=== PATIENT | female | born 1940 | race Caucasian/White ===

== ENCOUNTER 2021-10-26 11:31 | Emergency (ER) | payer MEDICARE, OTHER, SELFPAY ==
[2021-10-26] VITALS (11 sets, daily range): BP systolic 134–161; BP diastolic 63–76; PULSE 72–91; RESP 16; TEMP 36.9; O2SAT 96–99
--- NOTE | 2021-10-26 12:43 | DI.RAD.S_ITS ---
PROCEDURE: XR LUMBAR SPINE 2-3V INDICATIONS: low back pain w/sciatica TECHNIQUE: 3 views of the lumbar spine were acquired. COMPARISON: None. FINDINGS: Bones: 5 eql-yqn-ifokcwt vertebrae are present. Moderate dextroscoliosis. There is grade 1 anterolisthesis of L4 on L5. No vertebral body compression fractures. No suspicious bony lesions. Degenerative disc disease is present, severe at L3-L4 and L4-L5, moderate at L2-L3. Dlswdjfz-tn-xvzidv degenerative facet arthropathy at L3-L4, L4-L5 and L5-S1. Soft tissues: Overlying bowel gas pattern is normal. No suspicious soft tissue calcifications. IMPRESSION: 1. Degenerative disc and facet disease in lumbar spine as described. MRI is recommended for further evaluation. 2. Scoliosis. 3. Grade 1 anterolisthesis of L4 on L5. Dictated by: Wing Carrero M.D. on 10/26/2021 at 14:35 Approved by: Wing Carrero M.D. on 10/26/2021 at 14:39
[2021-10-26] MEDS: LIDOCAINE PATCH 1 EACH ADH..PATCH TOP (13:09)
[2021-10-26] MEDS: methocarbamoL 500 MG TABLET 250 MG PO (13:10)
[2021-10-26] MEDS: IBUPROFEN 400 MG TABLET 600 MG PO (13:10)
[2021-10-26] MEDS: ACETAMINOPHEN 325 MG TABLET 650 MG PO (13:10)
--- NOTE | 2021-10-26 13:21 | ED_ITS ---
HPI - Back Pain/Injury <KENDY Sharma - Last Filed: 10/26/21 15:05> General Chief Complaint: Back Pain/Injury Stated Complaint: Pain, previous fall Time Seen by Provider: 10/26/21 12:42 Source: patient and EMS History of Present Illness HPI Narrative: This is a 81-year-old female presents to the emergency department by ambulance for worsening low back pain with a history of this since a lumbar surgery five years ago. Patient endorses having chronic neuropathy in her feet, not due to diabetes, reports that she has occasional falls due to this and had two falls over the last 10 days 1st falling down on her tailbone, two days later she fell down and injured her left ribs. She states that her ribs and tailbone have improved but she has had worsening low back pain. She saw a chiropractor on 10/22/21 and states that that had helped her pain quite a bit. She lives at home with her , endorses pain in her lower lumbar spine which she has to cross both of her hips and does not radiate else. She states that it is too painful to walk at home. She called an ambulance because she had too much pain to get up. She endorses using CBD cream for pain and states that it has not been adequate. She denies any new weakness or sensation changes, denies any recent illness, fever, incontinence, abdominal pain, flank pain or other symptom. Related Data Previous Rx's Medication Instructions Recorded diclofenac sodium 1 % topical gel 4 g topical TID PRN back/joint 10/26/21 pain #100 grams hydrocodone 5 mg-acetaminophen 325 1 tab PO BID PRN pain #14 tabs 10/26/21 mg tablet lidocaine 5 % topical patch 1 patch topical DAILY PRN pain #15 10/26/21 (Lidoderm) ea methocarbamol 500 mg tablet 500 mg PO BEDTIME PRN muscle spasm 10/26/21 #14 tabs Allergies Allergy/AdvReac Type Severity Reaction Status Date / Time Sulfa (Sulfonamide Allergy Unknown Verified 10/26/21 13:09 Antibiotics) [SULFA (SULFONAMIDE ANTIBIOTICS)] Review of Systems <KENDY Sharma - Last Filed: 10/26/21 15:05> Review of Systems Narrative: General: denies fever, chills Head/Neck: denies headache, neck pain Eyes: denies visual changes, eye pain Cardio: denies chest pain, palpitations Respiratory: denies shortness of breath, cough GI: denies abdominal pain, nausea, vomiting, or diarrhea : denies dysuria, hematuria or flank pain MSK: denies new joint pain, muscle weakness or swelling endorses lower lumbar pain with radiation of pain to bilateral hips Skin: denies rash, itching or wound Neuro: denies numbness, tingling, dizziness Patient History <KENDY Sharma - Last Filed: 10/26/21 15:05> Family History Father Diabetes mellitus Exam <KENDY Sharma - Last Filed: 10/26/21 15:05> Narrative Exam Narrative: Independently reviewed vitals signs and nursing notes. General: cooperative, comfortable, in no acute distress, well groomed Head: atraumatic, symmetrical facial expressions Neck: supple Eyes: equal round and reactive, EOMI, conjunctiva normal Nose: nares patent, no rhinorrhea Mouth/Throat: moist mucus membranes Cardiovascular: regular rate and rhythm, no peripheral edema, warm extremities Respiratory: normal effort, able to speak in complete sentences, no audible wheezing, stridor, or rales. No retractions or tachypnea. GI: abdomen soft, nontender to palpation, nondistended, no masses, no exquisite tenderness with exam, without guarding or rebound. MSK: Lumbar stay and sacral spine nontender to palpation, paraspinal musculature is tight, having lumbar muscle spasms, moves all extremities, equal strength bilaterally neurovascularly intact, no weakness, normal tone Skin: brisk capillary refill, no rash, no erythema Neuro: normal speech and cognition, A&O x3 Psych: mental status is grossly normal, congruent mood, normal affect, pleasant and cooperative Initial Vital Signs Initial Vital Signs: Vital Signs Temperature 98.4 F 10/26/21 11:31 Pulse Rate 91 H 10/26/21 11:31 Respiratory Rate 16 10/26/21 11:31 Blood Pressure 161/75 H 10/26/21 11:31 Pulse Oximetry 99 10/26/21 11:31 Oxygen Delivery Method 10/26/21 11:31 <Amee Barraza DO - Last Filed: 10/28/21 13:09> Initial Vital Signs Initial Vital Signs: Vital Signs Temperature 98.4 F 10/26/21 11:31 Pulse Rate 91 H 10/26/21 11:31 Respiratory Rate 16 10/26/21 11:31 Blood Pressure 161/75 H 10/26/21 11:31 Pulse Oximetry 99 10/26/21 11:31 Oxygen Delivery Method 10/26/21 11:31 Course <KENDY Sharma - Last Filed: 10/26/21 15:05> Orders Ordered: Discontinued Medications Acetaminophen (Acetaminophen 325 Mg Tablet) 650 mg PO NOW ONE Stop: 10/26/21 12:44 Last Admin: 10/26/21 13:10 Dose: 650 mg Documented By: MERLENE Hydrocodone Bitart/Acetaminophen (Hydrocodone/Acet 5/325 Tablet) 1 tab PO NOW ONE Stop: 10/26/21 13:22 Last Admin: 10/26/21 13:55 Dose: 1 tab Documented By: MERLENE Ibuprofen (Ibuprofen 400 Mg Tablet) 600 mg PO NOW ONE Stop: 10/26/21 12:44 Last Admin: 10/26/21 13:10 Dose: 600 mg Documented By: MERLENE Lidocaine (Lidocaine Patch 1 Each Adh..Patch) 1 each TOP NOW ONE Stop: 10/26/21 12:44 Last Admin: 10/26/21 13:09 Dose: 1 each Documented By: MERLENE Methocarbamol (Methocarbamol 500 Mg Tablet) 250 mg PO NOW ONE Stop: 10/26/21 12:44 Last Admin: 10/26/21 13:10 Dose: 250 mg Documented By: MERLENE Vital Signs Vital signs: Vital Signs - 8 hr 10/26/21 11:31 10/26/21 11:36 10/26/21 11:36 Temperature 98.4 F Pulse Rate 91 H 89 Respiratory Rate 16 Blood Pressure 161/75 H 161/75 H Pulse Oximetry 99 99 Oxygen Delivery Method Room Air 10/26/21 12:00 10/26/21 12:00 10/26/21 12:30 Temperature Pulse Rate 83 Respiratory Rate Blood Pressure 145/72 H 154/76 H Pulse Oximetry 99 Oxygen Delivery Method 10/26/21 12:30 Temperature Pulse Rate 78 Respiratory Rate Blood Pressure Pulse Oximetry 99 Oxygen Delivery Method <Amee Barraza DO - Last Filed: 10/28/21 13:09> Orders Ordered: Discontinued Medications Acetaminophen (Acetaminophen 325 Mg Tablet) 650 mg PO NOW ONE Stop: 10/26/21 12:44 Last Admin: 10/26/21 13:10 Dose: 650 mg Documented By: MERLENE Hydrocodone Bitart/Acetaminophen (Hydrocodone/Acet 5/325 Tablet) 1 tab PO NOW ONE Stop: 10/26/21 13:22 Last Admin: 10/26/21 13:55 Dose: 1 tab Documented By: MERLENE Ibuprofen (Ibuprofen 400 Mg Tablet) 600 mg PO NOW ONE Stop: 10/26/21 12:44 Last Admin: 10/26/21 13:10 Dose: 600 mg Documented By: MERLENE Lidocaine (Lidocaine Patch 1 Each Adh..Patch) 1 each TOP NOW ONE Stop: 10/26/21 12:44 Last Admin: 10/26/21 13:09 Dose: 1 each Documented By: MERLENE Methocarbamol (Methocarbamol 500 Mg Tablet) 250 mg PO NOW ONE Stop: 10/26/21 12:44 Last Admin: 10/26/21 13:10 Dose: 250 mg Documented By: MERLENE Vital Signs Vital signs: Vital Signs - 8 hr 10/26/21 11:31 10/26/21 11:36 10/26/21 11:36 Temperature 98.4 F Pulse Rate 91 H 89 Respiratory Rate 16 Blood Pressure 161/75 H 161/75 H Pulse Oximetry 99 99 Oxygen Delivery Method Room Air 10/26/21 12:00 10/26/21 12:00 10/26/21 12:30 Temperature Pulse Rate 83 Respiratory Rate Blood Pressure 145/72 H 154/76 H Pulse Oximetry 99 Oxygen Delivery Method 10/26/21 12:30 Temperature Pulse Rate 78 Respiratory Rate Blood Pressure Pulse Oximetry 99 Oxygen Delivery Method MDM - Back Pain/Injury <KENDY Sharma - Last Filed: 10/26/21 15:05> Lab Data Labs: Urine Dip Bedside Urine Glucose Negative Bedside Urine Bilirubin - Negative Bedside Urine Ketone - Negative Urine Specific [place] 1.015 Bedside Urine Occult Blood - Negative Bedside Urine pH 7.0 Bedside Urine Protein - Negative Bedside Urine Urobilinogen - Negative Bedside Urine Nitrite - Negative Bedside Urine Leukocytes - Negative Esterase Imaging Data lumbar spine: Radiologist's Impression: PROCEDURE:? XR LUMBAR SPINE 2-3V ? INDICATIONS:? low back pain w/sciatica ? TECHNIQUE:? 3 views of the lumbar spine were acquired.? ? COMPARISON:? None. ? FINDINGS:? ?Bones:? 5 cql-lyt-ybsqeck vertebrae are present.? Moderate dextroscoliosis.? There is grade 1 anterolisthesis of L4 on L5.? No vertebral body compression fractures.? No suspicious bony lesions.? Degenerative disc disease is present, severe at L3-L4 and L4-L5, moderate at L2-L3.? Uvkbnjby-zb-cxaxkn degenerative facet arthropathy at L3-L4, L4-L5 and L5-S1. ? Soft tissues:? Overlying bowel gas pattern is normal.? No suspicious soft tissue calcifications.? ? ? IMPRESSION:? ?1. Degenerative disc and facet disease in lumbar spine as described.? MRI is recommended for further evaluation. 2. Scoliosis. 3. Grade 1 anterolisthesis of L4 on L5.? ? Dictated by: Wing Carrero M.D. on 10/26/2021 at 14:35 ? ? Approved by: Wing Carrero M.D. on 10/26/2021 at 14:39 ? MDM Narrative Medical decision making narrative: This is a pleasant 81-year-old female with history of low back pain with lumbar surgery five years ago, peripheral neuropathy in bilateral lower extremities which lead to imbalance and frequent falls, who presents to the emergency department after two falls eight in 10 days ago which have flared up her low back pain. Patient reports that 10 days ago she had a fall directly onto her coccyx, did not seek medical attention and has been ambulatory and going about her business per usual using a walker. Patient has been using CBD cream for her pain which has not helped much. She did not hit her head when she fell. Lumbar x-ray shows degenerative disc and facet disease in her lumbar spine with moderate dextroscoliosis, grade 1 anterolisthesis of L4 on L5, no vertebral body compression fractures. She was medicated with hydrocodone, lidocaine patch, 250 mg of Robaxin, Tylenol and 600 mg of ibuprofen and states that her pain was much better. She was able to ambulate to void without significant pain or spasms. Encouraged her to follow-up with her primary care provider, chiropractor, and possibly physical therapy it would be beneficial after her flare has improved. Multiple etiologies of back pain considered including; Epidural abscess, cauda equina, mass occupying lesion, lumbar fracture, intra-abdominal pathology chronic neuropathic pain and other considered. Patient does not have any new weakness, no incontinence, no urinary retention, is ambulatory again and understands to follow-up with her outpatient providers as discussed. Patient is appropriate and amenable to discharge home. Vital signs are stable on repeat examination is unremarkable. Patient has been informed of results. Patient has been given strict return to ER precautions for any new or worsening symptoms. Patient understands to follow up closely with outpatient providers as instructed. Patient understands plan and agrees to discharge home. All questions and concerns answered at this time. <Amee Barraza, DO - Last Filed: 10/28/21 13:09> Lab Data Labs: Urine Dip Bedside Urine Glucose Negative Bedside Urine Bilirubin - Negative Bedside Urine Ketone - Negative Urine Specific [place] 1.015 Bedside Urine Occult Blood - Negative Bedside Urine pH 7.0 Bedside Urine Protein - Negative Bedside Urine Urobilinogen - Negative Bedside Urine Nitrite - Negative Bedside Urine Leukocytes - Negative Esterase Discharge Plan Departure Patient Disposition: Home Clinical Impression: Facet arthritis, degenerative, lumbar spine, Anterolisthesis of lumbar spine Degenerative disk disease Qualifiers: Spinal region: lumbar Qualified Code(s): M51.36 - Other intervertebral disc degeneration, lumbar region Scoliosis Qualifiers: Scoliosis type: unspecified scoliosis Spinal region: lumbar Qualified Code(s): M41.9 - Scoliosis, unspecified Instructions: Osteoarthritis, Degenerative Disc Disease, DI for Back Spasm, DI for Lumbar Radiculopathy Activity Restrictions/Additional Instructions: *You have been diagnosed with [ ] falls which have likely exacerbated your degenerative disc and facets in your lumbar spine with history of scoliosis and a mildly slipped disc of L4 on L5. There are no compression fractures, your back pain might benefit from a topical anti-inflammatory, heat, light massage, follow-up with your chiropractor, and take ibuprofen occasionally with food and water if it is helpful. I have prescribed for you hydrocodone for pain not relieved by Tylenol, ibuprofen, and muscle relaxers. Please use the muscle relaxer before bed to help you sleep and save your pain pills for the daytime. They both can cause sedation so use an assistive walking device the keep herself safe and follow-up with your primary doctor for of physical therapy referral if you need one or ongoing pain medication if he knew that as well. I hope you feel better soon, try not to stay too still because joints like movement. *What to do: *Please continue to take your regular medications as directed. [ x] New medication prescriptions sent to your pharmacy: [ [facility] [place]] [ ] New medication written as a paper prescription [ ] No new medications given *Please follow up with your primary care provider in 2-3 days, call for an appointment. Let them know you were seen in the Emergency Department and that we asked that you be seen for follow-up. We will electronically transmit a record of today's note if your PCP is in our system *If you do not have a primary care provider please contact [phone] to establish care with one of [facility] primary care providers. *Return to Emergency Department if you should have any new, worsening or concerning symptoms, such as [fever greater than 101F, chills, worsening pain, persistent vomiting or other bothersome symptoms] Prescriptions: New methocarbamol 500 mg tablet 500 mg PO BEDTIME PRN (Reason: muscle spasm) Qty: 14 0RF hydrocodone-acetaminophen 5-325 mg tablet 1 tab PO BID PRN (Reason: pain) Qty: 14 0RF lidocaine [Lidoderm] 5 % adhesive patch,medicated 1 patch topical DAILY PRN (Reason: pain) Qty: 15 0RF Rx Instructions: leave on most painful area for up to 12 hrs diclofenac sodium 1 % gel 4 g topical TID PRN (Reason: back/joint pain) Qty: 100 0RF Referrals: Elias Smith MD [Physician] - Rocio Astudillo ND [Primary Care Provider] - David Mccormick DC [Non-Staff] - Visit Report Forms: Patient Portal/API <Amee Barraza DO - Last Filed: 10/28/21 13:09> [facility] Attending Andrei Attestation: I was immediately available in the department for consultation. Documentation has been reviewed. I agree with assessment and plan.
[2021-10-26] MEDS: HYDROCODONE/ACET 5/325 TABLET 1 TAB PO (13:55)
== END 2021-10-26 15:15 | disposition home or self-care (01) ==
PROVIDERS: Emergency Provider Nurse Practitioner Critical Care Medicine; Family Provider Naturopath; PCP Naturopath
DX: M51.36 Other intervertebral disc degeneration, lumbar region (principal); M41.9 Scoliosis, unspecified; M47.816 Spondylosis without myelopathy or radiculopathy, lumbar region; M43.16 Spondylolisthesis, lumbar region; R29.6 Repeated falls
CPT/HCPCS: 72100; 81003; 99283; 99284

== ENCOUNTER → 2021-11-04 12:55 | Outpatient (CLI) | payer MEDICARE, OTHER, SELFPAY ==
--- NOTE | 2021-11-04 12:56 | DI.MRI.S_ITS ---
PROCEDURE: MR LUMBAR SPINE WO CON INDICATIONS: r/o disc impingement TECHNIQUE: Noncontrast sagittal T1 spin echo and T2 fast echo, sagittal STIR, and T2 fast spin echo through the lumbar spine. In cases with scoliosis, additional coronal T2 fast spin echo may be performed. COMPARISON: [facility], CT, ABDOMEN/PELVIS WITH CONTRAST, 08/21/2013, 12:57. [facility], CR, XR LUMBAR SPINE 2-3V, 10/26/2021, 12:37. FINDINGS: Image quality: This examination is limited by involuntary motion artifact. Alignment and Curvature: There is kstz-ea-blcxsfwn dextroconvex scoliosis. Grade 1 L4-5 anterolisthesis is seen. There is an apparent associated L4 pars defect on the right side. Bone Marrow: Marrow is of normal overall signal. No acute vertebral body compression fractures. Spinal Cord: Conus medullaris terminates at the L1 level. Visualized cord demonstrates normal signal and size. Paraspinous Soft Tissues: No paravertebral masses. T11-T12: Moderate loss of disc height is seen. Mild generalized disc bulge is seen. There is mild right-sided and no left-sided neural foraminal narrowing. Mild central canal narrowing is seen. T12-L1: Mild loss of disc height is seen. Loss of disc signal is seen. Minimal to mild disc bulge is seen. No significant neural foraminal or central canal narrowing can be seen. L1-L2: No significant abnormality is seen. L2-L3: At least moderate loss of disc height is seen. Mild disc bulge is seen, which is eccentric to the left. Mild facet joint hypertrophy is seen. There is moderate left-sided and no right-sided neural foraminal narrowing. No significant central canal narrowing is seen. L3-L4: Moderate loss of disc height is seen. Loss of disc signal is seen. Movu-in-djoyvdxt disc bulge is seen. Moderate facet joint hypertrophy is seen. Associated hypertrophy of the ligamentum flavum can be seen. There is moderate to severe right-sided neural foraminal narrowing, with a mild degree of compression upon the exiting right L3 nerve root. Moderate left-sided neural foraminal narrowing is seen. Moderate central canal narrowing is seen. L4-L5: Moderate to severe loss of disc height and disc signal can be seen. Reactive marrow endplate changes are seen, which demonstrate mixed T1 weighted and T2-weighted signal, and are attributed to a combination of edema and fatty metaplasia (Modic type I and Modic type II changes). At least moderate disc bulge is seen. There is a central disc bulge/disc uncovering seen. Prominent facet hypertrophy is seen. There is moderate to severe bilateral neural foraminal narrowing seen, right worse than left. There is a degree of compression seen upon the exiting nerve roots. Severe central canal narrowing is seen, as on series 6, image 23. L5-S1: The disc height and disc signal are relatively well preserved. Mild generalized disc bulge is seen. Moderate to prominent facet hypertrophy is seen at this level. Moderate bilateral neural foraminal narrowing is seen. Moderate central canal narrowing is seen. IMPRESSION: Multiple levels of lumbar spine degenerative change are seen, which are worst at the L4-L5 level. At this level there is grade 1 anterolisthesis, moderate to severe bilateral neural foraminal narrowing, with associated exiting nerve root compression, and severe central canal narrowing. Jknt-tz-dfmcxbos dextroconvex scoliosis. Dictated by: Ivan Chou M.D. on 11/04/2021 at 15:32 Approved by: Ivan Chou M.D. on 11/04/2021 at 15:37
== END ==
PROVIDERS: Family Provider Pediatrics; PCP Pediatrics; Referring Provider Pediatrics; Visit Provider Pediatrics
DX: M47.817 Spondylosis without myelopathy or radiculopathy, lumbosacral region (principal); M47.816 Spondylosis without myelopathy or radiculopathy, lumbar region; M48.061 Spinal stenosis, lumbar region without neurogenic claudication; M48.07 Spinal stenosis, lumbosacral region; M43.16 Spondylolisthesis, lumbar region; M41.9 Scoliosis, unspecified
CPT/HCPCS: 72148

== ENCOUNTER → 2022-01-21 11:07 | Outpatient (CLI) | payer MEDICARE, OTHER, SELFPAY ==
[2022-01-21 15:19] LABS: Add Manual Diff / Slide Review NO; Basophils Absolute Auto 100 /uL (0-100); Basophils Percent Auto 1.2 % (0-2); Eosinophils Absolute Auto 100 /uL (0-450); Eosinophils Percent Auto 1.2 % (2-4); Hematocrit 36.4 % (36-46); Hemoglobin 12.9 g/dL (12.0-16.0); Lymphocytes Absolute Auto 2100 /uL (1100-4500); Lymphocytes Percent Auto 39.3 % (25-40); Mean Corpuscular HGB Conc 35.3 % (30-36); Mean Corpuscular Hemoglobin 35.6 PG (26-34); Mean Corpuscular Volume 100.7 fL (80-100); Monocytes Absolute Auto 400 /uL (0-900); Monocytes Percent Auto 6.9 % (3-14); Neutrophils Absolute Auto 2700 /uL (1500-7000); Neutrophils Percent Auto 51.4 % (50-75); Platelet Count 172 X10^3/uL (150-400); Red Blood Cell Count 3.62 X10^6/uL (4.0-5.2); Red Cell Distribution Width 13.3 % (11.6-14.8); White Blood Cell Count 5.3 X10^3/uL (4.5-11.0)
[2022-01-21 15:37] LABS: Alanine Aminotransferase 28 IU/L (<35); Albumin 4.5 g/dL (3.5-5.0); Albumin Globulin Ratio 1.1 (1.0-2.8); Alkaline Phosphatase 119 U/L (38-126); Aspartate Aminotransferase 59 IU/L (14-36); BUN Creatinine Ratio 23.4 (6-22); Bilirubin Total 0.6 mg/dL (0.2-1.3); Blood Urea Nitrogen 15 mg/dL (7-17); Calcium 9.2 mg/dL (8.4-10.2); Carbon Dioxide 24 mmol/L (22-32); Chloride 101 mmol/L (98-107); Cholesterol 187 mg/dL (140-199); Estimated Glomerular Filt Rate > 60 mL/min (>60); Globulin 4.2 g/dL (1.7-4.1); Glucose 99 mg/dL (80-110); HDL Cholesterol 56 mg/dL (40-60); HEMOLYSIS < 15 (0-50); LDL Cholesterol Calculated 114 mg/dL (<100); Sodium 138 mmol/L (137-145); Total Protein 8.7 g/dL (6.3-8.2); Triglycerides 84 mg/dL (35-150)
[2022-01-21 15:49] LABS: Vitamin D 25 Hydroxy (D3) 69.8 ng/mL (30.0-100.0)
[2022-01-21 16:13] LABS: TSH w/ Reflex to FT4 1.08 uIU/mL (0.47-4.68)
== END ==
PROVIDERS: Family Provider Pediatrics; PCP Family Medicine; Referring Provider Pediatrics; Visit Provider Pediatrics
DX: Z13.820 Encounter for screening for osteoporosis (principal); M81.0 Age-related osteoporosis without current pathological fracture; Z78.0 Asymptomatic menopausal state; Z79.890 Hormone replacement therapy; E55.9 Vitamin D deficiency, unspecified; Z13.220 Encounter for screening for lipoid disorders; Z13.228 Encounter for screening for other metabolic disorders; Z13.29 Encounter for screening for other suspected endocrine disorder
CPT/HCPCS: 36415; 77080; 80053; 80061; 82306; 84443; 85025

== ENCOUNTER → 2022-03-14 11:00 | Outpatient (CLI) | payer MEDICARE, OTHER, SELFPAY ==
[2022-03-14 12:10] LABS: COVID19 -Nasal RAPID Negative (Negative)
== END ==
PROVIDERS: Family Provider Pediatrics; PCP Family Medicine; Visit Provider Surgery
DX: Z20.822 Contact with and (suspected) exposure to COVID-19 (principal); Z01.812 Encounter for preprocedural laboratory examination
CPT/HCPCS: 87635; C9803

== ENCOUNTER 2022-03-15 06:40 | Day surgery (SDC) | payer MEDICARE, OTHER, SELFPAY ==
[2022-03-15 07:21] VITALS: BP 151/83; PULSE 94; RESP 16; TEMP 36.7; O2SAT 98; BMI 21.4
[2022-03-15] MEDS: LACTATED RINGERS 1,000 ML 42 ML IV (07:29)
--- NOTE | 2022-03-15 07:48 | PM.PREOP ---
Pre-operative Note COVID-19 COVID-19 status: Negative Interval Note History & Physical reviewed/Exam performed by Physician: Yes Changes to H&P: No
[2022-03-15 09:03] VITALS: BP 112/69; PULSE 76; RESP 14; TEMP 36.5; O2SAT 99
[2022-03-15 09:08] VITALS: BP 121/68; PULSE 77; RESP 14; O2SAT 99
[2022-03-15 09:13] VITALS: BP 118/69; PULSE 74; RESP 16; TEMP 36.2; O2SAT 99
--- NOTE | 2022-03-15 09:19 | PM.OP.COLON ---
Procedure & Clinicians Study performed: Colonoscopy Same procedure as scheduled: Yes Indications: screeing Surgeon: Geeta Velasquez Procedure Notes Procedure in detail: Patient was taken to the operating room and placed in left lateral decubitus position. A time-out was performed. With the help of anesthesia provider conscious sedation was performed. A digital rectal exam was performed. And the pediatric colonoscope was introduced. There was original dysfunction with the air insufflation of the device causing some delay. Once this was rectified the scope was advanced throughout the colon into the cecum with relative ease. Some photographs of the sigmoid displaying large diverticula were obtained. A photograph was taken of the appendiceal orifice. The scope was then withdrawn slowly. No polyps were appreciated. Upon withdrawal there was a red irritated area of rectum visualized consistent with the diagnosis of a rectal prolapse. The patient tolerated the procedure well and went in good condition to the postoperative care unit. Findings: divertiulosis Specimen(s): none sent Complications: none Post-procedure Recommendations: Colonoscopy in 10 years
[2022-03-15 09:30] VITALS: BP 151/83; PULSE 94; RESP 16; TEMP 36.7; O2SAT 98
== END 2022-03-15 09:46 | disposition home or self-care (01) ==
PROVIDERS: Family Provider Pediatrics; PCP Family Medicine; Referring Provider Surgery; Visit Provider Surgery
PROC: 0DJD8ZZ Inspection of Lower Intestinal Tract, Via Natural or Artificial Opening Endoscopic (ICD-10-PCS; CPT 45378; principal; 2022-03-15 07:45)
DX: Z12.11 Encounter for screening for malignant neoplasm of colon (principal); K57.30 Diverticulosis of large intestine without perforation or abscess without bleeding
CPT/HCPCS: G0121; J2704

== ENCOUNTER 2022-04-14 12:23 | Outpatient (CLI) | payer MEDICARE, OTHER, SELFPAY ==
--- NOTE | 2022-04-14 12:24 | DI.RAD.S_ITS ---
PROCEDURE: PAIN PERIPHERAL NRV BLK OTHER INDICATIONS: SACROILIAC DYSFUNCTION COMPARISON: [facility], CR, XR LUMBAR SPINE 2-3V, 10/26/2021, 12:37. FINDINGS: Fluoroscopic spot filming was performed to verify placement of spinal needles at the iliac crest level(s) bilaterally, as labeled on the films. Appropriate location(s) of the needle tip(s) was confirmed by injection of iodinated contrast. IMPRESSION: Fluoroscopy for pain management. Dictated by: Wing Carrero M.D. on 04/14/2022 at 15:59 Approved by: Wing Carrero M.D. on 04/14/2022 at 16:03
[2022-04-14 13:00] VITALS: BP 176/84; PULSE 88; RESP 20; TEMP 36.7; O2SAT 99
[2022-04-14 13:10] VITALS: BP 171/81; PULSE 76; RESP 19; O2SAT 100
[2022-04-14 13:25] VITALS: BP 160/86; PULSE 70; RESP 19; O2SAT 100
[2022-04-14] MEDS: BUPIVACAINE 0.5% (PF) 10 ML VIAL 5 ML SUBCUT (13:25)
[2022-04-14] MEDS: IOPAMIDOL 15 ML VIAL 3 ML INJ (13:29)
[2022-04-14 13:30] VITALS: BP 163/91; PULSE 75; RESP 21; O2SAT 100
[2022-04-14 13:35] VITALS: BP 160/81; PULSE 74; RESP 22; O2SAT 100
--- NOTE | 2022-04-14 13:42 | P.PCN_ITS ---
Date/Time/Diagnoses Date of procedure: 04/14/22 Time of procedure: 13:42 Pre-procedure diagnosis: Bilateral cluneal neuralgia Post-procedure diagnosis: same Procedure Notes Procedure: Bilateral Cluneal Nerve Blocks Indications: Tita is referred by Dr. Grisel Parsons for treatment of bilateral cluneal neuralgia with low back and buttock pain. Physician: El Jones Total Fluoroscopy time (seconds): 20 Total sedation minutes: 0 Procedure in detail & Post-procedure care: Bilateral Cluneal Nerve Blocks Chief Complaint: Low back and Bilateral buttock pain Interval changes in history/medications/system review: Unchanged since last visit Allergies: Reviewed Anticoagulants: None Focused Examination: Ax3 Mood and affect are normal Vital Signs: VSS Consent: Following review of allergies and potential side effects/complications, including, but not necessarily limited to, infection, allergic reaction, local tissue breakdown, stroke, temporary or permanent nerve injury, paralysis, and possible , the patient indicated that the patient understood and agreed to proceed.? An informed consent document was signed by the patient, witnessed by a nurse, and placed in the patient's chart.? Additionally, other treatment options including medications, modalities, and physical therapy were reviewed with the patient. All questions were answered. Site was then marked. Position: Prone Anesthesia: Local Monitoring: NIBP, Pulse oximetry, 3 lead EKG Needle used: 25 gauge, 3.5 inch spinal needle x3 Contrast: Isovue 300-M 2mL Injectate: Depomedrol 40mg with 5 mL 0.5% Bupivacaine per side Technique: The skin was prepped with chloraprep and then draped in a sterile fashion. Time out was performed as per protocol. Oxygen applied via NC. Midline of the spine was identified using fluoroscopy. The skin was measured 8 cm from midline and sterile brit placed on the skin delineating the superior aspect of the iliac crest on the right. Two thornton were subsequently made 2 cm medial and 2 cm lateral for a total of 3 target sites. Skin and subcutaneous structures of the needle entry sites were then infiltrated with 5 mL of lidocaine 1%. Under AP and contralateral oblique control, the needle was guided to the superior aspect of the iliac crest in the 3 locations. Contrast was injected and the spread was consistent with appropriate needle positioning. There was no evidence for intravascular uptake. After negative aspiration, the above-mentioned injectate was slowly administered and the needles withdrawn. The patient expressed no unusual discomfort or paresthesias during needle positioning or injection. This process was then repeated for the left side. EBL: less than 1 ml Complications: None Post Procedure: Patient was taken to the recovery and monitored. The patient was provided a Pain Log to continue to record the patient's response to the target- specific procedure prior to the patient's follow-up visit with the referring physician. Patient was stable upon discharge. Detailed post procedure instructions were provided. Patient was asked to call in the event of worsening pain, fever, weakness, numbness or bladder or bowel incontinence.
[2022-04-14 13:45] VITALS: BP 187/99; PULSE 79; RESP 18; O2SAT 100
== END 2022-04-14 13:54 | disposition home or self-care (01) ==
PROVIDERS: Family Provider Pediatrics; PCP Family Medicine; Referring Provider Anesthesiology; Visit Provider Anesthesiology
DX: M79.2 Neuralgia and neuritis, unspecified (principal)
CPT/HCPCS: 64450; J1030; J1040; J2920

== ENCOUNTER 2022-04-28 09:45 | Outpatient (RCR) | payer MEDICARE, OTHER, SELFPAY ==
--- NOTE | 2021-11-24 13:18 | PT.OIE ---
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) Past Medical History (Last Updated 11/09/21 @ 10:46 by Dusty Melo MD) Post-menopausal Screening for osteoporosis Spinal stenosis at L4-L5 level Visit Care Team Role Provider Type Dusty Melo MD Attending Provider Physician Family Provider Primary Care Provider Referring Provider Specialty: Internal Medicine Pediatrics Address: [address] [place] [address], [id number] Phone: Fax: Email: [email or web address] Initial Evaluation PT-OP-A Visit Information Start: 11/18/21 17:15 Freq: Status: Active Protocol: Document 11/24/21 12:00 AW (Rec: 11/18/21 17:21 AW [id number]) Out-Patient Physical Therapy Visit Information Visit Information Visit Type Initial Evaluation Visit Start Time 11:15 Visit Stop Time 12:00 Total Visit Minutes 45 Visit Number 1 Evaluation Information Evaluation Date 11/24/21 PT-OP-B Current Condition Start: 11/18/21 17:15 Freq: Status: Active Protocol: Document 11/24/21 12:00 AW (Rec: 11/18/21 17:21 AW [id number]) Current Condition History of Current Condition Onset Date Spring 2021 Current Complaints low back pain History of Current Condition Leidy fell this past spring and bruised her ribs, was very painful. She denies falls history before this. After a month or so, she had improved enough to get out to the yard and do some weeding in late August. She fell again and hurt her back. Has been seeing chiropractor since then. On October 26, she was very limited in her movement and went to ED . She was given pain meds which she is still taking. She has history of L sciatica but she is now having pain more on right side low back, buttock, lateral thigh to mid thigh. Oxycodone helps. Occasional heat helps. First thing in the morning is worst pain. Same when oxycodone wears off. It hurts to bend forward. She has been ambulating with FWW and then 4WW since August. Pt feels walker helps with her balance. She had never used a walker before . Her states even before the falls, her balance was getting worse and she would often cruise furniture for support. She has neuropathy in both feet but pt states it is mild and she feels slight dulling of sensation only occasionally. Prior Treatments and Tests - MRI 11/04/21: Multiple levels of lumbar spine degenerative change are seen, which are worst at the L4-L5 level. At this level there is grade 1 anterolisthesis, moderate to severe bilateral neural foraminal narrowing, with associated exiting nerve root compression, and severe central canal narrowing. 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 Future Testing and Treatments Planned 11/26 Neurosurgery in [place] . Developmental History Developmental History PMH includes ruptured colon treated surgically. Treatment Goals Patient/Caregiver Goals Walk without a walker, bend over to do gardening tasks. Take a shower independently. Prior Functional Status Baseline Function- ADL's Independent Baseline Function- Mobility Independent Baseline Function- Gait No AD but with worsening balance Baseline Function- Recreation/Hobbies Able to garden without pain Current Functional Impairments (Reported) Functional Limitations- ADL's Unable to shower regularly - partially due to decreased confidence. Functional Limitations- Mobility/Gait Needs 4WW for balance Functional Limitations- Recreation/ Unable to bend forward for Hobbies gardening tasks without pain or fear of falling. PT-OP-C Subjective Start: 11/18/21 17:15 Freq: Status: Active Protocol: Document 11/24/21 12:00 AW (Rec: 11/24/21 12:53 AW [id number]) OP-PT Subjective Patient Comments Patient Comments I'd really like to walk without a walker. Patient Questionnaires Oswestry Low Back Index Oswestry Score 36 Oswestry Impairment 20 to 39% Impaired (Score 20- 39) OP-PT Pain Assessment Pain Assessment Grid Paper Pain Assessment Grid Completed Yes: Scanned to EMR Home Pain Medication Use Pain Medications Used Yes Home Pain Medication Frequency Alleve, oxycodone, lidocaine patches, methocarbamol daily Patient Goal Reduce to NSAID only and eventually to nothing. Comments Pain Comments Pain is primarily low back, right buttock, right lateral thigh. PT-OP-D Balance Start: 11/18/21 17:15 Freq: Status: Active Protocol: Document 11/24/21 12:00 AW (Rec: 11/24/21 12:53 AW [id number]) Balance Tests Single Limb Standing Single Limb- Right <1 sec Single Limb- Left 2 sec PT-OP-F Manual Assessment Start: 11/18/21 17:15 Freq: Status: Active Protocol: Document 11/24/21 12:00 AW (Rec: 11/24/21 12:58 AW [id number]) Manual Assessments Joint Mobility Assessment Joint Mobility Assessment Significantly reduced excursion in lumbar PA's especially lower levels. Other Manual Assessments Other Manual Assessments Mild tenderness anterior to right greater trochanter. PT-OP-G Mobility & Gait Start: 11/18/21 17:15 Freq: Status: Active Protocol: Document 11/24/21 12:00 AW (Rec: 11/24/21 12:58 AW [id number]) OP Gait Assessment Comments Gait Comments Pt ambulates with 4WW, poor control of inversion RLE, heavy footfalls on left, reduced stance time LLE. She tends to push 4WW too far in front of her although she states she is trying to minimize weightbearing on hands. PT-OP-J Posture/Palpation/Skin Start: 11/18/21 17:15 Freq: Status: Active Protocol: Document 11/24/21 12:00 AW (Rec: 11/24/21 13:02 AW [id number]) Posture Evaluation Comments Posture Comments Pt has flat lumbar spine, moderate lumbar scoliosis with apex to the right, higher pelvic landmarks on the left PT-OP-K Range of Motion Start: 11/18/21 17:15 Freq: Status: Active Protocol: Document 11/24/21 12:00 AW (Rec: 11/24/21 13:09 AW [id number]) Lumbar Spine Range of Motion Lumbar Spine Active Testing Position Standing Flexion 40 Extension 10 ROM Limitations Soft Tissue Tightness,Pain Comments Pt can reach knee joint line bilaterally with fingertips and has no increase in pain. Rotation is limited but not painful bilaterally in standing and in sitting. Hip Goniometric Range of Motion Hip bilat Hip ROM WFL Yes Comments All hip ROM WNL without pain reproduction at end-ranges. IR :ER ratio is ~1:3. No limitation in HS length with pt able to perform SLR well past 90 degrees. PT-OP-M Strength Start: 11/18/21 17:15 Freq: Status: Active Protocol: Document 11/24/21 12:00 AW (Rec: 11/24/21 12:58 AW [id number]) Hip Strength Hip Manual Muscle Testing bilat Flexion (L2) 4+ Good+ Extension (S1) 4- Good- Abduction 4- Good- Knee Strength Knee Manual Muscle Testing Right Flexion (S2) 4+ Good+ Extension (L3) 4+ Good+ Left Flexion (S2) 5 Normal Extension (L3) 5 Normal Ankle/Foot Strength Ankle and Foot Manual Muscle Testing Right Dorsiflexion (L4) 4 Good Plantarflexion (S1) 4- Good- Inversion 4 Good Eversion (S1) 4 Good Left Dorsiflexion (L4) 5 Normal Plantarflexion (S1) 4+ Good+ Inversion 5 Normal Eversion (S1) 5 Normal Toe Strength Toe Manual Muscle Testing Great Toe Comments 4+/5 left; 4/5 right PT-OP-Q Treatments Start: 11/18/21 17:15 Freq: Status: Active Protocol: Document 11/24/21 12:00 AW (Rec: 11/28/21 13:17 AW [id number]) Therapeutic Exercises Supine Exercises LTR Supine Exercise Name LTR Comments cued pain free range Prone Exercises prone press up Prone Exercise Name prone press up - on elbows Comments HEP Self-Care/Home Management Treatment Education Patient Education Home Exercise Program,Pain Management Other Education Discussed evaluation findings and proposed a plan of care centered around improving trunk stabilty, LE strength, and balance. Pt understood and agreed. PT-OP-T Assessment and Plan Start: 11/18/21 17:15 Freq: Status: Active Protocol: Document 11/24/21 12:00 AW (Rec: 11/24/21 13:06 AW [id number]) Physical Therapy Assessment Rehab Potential Rehabilitation Potential Good Evaluation Complexity Number of Personal Factors/Comorbidities 1-2 Number of Body Systems Impaired 3 Clinical Presentation at Evaluation Evolving Impairments Impairments Balance,Gait,Pain,Posture,ROM, Sensation,Soft Tissue Mobility ,Strength Goals Five Impairment balance Jail Goal (LTG) Pt will score 48/56 or greater on [place] Balance Scale as a measure of improved balance and safe independent mobility. LTG Duration 02/24/22 Four Impairment needs 4WW for ambulation Short Term Goal (STG) Pt will walk 1200 feet or greater on 6MWT with LRAD. STG Duration 01/05/22 Jail Goal (LTG) Pt will walk 1500 feet or greater on 6MWT with LRAD for parity with age-matched peers to improve community ambulation LTG Duration 02/24/22 Three Impairment pain with lifting Short Term Goal (STG) Pt will lift 10 pounds from waist height without increase in baseline pain to improve her ability to lift a laundry basket. STG Duration 01/05/22 Jail Goal (LTG) Pt will lift 20 pounds from the ground without increase in baseline pain so that she can manage groceries with greater ease. LTG Duration 02/24/22 Two Impairment pain with trunk flexion Short Term Goal (STG) Pt will tolerate unloaded trunk flexion with 3/10 or less pain STG Duration 01/05/22 Jail Goal (LTG) Pt will tolerate forward trunk positioning in standing or kneeling for 15 minutes to be able to return to gardening LTG Duration 02/24/22 One Impairment lacks HEP Short Term Goal (STG) Pt will be instructed in HEP for lumbar and hip mobility, trunk and hip strength to support therapy services provided in clinic. STG Duration 01/05/22 Jail Goal (LTG) Pt will be independent with HEP for lumbar and hip mobility, trunk and hip strength to manage pain symptoms and reduce likelihood of future injury. LTG Duration 02/24/22 Assessment Summary Assessment Tita is a 81 yo woman who attends outpatient physical therapy with complaints of right sided low back, buttock, and lateral thigh pain. She was independently mobile until earlier this year when two falls left her unable to walk without an assistive device. MRI revealed multi-level degeneration in the lumbar spine most significant at L4- L5. She is planning to see a neurosurgeon later this week. She presents with dextroscoliosis, poor trunk stability, and impaired hip strength which are likely contibutory and perpetuating for her pain symptoms. She is expected to benefit from skilled PT to improve trunk stabilization, lumbar mobility , and strength for return to regular self-care activities, recreation, and gait. Physical Therapy Plan Frequency and Duration Frequency of Treatment 2x/Week Duration of Treatment 3 months Plan of Care Start Date 11/24/21 Plan of Care End Date 02/24/22 Therapeutic Interventions Therapeutic Interventions Aquatic Therapy,Balance Training,Gait Training,Home Exercise Program,Manual Therapy,Neuromuscular Re- education,Self-Care/Home Management,Soft Tissue Mobilization,Therapeutic Activities,Therapeutic Exercises Modalities Cold Pack/Ice Massage,Hot Packs Next Visit Focus/Plan Next Note Type Treatment Note Next Visit Plan Assess [place]. Assess response to prone extension and LTR. Progress lumbar mobility as tolerated. Consider gait training with tripod cane/ trekking poles. LE strength - focus hip abduction, ankle eversion?
--- NOTE | 2021-11-24 13:18 | PT.OPPOC ---
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) Visit Care Team Role Provider Type Dusty Melo MD Attending Provider Physician Family Provider Primary Care Provider Referring Provider Specialty: Internal Medicine Pediatrics Address: [address] [place] [address], [id number] Phone: Fax: Email: [email or web address] Plan Of Care PT-OP-T Assessment and Plan Start: 11/18/21 17:15 Freq: Status: Active Protocol: Document 11/24/21 12:00 AW (Rec: 11/24/21 13:06 AW [id number]) Physical Therapy Assessment Rehab Potential Rehabilitation Potential Good Evaluation Complexity Number of Personal Factors/Comorbidities 1-2 Number of Body Systems Impaired 3 Clinical Presentation at Evaluation Evolving Impairments Impairments Balance,Gait,Pain,Posture,ROM, Sensation,Soft Tissue Mobility ,Strength Goals Five Impairment balance Correction Goal (LTG) Pt will score 48/56 or greater on [place] Balance Scale as a measure of improved balance and safe independent mobility. LTG Duration 02/24/22 Four Impairment needs 4WW for ambulation Short Term Goal (STG) Pt will walk 1200 feet or greater on 6MWT with LRAD. STG Duration 01/05/22 Fan Runner Goal (LTG) Pt will walk 1500 feet or greater on 6MWT with LRAD for parity with age-matched peers to improve community ambulation LTG Duration 02/24/22 Three Impairment pain with lifting Short Term Goal (STG) Pt will lift 10 pounds from waist height without increase in baseline pain to improve her ability to lift a laundry basket. STG Duration 01/05/22 Fan Runner Goal (LTG) Pt will lift 20 pounds from the ground without increase in baseline pain so that she can manage groceries with greater ease. LTG Duration 02/24/22 Two Impairment pain with trunk flexion Short Term Goal (STG) Pt will tolerate unloaded trunk flexion with 3/10 or less pain STG Duration 01/05/22 Correction Goal (LTG) Pt will tolerate forward trunk positioning in standing or kneeling for 15 minutes to be able to return to gardening LTG Duration 02/24/22 One Impairment lacks HEP Short Term Goal (STG) Pt will be instructed in HEP for lumbar and hip mobility, trunk and hip strength to support therapy services provided in clinic. STG Duration 01/05/22 Fan Runner Goal (LTG) Pt will be independent with HEP for lumbar and hip mobility, trunk and hip strength to manage pain symptoms and reduce likelihood of future injury. LTG Duration 02/24/22 Assessment Summary Assessment Tita is a 81 yo woman who attends outpatient physical therapy with complaints of right sided low back, buttock, and lateral thigh pain. She was independently mobile until earlier this year when two falls left her unable to walk without an assistive device. MRI revealed multi-level degeneration in the lumbar spine most significant at L4- L5. She is planning to see a neurosurgeon later this week. She presents with dextroscoliosis, poor trunk stability, and impaired hip strength which are likely contibutory and perpetuating for her pain symptoms. She is expected to benefit from skilled PT to improve trunk stabilization, lumbar mobility , and strength for return to regular self-care activities, recreation, and gait. Physical Therapy Plan Frequency and Duration Frequency of Treatment 2x/Week Duration of Treatment 3 months Plan of Care Start Date 11/24/21 Plan of Care End Date 02/24/22 Therapeutic Interventions Therapeutic Interventions Aquatic Therapy,Balance Training,Gait Training,Home Exercise Program,Manual Therapy,Neuromuscular Re- education,Self-Care/Home Management,Soft Tissue Mobilization,Therapeutic Activities,Therapeutic Exercises Modalities Cold Pack/Ice Massage,Hot Packs Next Visit Focus/Plan Next Note Type Treatment Note Next Visit Plan Assess [place]. Assess response to prone extension and LTR. Progress lumbar mobility as tolerated. Consider gait training with tripod cane/ trekking poles. LE strength - focus hip abduction, ankle eversion? Plan of Care Dates Plan of Care Start Date 11/24/21 Plan of Care End Date 02/24/22 Electronically Signed by: Lynda Vanessa, PT 11/28/21 1494 If you are in agreement with this Plan of Care, please return a signed and dated copy. I have reviewed this Plan of Care and certify that the skilled therapy services above are required to meet the patient?s needs. Physician Signature Date Printed Name and Credentials Clinical Instructor Signature Printed Name and Credentials
--- NOTE | 2021-12-01 16:16 | PT.OTN ---
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) Physical Therapy Treatment Note PT-OP-A Visit Information Start: 11/18/21 17:15 Freq: Status: Active Protocol: Document 12/01/21 13:54 SAK (Rec: 12/01/21 14:33 SAK [id number]) Out-Patient Physical Therapy Visit Information Visit Information Visit Type Treatment Note Visit Start Time 13:50 Visit Stop Time 14:30 Total Visit Minutes 40 Visit Number 2 Evaluation Information Evaluation Date 11/24/21 PT-OP-B Current Condition Start: 11/18/21 17:15 Freq: Status: Active Protocol: Document 11/24/21 12:00 AW (Rec: 11/18/21 17:21 AW [id number]) Current Condition History of Current Condition Onset Date Spring 2021 Current Complaints low back pain History of Current Condition Leidy fell this past spring and bruised her ribs, was very painful. She denies falls history before this. After a month or so, she had improved enough to get out to the yard and do some weeding in late August. She fell again and hurt her back. Has been seeing chiropractor since then. On October 26, she was very limited in her movement and went to ED . She was given pain meds which she is still taking. She has history of L sciatica but she is now having pain more on right side low back, buttock, lateral thigh to mid thigh. Oxycodone helps. Occasional heat helps. First thing in the morning is worst pain. Same when oxycodone wears off. It hurts to bend forward. She has been ambulating with FWW and then 4WW since August. Pt feels walker helps with her balance. She had never used a walker before . Her states even before the falls, her balance was getting worse and she would often cruise furniture for support. She has neuropathy in both feet but pt states it is mild and she feels slight dulling of sensation only occasionally. Prior Treatments and Tests - MRI 11/04/21: Multiple levels of lumbar spine degenerative change are seen, which are worst at the L4-L5 level. At this level there is grade 1 anterolisthesis, moderate to severe bilateral neural foraminal narrowing, with associated exiting nerve root compression, and severe central canal narrowing. 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 Future Testing and Treatments Planned 11/26 Neurosurgery in [place] . Developmental History Developmental History PMH includes ruptured colon treated surgically. Treatment Goals Patient/Caregiver Goals Walk without a walker, bend over to do gardening tasks. Take a shower independently. Prior Functional Status Baseline Function- ADL's Independent Baseline Function- Mobility Independent Baseline Function- Gait No AD but with worsening balance Baseline Function- Recreation/Hobbies Able to garden without pain Current Functional Impairments (Reported) Functional Limitations- ADL's Unable to shower regularly - partially due to decreased confidence. Functional Limitations- Mobility/Gait Needs 4WW for balance Functional Limitations- Recreation/ Unable to bend forward for Hobbies gardening tasks without pain or fear of falling. PT-OP-C Subjective Start: 11/18/21 17:15 Freq: Status: Active Protocol: Document 12/01/21 13:54 SAK (Rec: 12/01/21 14:33 SAK [id number]) OP-PT Subjective Patient Comments Patient Comments Reports wants to walk without walker. Saw Dr. Veras in [place] 11/26, injection to L5 recommended, not scheduled yet. Tolerating exercises well. PT-OP-D Balance Start: 11/18/21 17:15 Freq: Status: Active Protocol: Document 11/24/21 12:00 AW (Rec: 11/24/21 12:53 AW [id number]) Balance Tests Single Limb Standing Single Limb- Right <1 sec Single Limb- Left 2 sec PT-OP-F Manual Assessment Start: 11/18/21 17:15 Freq: Status: Active Protocol: Document 11/24/21 12:00 AW (Rec: 11/24/21 12:58 AW [id number]) Manual Assessments Joint Mobility Assessment Joint Mobility Assessment Significantly reduced excursion in lumbar PA's especially lower levels. Other Manual Assessments Other Manual Assessments Mild tenderness anterior to right greater trochanter. PT-OP-G Mobility & Gait Start: 11/18/21 17:15 Freq: Status: Active Protocol: Document 11/24/21 12:00 AW (Rec: 11/24/21 12:58 AW [id number]) OP Gait Assessment Comments Gait Comments Pt ambulates with 4WW, poor control of inversion RLE, heavy footfalls on left, reduced stance time LLE. She tends to push 4WW too far in front of her although she states she is trying to minimize weightbearing on hands. PT-OP-J Posture/Palpation/Skin Start: 11/18/21 17:15 Freq: Status: Active Protocol: Document 11/24/21 12:00 AW (Rec: 11/24/21 13:02 AW [id number]) Posture Evaluation Comments Posture Comments Pt has flat lumbar spine, moderate lumbar scoliosis with apex to the right, higher pelvic landmarks on the left PT-OP-K Range of Motion Start: 11/18/21 17:15 Freq: Status: Active Protocol: Document 11/24/21 12:00 AW (Rec: 11/24/21 13:09 AW [id number]) Lumbar Spine Range of Motion Lumbar Spine Active Testing Position Standing Flexion 40 Extension 10 ROM Limitations Soft Tissue Tightness,Pain Comments Pt can reach knee joint line bilaterally with fingertips and has no increase in pain. Rotation is limited but not painful bilaterally in standing and in sitting. Hip Goniometric Range of Motion Hip bilat Hip ROM WFL Yes Comments All hip ROM WNL without pain reproduction at end-ranges. IR :ER ratio is ~1:3. No limitation in HS length with pt able to perform SLR well past 90 degrees. PT-OP-M Strength Start: 11/18/21 17:15 Freq: Status: Active Protocol: Document 11/24/21 12:00 AW (Rec: 11/24/21 12:58 AW [id number]) Hip Strength Hip Manual Muscle Testing bilat Flexion (L2) 4+ Good+ Extension (S1) 4- Good- Abduction 4- Good- Knee Strength Knee Manual Muscle Testing Right Flexion (S2) 4+ Good+ Extension (L3) 4+ Good+ Left Flexion (S2) 5 Normal Extension (L3) 5 Normal Ankle/Foot Strength Ankle and Foot Manual Muscle Testing Right Dorsiflexion (L4) 4 Good Plantarflexion (S1) 4- Good- Inversion 4 Good Eversion (S1) 4 Good Left Dorsiflexion (L4) 5 Normal Plantarflexion (S1) 4+ Good+ Inversion 5 Normal Eversion (S1) 5 Normal Toe Strength Toe Manual Muscle Testing Great Toe Comments 4+/5 left; 4/5 right PT-OP-Q Treatments Start: 11/18/21 17:15 Freq: Status: Active Protocol: Document 12/01/21 13:54 [facility] (Rec: 12/01/21 14:33 [facility] [id number]) Cardio Equipment Recumbent Stepper (Sci-Fit) Duration (Minutes) 5 Resistance 1 Seat Position 6 Therapeutic Exercises Standing Exercises hip abduction Reps/Minutes 10x Comments cues for core activation, small movement, soft stance knee Gait Training Gait Activity alternative assistive devices Description quad cane, SPC, trekking poles instruction and trial Level of Assistance CGA, verbal cues Surface firm Distance/Duration 30 ft with each Treatment Focus correct sequencing and safety Comments felt most comfortable with SPC . present, correct fit discussed, recommended practice next to kitchen counter initially // bars Device Used none Level of Assistance CGA Distance/Duration 10 ft x 2 Treatment Focus dec UE support Comments mostly with no support, slow, decreased step length and foot clearance Neuro Re-Education Treatment Balance Activities [place] balance test Details 35 Equipment done Self-Care/Home Management Treatment Education Patient Education Home Exercise Program,Pain Management Other Education obtaining single point cane, correct fit and safe use PT-OP-T Assessment and Plan Start: 11/18/21 17:15 Freq: Status: Active Protocol: Document 12/01/21 13:54 [facility] (Rec: 12/01/21 14:33 [facility] [id number]) Physical Therapy Assessment Goals Five Impairment balance Usp Goal (LTG) Pt will score 48/56 or greater on [place] Balance Scale as a measure of improved balance and safe independent mobility. LTG Duration 02/24/22 Four Impairment needs 4WW for ambulation Short Term Goal (STG) Pt will walk 1200 feet or greater on 6MWT with LRAD. STG Duration 01/05/22 Usp Goal (LTG) Pt will walk 1500 feet or greater on 6MWT with LRAD for parity with age-matched peers to improve community ambulation LTG Duration 02/24/22 Three Impairment pain with lifting Short Term Goal (STG) Pt will lift 10 pounds from waist height without increase in baseline pain to improve her ability to lift a laundry basket. STG Duration 01/05/22 Usp Goal (LTG) Pt will lift 20 pounds from the ground without increase in baseline pain so that she can manage groceries with greater ease. LTG Duration 02/24/22 Two Impairment pain with trunk flexion Short Term Goal (STG) Pt will tolerate unloaded trunk flexion with 3/10 or less pain STG Duration 01/05/22 Night Monitor Goal (LTG) Pt will tolerate forward trunk positioning in standing or kneeling for 15 minutes to be able to return to gardening LTG Duration 02/24/22 One Impairment lacks HEP Short Term Goal (STG) Pt will be instructed in HEP for lumbar and hip mobility, trunk and hip strength to support therapy services provided in clinic. STG Duration 01/05/22 Usp Goal (LTG) Pt will be independent with HEP for lumbar and hip mobility, trunk and hip strength to manage pain symptoms and reduce likelihood of future injury. LTG Duration 02/24/22 Assessment Summary Assessment Patient reports no increase in pain with HEP. Able to tolerate 5 min on Sci-Fit recumbant elliptical. [place] balance score 35/56, lowest score for safe ambulation with assistive device. Patient demonstrated good understanding of use of cane, appeared safer and preferred SPC. Fair understanding of trekking poles but didn't feel as comfortable, would need further training. Patient present for session, he also demonstrated good understanding of appropriate fit and use of cane and they plan to obtain SPC and have practice where she can hold onto counter. Physical Therapy Plan Frequency and Duration Frequency of Treatment 2x/Week Duration of Treatment 3 months Plan of Care Start Date 11/24/21 Plan of Care End Date 02/24/22 Therapeutic Interventions Therapeutic Interventions Aquatic Therapy,Balance Training,Gait Training,Home Exercise Program,Manual Therapy,Neuromuscular Re- education,Self-Care/Home Management,Soft Tissue Mobilization,Therapeutic Activities,Therapeutic Exercises Modalities Cold Pack/Ice Massage,Hot Packs Next Visit Focus/Plan Next Note Type Treatment Note Next Visit Plan Further gait training with SPC , possibly trekking poles. Progress lumbar mobility and LE strengthening to include hip abduction and ankle eversion per POC.
--- NOTE | 2021-12-03 13:10 | PT.OTN ---
Current Diagnoses Scoliosis, unspecified (12/03/21) Spondylolisthesis, lumbar region (12/03/21) Spondylosis without myelopathy or radiculopathy, lumbar region (12/03/21) Physical Therapy Treatment Note PT-OP-A Visit Information Start: 11/18/21 17:15 Freq: Status: Active Protocol: Document 12/03/21 12:16 SP (Rec: 12/03/21 13:10 SP [id number]) Out-Patient Physical Therapy Visit Information Visit Information Visit Type Treatment Note Visit Start Time 12:16 Visit Stop Time 13:10 Total Visit Minutes 54 Visit Number 3 Number of [employer] Visits 1 Evaluation Information Evaluation Date 11/24/21 PT-OP-B Current Condition Start: 11/18/21 17:15 Freq: Status: Active Protocol: Document 11/24/21 12:00 AW (Rec: 11/18/21 17:21 AW [id number]) Current Condition History of Current Condition Onset Date Spring 2021 Current Complaints low back pain History of Current Condition Leidy fell this past spring and bruised her ribs, was very painful. She denies falls history before this. After a month or so, she had improved enough to get out to the yard and do some weeding in late August. She fell again and hurt her back. Has been seeing chiropractor since then. On October 26, she was very limited in her movement and went to ED . She was given pain meds which she is still taking. She has history of L sciatica but she is now having pain more on right side low back, buttock, lateral thigh to mid thigh. Oxycodone helps. Occasional heat helps. First thing in the morning is worst pain. Same when oxycodone wears off. It hurts to bend forward. She has been ambulating with FWW and then 4WW since August. Pt feels walker helps with her balance. She had never used a walker before . Her states even before the falls, her balance was getting worse and she would often cruise furniture for support. She has neuropathy in both feet but pt states it is mild and she feels slight dulling of sensation only occasionally. Prior Treatments and Tests - MRI 11/04/21: Multiple levels of lumbar spine degenerative change are seen, which are worst at the L4-L5 level. At this level there is grade 1 anterolisthesis, moderate to severe bilateral neural foraminal narrowing, with associated exiting nerve root compression, and severe central canal narrowing. 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 Future Testing and Treatments Planned 11/26 Neurosurgery in [place] . Developmental History Developmental History PMH includes ruptured colon treated surgically. Treatment Goals Patient/Caregiver Goals Walk without a walker, bend over to do gardening tasks. Take a shower independently. Prior Functional Status Baseline Function- ADL's Independent Baseline Function- Mobility Independent Baseline Function- Gait No AD but with worsening balance Baseline Function- Recreation/Hobbies Able to garden without pain Current Functional Impairments (Reported) Functional Limitations- ADL's Unable to shower regularly - partially due to decreased confidence. Functional Limitations- Mobility/Gait Needs 4WW for balance Functional Limitations- Recreation/ Unable to bend forward for Hobbies gardening tasks without pain or fear of falling. PT-OP-C Subjective Start: 11/18/21 17:15 Freq: Status: Active Protocol: Document 12/03/21 12:16 SP (Rec: 12/03/21 13:10 SP [id number]) OP-PT Subjective Patient Comments Patient Comments Pt arrives with spouse and use of new SPC on R little high for stature. She reports is little unsure how to pattern. She states R hip soreness especially getting sit<>stand and R rib feels protruding today, new. PT-OP-D Balance Start: 11/18/21 17:15 Freq: Status: Active Protocol: Document 11/24/21 12:00 AW (Rec: 11/24/21 12:53 AW [id number]) Balance Tests Single Limb Standing Single Limb- Right <1 sec Single Limb- Left 2 sec PT-OP-F Manual Assessment Start: 11/18/21 17:15 Freq: Status: Active Protocol: Document 11/24/21 12:00 AW (Rec: 11/24/21 12:58 AW [id number]) Manual Assessments Joint Mobility Assessment Joint Mobility Assessment Significantly reduced excursion in lumbar PA's especially lower levels. Other Manual Assessments Other Manual Assessments Mild tenderness anterior to right greater trochanter. PT-OP-G Mobility & Gait Start: 11/18/21 17:15 Freq: Status: Active Protocol: Document 11/24/21 12:00 AW (Rec: 11/24/21 12:58 AW [id number]) OP Gait Assessment Comments Gait Comments Pt ambulates with 4WW, poor control of inversion RLE, heavy footfalls on left, reduced stance time LLE. She tends to push 4WW too far in front of her although she states she is trying to minimize weightbearing on hands. PT-OP-J Posture/Palpation/Skin Start: 11/18/21 17:15 Freq: Status: Active Protocol: Document 11/24/21 12:00 AW (Rec: 11/24/21 13:02 AW [id number]) Posture Evaluation Comments Posture Comments Pt has flat lumbar spine, moderate lumbar scoliosis with apex to the right, higher pelvic landmarks on the left PT-OP-K Range of Motion Start: 11/18/21 17:15 Freq: Status: Active Protocol: Document 11/24/21 12:00 AW (Rec: 11/24/21 13:09 AW [id number]) Lumbar Spine Range of Motion Lumbar Spine Active Testing Position Standing Flexion 40 Extension 10 ROM Limitations Soft Tissue Tightness,Pain Comments Pt can reach knee joint line bilaterally with fingertips and has no increase in pain. Rotation is limited but not painful bilaterally in standing and in sitting. Hip Goniometric Range of Motion Hip bilat Hip ROM WFL Yes Comments All hip ROM WNL without pain reproduction at end-ranges. IR :ER ratio is ~1:3. No limitation in HS length with pt able to perform SLR well past 90 degrees. PT-OP-M Strength Start: 11/18/21 17:15 Freq: Status: Active Protocol: Document 11/24/21 12:00 AW (Rec: 11/24/21 12:58 AW [id number]) Hip Strength Hip Manual Muscle Testing bilat Flexion (L2) 4+ Good+ Extension (S1) 4- Good- Abduction 4- Good- Knee Strength Knee Manual Muscle Testing Right Flexion (S2) 4+ Good+ Extension (L3) 4+ Good+ Left Flexion (S2) 5 Normal Extension (L3) 5 Normal Ankle/Foot Strength Ankle and Foot Manual Muscle Testing Right Dorsiflexion (L4) 4 Good Plantarflexion (S1) 4- Good- Inversion 4 Good Eversion (S1) 4 Good Left Dorsiflexion (L4) 5 Normal Plantarflexion (S1) 4+ Good+ Inversion 5 Normal Eversion (S1) 5 Normal Toe Strength Toe Manual Muscle Testing Great Toe Comments 4+/5 left; 4/5 right PT-OP-Q Treatments Start: 11/18/21 17:15 Freq: Status: Active Protocol: Document 12/03/21 12:16 SP (Rec: 12/03/21 13:10 SP [id number]) Cardio Equipment Recumbent Stepper (Sci-Fit) Duration (Minutes) 5 Resistance 2 Seat Position 6 Recumbent Bicycle Duration (Minutes) 5 Resistance 2 Seat Position 4 Other UEs/ LEs,cued 30-35 RPM, cues slow breath, 356 steps Therapeutic Exercises Supine Exercises HS neutral stretch w/ AP Supine Exercise Name added to HEP Side right Reps/Minutes x10 AP piriformis stretch Supine Exercise Name added to HEP IR Side right Reps/Minutes 30 x3 Comments ed for support RLE with BUE and towel if needed toward opp shld Standing Exercises self STMs Standing Exercise Name ball wall standing glut, seated rolling pin:quad/ITB/ calf/ HS seated Side right Reps/Minutes 3min Comments good feedback response, will use hers at home Gait Training Gait Activity alternative assistive devices Description SPC Level of Assistance CGA, verbal cues Surface firm Distance/Duration 50 ft, 40 ft Treatment Focus correct sequencing and safety, WBOS stability Comments Noted little sway and retro lean but self recoveries. present, corrected fit , continued reminder practice next to kitchen counter initially, SBA recommendation. Manual Therapy Treatment Soft Tissue Mobilization intercostals Body Location R R QL, ES, piriformis, Glut med Body Location R Comments manual and instruction self ball wall PT-OP-T Assessment and Plan Start: 11/18/21 17:15 Freq: Status: Active Protocol: Document 12/03/21 12:16 SP (Rec: 12/03/21 13:10 SP [id number]) Physical Therapy Assessment Goals Five Impairment balance Beam Builder Helper Goal (LTG) Pt will score 48/56 or greater on [place] Balance Scale as a measure of improved balance and safe independent mobility. LTG Duration 02/24/22 Four Impairment needs 4WW for ambulation Short Term Goal (STG) Pt will walk 1200 feet or greater on 6MWT with LRAD. STG Duration 01/05/22 Skilled Nursing Goal (LTG) Pt will walk 1500 feet or greater on 6MWT with LRAD for parity with age-matched peers to improve community ambulation LTG Duration 02/24/22 Three Impairment pain with lifting Short Term Goal (STG) Pt will lift 10 pounds from waist height without increase in baseline pain to improve her ability to lift a laundry basket. STG Duration 01/05/22 Skilled Nursing Goal (LTG) Pt will lift 20 pounds from the ground without increase in baseline pain so that she can manage groceries with greater ease. LTG Duration 02/24/22 Two Impairment pain with trunk flexion Short Term Goal (STG) Pt will tolerate unloaded trunk flexion with 3/10 or less pain STG Duration 01/05/22 Beam Builder Helper Goal (LTG) Pt will tolerate forward trunk positioning in standing or kneeling for 15 minutes to be able to return to gardening LTG Duration 02/24/22 One Impairment lacks HEP Short Term Goal (STG) Pt will be instructed in HEP for lumbar and hip mobility, trunk and hip strength to support therapy services provided in clinic. STG Duration 01/05/22 Beam Builder Helper Goal (LTG) Pt will be independent with HEP for lumbar and hip mobility, trunk and hip strength to manage pain symptoms and reduce likelihood of future injury. LTG Duration 02/24/22 Assessment Summary Assessment Pt good feeback response to manual and instruction on self STMs use ball wall glut, rolling pin for LE decreased R hip and RLB pain end tx. [employer] adjusted new personal SPC to proper height. She patterns well but not feeling confident . She uses her 4WW at home for carrying items support. looking for trek poles . Will continue to progress gait with SPC/ poles future txs for improve distance LRAD for community navigation confidence and endurance. Physical Therapy Plan Frequency and Duration Frequency of Treatment 2x/Week Duration of Treatment 3 months Plan of Care Start Date 11/24/21 Plan of Care End Date 02/24/22 Therapeutic Interventions Therapeutic Interventions Aquatic Therapy,Balance Training,Gait Training,Home Exercise Program,Manual Therapy,Neuromuscular Re- education,Self-Care/Home Management,Soft Tissue Mobilization,Therapeutic Activities,Therapeutic Exercises Modalities Cold Pack/Ice Massage,Hot Packs Next Visit Focus/Plan Next Note Type Treatment Note Next Visit Plan Check self STMs and R hip/LB response to manual and self. Further gait training with SPC / trek poles. POC: Progress lumbar mobility and LE strengthening to include hip abduction and ankle eversion per POC.
--- NOTE | 2021-12-06 17:09 | PT.OTN ---
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) Physical Therapy Treatment Note PT-OP-A Visit Information Start: 11/18/21 17:15 Freq: Status: Active Protocol: Document 12/06/21 15:26 NBM (Rec: 12/06/21 17:09 NBM [id number]) Out-Patient Physical Therapy Visit Information Visit Information Visit Type Treatment Note Visit Start Time 13:22 Visit Stop Time 14:15 Total Visit Minutes 53 Visit Number 4 Number of RADIATION OFFICER Visits 2 PT-OP-B Current Condition Start: 11/18/21 17:15 Freq: Status: Active Protocol: Document 11/24/21 12:00 AW (Rec: 11/18/21 17:21 AW [id number]) Current Condition History of Current Condition Onset Date Spring 2021 Current Complaints low back pain History of Current Condition Leidy fell this past spring and bruised her ribs, was very painful. She denies falls history before this. After a month or so, she had improved enough to get out to the yard and do some weeding in late August. She fell again and hurt her back. Has been seeing chiropractor since then. On October 26, she was very limited in her movement and went to ED . She was given pain meds which she is still taking. She has history of L sciatica but she is now having pain more on right side low back, buttock, lateral thigh to mid thigh. Oxycodone helps. Occasional heat helps. First thing in the morning is worst pain. Same when oxycodone wears off. It hurts to bend forward. She has been ambulating with FWW and then 4WW since August. Pt feels walker helps with her balance. She had never used a walker before . Her states even before the falls, her balance was getting worse and she would often cruise furniture for support. She has neuropathy in both feet but pt states it is mild and she feels slight dulling of sensation only occasionally. Prior Treatments and Tests - MRI 11/04/21: Multiple levels of lumbar spine degenerative change are seen, which are worst at the L4-L5 level. At this level there is grade 1 anterolisthesis, moderate to severe bilateral neural foraminal narrowing, with associated exiting nerve root compression, and severe central canal narrowing. 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 Future Testing and Treatments Planned 11/26 Neurosurgery in [place] . Developmental History Developmental History PMH includes ruptured colon treated surgically. Treatment Goals Patient/Caregiver Goals Walk without a walker, bend over to do gardening tasks. Take a shower independently. Prior Functional Status Baseline Function- ADL's Independent Baseline Function- Mobility Independent Baseline Function- Gait No AD but with worsening balance Baseline Function- Recreation/Hobbies Able to garden without pain Current Functional Impairments (Reported) Functional Limitations- ADL's Unable to shower regularly - partially due to decreased confidence. Functional Limitations- Mobility/Gait Needs 4WW for balance Functional Limitations- Recreation/ Unable to bend forward for Hobbies gardening tasks without pain or fear of falling. PT-OP-C Subjective Start: 11/18/21 17:15 Freq: Status: Active Protocol: Document 12/06/21 15:26 NBM (Rec: 12/06/21 17:09 NBM [id number]) OP-PT Subjective Patient Comments Patient Comments Pt arrives with spouse, SPC on R, and B trekking poles. She states she has R hip soreness especially first thing in the morning. The rolling pin has been very helpful. She doesn't use the cane in the house because it is annoying, she uses the furniture and daily instead. Her R ankle has bothered her off and on today. PT-OP-D Balance Start: 11/18/21 17:15 Freq: Status: Active Protocol: Document 11/24/21 12:00 AW (Rec: 11/24/21 12:53 AW [id number]) Balance Tests Single Limb Standing Single Limb- Right <1 sec Single Limb- Left 2 sec PT-OP-F Manual Assessment Start: 11/18/21 17:15 Freq: Status: Active Protocol: Document 11/24/21 12:00 AW (Rec: 11/24/21 12:58 AW [id number]) Manual Assessments Joint Mobility Assessment Joint Mobility Assessment Significantly reduced excursion in lumbar PA's especially lower levels. Other Manual Assessments Other Manual Assessments Mild tenderness anterior to right greater trochanter. PT-OP-G Mobility & Gait Start: 11/18/21 17:15 Freq: Status: Active Protocol: Document 11/24/21 12:00 AW (Rec: 11/24/21 12:58 AW [id number]) OP Gait Assessment Comments Gait Comments Pt ambulates with 4WW, poor control of inversion RLE, heavy footfalls on left, reduced stance time LLE. She tends to push 4WW too far in front of her although she states she is trying to minimize weightbearing on hands. PT-OP-J Posture/Palpation/Skin Start: 11/18/21 17:15 Freq: Status: Active Protocol: Document 11/24/21 12:00 AW (Rec: 11/24/21 13:02 AW [id number]) Posture Evaluation Comments Posture Comments Pt has flat lumbar spine, moderate lumbar scoliosis with apex to the right, higher pelvic landmarks on the left PT-OP-K Range of Motion Start: 11/18/21 17:15 Freq: Status: Active Protocol: Document 11/24/21 12:00 AW (Rec: 11/24/21 13:09 AW [id number]) Lumbar Spine Range of Motion Lumbar Spine Active Testing Position Standing Flexion 40 Extension 10 ROM Limitations Soft Tissue Tightness,Pain Comments Pt can reach knee joint line bilaterally with fingertips and has no increase in pain. Rotation is limited but not painful bilaterally in standing and in sitting. Hip Goniometric Range of Motion Hip bilat Hip ROM WFL Yes Comments All hip ROM WNL without pain reproduction at end-ranges. IR :ER ratio is ~1:3. No limitation in HS length with pt able to perform SLR well past 90 degrees. PT-OP-M Strength Start: 11/18/21 17:15 Freq: Status: Active Protocol: Document 11/24/21 12:00 AW (Rec: 11/24/21 12:58 AW [id number]) Hip Strength Hip Manual Muscle Testing bilat Flexion (L2) 4+ Good+ Extension (S1) 4- Good- Abduction 4- Good- Knee Strength Knee Manual Muscle Testing Right Flexion (S2) 4+ Good+ Extension (L3) 4+ Good+ Left Flexion (S2) 5 Normal Extension (L3) 5 Normal Ankle/Foot Strength Ankle and Foot Manual Muscle Testing Right Dorsiflexion (L4) 4 Good Plantarflexion (S1) 4- Good- Inversion 4 Good Eversion (S1) 4 Good Left Dorsiflexion (L4) 5 Normal Plantarflexion (S1) 4+ Good+ Inversion 5 Normal Eversion (S1) 5 Normal Toe Strength Toe Manual Muscle Testing Great Toe Comments 4+/5 left; 4/5 right PT-OP-Q Treatments Start: 11/18/21 17:15 Freq: Status: Active Protocol: Document 12/06/21 15:26 [facility] (Rec: 12/06/21 17:09 [facility] [id number]) Cardio Equipment Recumbent Stepper (Sci-Fit) Duration (Minutes) 5 Resistance 2 Seat Position 6 Therapeutic Exercises Supine Exercises HS neutral stretch w/ AP Side right Reps/Minutes x10 AP piriformis stretch Supine Exercise Name IR Side right Reps/Minutes 30 x3 Comments ed for support RLE with BUE and towel if needed toward opp shld LTR Supine Exercise Name LTR w/ and w/o therapy ball Side bilateral Equipment Used red 55 cm Reps/Minutes x 10 ea Prone Exercises quad stretch Prone Exercise Name added to HEP Side bilateral Equipment Used w/ strap Reps/Minutes x60 sec ea Comments improved knee alignment, good feedback response prone press up Prone Exercise Name prone press up - on elbows Reps/Minutes 10 x 5-10SH Sidelying Exercises Open Book stretch Sidelying Exercise Name added to HEP Side bilateral Reps/Minutes 10 x 3 breaths ea Comments cue for UT overactivation Gait Training Gait Activity alternative assistive devices Description SPC; trekking poles Level of Assistance CGA, verbal cues Surface firm Distance/Duration 50 ft, 180 ft Treatment Focus correct sequencing and safety, WBOS stability Comments Occasional sway and retro lean noted but self recovers. Initial cueing for sequencing and hip flexion w/ trekking poles, sequencing and confidence improved by end of session. Self-Care/Home Management Treatment Education Patient Education Home Exercise Program,Pain Management Other Education Added to HEP: prone quad stretch w/strap, open book stretch - HO given. Discussed stretches/exercises to do before getting out of bed to ease transition w/ morning soreness: supine Figure 4, HS, LTR, and Open Book. PT-OP-T Assessment and Plan Start: 11/18/21 17:15 Freq: Status: Active Protocol: Document 12/06/21 15:26 [facility] (Rec: 12/06/21 17:09 [facility] [id number]) Physical Therapy Assessment Goals Five Impairment balance Air Antisubmarine Officer Goal (LTG) Pt will score 48/56 or greater on [place] Balance Scale as a measure of improved balance and safe independent mobility. LTG Duration 02/24/22 Four Impairment needs 4WW for ambulation Short Term Goal (STG) Pt will walk 1200 feet or greater on 6MWT with LRAD. STG Duration 01/05/22 Air Antisubmarine Officer Goal (LTG) Pt will walk 1500 feet or greater on 6MWT with LRAD for parity with age-matched peers to improve community ambulation LTG Duration 02/24/22 Three Impairment pain with lifting Short Term Goal (STG) Pt will lift 10 pounds from waist height without increase in baseline pain to improve her ability to lift a laundry basket. STG Duration 01/05/22 Senior Living Goal (LTG) Pt will lift 20 pounds from the ground without increase in baseline pain so that she can manage groceries with greater ease. LTG Duration 02/24/22 Two Impairment pain with trunk flexion Short Term Goal (STG) Pt will tolerate unloaded trunk flexion with 3/10 or less pain STG Duration 01/05/22 Air Antisubmarine Officer Goal (LTG) Pt will tolerate forward trunk positioning in standing or kneeling for 15 minutes to be able to return to gardening LTG Duration 02/24/22 One Impairment lacks HEP Short Term Goal (STG) Pt will be instructed in HEP for lumbar and hip mobility, trunk and hip strength to support therapy services provided in clinic. STG Duration 01/05/22 Senior Living Goal (LTG) Pt will be independent with HEP for lumbar and hip mobility, trunk and hip strength to manage pain symptoms and reduce likelihood of future injury. LTG Duration 02/24/22 Assessment Summary Assessment Treatment focus today on HEP review, identifying stretches/ exercises to ease transition w / morning R hip soreness, and gait training w/ SPC and trekking poles. Pt demonstrates occasional sway and retro lean w/ self recovery. She requires initial cueing for sequencing and hip flexion w/ trekking poles, sequencing and confidence improves by end of session. Pt demonstrates good form w/ HEP but performs home HEP quad stretch in supine creating stress at knee jt medially - provided prone quad stretch w/ strap - added to HEP. Added open book to HEP - HO given. Physical Therapy Plan Next Visit Focus/Plan Next Note Type Treatment Note Next Visit Plan Stair training w/ SPC and trekking poles Check self STMs. Further gait training with SPC/ trek poles. POC: Progress lumbar mobility and LE strengthening to include hip abduction and ankle eversion per POC.
--- NOTE | 2021-12-08 16:02 | PT.OTN ---
Current Diagnoses Scoliosis, unspecified (12/08/21) Spondylolisthesis, lumbar region (12/08/21) Spondylosis without myelopathy or radiculopathy, lumbar region (12/08/21) Physical Therapy Treatment Note PT-OP-A Visit Information Start: 11/18/21 17:15 Freq: Status: Active Protocol: Document 12/08/21 13:43 SAK (Rec: 12/08/21 14:30 SAK [id number]) Out-Patient Physical Therapy Visit Information Visit Information Visit Type Treatment Note Visit Start Time 13:45 Visit Stop Time 14:40 Total Visit Minutes 55 Visit Number 5 Number of MEDICAL TECH Visits 0 PT-OP-B Current Condition Start: 11/18/21 17:15 Freq: Status: Active Protocol: Document 11/24/21 12:00 AW (Rec: 11/18/21 17:21 AW [id number]) Current Condition History of Current Condition Onset Date Spring 2021 Current Complaints low back pain History of Current Condition Leidy fell this past spring and bruised her ribs, was very painful. She denies falls history before this. After a month or so, she had improved enough to get out to the yard and do some weeding in late August. She fell again and hurt her back. Has been seeing chiropractor since then. On October 26, she was very limited in her movement and went to ED . She was given pain meds which she is still taking. She has history of L sciatica but she is now having pain more on right side low back, buttock, lateral thigh to mid thigh. Oxycodone helps. Occasional heat helps. First thing in the morning is worst pain. Same when oxycodone wears off. It hurts to bend forward. She has been ambulating with FWW and then 4WW since August. Pt feels walker helps with her balance. She had never used a walker before . Her states even before the falls, her balance was getting worse and she would often cruise furniture for support. She has neuropathy in both feet but pt states it is mild and she feels slight dulling of sensation only occasionally. Prior Treatments and Tests - MRI 11/04/21: Multiple levels of lumbar spine degenerative change are seen, which are worst at the L4-L5 level. At this level there is grade 1 anterolisthesis, moderate to severe bilateral neural foraminal narrowing, with associated exiting nerve root compression, and severe central canal narrowing. 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 Future Testing and Treatments Planned 11/26 Neurosurgery in [place] . Developmental History Developmental History PMH includes ruptured colon treated surgically. Treatment Goals Patient/Caregiver Goals Walk without a walker, bend over to do gardening tasks. Take a shower independently. Prior Functional Status Baseline Function- ADL's Independent Baseline Function- Mobility Independent Baseline Function- Gait No AD but with worsening balance Baseline Function- Recreation/Hobbies Able to garden without pain Current Functional Impairments (Reported) Functional Limitations- ADL's Unable to shower regularly - partially due to decreased confidence. Functional Limitations- Mobility/Gait Needs 4WW for balance Functional Limitations- Recreation/ Unable to bend forward for Hobbies gardening tasks without pain or fear of falling. PT-OP-C Subjective Start: 11/18/21 17:15 Freq: Status: Active Protocol: Document 12/08/21 13:43 SAK (Rec: 12/08/21 14:30 SAK [id number]) OP-PT Subjective Patient Comments Patient Comments Patient reports feeling a little more sore. States in house walking without device though steadies herself some on furtniture and wall. Not fully comfortable yet with trekking poles. Using rolling pin on her thigh muscles. PT-OP-D Balance Start: 11/18/21 17:15 Freq: Status: Active Protocol: Document 11/24/21 12:00 AW (Rec: 11/24/21 12:53 AW [id number]) Balance Tests Single Limb Standing Single Limb- Right <1 sec Single Limb- Left 2 sec PT-OP-F Manual Assessment Start: 11/18/21 17:15 Freq: Status: Active Protocol: Document 11/24/21 12:00 AW (Rec: 11/24/21 12:58 AW [id number]) Manual Assessments Joint Mobility Assessment Joint Mobility Assessment Significantly reduced excursion in lumbar PA's especially lower levels. Other Manual Assessments Other Manual Assessments Mild tenderness anterior to right greater trochanter. PT-OP-G Mobility & Gait Start: 11/18/21 17:15 Freq: Status: Active Protocol: Document 11/24/21 12:00 AW (Rec: 11/24/21 12:58 AW [id number]) OP Gait Assessment Comments Gait Comments Pt ambulates with 4WW, poor control of inversion RLE, heavy footfalls on left, reduced stance time LLE. She tends to push 4WW too far in front of her although she states she is trying to minimize weightbearing on hands. PT-OP-J Posture/Palpation/Skin Start: 11/18/21 17:15 Freq: Status: Active Protocol: Document 11/24/21 12:00 AW (Rec: 11/24/21 13:02 AW [id number]) Posture Evaluation Comments Posture Comments Pt has flat lumbar spine, moderate lumbar scoliosis with apex to the right, higher pelvic landmarks on the left PT-OP-K Range of Motion Start: 11/18/21 17:15 Freq: Status: Active Protocol: Document 11/24/21 12:00 AW (Rec: 11/24/21 13:09 AW [id number]) Lumbar Spine Range of Motion Lumbar Spine Active Testing Position Standing Flexion 40 Extension 10 ROM Limitations Soft Tissue Tightness,Pain Comments Pt can reach knee joint line bilaterally with fingertips and has no increase in pain. Rotation is limited but not painful bilaterally in standing and in sitting. Hip Goniometric Range of Motion Hip bilat Hip ROM WFL Yes Comments All hip ROM WNL without pain reproduction at end-ranges. IR :ER ratio is ~1:3. No limitation in HS length with pt able to perform SLR well past 90 degrees. PT-OP-M Strength Start: 11/18/21 17:15 Freq: Status: Active Protocol: Document 11/24/21 12:00 AW (Rec: 11/24/21 12:58 AW [id number]) Hip Strength Hip Manual Muscle Testing bilat Flexion (L2) 4+ Good+ Extension (S1) 4- Good- Abduction 4- Good- Knee Strength Knee Manual Muscle Testing Right Flexion (S2) 4+ Good+ Extension (L3) 4+ Good+ Left Flexion (S2) 5 Normal Extension (L3) 5 Normal Ankle/Foot Strength Ankle and Foot Manual Muscle Testing Right Dorsiflexion (L4) 4 Good Plantarflexion (S1) 4- Good- Inversion 4 Good Eversion (S1) 4 Good Left Dorsiflexion (L4) 5 Normal Plantarflexion (S1) 4+ Good+ Inversion 5 Normal Eversion (S1) 5 Normal Toe Strength Toe Manual Muscle Testing Great Toe Comments 4+/5 left; 4/5 right PT-OP-Q Treatments Start: 11/18/21 17:15 Freq: Status: Active Protocol: Document 12/08/21 13:43 [facility] (Rec: 12/08/21 14:30 [facility] [id number]) Cardio Equipment Recumbent Elliptical (Biodex) Duration (Minutes) 6 Resistance 2 Seat Position 6 Gait Training Gait Activity hurdles Device Used 5 green hurdles Level of Assistance CGA Surface firm Distance/Duration 4x Treatment Focus safety, balance alternative assistive devices Description trekking poles Level of Assistance CGA, verbal cues Surface firm Distance/Duration 60 ft, 180 ft Treatment Focus correct sequencing and safety Comments Occasional mild sway, able to self recover Manual Therapy Treatment Soft Tissue Mobilization R QL, ES, piriformis, Glut med Body Location R Mobilization Type Instrument Assisted,Sustained Pressure Body Position Sidelying Comments manual Neuro Re-Education Treatment Balance Activities obstacle course Reps/Duration 2 1/2x Comments 2 yoga mats stacked, 4 box, 6 box blue square foam balance board Details balance and wt shift f/b, side Equipment parallel bars Reps/Duration 5 min Comments min use of hands Self-Care/Home Management Treatment Education Patient Education Home Exercise Program,Pain Management Other Education reviewed doing ex prior to getting out of bed to improve mobility and decrease pain. PT-OP-R Modalities Start: 11/18/21 17:15 Freq: Status: Active Protocol: Document 12/08/21 13:43 [facility] (Rec: 12/08/21 15:51 [facility] [id number]) Hot Pack/Cold Pack Treatment Hot Pack Location right IT band, piriformis, glut med Patient Position Sidelying Treatment Duration (minutes) 15 Patient Tolerance Good Comments after soft tissue mobilization PT-OP-T Assessment and Plan Start: 11/18/21 17:15 Freq: Status: Active Protocol: Document 12/08/21 13:43 [facility] (Rec: 12/08/21 14:30 [facility] [id number]) Physical Therapy Assessment Goals Five Impairment balance Coil Repair Technician Goal (LTG) Pt will score 48/56 or greater on [place] Balance Scale as a measure of improved balance and safe independent mobility. LTG Duration 02/24/22 Four Impairment needs 4WW for ambulation Short Term Goal (STG) Pt will walk 1200 feet or greater on 6MWT with LRAD. STG Duration 01/05/22 Long-Term Goal (LTG) Pt will walk 1500 feet or greater on 6MWT with LRAD for parity with age-matched peers to improve community ambulation LTG Duration 02/24/22 Three Impairment pain with lifting Short Term Goal (STG) Pt will lift 10 pounds from waist height without increase in baseline pain to improve her ability to lift a laundry basket. STG Duration 01/05/22 Coil Repair Technician Goal (LTG) Pt will lift 20 pounds from the ground without increase in baseline pain so that she can manage groceries with greater ease. LTG Duration 02/24/22 Two Impairment pain with trunk flexion Short Term Goal (STG) Pt will tolerate unloaded trunk flexion with 3/10 or less pain STG Duration 01/05/22 Long-Term Goal (LTG) Pt will tolerate forward trunk positioning in standing or kneeling for 15 minutes to be able to return to gardening LTG Duration 02/24/22 One Impairment lacks HEP Short Term Goal (STG) Pt will be instructed in HEP for lumbar and hip mobility, trunk and hip strength to support therapy services provided in clinic. STG Duration 01/05/22 Long-Term Goal (LTG) Pt will be independent with HEP for lumbar and hip mobility, trunk and hip strength to manage pain symptoms and reduce likelihood of future injury. LTG Duration 02/24/22 Assessment Summary Assessment Focus today on gait safety with trekking poles on even and uneven ground, balance. Ended with soft tissue mobilization and moist heat and further education regarding importance of HEP, gentle mobility ex prior to getting out of bed. Physical Therapy Plan Frequency and Duration Frequency of Treatment 2x/Week Duration of Treatment 3 months Plan of Care Start Date 11/24/21 Plan of Care End Date 02/24/22 Therapeutic Interventions Therapeutic Interventions Aquatic Therapy,Balance Training,Gait Training,Home Exercise Program,Manual Therapy,Neuromuscular Re- education,Self-Care/Home Management,Soft Tissue Mobilization,Therapeutic Activities,Therapeutic Exercises Modalities Cold Pack/Ice Massage,Hot Packs Next Visit Focus/Plan Next Note Type Treatment Note Next Visit Plan Further stair training with trekking poles or cane (2 stairs at home with no railing ) POC: Progress lumbar mobility and LE strengthening to include hip abduction and ankle eversion per POC.
--- NOTE | 2021-12-13 18:12 | PT.OTN ---
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) Physical Therapy Treatment Note PT-OP-A Visit Information Start: 11/18/21 17:15 Freq: Status: Active Protocol: Document 12/13/21 16:03 NBM (Rec: 12/13/21 18:04 NBM [id number]) Out-Patient Physical Therapy Visit Information Visit Information Visit Type Treatment Note Visit Note Beginning treatment session: BP 124/78, HR 84, SO2 98% Visit Start Time 16:03 Visit Stop Time 17:00 Total Visit Minutes 57 Visit Number 6 Number of SOURCING ASSISTANT Visits 1 PT-OP-B Current Condition Start: 11/18/21 17:15 Freq: Status: Active Protocol: Document 11/24/21 12:00 AW (Rec: 11/18/21 17:21 AW [id number]) Current Condition History of Current Condition Onset Date Spring 2021 Current Complaints low back pain History of Current Condition Leidy fell this past spring and bruised her ribs, was very painful. She denies falls history before this. After a month or so, she had improved enough to get out to the yard and do some weeding in late August. She fell again and hurt her back. Has been seeing chiropractor since then. On October 26, she was very limited in her movement and went to ED . She was given pain meds which she is still taking. She has history of L sciatica but she is now having pain more on right side low back, buttock, lateral thigh to mid thigh. Oxycodone helps. Occasional heat helps. First thing in the morning is worst pain. Same when oxycodone wears off. It hurts to bend forward. She has been ambulating with FWW and then 4WW since August. Pt feels walker helps with her balance. She had never used a walker before . Her states even before the falls, her balance was getting worse and she would often cruise furniture for support. She has neuropathy in both feet but pt states it is mild and she feels slight dulling of sensation only occasionally. Prior Treatments and Tests - MRI 11/04/21: Multiple levels of lumbar spine degenerative change are seen, which are worst at the L4-L5 level. At this level there is grade 1 anterolisthesis, moderate to severe bilateral neural foraminal narrowing, with associated exiting nerve root compression, and severe central canal narrowing. 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 Future Testing and Treatments Planned 11/26 Neurosurgery [place] . Developmental History Developmental History PMH includes ruptured colon treated surgically. Treatment Goals Patient/Caregiver Goals Walk without a walker, bend over to do gardening tasks. Take a shower independently. Prior Functional Status Baseline Function- ADL's Independent Baseline Function- Mobility Independent Baseline Function- Gait No AD but with worsening balance Baseline Function- Recreation/Hobbies Able to garden without pain Current Functional Impairments (Reported) Functional Limitations- ADL's Unable to shower regularly - partially due to decreased confidence. Functional Limitations- Mobility/Gait Needs 4WW for balance Functional Limitations- Recreation/ Unable to bend forward for Hobbies gardening tasks without pain or fear of falling. PT-OP-C Subjective Start: 11/18/21 17:15 Freq: Status: Active Protocol: Document 12/13/21 16:03 NBM (Rec: 12/13/21 18:04 NBM [id number]) OP-PT Subjective Patient Comments Patient Comments Pt reports she is feeling better over all, is tired right now, and she was very discombobulated after a nap a few days ago when she got up. R hip is fine today. She uses the rolling pin a lot, uses trekking poles outisde the home, nothing in the home. Her family is pleased w/ her walking progress. PT-OP-D Balance Start: 11/18/21 17:15 Freq: Status: Active Protocol: Document 11/24/21 12:00 AW (Rec: 11/24/21 12:53 AW [id number]) Balance Tests Single Limb Standing Single Limb- Right <1 sec Single Limb- Left 2 sec PT-OP-F Manual Assessment Start: 11/18/21 17:15 Freq: Status: Active Protocol: Document 11/24/21 12:00 AW (Rec: 11/24/21 12:58 AW [id number]) Manual Assessments Joint Mobility Assessment Joint Mobility Assessment Significantly reduced excursion in lumbar PA's especially lower levels. Other Manual Assessments Other Manual Assessments Mild tenderness anterior to right greater trochanter. PT-OP-G Mobility & Gait Start: 11/18/21 17:15 Freq: Status: Active Protocol: Document 11/24/21 12:00 AW (Rec: 11/24/21 12:58 AW [id number]) OP Gait Assessment Comments Gait Comments Pt ambulates with 4WW, poor control of inversion RLE, heavy footfalls on left, reduced stance time LLE. She tends to push 4WW too far in front of her although she states she is trying to minimize weightbearing on hands. PT-OP-J Posture/Palpation/Skin Start: 11/18/21 17:15 Freq: Status: Active Protocol: Document 11/24/21 12:00 AW (Rec: 11/24/21 13:02 AW [id number]) Posture Evaluation Comments Posture Comments Pt has flat lumbar spine, moderate lumbar scoliosis with apex to the right, higher pelvic landmarks on the left PT-OP-K Range of Motion Start: 11/18/21 17:15 Freq: Status: Active Protocol: Document 11/24/21 12:00 AW (Rec: 11/24/21 13:09 AW [id number]) Lumbar Spine Range of Motion Lumbar Spine Active Testing Position Standing Flexion 40 Extension 10 ROM Limitations Soft Tissue Tightness,Pain Comments Pt can reach knee joint line bilaterally with fingertips and has no increase in pain. Rotation is limited but not painful bilaterally in standing and in sitting. Hip Goniometric Range of Motion Hip bilat Hip ROM WFL Yes Comments All hip ROM WNL without pain reproduction at end-ranges. IR :ER ratio is ~1:3. No limitation in HS length with pt able to perform SLR well past 90 degrees. PT-OP-M Strength Start: 11/18/21 17:15 Freq: Status: Active Protocol: Document 11/24/21 12:00 AW (Rec: 11/24/21 12:58 AW [id number]) Hip Strength Hip Manual Muscle Testing bilat Flexion (L2) 4+ Good+ Extension (S1) 4- Good- Abduction 4- Good- Knee Strength Knee Manual Muscle Testing Right Flexion (S2) 4+ Good+ Extension (L3) 4+ Good+ Left Flexion (S2) 5 Normal Extension (L3) 5 Normal Ankle/Foot Strength Ankle and Foot Manual Muscle Testing Right Dorsiflexion (L4) 4 Good Plantarflexion (S1) 4- Good- Inversion 4 Good Eversion (S1) 4 Good Left Dorsiflexion (L4) 5 Normal Plantarflexion (S1) 4+ Good+ Inversion 5 Normal Eversion (S1) 5 Normal Toe Strength Toe Manual Muscle Testing Great Toe Comments 4+/5 left; 4/5 right PT-OP-Q Treatments Start: 11/18/21 17:15 Freq: Status: Active Protocol: Document 12/13/21 16:03 NBM (Rec: 12/13/21 18:04 NB [id number]) Cardio Equipment Recumbent Elliptical (Azimuth) Duration (Minutes) 6 Resistance 2 Seat Position 6 Therapeutic Exercises Supine Exercises Lower Trapezius Activation Supine Exercise Name slide palms down table, then press into mat table. Reps/Minutes 10 x 5 SH Comments added to HEP LTR Supine Exercise Name LTR Side bilateral Reps/Minutes x10 ea Sidelying Exercises Open Book stretch Sidelying Exercise Name discussed as part of HEP - not performed today Sitting Exercises scapular retraction Sitting Exercise Name shoulder squeeze Side bilateral Reps/Minutes 10 x 3-5SH Comments added to HEP chin tucks Reps/Minutes 10 x 5SH Comments added to HEP Therapeutic Activity Therapeutic Activity Stairs Name 4 Reps/Minutes 2 ea x 6 4 steps up/down Comments Pt declined to use b trekking poles today d/t fatigue. 1 x 2 MEDICAL REVIEW SPECIALIST, 1 x 1 MEDICAL REVIEW SPECIALIST to simulate home Gait Training Gait Activity hurdles Device Used 6 green hurdles Level of Assistance CGA Surface firm Distance/Duration 6x Treatment Focus safety, balance, sequencing Comments sequencing improved w/ repetition alternative assistive devices Description trekking poles Level of Assistance CGA, verbal cues Surface firm Distance/Duration 180 ft, 180 ft, 40 ft Treatment Focus upright posture, correct sequencing and safety Comments Excessive UE ER observed. Occasional mild sway, able to self recover. Manual Therapy Treatment Taping Scapular retraction Treatment Focus scap retraction, posture Type of Tape Kinesio Tape Skin Inspection Intact Comments Two I strips, anchored at inferior angle to contralateral superior angle, forming X Self-Care/Home Management Treatment Education Patient Education Home Exercise Program Other Education Pt advised KT tape to be removed after 5 days or sooner if reaction occurs. Added to HEP: seated chin tucks, scapular retraction, and supine lower trapezius activation - HO given. PT-OP-R Modalities Start: 11/18/21 17:15 Freq: Status: Active Protocol: Document 12/08/21 13:43 SAK (Rec: 12/08/21 15:51 SAK [id number]) Hot Pack/Cold Pack Treatment Hot Pack Location right IT band, piriformis, glut med Patient Position Sidelying Treatment Duration (minutes) 15 Patient Tolerance Good Comments after soft tissue mobilization PT-OP-T Assessment and Plan Start: 11/18/21 17:15 Freq: Status: Active Protocol: Document 12/13/21 16:03 NBM (Rec: 12/13/21 18:04 NBM [id number]) Physical Therapy Assessment Goals Five Impairment balance Legal Entity Controller Goal (LTG) Pt will score 48/56 or greater on [place] Balance Scale as a measure of improved balance and safe independent mobility. LTG Duration 02/24/22 Four Impairment needs 4WW for ambulation Short Term Goal (STG) Pt will walk 1200 feet or greater on 6MWT with LRAD. STG Duration 01/05/22 [facility] Goal (LTG) Pt will walk 1500 feet or greater on 6MWT with LRAD for parity with age-matched peers to improve community ambulation LTG Duration 02/24/22 Three Impairment pain with lifting Short Term Goal (STG) Pt will lift 10 pounds from waist height without increase in baseline pain to improve her ability to lift a laundry basket. STG Duration 01/05/22 [facility] Goal (LTG) Pt will lift 20 pounds from the ground without increase in baseline pain so that she can manage groceries with greater ease. LTG Duration 02/24/22 Two Impairment pain with trunk flexion Short Term Goal (STG) Pt will tolerate unloaded trunk flexion with 3/10 or less pain STG Duration 01/05/22 [facility] Goal (LTG) Pt will tolerate forward trunk positioning in standing or kneeling for 15 minutes to be able to return to gardening LTG Duration 02/24/22 One Impairment lacks HEP Short Term Goal (STG) Pt will be instructed in HEP for lumbar and hip mobility, trunk and hip strength to support therapy services provided in clinic. STG Duration 01/05/22 [facility] Goal (LTG) Pt will be independent with HEP for lumbar and hip mobility, trunk and hip strength to manage pain symptoms and reduce likelihood of future injury. LTG Duration 02/24/22 Assessment Summary Assessment Pt arrives w/ spouse and harris trekking poles. Pt presents today w/ increased trunk flexion and forwad head posture and reports fatigue and unusual lightheadedness a few days ago. Vitals beginning treatment session: BP 124/78, HR 84, SO2 98% - HR decreased w/ cues for pursed lip breathing. No symptoms reported throughout treatment. Focus on posture and gait training. Pt was able to complete 2 x 6 6 hurdles w/o contact after four reps w/ contact and one prosper knocked over. Pt can ascend/descend 4 steps w/ one MEDICAL REVIEW SPECIALIST to facilitate home w/ reciprocal gait, but declines to use trekking poles today d/t fatigue. Pt's posture w/ gait improved w/ initial cueing - KT tape applied to facilitate scapular retraction. Added to HEP: seated chin tucks, scapular retraction, and supine lower trapezius activation - HO given. Physical Therapy Plan Therapeutic Interventions Therapeutic Interventions Aquatic Therapy,Balance Training,Gait Training,Home Exercise Program,Manual Therapy,Neuromuscular Re- education,Self-Care/Home Management,Soft Tissue Mobilization,Therapeutic Activities,Therapeutic Exercises Modalities Cold Pack/Ice Massage,Hot Packs Next Visit Focus/Plan Next Note Type Treatment Note Next Visit Plan Further stair training with trekking poles or cane (2 stairs at home with no railing ) POC: Progress lumbar mobility and LE strengthening to include hip abduction and ankle eversion per POC.
--- NOTE | 2021-12-15 14:42 | PT.OTN ---
Current Diagnoses Scoliosis, unspecified (12/15/21) Spondylolisthesis, lumbar region (12/15/21) Spondylosis without myelopathy or radiculopathy, lumbar region (12/15/21) Physical Therapy Treatment Note PT-OP-A Visit Information Start: 11/18/21 17:15 Freq: Status: Active Protocol: Document 12/15/21 13:47 AW (Rec: 12/15/21 14:42 AW [id number]) Out-Patient Physical Therapy Visit Information Visit Information Visit Type Treatment Note Visit Start Time 13:45 Visit Stop Time 14:30 Total Visit Minutes 45 Visit Number 7 Number of MEDICAL INSURANCE CODER Visits 0 PT-OP-B Current Condition Start: 11/18/21 17:15 Freq: Status: Active Protocol: Document 11/24/21 12:00 AW (Rec: 11/18/21 17:21 AW [id number]) Current Condition History of Current Condition Onset Date Spring 2021 Current Complaints low back pain History of Current Condition Leidy fell this past spring and bruised her ribs, was very painful. She denies falls history before this. After a month or so, she had improved enough to get out to the yard and do some weeding in late August. She fell again and hurt her back. Has been seeing chiropractor since then. On October 26, she was very limited in her movement and went to ED . She was given pain meds which she is still taking. She has history of L sciatica but she is now having pain more on right side low back, buttock, lateral thigh to mid thigh. Oxycodone helps. Occasional heat helps. First thing in the morning is worst pain. Same when oxycodone wears off. It hurts to bend forward. She has been ambulating with FWW and then 4WW since August. Pt feels walker helps with her balance. She had never used a walker before . Her states even before the falls, her balance was getting worse and she would often cruise furniture for support. She has neuropathy in both feet but pt states it is mild and she feels slight dulling of sensation only occasionally. Prior Treatments and Tests - MRI 11/04/21: Multiple levels of lumbar spine degenerative change are seen, which are worst at the L4-L5 level. At this level there is grade 1 anterolisthesis, moderate to severe bilateral neural foraminal narrowing, with associated exiting nerve root compression, and severe central canal narrowing. 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 Future Testing and Treatments Planned 11/26 Neurosurgery in [place] . Developmental History Developmental History PMH includes ruptured colon treated surgically. Treatment Goals Patient/Caregiver Goals Walk without a walker, bend over to do gardening tasks. Take a shower independently. Prior Functional Status Baseline Function- ADL's Independent Baseline Function- Mobility Independent Baseline Function- Gait No AD but with worsening balance Baseline Function- Recreation/Hobbies Able to garden without pain Current Functional Impairments (Reported) Functional Limitations- ADL's Unable to shower regularly - partially due to decreased confidence. Functional Limitations- Mobility/Gait Needs 4WW for balance Functional Limitations- Recreation/ Unable to bend forward for Hobbies gardening tasks without pain or fear of falling. PT-OP-C Subjective Start: 11/18/21 17:15 Freq: Status: Active Protocol: Document 12/15/21 13:47 AW (Rec: 12/15/21 14:42 AW [id number]) OP-PT Subjective Patient Comments Patient Comments Pt had a rough couple of days but today is pretty good. Feeling more confident with trekking poles. PT-OP-D Balance Start: 11/18/21 17:15 Freq: Status: Active Protocol: Document 11/24/21 12:00 AW (Rec: 11/24/21 12:53 AW [id number]) Balance Tests Single Limb Standing Single Limb- Right <1 sec Single Limb- Left 2 sec PT-OP-F Manual Assessment Start: 11/18/21 17:15 Freq: Status: Active Protocol: Document 11/24/21 12:00 AW (Rec: 11/24/21 12:58 AW [id number]) Manual Assessments Joint Mobility Assessment Joint Mobility Assessment Significantly reduced excursion in lumbar PA's especially lower levels. Other Manual Assessments Other Manual Assessments Mild tenderness anterior to right greater trochanter. PT-OP-G Mobility & Gait Start: 11/18/21 17:15 Freq: Status: Active Protocol: Document 11/24/21 12:00 AW (Rec: 11/24/21 12:58 AW [id number]) OP Gait Assessment Comments Gait Comments Pt ambulates with 4WW, poor control of inversion RLE, heavy footfalls on left, reduced stance time LLE. She tends to push 4WW too far in front of her although she states she is trying to minimize weightbearing on hands. PT-OP-J Posture/Palpation/Skin Start: 11/18/21 17:15 Freq: Status: Active Protocol: Document 11/24/21 12:00 AW (Rec: 11/24/21 13:02 AW [id number]) Posture Evaluation Comments Posture Comments Pt has flat lumbar spine, moderate lumbar scoliosis with apex to the right, higher pelvic landmarks on the left PT-OP-K Range of Motion Start: 11/18/21 17:15 Freq: Status: Active Protocol: Document 11/24/21 12:00 AW (Rec: 11/24/21 13:09 AW [id number]) Lumbar Spine Range of Motion Lumbar Spine Active Testing Position Standing Flexion 40 Extension 10 ROM Limitations Soft Tissue Tightness,Pain Comments Pt can reach knee joint line bilaterally with fingertips and has no increase in pain. Rotation is limited but not painful bilaterally in standing and in sitting. Hip Goniometric Range of Motion Hip bilat Hip ROM WFL Yes Comments All hip ROM WNL without pain reproduction at end-ranges. IR :ER ratio is ~1:3. No limitation in HS length with pt able to perform SLR well past 90 degrees. PT-OP-M Strength Start: 11/18/21 17:15 Freq: Status: Active Protocol: Document 11/24/21 12:00 AW (Rec: 11/24/21 12:58 AW [id number]) Hip Strength Hip Manual Muscle Testing bilat Flexion (L2) 4+ Good+ Extension (S1) 4- Good- Abduction 4- Good- Knee Strength Knee Manual Muscle Testing Right Flexion (S2) 4+ Good+ Extension (L3) 4+ Good+ Left Flexion (S2) 5 Normal Extension (L3) 5 Normal Ankle/Foot Strength Ankle and Foot Manual Muscle Testing Right Dorsiflexion (L4) 4 Good Plantarflexion (S1) 4- Good- Inversion 4 Good Eversion (S1) 4 Good Left Dorsiflexion (L4) 5 Normal Plantarflexion (S1) 4+ Good+ Inversion 5 Normal Eversion (S1) 5 Normal Toe Strength Toe Manual Muscle Testing Great Toe Comments 4+/5 left; 4/5 right PT-OP-Q Treatments Start: 11/18/21 17:15 Freq: Status: Active Protocol: Document 12/15/21 13:47 AW (Rec: 12/15/21 14:42 AW [id number]) Cardio Equipment Recumbent Stepper (Sci-Fit) Duration (Minutes) 5 Resistance 2 Seat Position 6 Therapeutic Exercises Supine Exercises bridge Supine Exercise Name bridge Resistance AROM Reps/Minutes 5SH x 10 Lower Trapezius Activation Supine Exercise Name slide palms down table, then press into mat table. Reps/Minutes 10 x 5 SH Comments HEP review HS neutral stretch w/ AP Side right Reps/Minutes x10 AP LTR Supine Exercise Name LTR Side bilateral Reps/Minutes x10 ea Sidelying Exercises Open Book stretch Sidelying Exercise Name HEP review Comments cued straight arm, eyes follow hand for incr rotation Other Exercises sit to stand Other Exercise Name sit to stand - no hands Equipment Used 19 black tx table Reps/Minutes 2x5 reps Comments cued forward weight shift Therapeutic Activity Therapeutic Activity Stairs Comments Pt has a grab bar at back steps (2) and has been able to manage with just handhold/no AD. Discussed but did not practice today. Gait Training Gait Activity hurdles Device Used 6 green hurdles, trek poles Level of Assistance SBA Surface firm Distance/Duration 6x Treatment Focus safety, balance, sequencing alternative assistive devices Description trekking poles Level of Assistance SBA Surface firm Distance/Duration 180 ft x 2 Treatment Focus upright posture, correct sequencing and safety Comments Occasional mild sway, able to self recover. Manual Therapy Treatment Soft Tissue Mobilization R QL, ES, piriformis, Glut med Body Location R Mobilization Type Strumming,Sustained Pressure Body Position Sidelying Comments manual Self-Care/Home Management Treatment Education Patient Education Home Exercise Program Other Education Added sit to stand and bridge for HEP. Encouraged pt to do LTR and open book before getting out of bed to decrease pain. PT-OP-R Modalities Start: 11/18/21 17:15 Freq: Status: Active Protocol: Document 12/08/21 13:43 SAK (Rec: 12/08/21 15:51 SAK [id number]) Hot Pack/Cold Pack Treatment Hot Pack Location right IT band, piriformis, glut med Patient Position Sidelying Treatment Duration (minutes) 15 Patient Tolerance Good Comments after soft tissue mobilization PT-OP-T Assessment and Plan Start: 11/18/21 17:15 Freq: Status: Active Protocol: Document 12/15/21 13:47 AW (Rec: 12/15/21 14:42 AW [id number]) Physical Therapy Assessment Goals Five Impairment balance Bacon Stringer Goal (LTG) Pt will score 48/56 or greater on [place] Balance Scale as a measure of improved balance and safe independent mobility. LTG Duration 02/24/22 Four Impairment needs 4WW for ambulation Short Term Goal (STG) Pt will walk 1200 feet or greater on 6MWT with LRAD. STG Duration 01/05/22 Bacon Stringer Goal (LTG) Pt will walk 1500 feet or greater on 6MWT with LRAD for parity with age-matched peers to improve community ambulation LTG Duration 02/24/22 Three Impairment pain with lifting Short Term Goal (STG) Pt will lift 10 pounds from waist height without increase in baseline pain to improve her ability to lift a laundry basket. STG Duration 01/05/22 Bacon Stringer Goal (LTG) Pt will lift 20 pounds from the ground without increase in baseline pain so that she can manage groceries with greater ease. LTG Duration 02/24/22 Two Impairment pain with trunk flexion Short Term Goal (STG) Pt will tolerate unloaded trunk flexion with 3/10 or less pain STG Duration 01/05/22 Assisted Goal (LTG) Pt will tolerate forward trunk positioning in standing or kneeling for 15 minutes to be able to return to gardening LTG Duration 02/24/22 One Impairment lacks HEP Short Term Goal (STG) Pt will be instructed in HEP for lumbar and hip mobility, trunk and hip strength to support therapy services provided in clinic. STG Duration 01/05/22 Bacon Stringer Goal (LTG) Pt will be independent with HEP for lumbar and hip mobility, trunk and hip strength to manage pain symptoms and reduce likelihood of future injury. LTG Duration 02/24/22 Assessment Summary Assessment Pt arrived with treNeoScale Systemsing poles , noting increased confidence walking longer distances with them. She is now using back entrance to the house - 2 steps with a hand hold/grab bar. Today, she needed no more than SBA for gait and hurdles with trekking poles. Physical Therapy Plan Frequency and Duration Frequency of Treatment 2x/Week Duration of Treatment 3 months Plan of Care Start Date 11/24/21 Plan of Care End Date 02/24/22 Therapeutic Interventions Therapeutic Interventions Aquatic Therapy,Balance Training,Gait Training,Home Exercise Program,Manual Therapy,Neuromuscular Re- education,Self-Care/Home Management,Soft Tissue Mobilization,Therapeutic Activities,Therapeutic Exercises Modalities Cold Pack/Ice Massage,Hot Packs Next Visit Focus/Plan Next Note Type Treatment Note Next Visit Plan Further stair training with trekking poles or cane (2 stairs at home with no railing ) POC: Progress lumbar mobility and LE strengthening to include hip abduction and ankle eversion per POC.
--- NOTE | 2021-12-21 12:21 | PT.OTN ---
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) Physical Therapy Treatment Note PT-OP-A Visit Information Start: 11/18/21 17:15 Freq: Status: Active Protocol: Document 12/21/21 11:20 LJ (Rec: 12/21/21 12:05 LJ [id number]) Out-Patient Physical Therapy Visit Information Visit Information Visit Type Treatment Note Visit Start Time 11:15 Visit Stop Time 12:00 Total Visit Minutes 45 Visit Number 8 Number of CAD ADMINISTRATOR Visits 1 PT-OP-B Current Condition Start: 11/18/21 17:15 Freq: Status: Active Protocol: Document 11/24/21 12:00 AW (Rec: 11/18/21 17:21 AW [id number]) Current Condition History of Current Condition Onset Date Spring 2021 Current Complaints low back pain History of Current Condition Leidy fell this past spring and bruised her ribs, was very painful. She denies falls history before this. After a month or so, she had improved enough to get out to the yard and do some weeding in late August. She fell again and hurt her back. Has been seeing chiropractor since then. On October 26, she was very limited in her movement and went to ED . She was given pain meds which she is still taking. She has history of L sciatica but she is now having pain more on right side low back, buttock, lateral thigh to mid thigh. Oxycodone helps. Occasional heat helps. First thing in the morning is worst pain. Same when oxycodone wears off. It hurts to bend forward. She has been ambulating with FWW and then 4WW since August. Pt feels walker helps with her balance. She had never used a walker before . Her states even before the falls, her balance was getting worse and she would often cruise furniture for support. She has neuropathy in both feet but pt states it is mild and she feels slight dulling of sensation only occasionally. Prior Treatments and Tests - MRI 11/04/21: Multiple levels of lumbar spine degenerative change are seen, which are worst at the L4-L5 level. At this level there is grade 1 anterolisthesis, moderate to severe bilateral neural foraminal narrowing, with associated exiting nerve root compression, and severe central canal narrowing. - Regular home care music therapist. Future Testing and Treatments Planned 11/26 Neurosurgery in [place] . Developmental History Developmental History PMH includes ruptured colon treated surgically. Treatment Goals Patient/Caregiver Goals Walk without a walker, bend over to do gardening tasks. Take a shower independently. Prior Functional Status Baseline Function- ADL's Independent Baseline Function- Mobility Independent Baseline Function- Gait No AD but with worsening balance Baseline Function- Recreation/Hobbies Able to garden without pain Current Functional Impairments (Reported) Functional Limitations- ADL's Unable to shower regularly - partially due to decreased confidence. Functional Limitations- Mobility/Gait Needs 4WW for balance Functional Limitations- Recreation/ Unable to bend forward for Hobbies gardening tasks without pain or fear of falling. PT-OP-C Subjective Start: 11/18/21 17:15 Freq: Status: Active Protocol: Document 12/21/21 11:20 LJ (Rec: 12/21/21 12:05 LJ [id number]) OP-PT Subjective Patient Comments Patient Comments Pt experiencing pain since yesterday (Mon). Pain has shifted to sacrum to low back. No event to cause pain. PT-OP-D Balance Start: 11/18/21 17:15 Freq: Status: Active Protocol: Document 11/24/21 12:00 AW (Rec: 11/24/21 12:53 AW [id number]) Balance Tests Single Limb Standing Single Limb- Right <1 sec Single Limb- Left 2 sec PT-OP-F Manual Assessment Start: 11/18/21 17:15 Freq: Status: Active Protocol: Document 11/24/21 12:00 AW (Rec: 11/24/21 12:58 AW [id number]) Manual Assessments Joint Mobility Assessment Joint Mobility Assessment Significantly reduced excursion in lumbar PA's especially lower levels. Other Manual Assessments Other Manual Assessments Mild tenderness anterior to right greater trochanter. PT-OP-G Mobility & Gait Start: 11/18/21 17:15 Freq: Status: Active Protocol: Document 11/24/21 12:00 AW (Rec: 11/24/21 12:58 AW [id number]) OP Gait Assessment Comments Gait Comments Pt ambulates with 4WW, poor control of inversion RLE, heavy footfalls on left, reduced stance time LLE. She tends to push 4WW too far in front of her although she states she is trying to minimize weightbearing on hands. PT-OP-J Posture/Palpation/Skin Start: 11/18/21 17:15 Freq: Status: Active Protocol: Document 11/24/21 12:00 AW (Rec: 11/24/21 13:02 AW [id number]) Posture Evaluation Comments Posture Comments Pt has flat lumbar spine, moderate lumbar scoliosis with apex to the right, higher pelvic landmarks on the left PT-OP-K Range of Motion Start: 11/18/21 17:15 Freq: Status: Active Protocol: Document 11/24/21 12:00 AW (Rec: 11/24/21 13:09 AW [id number]) Lumbar Spine Range of Motion Lumbar Spine Active Testing Position Standing Flexion 40 Extension 10 ROM Limitations Soft Tissue Tightness,Pain Comments Pt can reach knee joint line bilaterally with fingertips and has no increase in pain. Rotation is limited but not painful bilaterally in standing and in sitting. Hip Goniometric Range of Motion Hip bilat Hip ROM WFL Yes Comments All hip ROM WNL without pain reproduction at end-ranges. IR :ER ratio is ~1:3. No limitation in HS length with pt able to perform SLR well past 90 degrees. PT-OP-M Strength Start: 11/18/21 17:15 Freq: Status: Active Protocol: Document 11/24/21 12:00 AW (Rec: 11/24/21 12:58 AW [id number]) Hip Strength Hip Manual Muscle Testing bilat Flexion (L2) 4+ Good+ Extension (S1) 4- Good- Abduction 4- Good- Knee Strength Knee Manual Muscle Testing Right Flexion (S2) 4+ Good+ Extension (L3) 4+ Good+ Left Flexion (S2) 5 Normal Extension (L3) 5 Normal Ankle/Foot Strength Ankle and Foot Manual Muscle Testing Right Dorsiflexion (L4) 4 Good Plantarflexion (S1) 4- Good- Inversion 4 Good Eversion (S1) 4 Good Left Dorsiflexion (L4) 5 Normal Plantarflexion (S1) 4+ Good+ Inversion 5 Normal Eversion (S1) 5 Normal Toe Strength Toe Manual Muscle Testing Great Toe Comments 4+/5 left; 4/5 right PT-OP-Q Treatments Start: 11/18/21 17:15 Freq: Status: Active Protocol: Document 12/21/21 11:20 LJ (Rec: 12/21/21 12:05 LJ [id number]) Cardio Equipment Recumbent Elliptical (Biodex) Duration (Minutes) 7 Resistance 2 Seat Position 6 Therapeutic Exercises Supine Exercises open book Side bilateral Reps/Minutes [address] maching Supine Exercise Name marching-hooklying Reps/Minutes 20 bridge Supine Exercise Name bridge Reps/Minutes 2 x 10 Comments edu about abd bracing piriformis stretch Supine Exercise Name IR Side bilateral Reps/Minutes 30 x3 Comments ed for support RLE with BUE and towel if needed toward opp shld LTR Supine Exercise Name LTR Side bilateral Reps/Minutes x10 ea Sidelying Exercises clamshells Side bilateral Reps/Minutes 8 Open Book stretch Sidelying Exercise Name HEP review Comments cued straight arm, eyes follow hand for incr rotation Sitting Exercises scapular retraction Sitting Exercise Name shoulder squeeze Side bilateral Reps/Minutes 10 x 3-5SH Comments added to HEP chin tucks Reps/Minutes 10 x 5SH Comments added to HEP Other Exercises sit to stand Other Exercise Name sit to stand - no hands Equipment Used 19 black tx table Reps/Minutes 2x5 reps Comments cued forward weight shift Self-Care/Home Management Treatment Education Patient Education Home Exercise Program Other Education Added abdominal bracing, clamshells to HEP. Encouraged pt to do LTR and open book before getting out of bed to decrease pain. PT-OP-R Modalities Start: 11/18/21 17:15 Freq: Status: Active Protocol: Document 12/08/21 13:43 SAK (Rec: 12/08/21 15:51 [facility] [id number]) Hot Pack/Cold Pack Treatment Hot Pack Location right IT band, piriformis, glut med Patient Position Sidelying Treatment Duration (minutes) 15 Patient Tolerance Good Comments after soft tissue mobilization PT-OP-T Assessment and Plan Start: 11/18/21 17:15 Freq: Status: Active Protocol: Document 12/21/21 11:20 (Rec: 12/21/21 12:05 [id number]) Physical Therapy Assessment Goals Five Impairment balance Tip Out Worker Goal (LTG) Pt will score 48/56 or greater on [place] Balance Scale as a measure of improved balance and safe independent mobility. LTG Duration 02/24/22 Four Impairment needs 4WW for ambulation Short Term Goal (STG) Pt will walk 1200 feet or greater on 6MWT with LRAD. STG Duration 01/05/22 Tip Out Worker Goal (LTG) Pt will walk 1500 feet or greater on 6MWT with LRAD for parity with age-matched peers to improve community ambulation LTG Duration 02/24/22 Three Impairment pain with lifting Short Term Goal (STG) Pt will lift 10 pounds from waist height without increase in baseline pain to improve her ability to lift a laundry basket. STG Duration 01/05/22 Tip Out Worker Goal (LTG) Pt will lift 20 pounds from the ground without increase in baseline pain so that she can manage groceries with greater ease. LTG Duration 02/24/22 Two Impairment pain with trunk flexion Short Term Goal (STG) Pt will tolerate unloaded trunk flexion with 3/10 or less pain STG Duration 01/05/22 Tip Out Worker Goal (LTG) Pt will tolerate forward trunk positioning in standing or kneeling for 15 minutes to be able to return to gardening LTG Duration 02/24/22 One Impairment lacks HEP Short Term Goal (STG) Pt will be instructed in HEP for lumbar and hip mobility, trunk and hip strength to support therapy services provided in clinic. STG Duration 01/05/22 Senior Living Goal (LTG) Pt will be independent with HEP for lumbar and hip mobility, trunk and hip strength to manage pain symptoms and reduce likelihood of future injury. LTG Duration 02/24/22 Assessment Summary Assessment pt Physical Therapy Plan Frequency and Duration Frequency of Treatment 2x/Week Duration of Treatment 3 months Plan of Care Start Date 11/24/21 Plan of Care End Date 02/24/22 Therapeutic Interventions Therapeutic Interventions Aquatic Therapy,Balance Training,Gait Training,Home Exercise Program,Manual Therapy,Neuromuscular Re- education,Self-Care/Home Management,Soft Tissue Mobilization,Therapeutic Activities,Therapeutic Exercises Modalities Cold Pack/Ice Massage,Hot Packs Next Visit Focus/Plan Next Note Type Treatment Note Next Visit Plan Further stair training with trekking poles or cane (2 stairs at home with no railing ) POC: Progress lumbar mobility and LE strengthening to include hip abduction and ankle eversion per POC.
--- NOTE | 2021-12-24 12:59 | PT.OTN ---
Current Diagnoses Scoliosis, unspecified (12/24/21) Spondylolisthesis, lumbar region (12/24/21) Spondylosis without myelopathy or radiculopathy, lumbar region (12/24/21) Physical Therapy Treatment Note PT-OP-A Visit Information Start: 11/18/21 17:15 Freq: Status: Active Protocol: Document 12/24/21 11:41 NBM (Rec: 12/24/21 12:59 NBM [id number]) Out-Patient Physical Therapy Visit Information Visit Information Visit Type Treatment Note Visit Start Time 11:30 Visit Stop Time 12:15 Total Visit Minutes 45 Visit Number 9 Number of BOOKKEEPING SERVICE SALES AGENT Visits 2 PT-OP-B Current Condition Start: 11/18/21 17:15 Freq: Status: Active Protocol: Document 11/24/21 12:00 AW (Rec: 11/18/21 17:21 AW [id number]) Current Condition History of Current Condition Onset Date Spring 2021 Current Complaints low back pain History of Current Condition Leidy fell this past spring and bruised her ribs, was very painful. She denies falls history before this. After a month or so, she had improved enough to get out to the yard and do some weeding in late August. She fell again and hurt her back. Has been seeing chiropractor since then. On October 26, she was very limited in her movement and went to ED . She was given pain meds which she is still taking. She has history of L sciatica but she is now having pain more on right side low back, buttock, lateral thigh to mid thigh. Oxycodone helps. Occasional heat helps. First thing in the morning is worst pain. Same when oxycodone wears off. It hurts to bend forward. She has been ambulating with FWW and then 4WW since August. Pt feels walker helps with her balance. She had never used a walker before . Her states even before the falls, her balance was getting worse and she would often cruise furniture for support. She has neuropathy in both feet but pt states it is mild and she feels slight dulling of sensation only occasionally. Prior Treatments and Tests - MRI 11/04/21: Multiple levels of lumbar spine degenerative change are seen, which are worst at the L4-L5 level. At this level there is grade 1 anterolisthesis, moderate to severe bilateral neural foraminal narrowing, with associated exiting nerve root compression, and severe central canal narrowing. - Regular coronary care unit nurse. Future Testing and Treatments Planned 11/26 Neurosurgery in [place] . Developmental History Developmental History PMH includes ruptured colon treated surgically. Treatment Goals Patient/Caregiver Goals Walk without a walker, bend over to do gardening tasks. Take a shower independently. Prior Functional Status Baseline Function- ADL's Independent Baseline Function- Mobility Independent Baseline Function- Gait No AD but with worsening balance Baseline Function- Recreation/Hobbies Able to garden without pain Current Functional Impairments (Reported) Functional Limitations- ADL's Unable to shower regularly - partially due to decreased confidence. Functional Limitations- Mobility/Gait Needs 4WW for balance Functional Limitations- Recreation/ Unable to bend forward for Hobbies gardening tasks without pain or fear of falling. PT-OP-C Subjective Start: 11/18/21 17:15 Freq: Status: Active Protocol: Document 12/24/21 11:41 NBM (Rec: 12/24/21 12:59 NBM [id number]) OP-PT Subjective Patient Comments Patient Comments Pt reports pain has all shifted to low back pain mainly on the left, but the low back pain is very intense. Rolling over is painful. PT-OP-D Balance Start: 11/18/21 17:15 Freq: Status: Active Protocol: Document 11/24/21 12:00 AW (Rec: 11/24/21 12:53 AW [id number]) Balance Tests Single Limb Standing Single Limb- Right <1 sec Single Limb- Left 2 sec PT-OP-F Manual Assessment Start: 11/18/21 17:15 Freq: Status: Active Protocol: Document 11/24/21 12:00 AW (Rec: 11/24/21 12:58 AW [id number]) Manual Assessments Joint Mobility Assessment Joint Mobility Assessment Significantly reduced excursion in lumbar PA's especially lower levels. Other Manual Assessments Other Manual Assessments Mild tenderness anterior to right greater trochanter. PT-OP-G Mobility & Gait Start: 11/18/21 17:15 Freq: Status: Active Protocol: Document 11/24/21 12:00 AW (Rec: 11/24/21 12:58 AW [id number]) OP Gait Assessment Comments Gait Comments Pt ambulates with 4WW, poor control of inversion RLE, heavy footfalls on left, reduced stance time LLE. She tends to push 4WW too far in front of her although she states she is trying to minimize weightbearing on hands. PT-OP-J Posture/Palpation/Skin Start: 11/18/21 17:15 Freq: Status: Active Protocol: Document 11/24/21 12:00 AW (Rec: 11/24/21 13:02 AW [id number]) Posture Evaluation Comments Posture Comments Pt has flat lumbar spine, moderate lumbar scoliosis with apex to the right, higher pelvic landmarks on the left PT-OP-K Range of Motion Start: 11/18/21 17:15 Freq: Status: Active Protocol: Document 11/24/21 12:00 AW (Rec: 11/24/21 13:09 AW [id number]) Lumbar Spine Range of Motion Lumbar Spine Active Testing Position Standing Flexion 40 Extension 10 ROM Limitations Soft Tissue Tightness,Pain Comments Pt can reach knee joint line bilaterally with fingertips and has no increase in pain. Rotation is limited but not painful bilaterally in standing and in sitting. Hip Goniometric Range of Motion Hip bilat Hip ROM WFL Yes Comments All hip ROM WNL without pain reproduction at end-ranges. IR :ER ratio is ~1:3. No limitation in HS length with pt able to perform SLR well past 90 degrees. PT-OP-M Strength Start: 11/18/21 17:15 Freq: Status: Active Protocol: Document 11/24/21 12:00 AW (Rec: 11/24/21 12:58 AW [id number]) Hip Strength Hip Manual Muscle Testing bilat Flexion (L2) 4+ Good+ Extension (S1) 4- Good- Abduction 4- Good- Knee Strength Knee Manual Muscle Testing Right Flexion (S2) 4+ Good+ Extension (L3) 4+ Good+ Left Flexion (S2) 5 Normal Extension (L3) 5 Normal Ankle/Foot Strength Ankle and Foot Manual Muscle Testing Right Dorsiflexion (L4) 4 Good Plantarflexion (S1) 4- Good- Inversion 4 Good Eversion (S1) 4 Good Left Dorsiflexion (L4) 5 Normal Plantarflexion (S1) 4+ Good+ Inversion 5 Normal Eversion (S1) 5 Normal Toe Strength Toe Manual Muscle Testing Great Toe Comments 4+/5 left; 4/5 right PT-OP-Q Treatments Start: 11/18/21 17:15 Freq: Status: Active Protocol: Document 12/24/21 11:41 NBM (Rec: 12/24/21 12:59 [facility] [id number]) Therapeutic Exercises Supine Exercises maching Supine Exercise Name marching-hooklying - added to HEP Side bilateral Reps/Minutes x20 Comments cues for hip/knee/ankle alignment bridge Supine Exercise Name bridge Comments dc'd d/t LBP Lower Trapezius Activation Supine Exercise Name slide palms down table, then press into mat table. Reps/Minutes 10 x 5 SH HS neutral stretch w/ AP Side bilateral Reps/Minutes x10 AP LTR Supine Exercise Name LTR Side bilateral Equipment Used w/ and w/o 55cm physioball Reps/Minutes x10 ea Comments low back pain improves slightly w/ physioball Prone Exercises prone press up Prone Exercise Name prone press up - on elbows Reps/Minutes 10 x 5-10SH Manual Therapy Treatment Soft Tissue Mobilization R QL, ES, piriformis, Glut med Body Location Left QL, ES, sup. Glute border Mobilization Type Strumming,Sustained Pressure Intensity/Depth Moderate Body Position Sidelying Comments focus on ES Self-Care/Home Management Treatment Education Patient Education Home Exercise Program Other Education Added Supine marching to HEP - forgot to give HO - will give at 12/28 visit. PT-OP-R Modalities Start: 11/18/21 17:15 Freq: Status: Active Protocol: Document 12/24/21 11:41 NB (Rec: 12/24/21 12:59 [facility] [id number]) Hot Pack/Cold Pack Treatment Cold Pack Location lumbosacral Patient Position Prone Treatment Duration (minutes) 10 Patient Tolerance Good Comments Low back pain still grabbing as pt transitioned to sitting . PT-OP-T Assessment and Plan Start: 11/18/21 17:15 Freq: Status: Active Protocol: Document 12/24/21 11:41 [facility] (Rec: 12/24/21 12:59 [facility] [id number]) Physical Therapy Assessment Goals Five Impairment balance Correction Goal (LTG) Pt will score 48/56 or greater on [place] Balance Scale as a measure of improved balance and safe independent mobility. LTG Duration 02/24/22 Four Impairment needs 4WW for ambulation Short Term Goal (STG) Pt will walk 1200 feet or greater on 6MWT with LRAD. STG Duration 01/05/22 In School Suspension Coordinator Goal (LTG) Pt will walk 1500 feet or greater on 6MWT with LRAD for parity with age-matched peers to improve community ambulation LTG Duration 02/24/22 Three Impairment pain with lifting Short Term Goal (STG) Pt will lift 10 pounds from waist height without increase in baseline pain to improve her ability to lift a laundry basket. STG Duration 01/05/22 In School Suspension Coordinator Goal (LTG) Pt will lift 20 pounds from the ground without increase in baseline pain so that she can manage groceries with greater ease. LTG Duration 02/24/22 Two Impairment pain with trunk flexion Short Term Goal (STG) Pt will tolerate unloaded trunk flexion with 3/10 or less pain STG Duration 01/05/22 Correction Goal (LTG) Pt will tolerate forward trunk positioning in standing or kneeling for 15 minutes to be able to return to gardening LTG Duration 02/24/22 One Impairment lacks HEP Short Term Goal (STG) Pt will be instructed in HEP for lumbar and hip mobility, trunk and hip strength to support therapy services provided in clinic. STG Duration 01/05/22 Correction Goal (LTG) Pt will be independent with HEP for lumbar and hip mobility, trunk and hip strength to manage pain symptoms and reduce likelihood of future injury. LTG Duration 02/24/22 Assessment Summary Assessment Pt declines stair training today due to low back pain and feeling slightly off-balance this session. Treatment focus on supine exercises and manual therapy. Pt unable to tolerate bridging due to low back pain. Lower trunk rotation tolerance improves w/ physioball. Palpable tightness in L Erector spinae and QL decreases after manual therapy . Added Supine marching to HEP per pt's feedback - forgot to give HO - will give at 12/28 visit. Physical Therapy Plan Next Visit Focus/Plan Next Note Type Treatment Note Next Visit Plan Further stair training with trekking poles or cane (2 stairs at home with no railing ). postural KT taping for scap retraction. POC: Progress lumbar mobility and LE strengthening to include hip abduction and ankle eversion per POC.
--- NOTE | 2021-12-28 12:00 | PT.OTN ---
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 Visit Start Time 10:33 Visit Stop Time 11:15 Total Visit Minutes 42 Visit Number 10 Number of OWNER PROFESSIONAL ENGINEER Visits 3 PT-OP-B Current Condition Start: 11/18/21 17:15 Freq: Status: Active Protocol: Document 11/24/21 12:00 AW (Rec: 11/18/21 17:21 AW [id number]) Current Condition History of Current Condition Onset Date Spring 2021 Current Complaints low back pain History of Current Condition Leidy fell this past spring and bruised her ribs, was very painful. She denies falls history before this. After a month or so, she had improved enough to get out to the yard and do some weeding in late August. She fell again and hurt her back. Has been seeing chiropractor since then. On October 26, she was very limited in her movement and went to ED . She was given pain meds which she is still taking. She has history of L sciatica but she is now having pain more on right side low back, buttock, lateral thigh to mid thigh. Oxycodone helps. Occasional heat helps. First thing in the morning is worst pain. Same when oxycodone wears off. It hurts to bend forward. She has been ambulating with FWW and then 4WW since August. Pt feels walker helps with her balance. She had never used a walker before . Her states even before the falls, her balance was getting worse and she would often cruise furniture for support. She has neuropathy in both feet but pt states it is mild and she feels slight dulling of sensation only occasionally. Prior Treatments and Tests - MRI 11/04/21: Multiple levels of lumbar spine degenerative change are seen, which are worst at the L4-L5 level. At this level there is grade 1 anterolisthesis, moderate to severe bilateral neural foraminal narrowing, with associated exiting nerve root compression, and severe central canal narrowing. - Regular resident care provider. Future Testing and Treatments Planned 11/26 Neurosurgery in [place] . Developmental History Developmental History PMH includes ruptured colon treated surgically. Treatment Goals Patient/Caregiver Goals Walk without a walker, bend over to do gardening tasks. Take a shower independently. Prior Functional Status Baseline Function- ADL's Independent Baseline Function- Mobility Independent Baseline Function- Gait No AD but with worsening balance Baseline Function- Recreation/Hobbies Able to garden without pain Current Functional Impairments (Reported) Functional Limitations- ADL's Unable to shower regularly - partially due to decreased confidence. Functional Limitations- Mobility/Gait Needs 4WW for balance Functional Limitations- Recreation/ Unable to bend forward for Hobbies gardening tasks without pain or fear of falling. PT-OP-C Subjective Start: 11/18/21 17:15 Freq: Status: Active Protocol: Document 12/28/21 10:38 NBM (Rec: 12/28/21 13:00 NBM [id number]) OP-PT Subjective Patient Comments Patient Comments Pt reports the low back pain continues to be challenging. She is also getting an occasional pain on outside side of R ankle. PT-OP-D Balance Start: 11/18/21 17:15 Freq: Status: Active Protocol: Document 11/24/21 12:00 AW (Rec: 11/24/21 12:53 AW [id number]) Balance Tests Single Limb Standing Single Limb- Right <1 sec Single Limb- Left 2 sec PT-OP-F Manual Assessment Start: 11/18/21 17:15 Freq: Status: Active Protocol: Document 11/24/21 12:00 AW (Rec: 11/24/21 12:58 AW [id number]) Manual Assessments Joint Mobility Assessment Joint Mobility Assessment Significantly reduced excursion in lumbar PA's especially lower levels. Other Manual Assessments Other Manual Assessments Mild tenderness anterior to right greater trochanter. PT-OP-G Mobility & Gait Start: 11/18/21 17:15 Freq: Status: Active Protocol: Document 11/24/21 12:00 AW (Rec: 11/24/21 12:58 AW [id number]) OP Gait Assessment Comments Gait Comments Pt ambulates with 4WW, poor control of inversion RLE, heavy footfalls on left, reduced stance time LLE. She tends to push 4WW too far in front of her although she states she is trying to minimize weightbearing on hands. PT-OP-J Posture/Palpation/Skin Start: 11/18/21 17:15 Freq: Status: Active Protocol: Document 11/24/21 12:00 AW (Rec: 11/24/21 13:02 AW [id number]) Posture Evaluation Comments Posture Comments Pt has flat lumbar spine, moderate lumbar scoliosis with apex to the right, higher pelvic landmarks on the left PT-OP-K Range of Motion Start: 11/18/21 17:15 Freq: Status: Active Protocol: Document 11/24/21 12:00 AW (Rec: 11/24/21 13:09 AW [id number]) Lumbar Spine Range of Motion Lumbar Spine Active Testing Position Standing Flexion 40 Extension 10 ROM Limitations Soft Tissue Tightness,Pain Comments Pt can reach knee joint line bilaterally with fingertips and has no increase in pain. Rotation is limited but not painful bilaterally in standing and in sitting. Hip Goniometric Range of Motion Hip bilat Hip ROM WFL Yes Comments All hip ROM WNL without pain reproduction at end-ranges. IR :ER ratio is ~1:3. No limitation in HS length with pt able to perform SLR well past 90 degrees. PT-OP-M Strength Start: 11/18/21 17:15 Freq: Status: Active Protocol: Document 11/24/21 12:00 AW (Rec: 11/24/21 12:58 AW [id number]) Hip Strength Hip Manual Muscle Testing bilat Flexion (L2) 4+ Good+ Extension (S1) 4- Good- Abduction 4- Good- Knee Strength Knee Manual Muscle Testing Right Flexion (S2) 4+ Good+ Extension (L3) 4+ Good+ Left Flexion (S2) 5 Normal Extension (L3) 5 Normal Ankle/Foot Strength Ankle and Foot Manual Muscle Testing Right Dorsiflexion (L4) 4 Good Plantarflexion (S1) 4- Good- Inversion 4 Good Eversion (S1) 4 Good Left Dorsiflexion (L4) 5 Normal Plantarflexion (S1) 4+ Good+ Inversion 5 Normal Eversion (S1) 5 Normal Toe Strength Toe Manual Muscle Testing Great Toe Comments 4+/5 left; 4/5 right PT-OP-Q Treatments Start: 11/18/21 17:15 Freq: Status: Active Protocol: Document 12/28/21 10:38 NB (Rec: 12/28/21 13:00 [facility] [id number]) Cardio Equipment Recumbent Stepper (Sci-Fit) Duration (Minutes) 6 Resistance 2 Seat Position 7 Therapeutic Exercises Sitting Exercises LAQ Side bilateral Equipment Used 1# Reps/Minutes x10 ea HS curls Side bilateral Resistance Lvl2 TB Reps/Minutes x10 ea Other Exercises sit to stand Other Exercise Name sit to stand - no hands Resistance L2 Tb at knees for biofeedback Equipment Used 19 black tx table Reps/Minutes 2x5 reps Comments knee valgus Gait Training Gait Activity w/trekking poles Description w/ 1# ankle weights harris Device Used Change Collective Level of Assistance CGA Surface tile Distance/Duration 2x80 ft, 1x40 ft Treatment Focus sequencing, balance Comments occasional unsteadiness but pt able to recover. Occ. cues for upright posture and 2- point sequencing. Manual Therapy Treatment Soft Tissue Mobilization R QL, ES, piriformis, Glut med Body Location Left QL, ES, sup. Glute border Mobilization Type Cross-Friction,Strumming, Sustained Pressure,Trigger Point Release Intensity/Depth Deep Body Position Sidelying Comments focus on ES Taping Scapular retraction Treatment Focus scap retraction, posture Type of Tape Kinesio Tape Skin Inspection Intact Comments Two I strips, anchored at inferior angle to contralateral superior angle, forming X Self-Care/Home Management Treatment Education Patient Education Home Exercise Program Other Education Pt given HO for Supine marching. PT-OP-R Modalities Start: 11/18/21 17:15 Freq: Status: Active Protocol: Document 12/28/21 10:38 [facility] (Rec: 12/30/21 01:04 [facility] [phone]-) Hot Pack/Cold Pack Treatment Hot Pack Location L lumbo-sacral and L hip Patient Position Prone Treatment Duration (minutes) 15 Patient Tolerance Good Comments after soft tissue mobilization PT-OP-T Assessment and Plan Start: 11/18/21 17:15 Freq: Status: Active Protocol: Document 12/28/21 10:38 NB (Rec: 12/28/21 13:00 [facility] [id number]) Physical Therapy Assessment Goals Five Impairment balance [facility] Goal (LTG) Pt will score 48/56 or greater on [place] Balance Scale as a measure of improved balance and safe independent mobility. LTG Duration 02/24/22 Four Impairment needs 4WW for ambulation Short Term Goal (STG) Pt will walk 1200 feet or greater on 6MWT with LRAD. STG Duration 01/05/22 [facility] Goal (LTG) Pt will walk 1500 feet or greater on 6MWT with LRAD for parity with age-matched peers to improve community ambulation LTG Duration 02/24/22 Three Impairment pain with lifting Short Term Goal (STG) Pt will lift 10 pounds from waist height without increase in baseline pain to improve her ability to lift a laundry basket. STG Duration 01/05/22 [facility] Goal (LTG) Pt will lift 20 pounds from the ground without increase in baseline pain so that she can manage groceries with greater ease. LTG Duration 02/24/22 Two Impairment pain with trunk flexion Short Term Goal (STG) Pt will tolerate unloaded trunk flexion with 3/10 or less pain STG Duration 01/05/22 Teletype Operator Goal (LTG) Pt will tolerate forward trunk positioning in standing or kneeling for 15 minutes to be able to return to gardening LTG Duration 02/24/22 One Impairment lacks HEP Short Term Goal (STG) Pt will be instructed in HEP for lumbar and hip mobility, trunk and hip strength to support therapy services provided in clinic. STG Duration 01/05/22 [facility] Goal (LTG) Pt will be independent with HEP for lumbar and hip mobility, trunk and hip strength to manage pain symptoms and reduce likelihood of future injury. LTG Duration 02/24/22 Assessment Summary Assessment Pt has R ankle pain w/ initial sit<>stand w/ extreme knee valgus - pain improves w/ theraband at knees for biofeedback and improved knee alignment. Manual to L Lumbo- sacral and L hip - improved palpable tightness, Pt requires occasional cues for upright posture and sequencing w/ gait w/ 1# ankle weights w /trekking poles 120 ft. She demonstrates occasional unsteadiness but is able to self-recover. Physical Therapy Plan Next Visit Focus/Plan Next Note Type Treatment Note Next Visit Plan Prog note; Assess KT taping; Further stair training with trekking poles or cane (2 stairs at home with no railing ). S/l clamshells. Manual as needed to L lumbosacral and hip prn. see POC. POC: Progress lumbar mobility and LE strengthening to include hip abduction and ankle eversion per POC.
--- NOTE | 2021-12-31 14:34 | PT.OTN ---
Current Diagnoses Scoliosis, unspecified (12/31/21) Spondylolisthesis, lumbar region (12/31/21) Spondylosis without myelopathy or radiculopathy, lumbar region (12/31/21) Physical Therapy Treatment Note PT-OP-A Visit Information Start: 11/18/21 17:15 Freq: Status: Active Protocol: Document 12/31/21 13:49 SP (Rec: 12/31/21 14:37 SP [id number]) Out-Patient Physical Therapy Visit Information Visit Information Visit Type Treatment Note Visit Note Progress note next visit. Visit Start Time 13:49 Visit Stop Time 14:34 Total Visit Minutes 45 Visit Number 11 Number of MARKETING PRODUCER Visits 4 Evaluation Information Evaluation Date 11/24/21 PT-OP-B Current Condition Start: 11/18/21 17:15 Freq: Status: Active Protocol: Document 11/24/21 12:00 AW (Rec: 11/18/21 17:21 AW [id number]) Current Condition History of Current Condition Onset Date Spring 2021 Current Complaints low back pain History of Current Condition Leidy fell this past spring and bruised her ribs, was very painful. She denies falls history before this. After a month or so, she had improved enough to get out to the yard and do some weeding in late August. She fell again and hurt her back. Has been seeing chiropractor since then. On October 26, she was very limited in her movement and went to ED . She was given pain meds which she is still taking. She has history of L sciatica but she is now having pain more on right side low back, buttock, lateral thigh to mid thigh. Oxycodone helps. Occasional heat helps. First thing in the morning is worst pain. Same when oxycodone wears off. It hurts to bend forward. She has been ambulating with FWW and then 4WW since August. Pt feels walker helps with her balance. She had never used a walker before . Her states even before the falls, her balance was getting worse and she would often cruise furniture for support. She has neuropathy in both feet but pt states it is mild and she feels slight dulling of sensation only occasionally. Prior Treatments and Tests - MRI 11/04/21: Multiple levels of lumbar spine degenerative change are seen, which are worst at the L4-L5 level. At this level there is grade 1 anterolisthesis, moderate to severe bilateral neural foraminal narrowing, with associated exiting nerve root compression, and severe central canal narrowing. - Regular healthcare specialist. Future Testing and Treatments Planned 11/26 Neurosurgery in [place] . Developmental History Developmental History PMH includes ruptured colon treated surgically. Treatment Goals Patient/Caregiver Goals Walk without a walker, bend over to do gardening tasks. Take a shower independently. Prior Functional Status Baseline Function- ADL's Independent Baseline Function- Mobility Independent Baseline Function- Gait No AD but with worsening balance Baseline Function- Recreation/Hobbies Able to garden without pain Current Functional Impairments (Reported) Functional Limitations- ADL's Unable to shower regularly - partially due to decreased confidence. Functional Limitations- Mobility/Gait Needs 4WW for balance Functional Limitations- Recreation/ Unable to bend forward for Hobbies gardening tasks without pain or fear of falling. PT-OP-C Subjective Start: 11/18/21 17:15 Freq: Status: Active Protocol: Document 12/31/21 13:49 SP (Rec: 12/31/21 14:37 SP [id number]) OP-PT Subjective Patient Comments Patient Comments Pt reported still having pain over L posterolateral hip and L L5-SI area, is effort keeping posture up when walking. PT-OP-D Balance Start: 11/18/21 17:15 Freq: Status: Active Protocol: Document 11/24/21 12:00 AW (Rec: 11/24/21 12:53 AW [id number]) Balance Tests Single Limb Standing Single Limb- Right <1 sec Single Limb- Left 2 sec PT-OP-F Manual Assessment Start: 11/18/21 17:15 Freq: Status: Active Protocol: Document 11/24/21 12:00 AW (Rec: 11/24/21 12:58 AW [id number]) Manual Assessments Joint Mobility Assessment Joint Mobility Assessment Significantly reduced excursion in lumbar PA's especially lower levels. Other Manual Assessments Other Manual Assessments Mild tenderness anterior to right greater trochanter. PT-OP-G Mobility & Gait Start: 11/18/21 17:15 Freq: Status: Active Protocol: Document 11/24/21 12:00 AW (Rec: 11/24/21 12:58 AW [id number]) OP Gait Assessment Comments Gait Comments Pt ambulates with 4WW, poor control of inversion RLE, heavy footfalls on left, reduced stance time LLE. She tends to push 4WW too far in front of her although she states she is trying to minimize weightbearing on hands. PT-OP-J Posture/Palpation/Skin Start: 11/18/21 17:15 Freq: Status: Active Protocol: Document 11/24/21 12:00 AW (Rec: 11/24/21 13:02 AW [id number]) Posture Evaluation Comments Posture Comments Pt has flat lumbar spine, moderate lumbar scoliosis with apex to the right, higher pelvic landmarks on the left PT-OP-K Range of Motion Start: 11/18/21 17:15 Freq: Status: Active Protocol: Document 11/24/21 12:00 AW (Rec: 11/24/21 13:09 AW [id number]) Lumbar Spine Range of Motion Lumbar Spine Active Testing Position Standing Flexion 40 Extension 10 ROM Limitations Soft Tissue Tightness,Pain Comments Pt can reach knee joint line bilaterally with fingertips and has no increase in pain. Rotation is limited but not painful bilaterally in standing and in sitting. Hip Goniometric Range of Motion Hip bilat Hip ROM WFL Yes Comments All hip ROM WNL without pain reproduction at end-ranges. IR :ER ratio is ~1:3. No limitation in HS length with pt able to perform SLR well past 90 degrees. PT-OP-M Strength Start: 11/18/21 17:15 Freq: Status: Active Protocol: Document 11/24/21 12:00 AW (Rec: 11/24/21 12:58 AW [id number]) Hip Strength Hip Manual Muscle Testing bilat Flexion (L2) 4+ Good+ Extension (S1) 4- Good- Abduction 4- Good- Knee Strength Knee Manual Muscle Testing Right Flexion (S2) 4+ Good+ Extension (L3) 4+ Good+ Left Flexion (S2) 5 Normal Extension (L3) 5 Normal Ankle/Foot Strength Ankle and Foot Manual Muscle Testing Right Dorsiflexion (L4) 4 Good Plantarflexion (S1) 4- Good- Inversion 4 Good Eversion (S1) 4 Good Left Dorsiflexion (L4) 5 Normal Plantarflexion (S1) 4+ Good+ Inversion 5 Normal Eversion (S1) 5 Normal Toe Strength Toe Manual Muscle Testing Great Toe Comments 4+/5 left; 4/5 right PT-OP-Q Treatments Start: 11/18/21 17:15 Freq: Status: Active Protocol: Document 12/31/21 13:49 SP (Rec: 12/31/21 14:37 SP [id number]) Therapeutic Exercises Supine Exercises maching Supine Exercise Name marching-hooklying - reviewed HEP Side bilateral Reps/Minutes x20 Comments cues level pelvis still transition each LE Lower Trapezius Activation Supine Exercise Name slide palms down table, then press into mat table. Equipment Used knees bent Reps/Minutes 10s x5 Comments good core, LT facilitation piriformis stretch Supine Exercise Name IR Side left Equipment Used cued ease stretch, not overpressure Reps/Minutes 30 x3 Comments ed for support RLE with BUE and towel if needed toward opp shld LTR Supine Exercise Name LTR Side bilateral Equipment Used feet table, stretch 30 each side, LEs [id number] physioball Reps/Minutes x10 ea Comments low back pain improves slightly w/ physioball Sitting Exercises pelvic rocking Sitting Exercise Name added to HEP Resistance seated EOB Comments cued anterior tilt, tactile cues for stationary alignemtn scapular retraction Sitting Exercise Name shoulder squeeze Side bilateral Reps/Minutes 10 x 3-5SH Comments added to HEP Other Exercises sit to stand Other Exercise Name sit to stand - no hands Resistance L2 Tb at knees for biofeedback Equipment Used 19 black tx table Reps/Minutes X1 rep Comments cued knees apart Manual Therapy Treatment Soft Tissue Mobilization R QL, ES, piriformis, Glut med Body Location Left QL, piriformis, sup./ distal Glute Med, ITB mid shaft femur Mobilization Type Cross-Friction,Strumming, Sustained Pressure,Trigger Point Release Intensity/Depth Deep Body Position Sidelying Comments focus on proximal gluteal ilium and femur Taping Scapular retraction Body Location 2. SI to SI, 1 horizontal strip Treatment Focus 1. scap retraction, posture Type of Tape Kinesio Tape Skin Inspection Intact Comments X strips, anchored at inferior angle to contralateral superior angle 50% tension horizontal across SI to SI for compression 50% tension central, lay down rest Self-Care/Home Management Treatment Education Patient Education Home Exercise Program Other Education Added seated pelvic rocking, try seated ball next tx. PT-OP-R Modalities Start: 11/18/21 17:15 Freq: Status: Active Protocol: Document 12/28/21 10:38 [email or web address] (Rec: 12/30/21 01:04 [facility] [phone]-) Hot Pack/Cold Pack Treatment Hot Pack Location L lumbo-sacral and L hip Patient Position Prone Treatment Duration (minutes) 15 Patient Tolerance Good Comments after soft tissue mobilization PT-OP-T Assessment and Plan Start: 11/18/21 17:15 Freq: Status: Active Protocol: Document 12/31/21 13:49 SP (Rec: 12/31/21 14:37 SP [id number]) Physical Therapy Assessment Goals Five Impairment balance Retirement Goal (LTG) Pt will score 48/56 or greater on [place] Balance Scale as a measure of improved balance and safe independent mobility. LTG Duration 02/24/22 Four Impairment needs 4WW for ambulation Short Term Goal (STG) Pt will walk 1200 feet or greater on 6MWT with LRAD. STG Duration 01/05/22 Woods Laborer Goal (LTG) Pt will walk 1500 feet or greater on 6MWT with LRAD for parity with age-matched peers to improve community ambulation LTG Duration 02/24/22 Three Impairment pain with lifting Short Term Goal (STG) Pt will lift 10 pounds from waist height without increase in baseline pain to improve her ability to lift a laundry basket. STG Duration 01/05/22 Retirement Goal (LTG) Pt will lift 20 pounds from the ground without increase in baseline pain so that she can manage groceries with greater ease. LTG Duration 02/24/22 Two Impairment pain with trunk flexion Short Term Goal (STG) Pt will tolerate unloaded trunk flexion with 3/10 or less pain STG Duration 01/05/22 Woods Laborer Goal (LTG) Pt will tolerate forward trunk positioning in standing or kneeling for 15 minutes to be able to return to gardening LTG Duration 02/24/22 One Impairment lacks HEP Short Term Goal (STG) Pt will be instructed in HEP for lumbar and hip mobility, trunk and hip strength to support therapy services provided in clinic. STG Duration 01/05/22 Woods Laborer Goal (LTG) Pt will be independent with HEP for lumbar and hip mobility, trunk and hip strength to manage pain symptoms and reduce likelihood of future injury. LTG Duration 02/24/22 Assessment Summary Assessment Pt reported decreased R gluteal area tightness post manual but when sat up SI grabbed, improved post instruction in AP pelvic tilts seate EOB. Provideded retaping X interscap for posture assist, added compression SI taping for L SI pain report with movement. Noted better getting up post application. Pt not ableto lift items today, unable to assess goal feedback today, will update next tx PN. Physical Therapy Plan Frequency and Duration Frequency of Treatment 2x/Week Duration of Treatment 3 months Plan of Care Start Date 11/24/21 Plan of Care End Date 02/24/22 Therapeutic Interventions Therapeutic Interventions Aquatic Therapy,Balance Training,Gait Training,Home Exercise Program,Manual Therapy,Neuromuscular Re- education,Self-Care/Home Management,Soft Tissue Mobilization,Therapeutic Activities,Therapeutic Exercises Modalities Cold Pack/Ice Massage,Hot Packs Next Visit Focus/Plan Next Note Type Progress Note Next Visit Plan Prog note Next; Assess KT taping X interscap/across SI POC: Further stair training with trekking poles or cane (2 stairs at home with no railing). S/l clamshells. Manual as needed to L lumbosacral and hip prn. see POC. POC: Progress lumbar mobility and LE strengthening to include hip abduction and ankle eversion per POC.
--- NOTE | 2022-01-05 11:14 | PT.OTN ---
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) Physical Therapy Treatment Note PT-OP-A Visit Information Start: 11/18/21 17:15 Freq: Status: Active Protocol: Document 01/05/22 09:04 AW (Rec: 01/05/22 10:33 AW [id number]) Out-Patient Physical Therapy Visit Information Visit Information Visit Type Progress Note Visit Start Time 09:45 Visit Stop Time 10:30 Total Visit Minutes 45 Visit Number 12 Number of HEALTH TECHNICIAN Visits 0 Evaluation Information Evaluation Date 11/24/21 PT-OP-B Current Condition Start: 11/18/21 17:15 Freq: Status: Active Protocol: Document 11/24/21 12:00 AW (Rec: 11/18/21 17:21 AW [id number]) Current Condition History of Current Condition Onset Date Spring 2021 Current Complaints low back pain History of Current Condition Leidy fell this past spring and bruised her ribs, was very painful. She denies falls history before this. After a month or so, she had improved enough to get out to the yard and do some weeding in late August. She fell again and hurt her back. Has been seeing chiropractor since then. On October 26, she was very limited in her movement and went to ED . She was given pain meds which she is still taking. She has history of L sciatica but she is now having pain more on right side low back, buttock, lateral thigh to mid thigh. Oxycodone helps. Occasional heat helps. First thing in the morning is worst pain. Same when oxycodone wears off. It hurts to bend forward. She has been ambulating with FWW and then 4WW since August. Pt feels walker helps with her balance. She had never used a walker before . Her states even before the falls, her balance was getting worse and she would often cruise furniture for support. She has neuropathy in both feet but pt states it is mild and she feels slight dulling of sensation only occasionally. Prior Treatments and Tests - MRI 11/04/21: Multiple levels of lumbar spine degenerative change are seen, which are worst at the L4-L5 level. At this level there is grade 1 anterolisthesis, moderate to severe bilateral neural foraminal narrowing, with associated exiting nerve root compression, and severe central canal narrowing. - Regular care connector. Future Testing and Treatments Planned 11/26 Neurosurgery in [place] . Developmental History Developmental History PMH includes ruptured colon treated surgically. Treatment Goals Patient/Caregiver Goals Walk without a walker, bend over to do gardening tasks. Take a shower independently. Prior Functional Status Baseline Function- ADL's Independent Baseline Function- Mobility Independent Baseline Function- Gait No AD but with worsening balance Baseline Function- Recreation/Hobbies Able to garden without pain Current Functional Impairments (Reported) Functional Limitations- ADL's Unable to shower regularly - partially due to decreased confidence. Functional Limitations- Mobility/Gait Needs 4WW for balance Functional Limitations- Recreation/ Unable to bend forward for Hobbies gardening tasks without pain or fear of falling. PT-OP-C Subjective Start: 11/18/21 17:15 Freq: Status: Active Protocol: Document 01/05/22 09:04 AW (Rec: 01/05/22 10:33 AW [id number]) OP-PT Subjective Patient Comments Patient Comments Had a hard time yesterday with GI issues but is feeling pretty good today. PT-OP-D Balance Start: 11/18/21 17:15 Freq: Status: Active Protocol: Document 11/24/21 12:00 AW (Rec: 11/24/21 12:53 AW [id number]) Balance Tests Single Limb Standing Single Limb- Right <1 sec Single Limb- Left 2 sec PT-OP-F Manual Assessment Start: 11/18/21 17:15 Freq: Status: Active Protocol: Document 11/24/21 12:00 AW (Rec: 11/24/21 12:58 AW [id number]) Manual Assessments Joint Mobility Assessment Joint Mobility Assessment Significantly reduced excursion in lumbar PA's especially lower levels. Other Manual Assessments Other Manual Assessments Mild tenderness anterior to right greater trochanter. PT-OP-G Mobility & Gait Start: 11/18/21 17:15 Freq: Status: Active Protocol: Document 11/24/21 12:00 AW (Rec: 11/24/21 12:58 AW [id number]) OP Gait Assessment Comments Gait Comments Pt ambulates with 4WW, poor control of inversion RLE, heavy footfalls on left, reduced stance time LLE. She tends to push 4WW too far in front of her although she states she is trying to minimize weightbearing on hands. PT-OP-J Posture/Palpation/Skin Start: 11/18/21 17:15 Freq: Status: Active Protocol: Document 11/24/21 12:00 AW (Rec: 11/24/21 13:02 AW [id number]) Posture Evaluation Comments Posture Comments Pt has flat lumbar spine, moderate lumbar scoliosis with apex to the right, higher pelvic landmarks on the left PT-OP-K Range of Motion Start: 11/18/21 17:15 Freq: Status: Active Protocol: Document 11/24/21 12:00 AW (Rec: 11/24/21 13:09 AW [id number]) Lumbar Spine Range of Motion Lumbar Spine Active Testing Position Standing Flexion 40 Extension 10 ROM Limitations Soft Tissue Tightness,Pain Comments Pt can reach knee joint line bilaterally with fingertips and has no increase in pain. Rotation is limited but not painful bilaterally in standing and in sitting. Hip Goniometric Range of Motion Hip bilat Hip ROM WFL Yes Comments All hip ROM WNL without pain reproduction at end-ranges. IR :ER ratio is ~1:3. No limitation in HS length with pt able to perform SLR well past 90 degrees. PT-OP-M Strength Start: 11/18/21 17:15 Freq: Status: Active Protocol: Document 11/24/21 12:00 AW (Rec: 11/24/21 12:58 AW [id number]) Hip Strength Hip Manual Muscle Testing bilat Flexion (L2) 4+ Good+ Extension (S1) 4- Good- Abduction 4- Good- Knee Strength Knee Manual Muscle Testing Right Flexion (S2) 4+ Good+ Extension (L3) 4+ Good+ Left Flexion (S2) 5 Normal Extension (L3) 5 Normal Ankle/Foot Strength Ankle and Foot Manual Muscle Testing Right Dorsiflexion (L4) 4 Good Plantarflexion (S1) 4- Good- Inversion 4 Good Eversion (S1) 4 Good Left Dorsiflexion (L4) 5 Normal Plantarflexion (S1) 4+ Good+ Inversion 5 Normal Eversion (S1) 5 Normal Toe Strength Toe Manual Muscle Testing Great Toe Comments 4+/5 left; 4/5 right PT-OP-Q Treatments Start: 11/18/21 17:15 Freq: Status: Active Protocol: Document 01/05/22 09:04 AW (Rec: 01/05/22 10:33 AW [id number]) Therapeutic Exercises Sitting Exercises piriformis stretch Sitting Exercise Name piriformis stretch Side bilateral Other Exercises sit to stand Other Exercise Name sit to stand - no hands Resistance L2 Tb at knees for biofeedback Equipment Used mesh chair Reps/Minutes 3x5 reps Comments cued pause at mid-descent 5 sec for hip hinge tolerance Therapeutic Activity Therapeutic Activity lifting Name lifting Comments 7# and 10# db from chair height with emphasis on hip hinge, core engagement Gait Training Gait Activity w/trekking poles Description 6MWT Device Used trekking poles Level of Assistance SBA Surface tile, carpet Distance/Duration 776 feet/6 minutes Treatment Focus assessment, sequencing, balance Comments .65 m/s average gait speed while talking Self-Care/Home Management Treatment Education Patient Education Home Exercise Program Other Education Added pause on descent in sit to stand. PT-OP-R Modalities Start: 11/18/21 17:15 Freq: Status: Active Protocol: Document 12/28/21 10:38 NB (Rec: 12/30/21 01:04 [facility] [phone]-) Hot Pack/Cold Pack Treatment Hot Pack Location L lumbo-sacral and L hip Patient Position Prone Treatment Duration (minutes) 15 Patient Tolerance Good Comments after soft tissue mobilization PT-OP-T Assessment and Plan Start: 11/18/21 17:15 Freq: Status: Active Protocol: Document 01/05/22 09:04 AW (Rec: 01/05/22 10:33 AW [id number]) Physical Therapy Assessment Goals Five Impairment balance Ship Purser Goal (LTG) Pt will score 48/56 or greater on [place] Balance Scale as a measure of improved balance and safe independent mobility. LTG Duration 02/24/22 Four Impairment needs 4WW for ambulation Short Term Goal (STG) Pt will walk 1200 feet or greater on 6MWT with LRAD. 01/05/22 - Pt walked 776 feet in 6 minutes with B trekking poles. STG Duration 01/05/22 Jail Goal (LTG) Pt will walk 1500 feet or greater on 6MWT with LRAD for parity with age-matched peers to improve community ambulation LTG Duration 02/24/22 Three Impairment pain with lifting Short Term Goal (STG) Pt will lift 10 pounds from waist height without increase in baseline pain to improve her ability to lift a laundry basket. 01/05/22 - Able to lift 7 pound db from chair height without pain. STG Duration 01/05/22 Jail Goal (LTG) Pt will lift 20 pounds from the ground without increase in baseline pain so that she can manage groceries with greater ease. LTG Duration 02/24/22 Two Impairment pain with trunk flexion Short Term Goal (STG) Pt will tolerate unloaded trunk flexion with 3/10 or less pain 01/05/22 Pt able to do pause squats with 0/10 pain STG Duration 01/05/22 GOAL MET Jail Goal (LTG) Pt will tolerate forward trunk positioning in standing or kneeling for 15 minutes to be able to return to gardening LTG Duration 02/24/22 One Impairment lacks HEP Short Term Goal (STG) Pt will be instructed in HEP for lumbar and hip mobility, trunk and hip strength to support therapy services provided in clinic. 01/05/22 - Doing exercises daily STG Duration 01/05/22 GOAL MET Ship Purser Goal (LTG) Pt will be independent with HEP for lumbar and hip mobility, trunk and hip strength to manage pain symptoms and reduce likelihood of future injury. LTG Duration 02/24/22 Progress Towards Goals Progress Towards Goals Progressing Toward Goals,Slow Progress - Other Progress Comments Still taking oxycodone twice daily and methocarbomol at night. Tita is doing better with gait using B trekking poles and is able to tolerate trunk flexion/hip hinge without pain today. Assessment Summary Assessment Tita is progressing well and able to tolerate unloaded hip hinge today. Added 5-second pause on descent with sit to stand for HEP today Physical Therapy Plan Frequency and Duration Frequency of Treatment 2x/Week Duration of Treatment 3 months Plan of Care Start Date 11/24/21 Plan of Care End Date 02/24/22 Therapeutic Interventions Therapeutic Interventions Aquatic Therapy,Balance Training,Gait Training,Home Exercise Program,Manual Therapy,Neuromuscular Re- education,Self-Care/Home Management,Soft Tissue Mobilization,Therapeutic Activities,Therapeutic Exercises Modalities Cold Pack/Ice Massage,Hot Packs Next Visit Focus/Plan Next Note Type Treatment Note Next Visit Plan Prog note Next; Assess KT taping X interscap/across SI POC: Further stair training with trekking poles or cane (2 stairs at home with no railing). S/l clamshells. Manual as needed to L lumbosacral and hip prn. see POC. POC: Progress lumbar mobility and LE strengthening to include hip abduction and ankle eversion per POC.
--- NOTE | 2022-01-11 17:05 | PT.OTN ---
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) Physical Therapy Treatment Note PT-OP-A Visit Information Start: 11/18/21 17:15 Freq: Status: Active Protocol: Document 01/11/22 16:10 AW (Rec: 01/11/22 17:04 AW [id number]) Out-Patient Physical Therapy Visit Information Visit Information Visit Type Treatment Note Visit Start Time 16:05 Visit Stop Time 16:45 Total Visit Minutes 40 Visit Number 13 Number of PIPE ROLLER Visits 0 Evaluation Information Evaluation Date 11/24/21 PT-OP-B Current Condition Start: 11/18/21 17:15 Freq: Status: Active Protocol: Document 11/24/21 12:00 AW (Rec: 11/18/21 17:21 AW [id number]) Current Condition History of Current Condition Onset Date Spring 2021 Current Complaints low back pain History of Current Condition Leidy fell this past spring and bruised her ribs, was very painful. She denies falls history before this. After a month or so, she had improved enough to get out to the yard and do some weeding in late August. She fell again and hurt her back. Has been seeing chiropractor since then. On October 26, she was very limited in her movement and went to ED . She was given pain meds which she is still taking. She has history of L sciatica but she is now having pain more on right side low back, buttock, lateral thigh to mid thigh. Oxycodone helps. Occasional heat helps. First thing in the morning is worst pain. Same when oxycodone wears off. It hurts to bend forward. She has been ambulating with FWW and then 4WW since August. Pt feels walker helps with her balance. She had never used a walker before . Her states even before the falls, her balance was getting worse and she would often cruise furniture for support. She has neuropathy in both feet but pt states it is mild and she feels slight dulling of sensation only occasionally. Prior Treatments and Tests - MRI 11/04/21: Multiple levels of lumbar spine degenerative change are seen, which are worst at the L4-L5 level. At this level there is grade 1 anterolisthesis, moderate to severe bilateral neural foraminal narrowing, with associated exiting nerve root compression, and severe central canal narrowing. 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 Future Testing and Treatments Planned 11/26 Neurosurgery in [place] . Developmental History Developmental History PMH includes ruptured colon treated surgically. Treatment Goals Patient/Caregiver Goals Walk without a walker, bend over to do gardening tasks. Take a shower independently. Prior Functional Status Baseline Function- ADL's Independent Baseline Function- Mobility Independent Baseline Function- Gait No AD but with worsening balance Baseline Function- Recreation/Hobbies Able to garden without pain Current Functional Impairments (Reported) Functional Limitations- ADL's Unable to shower regularly - partially due to decreased confidence. Functional Limitations- Mobility/Gait Needs 4WW for balance Functional Limitations- Recreation/ Unable to bend forward for Hobbies gardening tasks without pain or fear of falling. PT-OP-C Subjective Start: 11/18/21 17:15 Freq: Status: Active Protocol: Document 01/11/22 16:10 AW (Rec: 01/11/22 17:04 AW [id number]) OP-PT Subjective Patient Comments Patient Comments Bending forward has become less painful. Pain is still worst in the morning. Looking forward to epidural steroid injection on Monday. PT-OP-D Balance Start: 11/18/21 17:15 Freq: Status: Active Protocol: Document 11/24/21 12:00 AW (Rec: 11/24/21 12:53 AW [id number]) Balance Tests Single Limb Standing Single Limb- Right <1 sec Single Limb- Left 2 sec PT-OP-F Manual Assessment Start: 11/18/21 17:15 Freq: Status: Active Protocol: Document 11/24/21 12:00 AW (Rec: 11/24/21 12:58 AW [id number]) Manual Assessments Joint Mobility Assessment Joint Mobility Assessment Significantly reduced excursion in lumbar PA's especially lower levels. Other Manual Assessments Other Manual Assessments Mild tenderness anterior to right greater trochanter. PT-OP-G Mobility & Gait Start: 11/18/21 17:15 Freq: Status: Active Protocol: Document 11/24/21 12:00 AW (Rec: 11/24/21 12:58 AW [id number]) OP Gait Assessment Comments Gait Comments Pt ambulates with 4WW, poor control of inversion RLE, heavy footfalls on left, reduced stance time LLE. She tends to push 4WW too far in front of her although she states she is trying to minimize weightbearing on hands. PT-OP-J Posture/Palpation/Skin Start: 11/18/21 17:15 Freq: Status: Active Protocol: Document 11/24/21 12:00 AW (Rec: 11/24/21 13:02 AW [id number]) Posture Evaluation Comments Posture Comments Pt has flat lumbar spine, moderate lumbar scoliosis with apex to the right, higher pelvic landmarks on the left PT-OP-K Range of Motion Start: 11/18/21 17:15 Freq: Status: Active Protocol: Document 11/24/21 12:00 AW (Rec: 11/24/21 13:09 AW [id number]) Lumbar Spine Range of Motion Lumbar Spine Active Testing Position Standing Flexion 40 Extension 10 ROM Limitations Soft Tissue Tightness,Pain Comments Pt can reach knee joint line bilaterally with fingertips and has no increase in pain. Rotation is limited but not painful bilaterally in standing and in sitting. Hip Goniometric Range of Motion Hip bilat Hip ROM WFL Yes Comments All hip ROM WNL without pain reproduction at end-ranges. IR :ER ratio is ~1:3. No limitation in HS length with pt able to perform SLR well past 90 degrees. PT-OP-M Strength Start: 11/18/21 17:15 Freq: Status: Active Protocol: Document 11/24/21 12:00 AW (Rec: 11/24/21 12:58 AW [id number]) Hip Strength Hip Manual Muscle Testing bilat Flexion (L2) 4+ Good+ Extension (S1) 4- Good- Abduction 4- Good- Knee Strength Knee Manual Muscle Testing Right Flexion (S2) 4+ Good+ Extension (L3) 4+ Good+ Left Flexion (S2) 5 Normal Extension (L3) 5 Normal Ankle/Foot Strength Ankle and Foot Manual Muscle Testing Right Dorsiflexion (L4) 4 Good Plantarflexion (S1) 4- Good- Inversion 4 Good Eversion (S1) 4 Good Left Dorsiflexion (L4) 5 Normal Plantarflexion (S1) 4+ Good+ Inversion 5 Normal Eversion (S1) 5 Normal Toe Strength Toe Manual Muscle Testing Great Toe Comments 4+/5 left; 4/5 right PT-OP-Q Treatments Start: 11/18/21 17:15 Freq: Status: Active Protocol: Document 01/11/22 16:10 AW (Rec: 01/11/22 17:04 AW [id number]) Cardio Equipment Recumbent Elliptical (Biodex) Duration (Minutes) 6 Resistance 3 Seat Position 4 seen Other no pain; slightly winded Therapeutic Exercises Supine Exercises bridge Supine Exercise Name bridge Reps/Minutes cued segmental motion, core stab Comments no pain; re-added to HEP piriformis stretch Supine Exercise Name IR Side bilateral Equipment Used cued ease stretch, not overpressure Reps/Minutes 30 x3 Comments ed for support RLE with BUE and towel if needed toward opp shld LTR Supine Exercise Name LTR Side bilateral Equipment Used 55cm ball Reps/Minutes x10 ea Standing Exercises step ups Standing Exercise Name step ups - fwd and lateral Side bilateral Comments cued weight over stance foot, glute drive resisted row Standing Exercise Name resisted row Resistance TB1 Reps/Minutes 3SH x 10 Other Exercises sit to stand Other Exercise Name sit to stand - no hands Resistance L2 Tb at knees for biofeedback Equipment Used mesh chair Reps/Minutes 2x 8 reps Comments cued pause at mid-descent 5 sec for hip hinge tolerance Self-Care/Home Management Treatment Education Patient Education Home Exercise Program Other Education Added bridge back to HEP PT-OP-R Modalities Start: 11/18/21 17:15 Freq: Status: Active Protocol: Document 12/28/21 10:38 NBM (Rec: 12/30/21 01:04 [facility] [phone]-) Hot Pack/Cold Pack Treatment Hot Pack Location L lumbo-sacral and L hip Patient Position Prone Treatment Duration (minutes) 15 Patient Tolerance Good Comments after soft tissue mobilization PT-OP-T Assessment and Plan Start: 11/18/21 17:15 Freq: Status: Active Protocol: Document 01/11/22 16:10 AW (Rec: 01/11/22 17:04 AW [id number]) Physical Therapy Assessment Goals Five Impairment balance Custodial Goal (LTG) Pt will score 48/56 or greater on [place] Balance Scale as a measure of improved balance and safe independent mobility. LTG Duration 02/24/22 Four Impairment needs 4WW for ambulation Short Term Goal (STG) Pt will walk 1200 feet or greater on 6MWT with LRAD. 01/05/22 - Pt walked 776 feet in 6 minutes with B trekking poles. STG Duration 01/05/22 [employer] Cash Grain Goal (LTG) Pt will walk 1500 feet or greater on 6MWT with LRAD for parity with age-matched peers to improve community ambulation LTG Duration 02/24/22 Three Impairment pain with lifting Short Term Goal (STG) Pt will lift 10 pounds from waist height without increase in baseline pain to improve her ability to lift a laundry basket. 01/05/22 - Able to lift 7 pound db from chair height without pain. STG Duration 01/05/22 Custodial Goal (LTG) Pt will lift 20 pounds from the ground without increase in baseline pain so that she can manage groceries with greater ease. LTG Duration 02/24/22 Two Impairment pain with trunk flexion Short Term Goal (STG) Pt will tolerate unloaded trunk flexion with 3/10 or less pain 01/05/22 Pt able to do pause squats with 0/10 pain STG Duration 01/05/22 GOAL MET Custodial Goal (LTG) Pt will tolerate forward trunk positioning in standing or kneeling for 15 minutes to be able to return to gardening LTG Duration 02/24/22 One Impairment lacks HEP Short Term Goal (STG) Pt will be instructed in HEP for lumbar and hip mobility, trunk and hip strength to support therapy services provided in clinic. 01/05/22 - Doing exercises daily STG Duration 01/05/22 GOAL MET Custodial Goal (LTG) Pt will be independent with HEP for lumbar and hip mobility, trunk and hip strength to manage pain symptoms and reduce likelihood of future injury. LTG Duration 02/24/22 Assessment Summary Assessment Tita tolerated all ther ex, including step ups, today with minimal complaint of increased pain. She is able to bridge now without pain. She is not using walking sticks in the house but is not ready to work on longer distances without sticks. Physical Therapy Plan Frequency and Duration Frequency of Treatment 2x/Week Duration of Treatment 3 months Plan of Care Start Date 11/24/21 Plan of Care End Date 02/24/22 Therapeutic Interventions Therapeutic Interventions Aquatic Therapy,Balance Training,Gait Training,Home Exercise Program,Manual Therapy,Neuromuscular Re- education,Self-Care/Home Management,Soft Tissue Mobilization,Therapeutic Activities,Therapeutic Exercises Modalities Cold Pack/Ice Massage,Hot Packs Next Visit Focus/Plan Next Note Type Treatment Note Next Visit Plan Manual as needed to L lumbosacral and hip prn. Revisit step ups. Consider lifting from waist height such as with partial deadlift.
--- NOTE | 2022-01-13 16:09 | PT.OTN ---
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) Physical Therapy Treatment Note PT-OP-A Visit Information Start: 11/18/21 17:15 Freq: Status: Active Protocol: Document 01/13/22 15:03 SAK (Rec: 01/13/22 16:09 [facility] [id number]) Out-Patient Physical Therapy Visit Information Visit Information Visit Type Treatment Note Visit Start Time 16:03 Visit Stop Time 16:48 Total Visit Minutes 45 Visit Number 14 Number of TRAVELING ELECTRICIAN Visits 0 Evaluation Information Evaluation Date 11/24/21 PT-OP-B Current Condition Start: 11/18/21 17:15 Freq: Status: Active Protocol: Document 01/13/22 15:03 SAK (Rec: 01/13/22 16:09 [facility] [id number]) Current Condition History of Current Condition Onset Date Spring 2021 Current Complaints low back pain History of Current Condition Leidy fell this past spring and bruised her ribs, was very painful. She denies falls history before this. After a month or so, she had improved enough to get out to the yard and do some weeding in late August. She fell again and hurt her back. Has been seeing chiropractor since then. On October 26, she was very limited in her movement and went to ED . She was given pain meds which she is still taking. She has history of L sciatica but she is now having pain more on right side low back, buttock, lateral thigh to mid thigh. Oxycodone helps. Occasional heat helps. First thing in the morning is worst pain. Same when oxycodone wears off. It hurts to bend forward. She has been ambulating with FWW and then 4WW since August. Pt feels walker helps with her balance. She had never used a walker before . Her states even before the falls, her balance was getting worse and she would often cruise furniture for support. She has neuropathy in both feet but pt states it is mild and she feels slight dulling of sensation only occasionally. Prior Treatments and Tests - MRI 11/04/21: Multiple levels of lumbar spine degenerative change are seen, which are worst at the L4-L5 level. At this level there is grade 1 anterolisthesis, moderate to severe bilateral neural foraminal narrowing, with associated exiting nerve root compression, and severe central canal narrowing. 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 Future Testing and Treatments Planned 11/26 Neurosurgery in [place] . PT-OP-C Subjective Start: 11/18/21 17:15 Freq: Status: Active Protocol: Document 01/13/22 15:03 SAK (Rec: 01/13/22 16:09 SAK [id number]) OP-PT Subjective Patient Comments Patient Comments Looking forward to epidural steroid injection on Monday. Only exercise she doesn't do is the pelvic tilt because I can't find a good place to do it. Uses heat first thing in the am and the rest of the day uses ice. PT-OP-D Balance Start: 11/18/21 17:15 Freq: Status: Active Protocol: Document 11/24/21 12:00 AW (Rec: 11/24/21 12:53 AW [id number]) Balance Tests Single Limb Standing Single Limb- Right <1 sec Single Limb- Left 2 sec PT-OP-F Manual Assessment Start: 11/18/21 17:15 Freq: Status: Active Protocol: Document 11/24/21 12:00 AW (Rec: 11/24/21 12:58 AW [id number]) Manual Assessments Joint Mobility Assessment Joint Mobility Assessment Significantly reduced excursion in lumbar PA's especially lower levels. Other Manual Assessments Other Manual Assessments Mild tenderness anterior to right greater trochanter. PT-OP-G Mobility & Gait Start: 11/18/21 17:15 Freq: Status: Active Protocol: Document 11/24/21 12:00 AW (Rec: 11/24/21 12:58 AW [id number]) OP Gait Assessment Comments Gait Comments Pt ambulates with 4WW, poor control of inversion RLE, heavy footfalls on left, reduced stance time LLE. She tends to push 4WW too far in front of her although she states she is trying to minimize weightbearing on hands. PT-OP-J Posture/Palpation/Skin Start: 11/18/21 17:15 Freq: Status: Active Protocol: Document 11/24/21 12:00 AW (Rec: 11/24/21 13:02 AW [id number]) Posture Evaluation Comments Posture Comments Pt has flat lumbar spine, moderate lumbar scoliosis with apex to the right, higher pelvic landmarks on the left PT-OP-K Range of Motion Start: 11/18/21 17:15 Freq: Status: Active Protocol: Document 11/24/21 12:00 AW (Rec: 11/24/21 13:09 AW [id number]) Lumbar Spine Range of Motion Lumbar Spine Active Testing Position Standing Flexion 40 Extension 10 ROM Limitations Soft Tissue Tightness,Pain Comments Pt can reach knee joint line bilaterally with fingertips and has no increase in pain. Rotation is limited but not painful bilaterally in standing and in sitting. Hip Goniometric Range of Motion Hip bilat Hip ROM WFL Yes Comments All hip ROM WNL without pain reproduction at end-ranges. IR :ER ratio is ~1:3. No limitation in HS length with pt able to perform SLR well past 90 degrees. PT-OP-M Strength Start: 11/18/21 17:15 Freq: Status: Active Protocol: Document 11/24/21 12:00 AW (Rec: 11/24/21 12:58 AW [id number]) Hip Strength Hip Manual Muscle Testing bilat Flexion (L2) 4+ Good+ Extension (S1) 4- Good- Abduction 4- Good- Knee Strength Knee Manual Muscle Testing Right Flexion (S2) 4+ Good+ Extension (L3) 4+ Good+ Left Flexion (S2) 5 Normal Extension (L3) 5 Normal Ankle/Foot Strength Ankle and Foot Manual Muscle Testing Right Dorsiflexion (L4) 4 Good Plantarflexion (S1) 4- Good- Inversion 4 Good Eversion (S1) 4 Good Left Dorsiflexion (L4) 5 Normal Plantarflexion (S1) 4+ Good+ Inversion 5 Normal Eversion (S1) 5 Normal Toe Strength Toe Manual Muscle Testing Great Toe Comments 4+/5 left; 4/5 right PT-OP-Q Treatments Start: 11/18/21 17:15 Freq: Status: Active Protocol: Document 01/13/22 15:03 SAK (Rec: 01/13/22 16:09 SAK [id number]) Cardio Equipment Recumbent Elliptical (Biodex) Duration (Minutes) 9 Resistance 3 Seat Position 4 seen Other no pain; slightly winded Therapeutic Exercises Supine Exercises pelvic tilt Reps/Minutes 10x5 sec bridge Supine Exercise Name bridge Reps/Minutes cued segmental motion, core stab Comments no pain piriformis stretch Supine Exercise Name IR Side bilateral Equipment Used cued ease stretch, not overpressure Reps/Minutes 30 x3 Comments ed for support RLE with BUE and towel if needed toward opp shld LTR Supine Exercise Name LTR Side bilateral Equipment Used 55cm ball Reps/Minutes x10 ea Sitting Exercises piriformis stretch Sitting Exercise Name piriformis stretch Side bilateral Standing Exercises step ups Standing Exercise Name step ups - fwd and lateral Side bilateral Comments cued weight over stance foot, glute drive resisted row Standing Exercise Name resisted row Resistance TB1 Reps/Minutes 5SH x 10 Other Exercises sit to stand Other Exercise Name sit to stand - no hands Resistance tactile cues to keep knees forward, prevent plop Equipment Used mesh chair Reps/Minutes 5x 2 reps Manual Therapy Treatment Soft Tissue Mobilization R QL, ES, piriformis, Glut med Body Location piriformis, sup./distal Glute Med, Mobilization Type Sustained Pressure,Trigger Point Release Intensity/Depth Deep Body Position Sidelying Comments focus on proximal gluteal ilium Self-Care/Home Management Treatment Education Patient Education Home Exercise Program Other Education performance of pelvic tilt PT-OP-R Modalities Start: 11/18/21 17:15 Freq: Status: Active Protocol: Document 12/28/21 10:38 NB (Rec: 12/30/21 01:04 [facility] [phone]-) Hot Pack/Cold Pack Treatment Hot Pack Location L lumbo-sacral and L hip Patient Position Prone Treatment Duration (minutes) 15 Patient Tolerance Good Comments after soft tissue mobilization PT-OP-T Assessment and Plan Start: 11/18/21 17:15 Freq: Status: Active Protocol: Document 01/13/22 15:03 ROBERTO (Rec: 01/13/22 16:09 SAK [id number]) Physical Therapy Assessment Goals Five Impairment balance Shelter Goal (LTG) Pt will score 48/56 or greater on [place] Balance Scale as a measure of improved balance and safe independent mobility. LTG Duration 02/24/22 Four Impairment needs 4WW for ambulation Short Term Goal (STG) Pt will walk 1200 feet or greater on 6MWT with LRAD. 01/05/22 - Pt walked 776 feet in 6 minutes with B trekking poles. STG Duration 01/05/22 Line Appliance Assembler Goal (LTG) Pt will walk 1500 feet or greater on 6MWT with LRAD for parity with age-matched peers to improve community ambulation LTG Duration 02/24/22 Three Impairment pain with lifting Short Term Goal (STG) Pt will lift 10 pounds from waist height without increase in baseline pain to improve her ability to lift a laundry basket. 01/05/22 - Able to lift 7 pound db from chair height without pain. STG Duration 01/05/22 Shelter Goal (LTG) Pt will lift 20 pounds from the ground without increase in baseline pain so that she can manage groceries with greater ease. LTG Duration 02/24/22 Two Impairment pain with trunk flexion Short Term Goal (STG) Pt will tolerate unloaded trunk flexion with 3/10 or less pain 01/05/22 Pt able to do pause squats with 0/10 pain STG Duration 01/05/22 GOAL MET Shelter Goal (LTG) Pt will tolerate forward trunk positioning in standing or kneeling for 15 minutes to be able to return to gardening LTG Duration 02/24/22 One Impairment lacks HEP Short Term Goal (STG) Pt will be instructed in HEP for lumbar and hip mobility, trunk and hip strength to support therapy services provided in clinic. 01/05/22 - Doing exercises daily STG Duration 01/05/22 GOAL MET Line Appliance Assembler Goal (LTG) Pt will be independent with HEP for lumbar and hip mobility, trunk and hip strength to manage pain symptoms and reduce likelihood of future injury. LTG Duration 02/24/22 Progress Towards Goals Progress Towards Goals Progressing Toward Goals,Slow Progress - Other Assessment Summary Assessment Denied increase in pain with exercises, demonstrated improved understanding of pelvic tilt after further instruction and practice. Patient to have epidural steroid injection tomorrow. Physical Therapy Plan Frequency and Duration Frequency of Treatment 2x/Week Duration of Treatment 3 months Plan of Care Start Date 11/24/21 Plan of Care End Date 02/24/22 Therapeutic Interventions Therapeutic Interventions Aquatic Therapy,Balance Training,Gait Training,Home Exercise Program,Manual Therapy,Neuromuscular Re- education,Self-Care/Home Management,Soft Tissue Mobilization,Therapeutic Activities,Therapeutic Exercises Modalities Cold Pack/Ice Massage,Hot Packs Next Visit Focus/Plan Next Note Type Treatment Note Next Visit Plan Manual as needed to L lumbosacral and hip prn. Consider lifting from waist height such as with partial deadlift. Sidelying clamshells.
--- NOTE | 2022-01-18 16:23 | PT.OTN ---
Current Diagnoses Scoliosis, unspecified (01/18/22) Spondylolisthesis, lumbar region (01/18/22) Spondylosis without myelopathy or radiculopathy, lumbar region (01/18/22) Physical Therapy Treatment Note PT-OP-A Visit Information Start: 11/18/21 17:15 Freq: Status: Active Protocol: Document 01/18/22 15:20 SAK (Rec: 01/18/22 16:04 [facility] [id number]) Out-Patient Physical Therapy Visit Information Visit Information Visit Type Treatment Note Visit Start Time 15:15 Visit Stop Time 16:05 Total Visit Minutes 50 Visit Number 15 Number of SHIRT HEMMER Visits 0 Evaluation Information Evaluation Date 11/24/21 PT-OP-B Current Condition Start: 11/18/21 17:15 Freq: Status: Active Protocol: Document 01/18/22 15:20 SAK (Rec: 01/18/22 16:04 [facility] [id number]) Current Condition History of Current Condition Onset Date Spring 2021 Current Complaints low back pain History of Current Condition Leidy fell this past spring and bruised her ribs, was very painful. She denies falls history before this. After a month or so, she had improved enough to get out to the yard and do some weeding in late August. She fell again and hurt her back. Has been seeing chiropractor since then. On October 26, she was very limited in her movement and went to ED . She was given pain meds which she is still taking. She has history of L sciatica but she is now having pain more on right side low back, buttock, lateral thigh to mid thigh. Oxycodone helps. Occasional heat helps. First thing in the morning is worst pain. Same when oxycodone wears off. It hurts to bend forward. She has been ambulating with FWW and then 4WW since August. Pt feels walker helps with her balance. She had never used a walker before . Her states even before the falls, her balance was getting worse and she would often cruise furniture for support. She has neuropathy in both feet but pt states it is mild and she feels slight dulling of sensation only occasionally. Prior Treatments and Tests - MRI 11/04/21: Multiple levels of lumbar spine degenerative change are seen, which are worst at the L4-L5 level. At this level there is grade 1 anterolisthesis, moderate to severe bilateral neural foraminal narrowing, with associated exiting nerve root compression, and severe central canal narrowing. 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 PT-OP-C Subjective Start: 11/18/21 17:15 Freq: Status: Active Protocol: Document 01/18/22 15:20 SAK (Rec: 01/18/22 16:04 SAK [id number]) OP-PT Subjective Patient Comments Patient Comments Reports having gut pain today, BM's not regular. Agrees to talk with medical assistant per diem who she has worked with before. Injection better first day, could walk easier, pain has returned. Sees doctor in 1 1/ 2 wks to discuss; new doctor, Dr. Parsons. Has been doing her exercises. PT-OP-D Balance Start: 11/18/21 17:15 Freq: Status: Active Protocol: Document 11/24/21 12:00 AW (Rec: 11/24/21 12:53 AW [id number]) Balance Tests Single Limb Standing Single Limb- Right <1 sec Single Limb- Left 2 sec PT-OP-F Manual Assessment Start: 11/18/21 17:15 Freq: Status: Active Protocol: Document 11/24/21 12:00 AW (Rec: 11/24/21 12:58 AW [id number]) Manual Assessments Joint Mobility Assessment Joint Mobility Assessment Significantly reduced excursion in lumbar PA's especially lower levels. Other Manual Assessments Other Manual Assessments Mild tenderness anterior to right greater trochanter. PT-OP-G Mobility & Gait Start: 11/18/21 17:15 Freq: Status: Active Protocol: Document 11/24/21 12:00 AW (Rec: 11/24/21 12:58 AW [id number]) OP Gait Assessment Comments Gait Comments Pt ambulates with 4WW, poor control of inversion RLE, heavy footfalls on left, reduced stance time LLE. She tends to push 4WW too far in front of her although she states she is trying to minimize weightbearing on hands. PT-OP-J Posture/Palpation/Skin Start: 11/18/21 17:15 Freq: Status: Active Protocol: Document 11/24/21 12:00 AW (Rec: 11/24/21 13:02 AW [id number]) Posture Evaluation Comments Posture Comments Pt has flat lumbar spine, moderate lumbar scoliosis with apex to the right, higher pelvic landmarks on the left PT-OP-K Range of Motion Start: 11/18/21 17:15 Freq: Status: Active Protocol: Document 11/24/21 12:00 AW (Rec: 11/24/21 13:09 AW [id number]) Lumbar Spine Range of Motion Lumbar Spine Active Testing Position Standing Flexion 40 Extension 10 ROM Limitations Soft Tissue Tightness,Pain Comments Pt can reach knee joint line bilaterally with fingertips and has no increase in pain. Rotation is limited but not painful bilaterally in standing and in sitting. Hip Goniometric Range of Motion Hip bilat Hip ROM WFL Yes Comments All hip ROM WNL without pain reproduction at end-ranges. IR :ER ratio is ~1:3. No limitation in HS length with pt able to perform SLR well past 90 degrees. PT-OP-M Strength Start: 11/18/21 17:15 Freq: Status: Active Protocol: Document 11/24/21 12:00 AW (Rec: 11/24/21 12:58 AW [id number]) Hip Strength Hip Manual Muscle Testing bilat Flexion (L2) 4+ Good+ Extension (S1) 4- Good- Abduction 4- Good- Knee Strength Knee Manual Muscle Testing Right Flexion (S2) 4+ Good+ Extension (L3) 4+ Good+ Left Flexion (S2) 5 Normal Extension (L3) 5 Normal Ankle/Foot Strength Ankle and Foot Manual Muscle Testing Right Dorsiflexion (L4) 4 Good Plantarflexion (S1) 4- Good- Inversion 4 Good Eversion (S1) 4 Good Left Dorsiflexion (L4) 5 Normal Plantarflexion (S1) 4+ Good+ Inversion 5 Normal Eversion (S1) 5 Normal Toe Strength Toe Manual Muscle Testing Great Toe Comments 4+/5 left; 4/5 right PT-OP-Q Treatments Start: 11/18/21 17:15 Freq: Status: Active Protocol: Document 01/18/22 15:20 SAK (Rec: 01/18/22 16:04 SAK [id number]) Cardio Equipment Recumbent Elliptical (Biodex) Duration (Minutes) 10 Resistance 3 Seat Position 4 seen Therapeutic Exercises Supine Exercises pelvic tilt Reps/Minutes 10x5 sec maching Supine Exercise Name marching-hooklying - reviewed HEP Side bilateral Reps/Minutes x20 Comments cues level pelvis still transition each LE bridge Supine Exercise Name bridge Reps/Minutes cued segmental motion, core stab Comments no pain LTR Supine Exercise Name LTR Side bilateral Equipment Used 55cm ball Reps/Minutes x10 ea Sitting Exercises piriformis stretch Sitting Exercise Name piriformis stretch Side bilateral Reps/Minutes 30 x 2 Comments cues for hold, deep breath Standing Exercises resisted shld ext Resistance TB1 Reps/Minutes 5SH x 5 resisted row Standing Exercise Name resisted row Resistance TB1 Reps/Minutes 5SH x 10 Other Exercises sit to stand Other Exercise Name sit to stand - no hands Resistance tactile cues to keep knees forward, prevent plop Equipment Used mesh chair Reps/Minutes 16x Self-Care/Home Management Treatment Education Patient Education Home Exercise Program PT-OP-R Modalities Start: 11/18/21 17:15 Freq: Status: Active Protocol: Document 12/28/21 10:38 NBM (Rec: 12/30/21 01:04 [facility] [phone]-) Hot Pack/Cold Pack Treatment Hot Pack Location L lumbo-sacral and L hip Patient Position Prone Treatment Duration (minutes) 15 Patient Tolerance Good Comments after soft tissue mobilization PT-OP-T Assessment and Plan Start: 11/18/21 17:15 Freq: Status: Active Protocol: Document 01/18/22 15:20 SAK (Rec: 01/18/22 16:04 SAK [id number]) Physical Therapy Assessment Goals Five Impairment balance Filing Machine Operator Goal (LTG) Pt will score 48/56 or greater on [place] Balance Scale as a measure of improved balance and safe independent mobility. LTG Duration 02/24/22 Four Impairment needs 4WW for ambulation Short Term Goal (STG) Pt will walk 1200 feet or greater on 6MWT with LRAD. 01/05/22 - Pt walked 776 feet in 6 minutes with B trekking poles. STG Duration 01/05/22 Prison Goal (LTG) Pt will walk 1500 feet or greater on 6MWT with LRAD for parity with age-matched peers to improve community ambulation LTG Duration 02/24/22 Three Impairment pain with lifting Short Term Goal (STG) Pt will lift 10 pounds from waist height without increase in baseline pain to improve her ability to lift a laundry basket. 01/05/22 - Able to lift 7 pound db from chair height without pain. STG Duration 01/05/22 Prison Goal (LTG) Pt will lift 20 pounds from the ground without increase in baseline pain so that she can manage groceries with greater ease. LTG Duration 02/24/22 Two Impairment pain with trunk flexion Short Term Goal (STG) Pt will tolerate unloaded trunk flexion with 3/10 or less pain 01/05/22 Pt able to do pause squats with 0/10 pain STG Duration 01/05/22 GOAL MET Filing Machine Operator Goal (LTG) Pt will tolerate forward trunk positioning in standing or kneeling for 15 minutes to be able to return to gardening LTG Duration 02/24/22 One Impairment lacks HEP Short Term Goal (STG) Pt will be instructed in HEP for lumbar and hip mobility, trunk and hip strength to support therapy services provided in clinic. 01/05/22 - Doing exercises daily STG Duration 01/05/22 GOAL MET Filing Machine Operator Goal (LTG) Pt will be independent with HEP for lumbar and hip mobility, trunk and hip strength to manage pain symptoms and reduce likelihood of future injury. LTG Duration 02/24/22 Assessment Summary Assessment Patient tolerated progression to 10 min on Biodex and addition of standing shoulder extension with TB (5 reps only ). Reported 1 day of some pain relief and improved mobility after her injection, but pain has come back. Patient also c/o constipation today, not improved with Smooth Move tea. Encouraged drinking water, fiber, discussion with doctor/ medical assistant per diem regarding GI issues . Physical Therapy Plan Frequency and Duration Frequency of Treatment 2x/Week Plan of Care Start Date 11/24/21 Next Visit Focus/Plan Next Note Type Treatment Note Next Visit Plan Evaluate response to IFES. Manual as needed to L lumbosacral and hip prn. Progress therapeutic exercise as tolerated,sidelying clamshells.
--- NOTE | 2022-01-20 16:33 | PT.OTN ---
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) Physical Therapy Treatment Note PT-OP-A Visit Information Start: 11/18/21 17:15 Freq: Status: Active Protocol: Document 01/20/22 14:31 SAK (Rec: 01/20/22 15:15 [facility] [id number]) Out-Patient Physical Therapy Visit Information Visit Information Visit Type Treatment Note Visit Start Time 14:32 Visit Stop Time 15:22 Total Visit Minutes 50 Visit Number 16 Number of ISOTOPE HYDROLOGIST Visits 0 Evaluation Information Evaluation Date 11/24/21 PT-OP-B Current Condition Start: 11/18/21 17:15 Freq: Status: Active Protocol: Document 01/20/22 14:31 SAK (Rec: 01/20/22 15:15 SAK [id number]) Current Condition History of Current Condition Onset Date Spring 2021 Current Complaints low back pain History of Current Condition Leidy fell this past spring and bruised her ribs, was very painful. She denies falls history before this. After a month or so, she had improved enough to get out to the yard and do some weeding in late August. She fell again and hurt her back. Has been seeing chiropractor since then. On October 26, she was very limited in her movement and went to ED . She was given pain meds which she is still taking. She has history of L sciatica but she is now having pain more on right side low back, buttock, lateral thigh to mid thigh. Oxycodone helps. Occasional heat helps. First thing in the morning is worst pain. Same when oxycodone wears off. It hurts to bend forward. She has been ambulating with FWW and then 4WW since August. Pt feels walker helps with her balance. She had never used a walker before . Her states even before the falls, her balance was getting worse and she would often cruise furniture for support. She has neuropathy in both feet but pt states it is mild and she feels slight dulling of sensation only occasionally. Prior Treatments and Tests - MRI 11/04/21: Multiple levels of lumbar spine degenerative change are seen, which are worst at the L4-L5 level. At this level there is grade 1 anterolisthesis, moderate to severe bilateral neural foraminal narrowing, with associated exiting nerve root compression, and severe central canal narrowing. 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 Future Testing and Treatments Planned 11/26 Neurosurgery in [place] . PT-OP-C Subjective Start: 11/18/21 17:15 Freq: Status: Active Protocol: Document 01/20/22 14:31 SAK (Rec: 01/20/22 15:15 SAK [id number]) OP-PT Subjective Patient Comments Patient Comments Morning not so good but much better this afternoon. No pain sitting, increases with standing. Doing HEP PT-OP-D Balance Start: 11/18/21 17:15 Freq: Status: Active Protocol: Document 11/24/21 12:00 AW (Rec: 11/24/21 12:53 AW [id number]) Balance Tests Single Limb Standing Single Limb- Right <1 sec Single Limb- Left 2 sec PT-OP-F Manual Assessment Start: 11/18/21 17:15 Freq: Status: Active Protocol: Document 11/24/21 12:00 AW (Rec: 11/24/21 12:58 AW [id number]) Manual Assessments Joint Mobility Assessment Joint Mobility Assessment Significantly reduced excursion in lumbar PA's especially lower levels. Other Manual Assessments Other Manual Assessments Mild tenderness anterior to right greater trochanter. PT-OP-G Mobility & Gait Start: 11/18/21 17:15 Freq: Status: Active Protocol: Document 11/24/21 12:00 AW (Rec: 11/24/21 12:58 AW [id number]) OP Gait Assessment Comments Gait Comments Pt ambulates with 4WW, poor control of inversion RLE, heavy footfalls on left, reduced stance time LLE. She tends to push 4WW too far in front of her although she states she is trying to minimize weightbearing on hands. PT-OP-J Posture/Palpation/Skin Start: 11/18/21 17:15 Freq: Status: Active Protocol: Document 11/24/21 12:00 AW (Rec: 11/24/21 13:02 AW [id number]) Posture Evaluation Comments Posture Comments Pt has flat lumbar spine, moderate lumbar scoliosis with apex to the right, higher pelvic landmarks on the left PT-OP-K Range of Motion Start: 11/18/21 17:15 Freq: Status: Active Protocol: Document 11/24/21 12:00 AW (Rec: 11/24/21 13:09 AW [id number]) Lumbar Spine Range of Motion Lumbar Spine Active Testing Position Standing Flexion 40 Extension 10 ROM Limitations Soft Tissue Tightness,Pain Comments Pt can reach knee joint line bilaterally with fingertips and has no increase in pain. Rotation is limited but not painful bilaterally in standing and in sitting. Hip Goniometric Range of Motion Hip bilat Hip ROM WFL Yes Comments All hip ROM WNL without pain reproduction at end-ranges. IR :ER ratio is ~1:3. No limitation in HS length with pt able to perform SLR well past 90 degrees. PT-OP-M Strength Start: 11/18/21 17:15 Freq: Status: Active Protocol: Document 11/24/21 12:00 AW (Rec: 11/24/21 12:58 AW [id number]) Hip Strength Hip Manual Muscle Testing bilat Flexion (L2) 4+ Good+ Extension (S1) 4- Good- Abduction 4- Good- Knee Strength Knee Manual Muscle Testing Right Flexion (S2) 4+ Good+ Extension (L3) 4+ Good+ Left Flexion (S2) 5 Normal Extension (L3) 5 Normal Ankle/Foot Strength Ankle and Foot Manual Muscle Testing Right Dorsiflexion (L4) 4 Good Plantarflexion (S1) 4- Good- Inversion 4 Good Eversion (S1) 4 Good Left Dorsiflexion (L4) 5 Normal Plantarflexion (S1) 4+ Good+ Inversion 5 Normal Eversion (S1) 5 Normal Toe Strength Toe Manual Muscle Testing Great Toe Comments 4+/5 left; 4/5 right PT-OP-Q Treatments Start: 11/18/21 17:15 Freq: Status: Active Protocol: Document 01/20/22 14:31 [facility] (Rec: 01/20/22 15:15 SAK [id number]) Cardio Equipment Recumbent Elliptical (Biodex) Duration (Minutes) 10 Resistance 3 Seat Position 4 seen Therapeutic Exercises Supine Exercises pelvic tilt Reps/Minutes 10x5 sec maching Supine Exercise Name marching-hooklying - reviewed HEP Side bilateral Reps/Minutes 10x Comments cues level pelvis still transition each LE bridge Supine Exercise Name bridge Reps/Minutes cued segmental motion, core stab Comments no pain piriformis stretch Supine Exercise Name IR Side bilateral Equipment Used cued ease stretch, not overpressure Reps/Minutes 30 x3 Comments ed for support RLE with BUE and towel if needed toward opp shld LTR Supine Exercise Name LTR Side bilateral Equipment Used 55cm ball Reps/Minutes x10 ea Sidelying Exercises clamshells Reps/Minutes 10x Sitting Exercises piriformis stretch Sitting Exercise Name piriformis stretch Side bilateral Reps/Minutes 30 x 2 Comments cues for hold, deep breath Standing Exercises resisted shld ext Resistance TB1 Reps/Minutes 5SH x 10 Comments cues for core activation an neutral posture step ups Standing Exercise Name step ups - fwd and lateral Side bilateral Comments cued weight over stance foot, glute drive resisted row Standing Exercise Name resisted row Resistance TB1 Reps/Minutes 5SH x 10 Other Exercises sit to stand Other Exercise Name HEP Self-Care/Home Management Treatment Education Patient Education Home Exercise Program PT-OP-R Modalities Start: 11/18/21 17:15 Freq: Status: Active Protocol: Document 01/20/22 14:31 [facility] (Rec: 01/20/22 15:15 [facility] [id number]) Electric Stimulation Electric Stimulation Interferential Current (IFC) Duration (Minutes) 15 Intensity 25 Target/Sweep Sweep Combined With Heat/Cold Hot Pack Comments reported decrease in pain PT-OP-T Assessment and Plan Start: 11/18/21 17:15 Freq: Status: Active Protocol: Document 01/20/22 14:31 [facility] (Rec: 01/20/22 15:15 [facility] [id number]) Physical Therapy Assessment Goals Five Impairment balance Farm Equipment Engineer Goal (LTG) Pt will score 48/56 or greater on [place] Balance Scale as a measure of improved balance and safe independent mobility. LTG Duration 02/24/22 Four Impairment needs 4WW for ambulation Short Term Goal (STG) Pt will walk 1200 feet or greater on 6MWT with LRAD. 01/05/22 - Pt walked 776 feet in 6 minutes with B trekking poles. STG Duration 01/05/22 [facility] Goal (LTG) Pt will walk 1500 feet or greater on 6MWT with LRAD for parity with age-matched peers to improve community ambulation LTG Duration 02/24/22 Three Impairment pain with lifting Short Term Goal (STG) Pt will lift 10 pounds from waist height without increase in baseline pain to improve her ability to lift a laundry basket. 01/05/22 - Able to lift 7 pound db from chair height without pain. STG Duration 01/05/22 [facility] Goal (LTG) Pt will lift 20 pounds from the ground without increase in baseline pain so that she can manage groceries with greater ease. LTG Duration 02/24/22 Two Impairment pain with trunk flexion Short Term Goal (STG) Pt will tolerate unloaded trunk flexion with 3/10 or less pain 01/05/22 Pt able to do pause squats with 0/10 pain STG Duration 01/05/22 GOAL MET [facility] Goal (LTG) Pt will tolerate forward trunk positioning in standing or kneeling for 15 minutes to be able to return to gardening LTG Duration 02/24/22 One Impairment lacks HEP Short Term Goal (STG) Pt will be instructed in HEP for lumbar and hip mobility, trunk and hip strength to support therapy services provided in clinic. 01/05/22 - Doing exercises daily STG Duration 01/05/22 GOAL MET Farm Equipment Engineer Goal (LTG) Pt will be independent with HEP for lumbar and hip mobility, trunk and hip strength to manage pain symptoms and reduce likelihood of future injury. LTG Duration 02/24/22 Assessment Summary Assessment Decreased back pain after IFES , improved tolerance with progression of ther ex including 10 reps shoulder ext with TB, increased RPM's with Biodex. Added theraband ex to HEP and issued L1 TB. Physical Therapy Plan Frequency and Duration Frequency of Treatment 2x/Week Duration of treatment (weeks) 12 Plan of Care Start Date 11/24/21 Plan of Care End Date 02/24/22 Next Visit Focus/Plan Next Note Type Treatment Note Next Visit Plan Progress therapeutic exercise as tolerated with emphasis on core stabilization and strengthening. Add sidestepping with resistance.
--- NOTE | 2022-01-26 16:25 | PT.OTN ---
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) Physical Therapy Treatment Note PT-OP-A Visit Information Start: 11/18/21 17:15 Freq: Status: Active Protocol: Document 01/20/22 14:31 SAK (Rec: 01/20/22 15:15 [facility] [id number]) Out-Patient Physical Therapy Visit Information Visit Information Visit Type Treatment Note Visit Start Time 14:32 Visit Stop Time 15:22 Total Visit Minutes 50 Visit Number 16 Number of PST SPECIALIST Visits 0 Evaluation Information Evaluation Date 11/24/21 PT-OP-B Current Condition Start: 11/18/21 17:15 Freq: Status: Active Protocol: Document 01/20/22 14:31 SAK (Rec: 01/20/22 15:15 SAK [id number]) Current Condition History of Current Condition Onset Date Spring 2021 Current Complaints low back pain History of Current Condition Leidy fell this past spring and bruised her ribs, was very painful. She denies falls history before this. After a month or so, she had improved enough to get out to the yard and do some weeding in late August. She fell again and hurt her back. Has been seeing chiropractor since then. On October 26, she was very limited in her movement and went to ED . She was given pain meds which she is still taking. She has history of L sciatica but she is now having pain more on right side low back, buttock, lateral thigh to mid thigh. Oxycodone helps. Occasional heat helps. First thing in the morning is worst pain. Same when oxycodone wears off. It hurts to bend forward. She has been ambulating with FWW and then 4WW since August. Pt feels walker helps with her balance. She had never used a walker before . Her states even before the falls, her balance was getting worse and she would often cruise furniture for support. She has neuropathy in both feet but pt states it is mild and she feels slight dulling of sensation only occasionally. Prior Treatments and Tests - MRI 11/04/21: Multiple levels of lumbar spine degenerative change are seen, which are worst at the L4-L5 level. At this level there is grade 1 anterolisthesis, moderate to severe bilateral neural foraminal narrowing, with associated exiting nerve root compression, and severe central canal narrowing. 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 Future Testing and Treatments Planned 11/26 Neurosurgery in [place] . PT-OP-C Subjective Start: 11/18/21 17:15 Freq: Status: Active Protocol: Document 01/20/22 14:31 SAK (Rec: 01/20/22 15:15 SAK [id number]) OP-PT Subjective Patient Comments Patient Comments Morning not so good but much better this afternoon. No pain sitting, increases with standing. Doing HEP PT-OP-D Balance Start: 11/18/21 17:15 Freq: Status: Active Protocol: Document 11/24/21 12:00 AW (Rec: 11/24/21 12:53 AW [id number]) Balance Tests Single Limb Standing Single Limb- Right <1 sec Single Limb- Left 2 sec PT-OP-F Manual Assessment Start: 11/18/21 17:15 Freq: Status: Active Protocol: Document 11/24/21 12:00 AW (Rec: 11/24/21 12:58 AW [id number]) Manual Assessments Joint Mobility Assessment Joint Mobility Assessment Significantly reduced excursion in lumbar PA's especially lower levels. Other Manual Assessments Other Manual Assessments Mild tenderness anterior to right greater trochanter. PT-OP-G Mobility & Gait Start: 11/18/21 17:15 Freq: Status: Active Protocol: Document 11/24/21 12:00 AW (Rec: 11/24/21 12:58 AW [id number]) OP Gait Assessment Comments Gait Comments Pt ambulates with 4WW, poor control of inversion RLE, heavy footfalls on left, reduced stance time LLE. She tends to push 4WW too far in front of her although she states she is trying to minimize weightbearing on hands. PT-OP-J Posture/Palpation/Skin Start: 11/18/21 17:15 Freq: Status: Active Protocol: Document 11/24/21 12:00 AW (Rec: 11/24/21 13:02 AW [id number]) Posture Evaluation Comments Posture Comments Pt has flat lumbar spine, moderate lumbar scoliosis with apex to the right, higher pelvic landmarks on the left PT-OP-K Range of Motion Start: 11/18/21 17:15 Freq: Status: Active Protocol: Document 11/24/21 12:00 AW (Rec: 11/24/21 13:09 AW [id number]) Lumbar Spine Range of Motion Lumbar Spine Active Testing Position Standing Flexion 40 Extension 10 ROM Limitations Soft Tissue Tightness,Pain Comments Pt can reach knee joint line bilaterally with fingertips and has no increase in pain. Rotation is limited but not painful bilaterally in standing and in sitting. Hip Goniometric Range of Motion Hip bilat Hip ROM WFL Yes Comments All hip ROM WNL without pain reproduction at end-ranges. IR :ER ratio is ~1:3. No limitation in HS length with pt able to perform SLR well past 90 degrees. PT-OP-M Strength Start: 11/18/21 17:15 Freq: Status: Active Protocol: Document 11/24/21 12:00 AW (Rec: 11/24/21 12:58 AW [id number]) Hip Strength Hip Manual Muscle Testing bilat Flexion (L2) 4+ Good+ Extension (S1) 4- Good- Abduction 4- Good- Knee Strength Knee Manual Muscle Testing Right Flexion (S2) 4+ Good+ Extension (L3) 4+ Good+ Left Flexion (S2) 5 Normal Extension (L3) 5 Normal Ankle/Foot Strength Ankle and Foot Manual Muscle Testing Right Dorsiflexion (L4) 4 Good Plantarflexion (S1) 4- Good- Inversion 4 Good Eversion (S1) 4 Good Left Dorsiflexion (L4) 5 Normal Plantarflexion (S1) 4+ Good+ Inversion 5 Normal Eversion (S1) 5 Normal Toe Strength Toe Manual Muscle Testing Great Toe Comments 4+/5 left; 4/5 right PT-OP-Q Treatments Start: 11/18/21 17:15 Freq: Status: Active Protocol: Document 01/20/22 14:31 [facility] (Rec: 01/20/22 15:15 SAK [id number]) Cardio Equipment Recumbent Elliptical (Biodex) Duration (Minutes) 10 Resistance 3 Seat Position 4 seen Therapeutic Exercises Supine Exercises pelvic tilt Reps/Minutes 10x5 sec maching Supine Exercise Name marching-hooklying - reviewed HEP Side bilateral Reps/Minutes 10x Comments cues level pelvis still transition each LE bridge Supine Exercise Name bridge Reps/Minutes cued segmental motion, core stab Comments no pain piriformis stretch Supine Exercise Name IR Side bilateral Equipment Used cued ease stretch, not overpressure Reps/Minutes 30 x3 Comments ed for support RLE with BUE and towel if needed toward opp shld LTR Supine Exercise Name LTR Side bilateral Equipment Used 55cm ball Reps/Minutes x10 ea Sidelying Exercises clamshells Reps/Minutes 10x Sitting Exercises piriformis stretch Sitting Exercise Name piriformis stretch Side bilateral Reps/Minutes 30 x 2 Comments cues for hold, deep breath Standing Exercises resisted shld ext Resistance TB1 Reps/Minutes 5SH x 10 Comments cues for core activation an neutral posture step ups Standing Exercise Name step ups - fwd and lateral Side bilateral Comments cued weight over stance foot, glute drive resisted row Standing Exercise Name resisted row Resistance TB1 Reps/Minutes 5SH x 10 Other Exercises sit to stand Other Exercise Name HEP Self-Care/Home Management Treatment Education Patient Education Home Exercise Program PT-OP-R Modalities Start: 11/18/21 17:15 Freq: Status: Active Protocol: Document 01/20/22 14:31 [facility] (Rec: 01/20/22 15:15 [facility] [id number]) Electric Stimulation Electric Stimulation Interferential Current (IFC) Duration (Minutes) 15 Intensity 25 Target/Sweep Sweep Combined With Heat/Cold Hot Pack Comments reported decrease in pain PT-OP-T Assessment and Plan Start: 11/18/21 17:15 Freq: Status: Active Protocol: Document 01/20/22 14:31 [facility] (Rec: 01/20/22 15:15 [facility] [id number]) Physical Therapy Assessment Goals Five Impairment balance Development Team Lead Goal (LTG) Pt will score 48/56 or greater on [place] Balance Scale as a measure of improved balance and safe independent mobility. LTG Duration 02/24/22 Four Impairment needs 4WW for ambulation Short Term Goal (STG) Pt will walk 1200 feet or greater on 6MWT with LRAD. 01/05/22 - Pt walked 776 feet in 6 minutes with B trekking poles. STG Duration 01/05/22 [facility] Goal (LTG) Pt will walk 1500 feet or greater on 6MWT with LRAD for parity with age-matched peers to improve community ambulation LTG Duration 02/24/22 Three Impairment pain with lifting Short Term Goal (STG) Pt will lift 10 pounds from waist height without increase in baseline pain to improve her ability to lift a laundry basket. 01/05/22 - Able to lift 7 pound db from chair height without pain. STG Duration 01/05/22 [facility] Goal (LTG) Pt will lift 20 pounds from the ground without increase in baseline pain so that she can manage groceries with greater ease. LTG Duration 02/24/22 Two Impairment pain with trunk flexion Short Term Goal (STG) Pt will tolerate unloaded trunk flexion with 3/10 or less pain 01/05/22 Pt able to do pause squats with 0/10 pain STG Duration 01/05/22 GOAL MET [facility] Goal (LTG) Pt will tolerate forward trunk positioning in standing or kneeling for 15 minutes to be able to return to gardening LTG Duration 02/24/22 One Impairment lacks HEP Short Term Goal (STG) Pt will be instructed in HEP for lumbar and hip mobility, trunk and hip strength to support therapy services provided in clinic. 01/05/22 - Doing exercises daily STG Duration 01/05/22 GOAL MET Development Team Lead Goal (LTG) Pt will be independent with HEP for lumbar and hip mobility, trunk and hip strength to manage pain symptoms and reduce likelihood of future injury. LTG Duration 02/24/22 Assessment Summary Assessment Decreased back pain after IFES , improved tolerance with progression of ther ex including 10 reps shoulder ext with TB, increased RPM's with Biodex. Added theraband ex to HEP and issued L1 TB. Physical Therapy Plan Frequency and Duration Frequency of Treatment 2x/Week Duration of treatment (weeks) 12 Plan of Care Start Date 11/24/21 Plan of Care End Date 02/24/22 Next Visit Focus/Plan Next Note Type Treatment Note Next Visit Plan Progress therapeutic exercise as tolerated with emphasis on core stabilization and strengthening. Add sidestepping with resistance.
--- NOTE | 2022-01-26 16:38 | PT.OTN ---
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) Physical Therapy Treatment Note PT-OP-A Visit Information Start: 11/18/21 17:15 Freq: Status: Active Protocol: Document 01/26/22 14:30 AW (Rec: 01/26/22 16:38 AW [id number]) Out-Patient Physical Therapy Visit Information Visit Information Visit Type Treatment Note Visit Start Time 14:30 Visit Stop Time 15:30 Total Visit Minutes 60 Visit Number 17 Number of INFORMATION TECHNOLOGY SECURITY MANAGER Visits 0 Evaluation Information Evaluation Date 11/24/21 PT-OP-B Current Condition Start: 11/18/21 17:15 Freq: Status: Active Protocol: Document 01/20/22 14:31 SAK (Rec: 01/20/22 15:15 SAK [id number]) Current Condition History of Current Condition Onset Date Spring 2021 Current Complaints low back pain History of Current Condition Leidy fell this past spring and bruised her ribs, was very painful. She denies falls history before this. After a month or so, she had improved enough to get out to the yard and do some weeding in late August. She fell again and hurt her back. Has been seeing chiropractor since then. On October 26, she was very limited in her movement and went to ED . She was given pain meds which she is still taking. She has history of L sciatica but she is now having pain more on right side low back, buttock, lateral thigh to mid thigh. Oxycodone helps. Occasional heat helps. First thing in the morning is worst pain. Same when oxycodone wears off. It hurts to bend forward. She has been ambulating with FWW and then 4WW since August. Pt feels walker helps with her balance. She had never used a walker before . Her states even before the falls, her balance was getting worse and she would often cruise furniture for support. She has neuropathy in both feet but pt states it is mild and she feels slight dulling of sensation only occasionally. Prior Treatments and Tests - MRI 11/04/21: Multiple levels of lumbar spine degenerative change are seen, which are worst at the L4-L5 level. At this level there is grade 1 anterolisthesis, moderate to severe bilateral neural foraminal narrowing, with associated exiting nerve root compression, and severe central canal narrowing. - Regular hearing healthcare practitioner. Future Testing and Treatments Planned 11/26 Neurosurgery in [place] . PT-OP-C Subjective Start: 11/18/21 17:15 Freq: Status: Active Protocol: Document 01/26/22 14:30 AW (Rec: 01/26/22 16:38 AW [id number]) OP-PT Subjective Patient Comments Patient Comments Met with mechanical design engineer facilities yesterday. Trialing no dairy for 2-4 weeks to see if that makes a difference for her gut. Is walking in the house without poles. PT-OP-D Balance Start: 11/18/21 17:15 Freq: Status: Active Protocol: Document 11/24/21 12:00 AW (Rec: 11/24/21 12:53 AW [id number]) Balance Tests Single Limb Standing Single Limb- Right <1 sec Single Limb- Left 2 sec PT-OP-F Manual Assessment Start: 11/18/21 17:15 Freq: Status: Active Protocol: Document 11/24/21 12:00 AW (Rec: 11/24/21 12:58 AW [id number]) Manual Assessments Joint Mobility Assessment Joint Mobility Assessment Significantly reduced excursion in lumbar PA's especially lower levels. Other Manual Assessments Other Manual Assessments Mild tenderness anterior to right greater trochanter. PT-OP-G Mobility & Gait Start: 11/18/21 17:15 Freq: Status: Active Protocol: Document 11/24/21 12:00 AW (Rec: 11/24/21 12:58 AW [id number]) OP Gait Assessment Comments Gait Comments Pt ambulates with 4WW, poor control of inversion RLE, heavy footfalls on left, reduced stance time LLE. She tends to push 4WW too far in front of her although she states she is trying to minimize weightbearing on hands. PT-OP-J Posture/Palpation/Skin Start: 11/18/21 17:15 Freq: Status: Active Protocol: Document 11/24/21 12:00 AW (Rec: 11/24/21 13:02 AW [id number]) Posture Evaluation Comments Posture Comments Pt has flat lumbar spine, moderate lumbar scoliosis with apex to the right, higher pelvic landmarks on the left PT-OP-K Range of Motion Start: 11/18/21 17:15 Freq: Status: Active Protocol: Document 11/24/21 12:00 AW (Rec: 11/24/21 13:09 AW [id number]) Lumbar Spine Range of Motion Lumbar Spine Active Testing Position Standing Flexion 40 Extension 10 ROM Limitations Soft Tissue Tightness,Pain Comments Pt can reach knee joint line bilaterally with fingertips and has no increase in pain. Rotation is limited but not painful bilaterally in standing and in sitting. Hip Goniometric Range of Motion Hip bilat Hip ROM WFL Yes Comments All hip ROM WNL without pain reproduction at end-ranges. IR :ER ratio is ~1:3. No limitation in HS length with pt able to perform SLR well past 90 degrees. PT-OP-M Strength Start: 11/18/21 17:15 Freq: Status: Active Protocol: Document 11/24/21 12:00 AW (Rec: 11/24/21 12:58 AW [id number]) Hip Strength Hip Manual Muscle Testing bilat Flexion (L2) 4+ Good+ Extension (S1) 4- Good- Abduction 4- Good- Knee Strength Knee Manual Muscle Testing Right Flexion (S2) 4+ Good+ Extension (L3) 4+ Good+ Left Flexion (S2) 5 Normal Extension (L3) 5 Normal Ankle/Foot Strength Ankle and Foot Manual Muscle Testing Right Dorsiflexion (L4) 4 Good Plantarflexion (S1) 4- Good- Inversion 4 Good Eversion (S1) 4 Good Left Dorsiflexion (L4) 5 Normal Plantarflexion (S1) 4+ Good+ Inversion 5 Normal Eversion (S1) 5 Normal Toe Strength Toe Manual Muscle Testing Great Toe Comments 4+/5 left; 4/5 right PT-OP-Q Treatments Start: 11/18/21 17:15 Freq: Status: Active Protocol: Document 01/26/22 14:30 AW (Rec: 01/26/22 16:38 AW [id number]) Cardio Equipment Recumbent Elliptical (SecondLeap) Duration (Minutes) 10 Resistance 3 Seat Position 4 seen Other 737 steps Therapeutic Exercises Supine Exercises maching Supine Exercise Name marching-hooklying - reviewed HEP Side bilateral Reps/Minutes 10x Comments cues level pelvis still transition each LE bridge Supine Exercise Name bridge Reps/Minutes cued segmental motion, core stab Comments no pain LTR Supine Exercise Name LTR Side bilateral Equipment Used 55cm ball Reps/Minutes x10 ea Sitting Exercises piriformis stretch Sitting Exercise Name piriformis stretch Side bilateral Reps/Minutes 30 x 2 Comments cues for hold, deep breath Standing Exercises resisted side-stepping Standing Exercise Name resisted side-stepping Side bilateral Equipment Used yellow loop Reps/Minutes 8' lap Comments slow pace, will need to review ; not for HEP resisted shld ext Resistance TB1 Reps/Minutes 5SH x 10 Comments cues for core activation an neutral posture resisted row Standing Exercise Name resisted row Resistance TB1 Reps/Minutes 5SH x 10 Other Exercises sit to stand Other Exercise Name STS - no hands Equipment Used 17 tx table Reps/Minutes 2x10 Comments with slow descent and 5 sec pause near max depth Manual Therapy Treatment Soft Tissue Mobilization R QL, ES, piriformis, Glut med Body Location R Mobilization Type Sustained Pressure,Trigger Point Release Intensity/Depth Deep Body Position Sidelying Comments focus on proximal gluteal ilium PT-OP-R Modalities Start: 11/18/21 17:15 Freq: Status: Active Protocol: Document 01/26/22 14:30 AW (Rec: 01/26/22 16:38 AW [id number]) Electric Stimulation Electric Stimulation Interferential Current (IFC) Duration (Minutes) 15 Intensity 20 Target/Sweep Sweep Combined With Heat/Cold Hot Pack Comments reported decrease in pain PT-OP-T Assessment and Plan Start: 11/18/21 17:15 Freq: Status: Active Protocol: Document 01/26/22 14:30 AW (Rec: 01/26/22 16:38 AW [id number]) Physical Therapy Assessment Goals Five Impairment balance Group Home Goal (LTG) Pt will score 48/56 or greater on [place] Balance Scale as a measure of improved balance and safe independent mobility. LTG Duration 02/24/22 Four Impairment needs 4WW for ambulation Short Term Goal (STG) Pt will walk 1200 feet or greater on 6MWT with LRAD. 01/05/22 - Pt walked 776 feet in 6 minutes with B trekking poles. STG Duration 01/05/22 Supervisor [place] Goal (LTG) Pt will walk 1500 feet or greater on 6MWT with LRAD for parity with age-matched peers to improve community ambulation LTG Duration 02/24/22 Three Impairment pain with lifting Short Term Goal (STG) Pt will lift 10 pounds from waist height without increase in baseline pain to improve her ability to lift a laundry basket. 01/05/22 - Able to lift 7 pound db from chair height without pain. STG Duration 01/05/22 Supervisor [place] Goal (LTG) Pt will lift 20 pounds from the ground without increase in baseline pain so that she can manage groceries with greater ease. LTG Duration 02/24/22 Two Impairment pain with trunk flexion Short Term Goal (STG) Pt will tolerate unloaded trunk flexion with 3/10 or less pain 01/05/22 Pt able to do pause squats with 0/10 pain STG Duration 01/05/22 GOAL MET Group Home Goal (LTG) Pt will tolerate forward trunk positioning in standing or kneeling for 15 minutes to be able to return to gardening LTG Duration 02/24/22 One Impairment lacks HEP Short Term Goal (STG) Pt will be instructed in HEP for lumbar and hip mobility, trunk and hip strength to support therapy services provided in clinic. 01/05/22 - Doing exercises daily STG Duration 01/05/22 GOAL MET Group Home Goal (LTG) Pt will be independent with HEP for lumbar and hip mobility, trunk and hip strength to manage pain symptoms and reduce likelihood of future injury. LTG Duration 02/24/22 Assessment Summary Assessment Leidy was able to increase resistance on [employer]. She has improved control of descent in her squat. Reviewed theraband exercises today with cues for arm position relative to trunk. Physical Therapy Plan Frequency and Duration Frequency of Treatment 2x/Week Duration of treatment (weeks) 12 Plan of Care Start Date 11/24/21 Plan of Care End Date 02/24/22 Next Visit Focus/Plan Next Note Type Treatment Note Next Visit Plan Progress therapeutic exercise as tolerated with emphasis on core stabilization and strengthening. Add sidestepping with resistance.
--- NOTE | 2022-01-28 13:12 | PT.OTN ---
Current Diagnoses Scoliosis, unspecified (01/28/22) Spondylolisthesis, lumbar region (01/28/22) Spondylosis without myelopathy or radiculopathy, lumbar region (01/28/22) Physical Therapy Treatment Note PT-OP-A Visit Information Start: 11/18/21 17:15 Freq: Status: Active Protocol: Document 01/28/22 12:19 SP (Rec: 01/28/22 13:06 SP [id number]) Out-Patient Physical Therapy Visit Information Visit Information Visit Type Treatment Note Visit Start Time 12:19 Visit Stop Time 13:12 Total Visit Minutes 53 Visit Number 18 Number of ORIENTAL RUG STRETCHER Visits 1 Evaluation Information Evaluation Date 11/24/21 PT-OP-B Current Condition Start: 11/18/21 17:15 Freq: Status: Active Protocol: Document 01/20/22 14:31 SAK (Rec: 01/20/22 15:15 SAK [id number]) Current Condition History of Current Condition Onset Date Spring 2021 Current Complaints low back pain History of Current Condition Leidy fell this past spring and bruised her ribs, was very painful. She denies falls history before this. After a month or so, she had improved enough to get out to the yard and do some weeding in late August. She fell again and hurt her back. Has been seeing chiropractor since then. On October 26, she was very limited in her movement and went to ED . She was given pain meds which she is still taking. She has history of L sciatica but she is now having pain more on right side low back, buttock, lateral thigh to mid thigh. Oxycodone helps. Occasional heat helps. First thing in the morning is worst pain. Same when oxycodone wears off. It hurts to bend forward. She has been ambulating with FWW and then 4WW since August. Pt feels walker helps with her balance. She had never used a walker before . Her states even before the falls, her balance was getting worse and she would often cruise furniture for support. She has neuropathy in both feet but pt states it is mild and she feels slight dulling of sensation only occasionally. Prior Treatments and Tests - MRI 11/04/21: Multiple levels of lumbar spine degenerative change are seen, which are worst at the L4-L5 level. At this level there is grade 1 anterolisthesis, moderate to severe bilateral neural foraminal narrowing, with associated exiting nerve root compression, and severe central canal narrowing. - Regular care transitions manager. Future Testing and Treatments Planned 11/26 Neurosurgery in [place] . PT-OP-C Subjective Start: 11/18/21 17:15 Freq: Status: Active Protocol: Document 01/28/22 12:19 SP (Rec: 01/28/22 13:06 SP [id number]) OP-PT Subjective Patient Comments Patient Comments Pt reported L low back hurting ealier and hard time standing upright but lessened pre arrival. PT-OP-D Balance Start: 11/18/21 17:15 Freq: Status: Active Protocol: Document 11/24/21 12:00 AW (Rec: 11/24/21 12:53 AW [id number]) Balance Tests Single Limb Standing Single Limb- Right <1 sec Single Limb- Left 2 sec PT-OP-F Manual Assessment Start: 11/18/21 17:15 Freq: Status: Active Protocol: Document 11/24/21 12:00 AW (Rec: 11/24/21 12:58 AW [id number]) Manual Assessments Joint Mobility Assessment Joint Mobility Assessment Significantly reduced excursion in lumbar PA's especially lower levels. Other Manual Assessments Other Manual Assessments Mild tenderness anterior to right greater trochanter. PT-OP-G Mobility & Gait Start: 11/18/21 17:15 Freq: Status: Active Protocol: Document 11/24/21 12:00 AW (Rec: 11/24/21 12:58 AW [id number]) OP Gait Assessment Comments Gait Comments Pt ambulates with 4WW, poor control of inversion RLE, heavy footfalls on left, reduced stance time LLE. She tends to push 4WW too far in front of her although she states she is trying to minimize weightbearing on hands. PT-OP-J Posture/Palpation/Skin Start: 11/18/21 17:15 Freq: Status: Active Protocol: Document 11/24/21 12:00 AW (Rec: 11/24/21 13:02 AW [id number]) Posture Evaluation Comments Posture Comments Pt has flat lumbar spine, moderate lumbar scoliosis with apex to the right, higher pelvic landmarks on the left PT-OP-K Range of Motion Start: 11/18/21 17:15 Freq: Status: Active Protocol: Document 11/24/21 12:00 AW (Rec: 11/24/21 13:09 AW [id number]) Lumbar Spine Range of Motion Lumbar Spine Active Testing Position Standing Flexion 40 Extension 10 ROM Limitations Soft Tissue Tightness,Pain Comments Pt can reach knee joint line bilaterally with fingertips and has no increase in pain. Rotation is limited but not painful bilaterally in standing and in sitting. Hip Goniometric Range of Motion Hip bilat Hip ROM WFL Yes Comments All hip ROM WNL without pain reproduction at end-ranges. IR :ER ratio is ~1:3. No limitation in HS length with pt able to perform SLR well past 90 degrees. PT-OP-M Strength Start: 11/18/21 17:15 Freq: Status: Active Protocol: Document 11/24/21 12:00 AW (Rec: 11/24/21 12:58 AW [id number]) Hip Strength Hip Manual Muscle Testing bilat Flexion (L2) 4+ Good+ Extension (S1) 4- Good- Abduction 4- Good- Knee Strength Knee Manual Muscle Testing Right Flexion (S2) 4+ Good+ Extension (L3) 4+ Good+ Left Flexion (S2) 5 Normal Extension (L3) 5 Normal Ankle/Foot Strength Ankle and Foot Manual Muscle Testing Right Dorsiflexion (L4) 4 Good Plantarflexion (S1) 4- Good- Inversion 4 Good Eversion (S1) 4 Good Left Dorsiflexion (L4) 5 Normal Plantarflexion (S1) 4+ Good+ Inversion 5 Normal Eversion (S1) 5 Normal Toe Strength Toe Manual Muscle Testing Great Toe Comments 4+/5 left; 4/5 right PT-OP-Q Treatments Start: 11/18/21 17:15 Freq: Status: Active Protocol: Document 01/28/22 12:19 SP (Rec: 01/28/22 13:06 SP [id number]) Therapeutic Exercises Supine Exercises open book Side bilateral Reps/Minutes [address] Comments good form maching Supine Exercise Name marching-hooklying - reviewed HEP Side bilateral Reps/Minutes 10x Comments cues level pelvis still transition each LE bridge Supine Exercise Name bridge Equipment Used 10s hold x10 Reps/Minutes cued segmental motion, core stab Comments no pain piriformis stretch Supine Exercise Name IR Side bilateral Equipment Used cued ease stretch, not overpressure Reps/Minutes 30 x3 Comments ed for support RLE with BUE and towel if needed toward opp shld LTR Supine Exercise Name LTR Side bilateral Equipment Used 55cm ball, arms at side table Reps/Minutes x10 ea Comments good form and TA fac Standing Exercises resisted side-stepping Standing Exercise Name resisted side-stepping- in PT only Side bilateral Equipment Used yellow loop Reps/Minutes 10 ft lap Comments cued slow pace eccentric control and posture, trail LE clearance Manual Therapy Treatment Soft Tissue Mobilization R QL, ES, piriformis, Glut med Body Location L Lumbar ES, DIstal QL> glut med Mobilization Type Strumming,Sustained Pressure, Trigger Point Release Intensity/Depth Deep Body Position Sidelying Comments focus on proximal gluteal ilium, L5- S1. PT-OP-R Modalities Start: 11/18/21 17:15 Freq: Status: Active Protocol: Document 01/28/22 12:19 SP (Rec: 01/28/22 13:06 SP [id number]) Electric Stimulation Electric Stimulation Interferential Current (IFC) Duration (Minutes) 10 Intensity 26 Target/Sweep Sweep Patient Position Prone Combined With Heat/Cold Hot Pack Comments reported decrease in pain PT-OP-T Assessment and Plan Start: 11/18/21 17:15 Freq: Status: Active Protocol: Document 01/28/22 12:19 SP (Rec: 01/28/22 13:06 SP [id number]) Physical Therapy Assessment Goals Five Impairment balance Prison Goal (LTG) Pt will score 48/56 or greater on [place] Balance Scale as a measure of improved balance and safe independent mobility. LTG Duration 02/24/22 Four Impairment needs 4WW for ambulation Short Term Goal (STG) Pt will walk 1200 feet or greater on 6MWT with LRAD. 01/05/22 - Pt walked 776 feet in 6 minutes with B SoftRunkking poles. STG Duration 01/05/22 Prison Goal (LTG) Pt will walk 1500 feet or greater on 6MWT with LRAD for parity with age-matched peers to improve community ambulation LTG Duration 02/24/22 Three Impairment pain with lifting Short Term Goal (STG) Pt will lift 10 pounds from waist height without increase in baseline pain to improve her ability to lift a laundry basket. 01/05/22 - Able to lift 7 pound db from chair height without pain. STG Duration 01/05/22 Pesticide Applicator Goal (LTG) Pt will lift 20 pounds from the ground without increase in baseline pain so that she can manage groceries with greater ease. LTG Duration 02/24/22 Two Impairment pain with trunk flexion Short Term Goal (STG) Pt will tolerate unloaded trunk flexion with 3/10 or less pain 01/05/22 Pt able to do pause squats with 0/10 pain STG Duration 01/05/22 GOAL MET Prison Goal (LTG) Pt will tolerate forward trunk positioning in standing or kneeling for 15 minutes to be able to return to gardening LTG Duration 02/24/22 One Impairment lacks HEP Short Term Goal (STG) Pt will be instructed in HEP for lumbar and hip mobility, trunk and hip strength to support therapy services provided in clinic. 01/05/22 - Doing exercises daily STG Duration 01/05/22 GOAL MET Pesticide Applicator Goal (LTG) Pt will be independent with HEP for lumbar and hip mobility, trunk and hip strength to manage pain symptoms and reduce likelihood of future injury. LTG Duration 02/24/22 Assessment Summary Assessment Pt reported increase ROM and posture post ex, manual and ES / MHP. Pt improved eccentric control during band walk, ableto work short distance in gym with out Trek poles less SB. Physical Therapy Plan Frequency and Duration Frequency of Treatment 2x/Week Duration of treatment (weeks) 12 Plan of Care Start Date 11/24/21 Plan of Care End Date 02/24/22 Therapeutic Interventions Therapeutic Interventions Aquatic Therapy,Balance Training,Gait Training,Home Exercise Program,Manual Therapy,Neuromuscular Re- education,Self-Care/Home Management,Soft Tissue Mobilization,Therapeutic Activities,Therapeutic Exercises Modalities Cold Pack/Ice Massage,Hot Packs Next Visit Focus/Plan Next Note Type Treatment Note Next Visit Plan Progress therapeutic exercise as tolerated with emphasis on core stabilization and strengthening. Add sidestepping with resistance.
--- NOTE | 2022-02-01 12:08 | PT.OTN ---
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) Physical Therapy Treatment Note PT-OP-A Visit Information Start: 11/18/21 17:15 Freq: Status: Active Protocol: Document 02/01/22 11:16 SAK (Rec: 02/01/22 12:08 SAK [id number]) Out-Patient Physical Therapy Visit Information Visit Information Visit Type Treatment Note Visit Start Time 11:16 Visit Stop Time 12:14 Total Visit Minutes 58 Visit Number 19 Number of ASSESSMENT TECHNICIAN Visits 0 Evaluation Information Evaluation Date 11/24/21 PT-OP-B Current Condition Start: 11/18/21 17:15 Freq: Status: Active Protocol: Document 01/20/22 14:31 SAK (Rec: 01/20/22 15:15 SAK [id number]) Current Condition History of Current Condition Onset Date Spring 2021 Current Complaints low back pain History of Current Condition Leidy fell this past spring and bruised her ribs, was very painful. She denies falls history before this. After a month or so, she had improved enough to get out to the yard and do some weeding in late August. She fell again and hurt her back. Has been seeing chiropractor since then. On October 26, she was very limited in her movement and went to ED . She was given pain meds which she is still taking. She has history of L sciatica but she is now having pain more on right side low back, buttock, lateral thigh to mid thigh. Oxycodone helps. Occasional heat helps. First thing in the morning is worst pain. Same when oxycodone wears off. It hurts to bend forward. She has been ambulating with FWW and then 4WW since August. Pt feels walker helps with her balance. She had never used a walker before . Her states even before the falls, her balance was getting worse and she would often cruise furniture for support. She has neuropathy in both feet but pt states it is mild and she feels slight dulling of sensation only occasionally. Prior Treatments and Tests - MRI 11/04/21: Multiple levels of lumbar spine degenerative change are seen, which are worst at the L4-L5 level. At this level there is grade 1 anterolisthesis, moderate to severe bilateral neural foraminal narrowing, with associated exiting nerve root compression, and severe central canal narrowing. 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 Future Testing and Treatments Planned 11/26 Neurosurgery in [place] . PT-OP-C Subjective Start: 11/18/21 17:15 Freq: Status: Active Protocol: Document 02/01/22 11:16 SAK (Rec: 02/01/22 12:08 SAK [id number]) OP-PT Subjective Patient Comments Patient Comments Low back tight both sides today. Liked doing IFES laying on stomach. Some days are better than others; able to walk, then on others too sore. PT-OP-D Balance Start: 11/18/21 17:15 Freq: Status: Active Protocol: Document 11/24/21 12:00 AW (Rec: 11/24/21 12:53 AW [id number]) Balance Tests Single Limb Standing Single Limb- Right <1 sec Single Limb- Left 2 sec PT-OP-F Manual Assessment Start: 11/18/21 17:15 Freq: Status: Active Protocol: Document 11/24/21 12:00 AW (Rec: 11/24/21 12:58 AW [id number]) Manual Assessments Joint Mobility Assessment Joint Mobility Assessment Significantly reduced excursion in lumbar PA's especially lower levels. Other Manual Assessments Other Manual Assessments Mild tenderness anterior to right greater trochanter. PT-OP-G Mobility & Gait Start: 11/18/21 17:15 Freq: Status: Active Protocol: Document 11/24/21 12:00 AW (Rec: 11/24/21 12:58 AW [id number]) OP Gait Assessment Comments Gait Comments Pt ambulates with 4WW, poor control of inversion RLE, heavy footfalls on left, reduced stance time LLE. She tends to push 4WW too far in front of her although she states she is trying to minimize weightbearing on hands. PT-OP-J Posture/Palpation/Skin Start: 11/18/21 17:15 Freq: Status: Active Protocol: Document 11/24/21 12:00 AW (Rec: 11/24/21 13:02 AW [id number]) Posture Evaluation Comments Posture Comments Pt has flat lumbar spine, moderate lumbar scoliosis with apex to the right, higher pelvic landmarks on the left PT-OP-K Range of Motion Start: 11/18/21 17:15 Freq: Status: Active Protocol: Document 11/24/21 12:00 AW (Rec: 11/24/21 13:09 AW [id number]) Lumbar Spine Range of Motion Lumbar Spine Active Testing Position Standing Flexion 40 Extension 10 ROM Limitations Soft Tissue Tightness,Pain Comments Pt can reach knee joint line bilaterally with fingertips and has no increase in pain. Rotation is limited but not painful bilaterally in standing and in sitting. Hip Goniometric Range of Motion Hip bilat Hip ROM WFL Yes Comments All hip ROM WNL without pain reproduction at end-ranges. IR :ER ratio is ~1:3. No limitation in HS length with pt able to perform SLR well past 90 degrees. PT-OP-M Strength Start: 11/18/21 17:15 Freq: Status: Active Protocol: Document 11/24/21 12:00 AW (Rec: 11/24/21 12:58 AW [id number]) Hip Strength Hip Manual Muscle Testing bilat Flexion (L2) 4+ Good+ Extension (S1) 4- Good- Abduction 4- Good- Knee Strength Knee Manual Muscle Testing Right Flexion (S2) 4+ Good+ Extension (L3) 4+ Good+ Left Flexion (S2) 5 Normal Extension (L3) 5 Normal Ankle/Foot Strength Ankle and Foot Manual Muscle Testing Right Dorsiflexion (L4) 4 Good Plantarflexion (S1) 4- Good- Inversion 4 Good Eversion (S1) 4 Good Left Dorsiflexion (L4) 5 Normal Plantarflexion (S1) 4+ Good+ Inversion 5 Normal Eversion (S1) 5 Normal Toe Strength Toe Manual Muscle Testing Great Toe Comments 4+/5 left; 4/5 right PT-OP-Q Treatments Start: 11/18/21 17:15 Freq: Status: Active Protocol: Document 02/01/22 11:16 SAK (Rec: 02/01/22 12:08 SAK [id number]) Cardio Equipment Recumbent Elliptical (Biodex) Duration (Minutes) 10 Resistance 3 Seat Position 4 seen Other folded towel behind thoracic spine, 727 steps Therapeutic Exercises Supine Exercises open book Side bilateral Reps/Minutes [address] Comments good form maching Supine Exercise Name marching-hooklying - reviewed HEP Side bilateral Reps/Minutes 10x Comments cues level pelvis still transition each LE bridge Supine Exercise Name bridge Equipment Used 10s hold x10 Reps/Minutes cued segmental motion, core stab Comments no pain Sitting Exercises trunk rotation Reps/Minutes 2x10 Comments gentle low back stretch Sitting Exercise Name elbows on thighs Reps/Minutes 2x30 Comments with deep breathing into lumbar spine Standing Exercises resisted side-stepping Standing Exercise Name resisted side-stepping- in PT only Side bilateral Equipment Used yellow loop Reps/Minutes 10 ft lap Comments cued slow pace eccentric control and posture, trail LE clearance resisted shld ext Resistance TB1 Reps/Minutes 5SH x 10 Comments cues for core activation, emphasis on scapular movement resisted row Standing Exercise Name resisted row Resistance TB1 Reps/Minutes 5SH x 10 Comments cues for core activation, emphasis on scapular movement Self-Care/Home Management Treatment Education Other Education education to do theraband exercises 1x/wk at home if doing 2x/wk in PT PT-OP-R Modalities Start: 11/18/21 17:15 Freq: Status: Active Protocol: Document 02/01/22 11:16 [facility] (Rec: 02/01/22 12:08 [facility] [id number]) Electric Stimulation Electric Stimulation Interferential Current (IFC) Duration (Minutes) 10 Intensity 26 Target/Sweep Sweep Patient Position Prone Combined With Heat/Cold Hot Pack Comments reported decrease in pain PT-OP-T Assessment and Plan Start: 11/18/21 17:15 Freq: Status: Active Protocol: Document 02/01/22 11:16 [facility] (Rec: 02/01/22 12:08 [facility] [id number]) Physical Therapy Assessment Goals Five Impairment balance Mcc Goal (LTG) Pt will score 48/56 or greater on [place] Balance Scale as a measure of improved balance and safe independent mobility. LTG Duration 02/24/22 Four Impairment needs 4WW for ambulation Short Term Goal (STG) Pt will walk 1200 feet or greater on 6MWT with LRAD. 01/05/22 - Pt walked 776 feet in 6 minutes with B trekking poles. STG Duration 01/05/22 Coordinator Of Evaluation Goal (LTG) Pt will walk 1500 feet or greater on 6MWT with LRAD for parity with age-matched peers to improve community ambulation LTG Duration 02/24/22 Three Impairment pain with lifting Short Term Goal (STG) Pt will lift 10 pounds from waist height without increase in baseline pain to improve her ability to lift a laundry basket. 01/05/22 - Able to lift 7 pound db from chair height without pain. STG Duration 01/05/22 Mcc Goal (LTG) Pt will lift 20 pounds from the ground without increase in baseline pain so that she can manage groceries with greater ease. LTG Duration 02/24/22 Two Impairment pain with trunk flexion Short Term Goal (STG) Pt will tolerate unloaded trunk flexion with 3/10 or less pain 01/05/22 Pt able to do pause squats with 0/10 pain STG Duration 01/05/22 GOAL MET Mcc Goal (LTG) Pt will tolerate forward trunk positioning in standing or kneeling for 15 minutes to be able to return to gardening LTG Duration 02/24/22 One Impairment lacks HEP Short Term Goal (STG) Pt will be instructed in HEP for lumbar and hip mobility, trunk and hip strength to support therapy services provided in clinic. 01/05/22 - Doing exercises daily STG Duration 01/05/22 GOAL MET Mcc Goal (LTG) Pt will be independent with HEP for lumbar and hip mobility, trunk and hip strength to manage pain symptoms and reduce likelihood of future injury. LTG Duration 02/24/22 Assessment Summary Assessment Decreased pain and stiffness after starting with gentle seated stretch and ROM. Gait without poles throughout session. Improved scapular and core activation with theraband exercises. Encouraged regular walking, use of heat and gentle stretches prior to walking and after as needed; reported decreased stiffness and pain after gentle seated stretches at beginning of PT session today. Physical Therapy Plan Frequency and Duration Frequency of Treatment 2x/Week Duration of treatment (weeks) 12 Plan of Care Start Date 11/24/21 Plan of Care End Date 02/24/22 Therapeutic Interventions Therapeutic Interventions Aquatic Therapy,Balance Training,Gait Training,Home Exercise Program,Manual Therapy,Neuromuscular Re- education,Self-Care/Home Management,Soft Tissue Mobilization,Therapeutic Activities,Therapeutic Exercises Modalities Cold Pack/Ice Massage,Hot Packs Next Visit Focus/Plan Next Note Type Treatment Note Next Visit Plan Progress therapeutic exercise as tolerated with emphasis on core stabilization and strengthening. 6 min walk test .
--- NOTE | 2022-02-03 11:15 | PT.OTN ---
Current Diagnoses Scoliosis, unspecified (02/03/22) Spondylolisthesis, lumbar region (02/03/22) Spondylosis without myelopathy or radiculopathy, lumbar region (02/03/22) Physical Therapy Treatment Note PT-OP-A Visit Information Start: 11/18/21 17:15 Freq: Status: Active Protocol: Document 02/03/22 10:30 SP (Rec: 02/03/22 11:41 SP [id number]) Out-Patient Physical Therapy Visit Information Visit Information Visit Type Treatment Note Visit Note PN needed Visit Start Time 10:30 Visit Stop Time 11:15 Total Visit Minutes 45 Visit Number 20 Number of CLOCK ASSEMBLER Visits 1 Evaluation Information Evaluation Date 11/24/21 PT-OP-B Current Condition Start: 11/18/21 17:15 Freq: Status: Active Protocol: Document 01/20/22 14:31 SAK (Rec: 01/20/22 15:15 SAK [id number]) Current Condition History of Current Condition Onset Date Spring 2021 Current Complaints low back pain History of Current Condition Leidy fell this past spring and bruised her ribs, was very painful. She denies falls history before this. After a month or so, she had improved enough to get out to the yard and do some weeding in late August. She fell again and hurt her back. Has been seeing chiropractor since then. On October 26, she was very limited in her movement and went to ED . She was given pain meds which she is still taking. She has history of L sciatica but she is now having pain more on right side low back, buttock, lateral thigh to mid thigh. Oxycodone helps. Occasional heat helps. First thing in the morning is worst pain. Same when oxycodone wears off. It hurts to bend forward. She has been ambulating with FWW and then 4WW since August. Pt feels walker helps with her balance. She had never used a walker before . Her states even before the falls, her balance was getting worse and she would often cruise furniture for support. She has neuropathy in both feet but pt states it is mild and she feels slight dulling of sensation only occasionally. Prior Treatments and Tests - MRI 11/04/21: Multiple levels of lumbar spine degenerative change are seen, which are worst at the L4-L5 level. At this level there is grade 1 anterolisthesis, moderate to severe bilateral neural foraminal narrowing, with associated exiting nerve root compression, and severe central canal narrowing. - Regular home health care respiratory therapist. Future Testing and Treatments Planned 11/26 Neurosurgery in [place] . PT-OP-C Subjective Start: 11/18/21 17:15 Freq: Status: Active Protocol: Document 02/03/22 10:30 SP (Rec: 02/03/22 11:41 SP [id number]) OP-PT Subjective Patient Comments Patient Comments Pt stated has an upright bike at home and hasn't gotten on it since fell in October. PT-OP-D Balance Start: 11/18/21 17:15 Freq: Status: Active Protocol: Document 11/24/21 12:00 AW (Rec: 11/24/21 12:53 AW [id number]) Balance Tests Single Limb Standing Single Limb- Right <1 sec Single Limb- Left 2 sec PT-OP-F Manual Assessment Start: 11/18/21 17:15 Freq: Status: Active Protocol: Document 11/24/21 12:00 AW (Rec: 11/24/21 12:58 AW [id number]) Manual Assessments Joint Mobility Assessment Joint Mobility Assessment Significantly reduced excursion in lumbar PA's especially lower levels. Other Manual Assessments Other Manual Assessments Mild tenderness anterior to right greater trochanter. PT-OP-G Mobility & Gait Start: 11/18/21 17:15 Freq: Status: Active Protocol: Document 11/24/21 12:00 AW (Rec: 11/24/21 12:58 AW [id number]) OP Gait Assessment Comments Gait Comments Pt ambulates with 4WW, poor control of inversion RLE, heavy footfalls on left, reduced stance time LLE. She tends to push 4WW too far in front of her although she states she is trying to minimize weightbearing on hands. PT-OP-J Posture/Palpation/Skin Start: 11/18/21 17:15 Freq: Status: Active Protocol: Document 11/24/21 12:00 AW (Rec: 11/24/21 13:02 AW [id number]) Posture Evaluation Comments Posture Comments Pt has flat lumbar spine, moderate lumbar scoliosis with apex to the right, higher pelvic landmarks on the left PT-OP-K Range of Motion Start: 11/18/21 17:15 Freq: Status: Active Protocol: Document 11/24/21 12:00 AW (Rec: 11/24/21 13:09 AW [id number]) Lumbar Spine Range of Motion Lumbar Spine Active Testing Position Standing Flexion 40 Extension 10 ROM Limitations Soft Tissue Tightness,Pain Comments Pt can reach knee joint line bilaterally with fingertips and has no increase in pain. Rotation is limited but not painful bilaterally in standing and in sitting. Hip Goniometric Range of Motion Hip bilat Hip ROM WFL Yes Comments All hip ROM WNL without pain reproduction at end-ranges. IR :ER ratio is ~1:3. No limitation in HS length with pt able to perform SLR well past 90 degrees. PT-OP-M Strength Start: 11/18/21 17:15 Freq: Status: Active Protocol: Document 11/24/21 12:00 AW (Rec: 11/24/21 12:58 AW [id number]) Hip Strength Hip Manual Muscle Testing bilat Flexion (L2) 4+ Good+ Extension (S1) 4- Good- Abduction 4- Good- Knee Strength Knee Manual Muscle Testing Right Flexion (S2) 4+ Good+ Extension (L3) 4+ Good+ Left Flexion (S2) 5 Normal Extension (L3) 5 Normal Ankle/Foot Strength Ankle and Foot Manual Muscle Testing Right Dorsiflexion (L4) 4 Good Plantarflexion (S1) 4- Good- Inversion 4 Good Eversion (S1) 4 Good Left Dorsiflexion (L4) 5 Normal Plantarflexion (S1) 4+ Good+ Inversion 5 Normal Eversion (S1) 5 Normal Toe Strength Toe Manual Muscle Testing Great Toe Comments 4+/5 left; 4/5 right PT-OP-Q Treatments Start: 11/18/21 17:15 Freq: Status: Active Protocol: Document 02/03/22 10:30 SP (Rec: 02/03/22 11:41 SP [id number]) Cardio Equipment Recumbent Elliptical (Biodex) Duration (Minutes) 10 Resistance 3 Seat Position 4 seen Other folded towel behind lower thoracic spine, 730 steps Gait Training Gait Activity 6MWT Description reassessment in distance endurance Distance/Duration 753 ft in 6 min B trek poles Treatment Focus foot clearance, proper sequencing trek poles, endurance for community amb Comments occasional cues for increase foot clearance, tends to lightly scuff as distance progresses, corrections increase hip flexion and DF with cues. Neuro Re-Education Treatment Balance Activities Rivera balance test Details 50/56 Comments scanned in PT-OP-R Modalities Start: 11/18/21 17:15 Freq: Status: Active Protocol: Document 02/01/22 11:16 SAK (Rec: 02/01/22 12:08 SAK [id number]) Electric Stimulation Electric Stimulation Interferential Current (IFC) Duration (Minutes) 10 Intensity 26 Target/Sweep Sweep Patient Position Prone Combined With Heat/Cold Hot Pack Comments reported decrease in pain PT-OP-T Assessment and Plan Start: 11/18/21 17:15 Freq: Status: Active Protocol: Document 02/03/22 10:30 SP (Rec: 02/03/22 11:41 SP [id number]) Physical Therapy Assessment Goals Five Impairment balance [employer] Cell[employer] Helper Machine Goal (LTG) Pt will score 48/56 or greater on [place] Balance Scale as a measure of improved balance and safe independent mobility. 02/03/22: MET GOAL 50/56 LTG Duration 02/24/22 GOAL MET Four Impairment needs 4WW for ambulation Short Term Goal (STG) Pt will walk 1200 feet or greater on 6MWT with LRAD. 01/05/22 - Pt walked 776 feet in 6 minutes with B trekking poles. 02/03/22: no significant progress,pt walked 753 ft in 6 minutes w/ B trek poles after 10 min biodex and Rivera testing. Pt states doesn't need use trek poles indoors. STG Duration 01/05/22 slow progress 02/03/22 [employer] Cell[employer] Helper Machine Goal (LTG) Pt will walk 1500 feet or greater on 6MWT with LRAD for parity with age-matched peers to improve community ambulation LTG Duration 02/24/22 Three Impairment pain with lifting Short Term Goal (STG) Pt will lift 10 pounds from waist height without increase in baseline pain to improve her ability to lift a laundry basket. 01/05/22 - Able to lift 7 pound db from chair height without pain. 02/03/22: GOAL MET: able to lift 10# DB to waist height without back pain. STG Duration 01/05/22 GOAL MET Shelter Goal (LTG) Pt will lift 20 pounds from the ground without increase in baseline pain so that she can manage groceries with greater ease. LTG Duration 02/24/22 Two Impairment pain with trunk flexion Short Term Goal (STG) Pt will tolerate unloaded trunk flexion with 3/10 or less pain 01/05/22 Pt able to do pause squats with 0/10 pain STG Duration 01/05/22 GOAL MET Shelter Goal (LTG) Pt will tolerate forward trunk positioning in standing or kneeling for 15 minutes to be able to return to gardening 02/03/22: pt stated hasn't performed this activity yet since her fall. LTG Duration 02/24/22 One Impairment lacks HEP Short Term Goal (STG) Pt will be instructed in HEP for lumbar and hip mobility, trunk and hip strength to support therapy services provided in clinic. 01/05/22 - Doing exercises daily STG Duration 01/05/22 GOAL MET Shelter Goal (LTG) Pt will be independent with HEP for lumbar and hip mobility, trunk and hip strength to manage pain symptoms and reduce likelihood of future injury. LTG Duration 02/24/22 Progress Towards Goals Progress Towards Goals Progressing Toward Goals,Goals Met Progress Comments MET LTG #5, STG #s 3, 2 and 1. Assessment Summary Assessment Pt is making progress in stability RIVERA 50/56, able to lift 10# wt to waist height to allow carrying laudry basket. Pt decrease in endurance distance in gait 6MWT, performed after 10 min on bike and RIVERA testing. Can assess beginning of next tx for comparision. Provided education on self progress in gait endurance performing walks outside with with trek poles, pick location that has benches for seated rest if needed, and continue use of upright bike at home verbalized in agreement. She reports her posture is improving but still get the low to mid back pain. She states hasn't felt comfortable to go back to gardening, suggested we work on floor transfers in future tx to provide feedback in safet environment, pt in agreement. Physical Therapy Plan Frequency and Duration Frequency of Treatment 2x/Week Duration of treatment (weeks) 12 Plan of Care Start Date 11/24/21 Plan of Care End Date 02/24/22 Therapeutic Interventions Therapeutic Interventions Aquatic Therapy,Balance Training,Gait Training,Home Exercise Program,Manual Therapy,Neuromuscular Re- education,Self-Care/Home Management,Soft Tissue Mobilization,Therapeutic Activities,Therapeutic Exercises Modalities Cold Pack/Ice Massage,Hot Packs Next Visit Focus/Plan Next Note Type Progress Note Next Visit Plan 6MWT beginning of tx. Assess getting on/off floor to allow return to gardening. Check posture on upright bike for carryover proper form at home. Progress therapeutic exercise as tolerated with emphasis on core stabilization and strengthening.
--- NOTE | 2022-02-08 17:04 | PT.OTN ---
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) Physical Therapy Treatment Note PT-OP-A Visit Information Start: 11/18/21 17:15 Freq: Status: Active Protocol: Document 02/08/22 16:00 AW (Rec: 02/08/22 17:04 AW [id number]) Out-Patient Physical Therapy Visit Information Visit Information Visit Type Progress Note Visit Start Time 16:00 Visit Stop Time 16:45 Total Visit Minutes 45 Visit Number 21 Number of WHIPPER BEATER Visits 0 Evaluation Information Evaluation Date 11/24/21 PT-OP-B Current Condition Start: 11/18/21 17:15 Freq: Status: Active Protocol: Document 01/20/22 14:31 SAK (Rec: 01/20/22 15:15 SAK [id number]) Current Condition History of Current Condition Onset Date Spring 2021 Current Complaints low back pain History of Current Condition Leidy fell this past spring and bruised her ribs, was very painful. She denies falls history before this. After a month or so, she had improved enough to get out to the yard and do some weeding in late August. She fell again and hurt her back. Has been seeing chiropractor since then. On October 26, she was very limited in her movement and went to ED . She was given pain meds which she is still taking. She has history of L sciatica but she is now having pain more on right side low back, buttock, lateral thigh to mid thigh. Oxycodone helps. Occasional heat helps. First thing in the morning is worst pain. Same when oxycodone wears off. It hurts to bend forward. She has been ambulating with FWW and then 4WW since August. Pt feels walker helps with her balance. She had never used a walker before . Her states even before the falls, her balance was getting worse and she would often cruise furniture for support. She has neuropathy in both feet but pt states it is mild and she feels slight dulling of sensation only occasionally. Prior Treatments and Tests - MRI 11/04/21: Multiple levels of lumbar spine degenerative change are seen, which are worst at the L4-L5 level. At this level there is grade 1 anterolisthesis, moderate to severe bilateral neural foraminal narrowing, with associated exiting nerve root compression, and severe central canal narrowing. 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 Future Testing and Treatments Planned 11/26 Neurosurgery in [place] . PT-OP-C Subjective Start: 11/18/21 17:15 Freq: Status: Active Protocol: Document 02/08/22 16:00 AW (Rec: 02/08/22 17:04 AW [id number]) OP-PT Subjective Patient Comments Patient Comments Still taking 4 oxycodone daily (2 AM and 2. Saw new PCP yesterday (Dr Parsons DO) who recommended tapering off oxycodone. Will be trying to taper to 1.5 tabs twice daily over the next few weeks. Pt notes her right 5th toe has been hurting but does not remember any injury. PT-OP-D Balance Start: 11/18/21 17:15 Freq: Status: Active Protocol: Document 11/24/21 12:00 AW (Rec: 11/24/21 12:53 AW [id number]) Balance Tests Single Limb Standing Single Limb- Right <1 sec Single Limb- Left 2 sec PT-OP-F Manual Assessment Start: 11/18/21 17:15 Freq: Status: Active Protocol: Document 11/24/21 12:00 AW (Rec: 11/24/21 12:58 AW [id number]) Manual Assessments Joint Mobility Assessment Joint Mobility Assessment Significantly reduced excursion in lumbar PA's especially lower levels. Other Manual Assessments Other Manual Assessments Mild tenderness anterior to right greater trochanter. PT-OP-G Mobility & Gait Start: 11/18/21 17:15 Freq: Status: Active Protocol: Document 11/24/21 12:00 AW (Rec: 11/24/21 12:58 AW [id number]) OP Gait Assessment Comments Gait Comments Pt ambulates with 4WW, poor control of inversion RLE, heavy footfalls on left, reduced stance time LLE. She tends to push 4WW too far in front of her although she states she is trying to minimize weightbearing on hands. PT-OP-J Posture/Palpation/Skin Start: 11/18/21 17:15 Freq: Status: Active Protocol: Document 11/24/21 12:00 AW (Rec: 11/24/21 13:02 AW [id number]) Posture Evaluation Comments Posture Comments Pt has flat lumbar spine, moderate lumbar scoliosis with apex to the right, higher pelvic landmarks on the left PT-OP-K Range of Motion Start: 11/18/21 17:15 Freq: Status: Active Protocol: Document 11/24/21 12:00 AW (Rec: 11/24/21 13:09 AW [id number]) Lumbar Spine Range of Motion Lumbar Spine Active Testing Position Standing Flexion 40 Extension 10 ROM Limitations Soft Tissue Tightness,Pain Comments Pt can reach knee joint line bilaterally with fingertips and has no increase in pain. Rotation is limited but not painful bilaterally in standing and in sitting. Hip Goniometric Range of Motion Hip bilat Hip ROM WFL Yes Comments All hip ROM WNL without pain reproduction at end-ranges. IR :ER ratio is ~1:3. No limitation in HS length with pt able to perform SLR well past 90 degrees. PT-OP-M Strength Start: 11/18/21 17:15 Freq: Status: Active Protocol: Document 11/24/21 12:00 AW (Rec: 11/24/21 12:58 AW [id number]) Hip Strength Hip Manual Muscle Testing bilat Flexion (L2) 4+ Good+ Extension (S1) 4- Good- Abduction 4- Good- Knee Strength Knee Manual Muscle Testing Right Flexion (S2) 4+ Good+ Extension (L3) 4+ Good+ Left Flexion (S2) 5 Normal Extension (L3) 5 Normal Ankle/Foot Strength Ankle and Foot Manual Muscle Testing Right Dorsiflexion (L4) 4 Good Plantarflexion (S1) 4- Good- Inversion 4 Good Eversion (S1) 4 Good Left Dorsiflexion (L4) 5 Normal Plantarflexion (S1) 4+ Good+ Inversion 5 Normal Eversion (S1) 5 Normal Toe Strength Toe Manual Muscle Testing Great Toe Comments 4+/5 left; 4/5 right PT-OP-Q Treatments Start: 11/18/21 17:15 Freq: Status: Active Protocol: Document 02/08/22 16:00 AW (Rec: 02/08/22 17:04 AW [id number]) Cardio Equipment Bicycle (Upright) Duration (Minutes) 8 Resistance 5 Seat Position 2 Other needs cues for posture, core engagement Therapeutic Exercises Supine Exercises SKTC Supine Exercise Name SKTC Side bilateral Reps/Minutes 30 x 2 bridge Supine Exercise Name bridge Equipment Used 10s hold x10 Reps/Minutes cued segmental motion, core stab Comments no pain piriformis stretch Supine Exercise Name IR Side bilateral Equipment Used cued ease stretch, not overpressure Reps/Minutes 30 x3 Comments ed for support RLE with BUE and towel if needed toward opp shld LTR Supine Exercise Name LTR Side bilateral Equipment Used 55cm ball, arms at side table Reps/Minutes x10 ea Comments good form and TA fac Sidelying Exercises Open Book stretch Sidelying Exercise Name HEP review Comments cued straight arm, eyes follow hand for incr rotation Sitting Exercises trunk rotation Reps/Minutes 2x10 Comments gentle low back stretch Sitting Exercise Name elbows on thighs Reps/Minutes 2x30 Comments with deep breathing into lumbar spine Standing Exercises modified child's pose Standing Exercise Name modified child's pose Comments hands on counter, walk feet away for low back stretch resisted row Standing Exercise Name resisted row Resistance TB1 Reps/Minutes 5SH x 10 Comments cues for core activation, emphasis on scapular movement PT-OP-R Modalities Start: 11/18/21 17:15 Freq: Status: Active Protocol: Document 02/08/22 16:00 AW (Rec: 02/08/22 17:04 AW [id number]) Hot Pack/Cold Pack Treatment Cold Pack Location R 5th MTP Patient Position Sitting Treatment Duration (minutes) 5 Patient Tolerance Good PT-OP-T Assessment and Plan Start: 11/18/21 17:15 Freq: Status: Active Protocol: Document 02/08/22 16:00 AW (Rec: 02/08/22 17:04 AW [id number]) Physical Therapy Assessment Goals Five Impairment balance Scale Tank Operator Goal (LTG) Pt will score 48/56 or greater on [place] Balance Scale as a measure of improved balance and safe independent mobility. 02/03/22: MET GOAL 50/56 LTG Duration 02/24/22 GOAL MET Four Impairment needs 4WW for ambulation Short Term Goal (STG) Pt will walk 1200 feet or greater on 6MWT with LRAD. 01/05/22 - Pt walked 776 feet in 6 minutes with B trekking poles. 02/03/22: no significant progress,pt walked 753 ft in 6 minutes w/ B trek poles after 10 min biodex and [place] testing. Pt states doesn't need use trek poles indoors. STG Duration 01/05/22 slow progress 02/03/22 [facility] Goal (LTG) Pt will walk 1500 feet or greater on 6MWT with LRAD for parity with age-matched peers to improve community ambulation LTG Duration 02/24/22 Three Impairment pain with lifting Short Term Goal (STG) Pt will lift 10 pounds from waist height without increase in baseline pain to improve her ability to lift a laundry basket. 01/05/22 - Able to lift 7 pound db from chair height without pain. 02/03/22: GOAL MET: able to lift 10# DB to waist height without back pain. STG Duration 01/05/22 GOAL MET Scale Tank Operator Goal (LTG) Pt will lift 20 pounds from the ground without increase in baseline pain so that she can manage groceries with greater ease. LTG Duration 02/24/22 Two Impairment pain with trunk flexion Short Term Goal (STG) Pt will tolerate unloaded trunk flexion with 3/10 or less pain 01/05/22 Pt able to do pause squats with 0/10 pain STG Duration 01/05/22 GOAL MET [facility] Goal (LTG) Pt will tolerate forward trunk positioning in standing or kneeling for 15 minutes to be able to return to gardening 02/03/22: pt stated hasn't performed this activity yet since her fall. LTG Duration 02/24/22 One Impairment lacks HEP Short Term Goal (STG) Pt will be instructed in HEP for lumbar and hip mobility, trunk and hip strength to support therapy services provided in clinic. 01/05/22 - Doing exercises daily STG Duration 01/05/22 GOAL MET Scale Tank Operator Goal (LTG) Pt will be independent with HEP for lumbar and hip mobility, trunk and hip strength to manage pain symptoms and reduce likelihood of future injury. LTG Duration 02/24/22 Progress Towards Goals Progress Towards Goals Progressing Toward Goals,Goals Met Progress Comments MET LTG #5, STG #s 3, 2 and 1. Gait goal not reassessed today due to pt's new foot pain and feeling out of sorts. Pt is overall progressing well with strength and balance . She reports good reduction in her back pain. She continues to take 2 oxycodone twice daily but is now attempting to scale back gradually. Assessment Summary Assessment Tita hurt her foot recently and has pain around the MTP joint of the fifth ray which is affecting her gait tolerance. Ice massage was well tolerated today and pt was encouraged to continue icing at home. Did not reassess MWT today due to foot pain. Checked posture on upright bike and pt needed cues for core engagement. Will continue in clinic for carryover to home. Physical Therapy Plan Frequency and Duration Frequency of Treatment 2x/Week Duration of treatment (weeks) 12 Plan of Care Start Date 11/24/21 Plan of Care End Date 02/24/22 Therapeutic Interventions Therapeutic Interventions Aquatic Therapy,Balance Training,Gait Training,Home Exercise Program,Manual Therapy,Neuromuscular Re- education,Self-Care/Home Management,Soft Tissue Mobilization,Therapeutic Activities,Therapeutic Exercises Modalities Cold Pack/Ice Massage,Hot Packs Next Visit Focus/Plan Next Note Type Treatment Note Next Visit Plan Follow up R foot pain. 6MWT beginning of tx. Assess getting on/off floor to allow return to gardening. Progress therapeutic exercise as tolerated with emphasis on core stabilization and strengthening.
--- NOTE | 2022-02-11 14:30 | PT.OTN ---
Current Diagnoses Scoliosis, unspecified (02/11/22) Spondylolisthesis, lumbar region (02/11/22) Spondylosis without myelopathy or radiculopathy, lumbar region (02/11/22) Physical Therapy Treatment Note PT-OP-A Visit Information Start: 11/18/21 17:15 Freq: Status: Active Protocol: Document 02/11/22 13:48 SP (Rec: 02/11/22 14:33 SP [id number]) Out-Patient Physical Therapy Visit Information Visit Information Visit Type Treatment Note Visit Start Time 13:48 Visit Stop Time 14:30 Total Visit Minutes 42 Visit Number 22 Number of PATCH WORKER Visits 1 Evaluation Information Evaluation Date 11/24/21 PT-OP-B Current Condition Start: 11/18/21 17:15 Freq: Status: Active Protocol: Document 01/20/22 14:31 SAK (Rec: 01/20/22 15:15 SAK [id number]) Current Condition History of Current Condition Onset Date Spring 2021 Current Complaints low back pain History of Current Condition Leidy fell this past spring and bruised her ribs, was very painful. She denies falls history before this. After a month or so, she had improved enough to get out to the yard and do some weeding in late August. She fell again and hurt her back. Has been seeing chiropractor since then. On October 26, she was very limited in her movement and went to ED . She was given pain meds which she is still taking. She has history of L sciatica but she is now having pain more on right side low back, buttock, lateral thigh to mid thigh. Oxycodone helps. Occasional heat helps. First thing in the morning is worst pain. Same when oxycodone wears off. It hurts to bend forward. She has been ambulating with FWW and then 4WW since August. Pt feels walker helps with her balance. She had never used a walker before . Her states even before the falls, her balance was getting worse and she would often cruise furniture for support. She has neuropathy in both feet but pt states it is mild and she feels slight dulling of sensation only occasionally. Prior Treatments and Tests - MRI 11/04/21: Multiple levels of lumbar spine degenerative change are seen, which are worst at the L4-L5 level. At this level there is grade 1 anterolisthesis, moderate to severe bilateral neural foraminal narrowing, with associated exiting nerve root compression, and severe central canal narrowing. 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 Future Testing and Treatments Planned 11/26 Neurosurgery in [place] . PT-OP-C Subjective Start: 11/18/21 17:15 Freq: Status: Active Protocol: Document 02/11/22 13:48 SP (Rec: 02/11/22 14:33 SP [id number]) OP-PT Subjective Patient Comments Patient Comments Pt reports doesn't take oxycodone at night, is taking 2 tablets during x1 day and 1tab in evening has been able to taper it down to. Her R foot is sore and what limits her from stopping all together . PT-OP-D Balance Start: 11/18/21 17:15 Freq: Status: Active Protocol: Document 11/24/21 12:00 AW (Rec: 11/24/21 12:53 AW [id number]) Balance Tests Single Limb Standing Single Limb- Right <1 sec Single Limb- Left 2 sec PT-OP-F Manual Assessment Start: 11/18/21 17:15 Freq: Status: Active Protocol: Document 11/24/21 12:00 AW (Rec: 11/24/21 12:58 AW [id number]) Manual Assessments Joint Mobility Assessment Joint Mobility Assessment Significantly reduced excursion in lumbar PA's especially lower levels. Other Manual Assessments Other Manual Assessments Mild tenderness anterior to right greater trochanter. PT-OP-G Mobility & Gait Start: 11/18/21 17:15 Freq: Status: Active Protocol: Document 11/24/21 12:00 AW (Rec: 11/24/21 12:58 AW [id number]) OP Gait Assessment Comments Gait Comments Pt ambulates with 4WW, poor control of inversion RLE, heavy footfalls on left, reduced stance time LLE. She tends to push 4WW too far in front of her although she states she is trying to minimize weightbearing on hands. PT-OP-J Posture/Palpation/Skin Start: 11/18/21 17:15 Freq: Status: Active Protocol: Document 11/24/21 12:00 AW (Rec: 11/24/21 13:02 AW [id number]) Posture Evaluation Comments Posture Comments Pt has flat lumbar spine, moderate lumbar scoliosis with apex to the right, higher pelvic landmarks on the left PT-OP-K Range of Motion Start: 11/18/21 17:15 Freq: Status: Active Protocol: Document 11/24/21 12:00 AW (Rec: 11/24/21 13:09 AW [id number]) Lumbar Spine Range of Motion Lumbar Spine Active Testing Position Standing Flexion 40 Extension 10 ROM Limitations Soft Tissue Tightness,Pain Comments Pt can reach knee joint line bilaterally with fingertips and has no increase in pain. Rotation is limited but not painful bilaterally in standing and in sitting. Hip Goniometric Range of Motion Hip bilat Hip ROM WFL Yes Comments All hip ROM WNL without pain reproduction at end-ranges. IR :ER ratio is ~1:3. No limitation in HS length with pt able to perform SLR well past 90 degrees. PT-OP-M Strength Start: 11/18/21 17:15 Freq: Status: Active Protocol: Document 11/24/21 12:00 AW (Rec: 11/24/21 12:58 AW [id number]) Hip Strength Hip Manual Muscle Testing bilat Flexion (L2) 4+ Good+ Extension (S1) 4- Good- Abduction 4- Good- Knee Strength Knee Manual Muscle Testing Right Flexion (S2) 4+ Good+ Extension (L3) 4+ Good+ Left Flexion (S2) 5 Normal Extension (L3) 5 Normal Ankle/Foot Strength Ankle and Foot Manual Muscle Testing Right Dorsiflexion (L4) 4 Good Plantarflexion (S1) 4- Good- Inversion 4 Good Eversion (S1) 4 Good Left Dorsiflexion (L4) 5 Normal Plantarflexion (S1) 4+ Good+ Inversion 5 Normal Eversion (S1) 5 Normal Toe Strength Toe Manual Muscle Testing Great Toe Comments 4+/5 left; 4/5 right PT-OP-Q Treatments Start: 11/18/21 17:15 Freq: Status: Active Protocol: Document 02/11/22 13:48 SP (Rec: 02/11/22 14:33 SP [id number]) Cardio Equipment Recumbent Elliptical (Biodex) Duration (Minutes) 8 Resistance 3 Seat Position 5seen Other folded towel behind lower thoracic spine, 730 steps Therapeutic Exercises Sitting Exercises HS stretch Sitting Exercise Name assess if good benefit Side bilateral Reps/Minutes 30 x2 Comments cued chest lift hip hinge forward, more HS than LB felt post cue trunk rotation Sitting Exercise Name HEP review: press reach across body Reps/Minutes 5 hold Comments cradel arms front vs press w/ tall posture, rotate [place] range low back stretch Sitting Exercise Name elbows on thighs Reps/Minutes 2x30 Comments with deep breathing into lumbar spine piriformis stretch Sitting Exercise Name piriformis stretch Side bilateral Reps/Minutes 30 x 2 Comments cues for hold, deep breath pelvic rocking Sitting Exercise Name Core fac: 1.pelvic rocking 2. foot lift Resistance seated on 65cm tball Reps/Minutes x5 reps each Comments cued anterior tilt w/ chest lift for june, min A for ball stab RLE>LLE sup Gait Training Gait Activity 6MWT Description reassessment in distance endurance Distance/Duration 859 ft in 6 min B trek poles Treatment Focus foot clearance, proper sequencing trek poles, endurance for community amb Comments occasional cues for increase foot clearance, centering in hallway away from wall, safety patterning Trek poles as distance progressed, tends to vier L closer to wall/gym equipment. Cued for posture, core, space between BLEs during gait for stability safety. Manual Therapy Treatment Taping R lateral ankle Treatment Focus eversion ankle stability support Type of Tape Kinesio Tape Skin Inspection normal color and skin intact Comments -2 pieces tape: 1 mid arch laterally 5th MTP to posterior lateral distal to mid fibula. 1 plantar mid 5th MTP to dorsal Mid 4-5th MTP. 50% tension. -education on adverse affects for removal with good understanding, can have on in shower and up to 4 days if ok. PT-OP-R Modalities Start: 11/18/21 17:15 Freq: Status: Active Protocol: Document 02/08/22 16:00 AW (Rec: 02/08/22 17:04 AW [id number]) Hot Pack/Cold Pack Treatment Cold Pack Location R 5th MTP Patient Position Sitting Treatment Duration (minutes) 5 Patient Tolerance Good PT-OP-T Assessment and Plan Start: 11/18/21 17:15 Freq: Status: Active Protocol: Document 02/11/22 13:48 SP (Rec: 02/11/22 14:33 SP [id number]) Physical Therapy Assessment Goals Five Impairment balance Facilities Administrator Goal (LTG) Pt will score 48/56 or greater on [place] Balance Scale as a measure of improved balance and safe independent mobility. 02/03/22: MET GOAL 50/56 LTG Duration 02/24/22 GOAL MET Four Impairment needs 4WW for ambulation Short Term Goal (STG) Pt will walk 1200 feet or greater on 6MWT with LRAD. 01/05/22 - Pt walked 776 feet in 6 minutes with B trekking poles. 02/03/22: no significant progress,pt walked 753 ft in 6 minutes w/ B trek poles after 10 min biodex and [place] testing. Pt states doesn't need use trek poles indoors. 02/11/22: improved 859 ft w/ B trek poles, noted tiring and trunk sways modified scissor stepping bump into way on turn . STG Duration 01/05/22 progressing 02/11/22 Care Home Goal (LTG) Pt will walk 1500 feet or greater on 6MWT with LRAD for parity with age-matched peers to improve community ambulation LTG Duration 02/24/22 Three Impairment pain with lifting Short Term Goal (STG) Pt will lift 10 pounds from waist height without increase in baseline pain to improve her ability to lift a laundry basket. 01/05/22 - Able to lift 7 pound db from chair height without pain. 02/03/22: GOAL MET: able to lift 10# DB to waist height without back pain. STG Duration 01/05/22 GOAL MET Facilities Administrator Goal (LTG) Pt will lift 20 pounds from the ground without increase in baseline pain so that she can manage groceries with greater ease. LTG Duration 02/24/22 Two Impairment pain with trunk flexion Short Term Goal (STG) Pt will tolerate unloaded trunk flexion with 3/10 or less pain 01/05/22 Pt able to do pause squats with 0/10 pain STG Duration 01/05/22 GOAL MET Care Home Goal (LTG) Pt will tolerate forward trunk positioning in standing or kneeling for 15 minutes to be able to return to gardening 02/03/22: pt stated hasn't performed this activity yet since her fall. LTG Duration 02/24/22 One Impairment lacks HEP Short Term Goal (STG) Pt will be instructed in HEP for lumbar and hip mobility, trunk and hip strength to support therapy services provided in clinic. 01/05/22 - Doing exercises daily STG Duration 01/05/22 GOAL MET Care Home Goal (LTG) Pt will be independent with HEP for lumbar and hip mobility, trunk and hip strength to manage pain symptoms and reduce likelihood of future injury. LTG Duration 02/24/22 Progress Towards Goals Progress Towards Goals Progressing Toward Goals Progress Comments Progressing STG #4: improved 106 ft during 6MWT w/ B trek poles but lateral sways last minute due to tiring and low activity tolerance. Assessment Summary Assessment Pt improved distance gait but tires before end distance, required cues for posture, slowering pace to allow safe trekpoles sequencing, foot clearance with core awareness and increase SANDER stability. Pt improved TS extension lift with cues during stretches and uneven surface core activity today. Pt stated Ktaping to support R ankle eversion support felt helped during 6MWT, and pt aware how taped and knows to remove is coming off or irritates skin. Physical Therapy Plan Frequency and Duration Frequency of Treatment 2x/Week Duration of treatment (weeks) 12 Plan of Care Start Date 11/24/21 Plan of Care End Date 02/24/22 Therapeutic Interventions Therapeutic Interventions Aquatic Therapy,Balance Training,Gait Training,Home Exercise Program,Manual Therapy,Neuromuscular Re- education,Self-Care/Home Management,Soft Tissue Mobilization,Therapeutic Activities,Therapeutic Exercises Modalities Cold Pack/Ice Massage,Hot Packs Next Visit Focus/Plan Next Note Type Treatment Note Next Visit Plan Follow up R foot pain. Next tx: Assess getting on/off floor to allow return to gardening. POC: Progress therapeutic exercise as tolerated with emphasis on core stabilization and strengthening.
--- NOTE | 2022-02-15 12:27 | PT.OTN ---
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) Physical Therapy Treatment Note PT-OP-A Visit Information Start: 11/18/21 17:15 Freq: Status: Active Protocol: Document 02/15/22 11:15 AW (Rec: 02/15/22 12:27 AW [id number]) Out-Patient Physical Therapy Visit Information Visit Information Visit Type Treatment Note Visit Start Time 11:15 Visit Stop Time 12:00 Total Visit Minutes 45 Visit Number 23 Number of SPLUNK CONSULTANT Visits 0 Evaluation Information Evaluation Date 11/24/21 PT-OP-B Current Condition Start: 11/18/21 17:15 Freq: Status: Active Protocol: Document 01/20/22 14:31 SAK (Rec: 01/20/22 15:15 SAK [id number]) Current Condition History of Current Condition Onset Date Spring 2021 Current Complaints low back pain History of Current Condition Leidy fell this past spring and bruised her ribs, was very painful. She denies falls history before this. After a month or so, she had improved enough to get out to the yard and do some weeding in late August. She fell again and hurt her back. Has been seeing chiropractor since then. On October 26, she was very limited in her movement and went to ED . She was given pain meds which she is still taking. She has history of L sciatica but she is now having pain more on right side low back, buttock, lateral thigh to mid thigh. Oxycodone helps. Occasional heat helps. First thing in the morning is worst pain. Same when oxycodone wears off. It hurts to bend forward. She has been ambulating with FWW and then 4WW since August. Pt feels walker helps with her balance. She had never used a walker before . Her states even before the falls, her balance was getting worse and she would often cruise furniture for support. She has neuropathy in both feet but pt states it is mild and she feels slight dulling of sensation only occasionally. Prior Treatments and Tests - MRI 11/04/21: Multiple levels of lumbar spine degenerative change are seen, which are worst at the L4-L5 level. At this level there is grade 1 anterolisthesis, moderate to severe bilateral neural foraminal narrowing, with associated exiting nerve root compression, and severe central canal narrowing. - Regular long term care pharmacist. Future Testing and Treatments Planned 11/26 Neurosurgery in [place] . PT-OP-C Subjective Start: 11/18/21 17:15 Freq: Status: Active Protocol: Document 02/15/22 11:15 AW (Rec: 02/15/22 12:27 AW [id number]) OP-PT Subjective Patient Comments Patient Comments Pt states slipped and fell getting out of her chair a few days ago, hit cheek bone on hardwood floor. She iced it and it was better. Was able to get up off the floor. Foot is feeling better. Realizes it will just take some time. Everything is feeling better, including standing tolerance. PT-OP-D Balance Start: 11/18/21 17:15 Freq: Status: Active Protocol: Document 11/24/21 12:00 AW (Rec: 11/24/21 12:53 AW [id number]) Balance Tests Single Limb Standing Single Limb- Right <1 sec Single Limb- Left 2 sec PT-OP-F Manual Assessment Start: 11/18/21 17:15 Freq: Status: Active Protocol: Document 11/24/21 12:00 AW (Rec: 11/24/21 12:58 AW [id number]) Manual Assessments Joint Mobility Assessment Joint Mobility Assessment Significantly reduced excursion in lumbar PA's especially lower levels. Other Manual Assessments Other Manual Assessments Mild tenderness anterior to right greater trochanter. PT-OP-G Mobility & Gait Start: 11/18/21 17:15 Freq: Status: Active Protocol: Document 11/24/21 12:00 AW (Rec: 11/24/21 12:58 AW [id number]) OP Gait Assessment Comments Gait Comments Pt ambulates with 4WW, poor control of inversion RLE, heavy footfalls on left, reduced stance time LLE. She tends to push 4WW too far in front of her although she states she is trying to minimize weightbearing on hands. PT-OP-J Posture/Palpation/Skin Start: 11/18/21 17:15 Freq: Status: Active Protocol: Document 11/24/21 12:00 AW (Rec: 11/24/21 13:02 AW [id number]) Posture Evaluation Comments Posture Comments Pt has flat lumbar spine, moderate lumbar scoliosis with apex to the right, higher pelvic landmarks on the left PT-OP-K Range of Motion Start: 11/18/21 17:15 Freq: Status: Active Protocol: Document 11/24/21 12:00 AW (Rec: 11/24/21 13:09 AW [id number]) Lumbar Spine Range of Motion Lumbar Spine Active Testing Position Standing Flexion 40 Extension 10 ROM Limitations Soft Tissue Tightness,Pain Comments Pt can reach knee joint line bilaterally with fingertips and has no increase in pain. Rotation is limited but not painful bilaterally in standing and in sitting. Hip Goniometric Range of Motion Hip bilat Hip ROM WFL Yes Comments All hip ROM WNL without pain reproduction at end-ranges. IR :ER ratio is ~1:3. No limitation in HS length with pt able to perform SLR well past 90 degrees. PT-OP-M Strength Start: 11/18/21 17:15 Freq: Status: Active Protocol: Document 11/24/21 12:00 AW (Rec: 11/24/21 12:58 AW [id number]) Hip Strength Hip Manual Muscle Testing bilat Flexion (L2) 4+ Good+ Extension (S1) 4- Good- Abduction 4- Good- Knee Strength Knee Manual Muscle Testing Right Flexion (S2) 4+ Good+ Extension (L3) 4+ Good+ Left Flexion (S2) 5 Normal Extension (L3) 5 Normal Ankle/Foot Strength Ankle and Foot Manual Muscle Testing Right Dorsiflexion (L4) 4 Good Plantarflexion (S1) 4- Good- Inversion 4 Good Eversion (S1) 4 Good Left Dorsiflexion (L4) 5 Normal Plantarflexion (S1) 4+ Good+ Inversion 5 Normal Eversion (S1) 5 Normal Toe Strength Toe Manual Muscle Testing Great Toe Comments 4+/5 left; 4/5 right PT-OP-Q Treatments Start: 11/18/21 17:15 Freq: Status: Active Protocol: Document 02/15/22 11:15 AW (Rec: 02/15/22 12:27 AW [id number]) Cardio Equipment Recumbent Elliptical ([employer]) Duration (Minutes) 8 Resistance 3 Seat Position 5 seen Other folded towel behind lower thoracic spine, Therapeutic Exercises Supine Exercises LTR Supine Exercise Name LTR Side bilateral Equipment Used on floor during floor recovery Reps/Minutes x10 ea Comments good form and TA fac Sitting Exercises trunk rotation Sitting Exercise Name HEP review: press reach across body Reps/Minutes 5 hold Comments cradel arms front vs press w/ tall posture, rotate [place] range low back stretch Sitting Exercise Name elbows on thighs Reps/Minutes 2x30 Comments with deep breathing into lumbar spine piriformis stretch Sitting Exercise Name piriformis stretch Side bilateral Reps/Minutes 30 x 2 Comments cues for hold, deep breath Standing Exercises anti-rotation press Standing Exercise Name anti-rotation press Side bilateral Resistance TB2 (too much resistance); TB1 ok modified child's pose Standing Exercise Name modified child's pose Comments hands on counter, walk feet away for low back stretch resisted shld ext Resistance TB1 Reps/Minutes 5SH x 10 Comments cues for core activation, emphasis on scapular movement resisted row Standing Exercise Name resisted row Resistance TB1 Reps/Minutes 5SH x 10 Comments cues for core activation, emphasis on scapular movement Other Exercises quadruped Other Exercise Name quadruped - cat/cow, SB, child pose Therapeutic Activity Therapeutic Activity floor recovery Name floor recovery Reps/Minutes 10 min Comments SBA down to floor (hands, knees, quadruped, SL, supine). SBA for up to quadruped. CGA for half kneeling and rising to stand without UE support. - tall kneeling practice - 1/2 kneeling practice Self-Care/Home Management Treatment Activities Self-Care/Home Management Activities Educated pt that her current choice of shoe (which includes a slight wedge) may be putting more pressure on her lateral foot where she is having pain. Pt states pain is improving and she will likely continue to wear her wedge shoes because she likes the ankle support. PT-OP-R Modalities Start: 11/18/21 17:15 Freq: Status: Active Protocol: Document 02/08/22 16:00 AW (Rec: 02/08/22 17:04 AW [id number]) Hot Pack/Cold Pack Treatment Cold Pack Location R 5th MTP Patient Position Sitting Treatment Duration (minutes) 5 Patient Tolerance Good PT-OP-T Assessment and Plan Start: 11/18/21 17:15 Freq: Status: Active Protocol: Document 02/15/22 11:15 AW (Rec: 02/15/22 12:27 AW [id number]) Physical Therapy Assessment Goals Five Impairment balance Senior Care Goal (LTG) Pt will score 48/56 or greater on [place] Balance Scale as a measure of improved balance and safe independent mobility. 02/03/22: MET GOAL 50/56 LTG Duration 02/24/22 GOAL MET Four Impairment needs 4WW for ambulation Short Term Goal (STG) Pt will walk 1200 feet or greater on 6MWT with LRAD. 01/05/22 - Pt walked 776 feet in 6 minutes with B trekking poles. 02/03/22: no significant progress,pt walked 753 ft in 6 minutes w/ B trek poles after 10 min biodex and [place] testing. Pt states doesn't need use trek poles indoors. 02/11/22: improved 859 ft w/ B trek poles, noted tiring and trunk sways modified scissor stepping bump into way on turn . STG Duration 01/05/22 progressing 02/11/22 Senior Care Goal (LTG) Pt will walk 1500 feet or greater on 6MWT with LRAD for parity with age-matched peers to improve community ambulation LTG Duration 02/24/22 Three Impairment pain with lifting Short Term Goal (STG) Pt will lift 10 pounds from waist height without increase in baseline pain to improve her ability to lift a laundry basket. 01/05/22 - Able to lift 7 pound db from chair height without pain. 02/03/22: GOAL MET: able to lift 10# DB to waist height without back pain. STG Duration 01/05/22 GOAL MET Milk Powder Grinder Goal (LTG) Pt will lift 20 pounds from the ground without increase in baseline pain so that she can manage groceries with greater ease. LTG Duration 02/24/22 Two Impairment pain with trunk flexion Short Term Goal (STG) Pt will tolerate unloaded trunk flexion with 3/10 or less pain 01/05/22 Pt able to do pause squats with 0/10 pain STG Duration 01/05/22 GOAL MET Milk Powder Grinder Goal (LTG) Pt will tolerate forward trunk positioning in standing or kneeling for 15 minutes to be able to return to gardening 02/03/22: pt stated hasn't performed this activity yet since her fall. LTG Duration 02/24/22 One Impairment lacks HEP Short Term Goal (STG) Pt will be instructed in HEP for lumbar and hip mobility, trunk and hip strength to support therapy services provided in clinic. 01/05/22 - Doing exercises daily STG Duration 01/05/22 GOAL MET Senior Care Goal (LTG) Pt will be independent with HEP for lumbar and hip mobility, trunk and hip strength to manage pain symptoms and reduce likelihood of future injury. LTG Duration 02/24/22 Assessment Summary Assessment Pt reports a recent fall when getting up from her chair. She was not injured but did hit her head. She iced her cheekbone and felt better. She denies dizziness or lightheadedness before her fall. She feels she was just in a hurry and was wearing socks and slipped on her hardwood floor. Today, she worked on floor recovery including tall kneeling and half-kneeling for balance and strength. Based on recent progress note, PT updated POC dates today to extend care for continued goal progress. Physical Therapy Plan Frequency and Duration Frequency of Treatment 2x/Week Duration of treatment (weeks) 8 Plan of Care Start Date 02/15/22 Plan of Care End Date 04/12/22 Therapeutic Interventions Therapeutic Interventions Aquatic Therapy,Balance Training,Gait Training,Home Exercise Program,Manual Therapy,Neuromuscular Re- education,Self-Care/Home Management,Soft Tissue Mobilization,Therapeutic Activities,Therapeutic Exercises Modalities Cold Pack/Ice Massage,Hot Packs Next Visit Focus/Plan Next Note Type Treatment Note Next Visit Plan Follow up R foot pain. POC: Progress therapeutic exercise as tolerated with emphasis on core stabilization and strengthening. Continue focus on hip hinge and core stab for functional activities such as gardening.
--- NOTE | 2022-02-18 11:15 | PT.OTN ---
Current Diagnoses Scoliosis, unspecified (02/18/22) Spondylolisthesis, lumbar region (02/18/22) Spondylosis without myelopathy or radiculopathy, lumbar region (02/18/22) Physical Therapy Treatment Note PT-OP-A Visit Information Start: 11/18/21 17:15 Freq: Status: Active Protocol: Document 02/18/22 10:36 SP (Rec: 02/18/22 11:45 SP [id number]) Out-Patient Physical Therapy Visit Information Visit Information Visit Type Treatment Note Visit Note CHRISTOPHER Arias observed tx with permission of pt. Visit Start Time 10:36 Visit Stop Time 11:15 Total Visit Minutes 39 Visit Number 24 Number of AIRCRAFT TECHNICIAN Visits 1 Evaluation Information Evaluation Date 11/24/21 PT-OP-B Current Condition Start: 11/18/21 17:15 Freq: Status: Active Protocol: Document 01/20/22 14:31 SAK (Rec: 01/20/22 15:15 SAK [id number]) Current Condition History of Current Condition Onset Date Spring 2021 Current Complaints low back pain History of Current Condition Leidy fell this past spring and bruised her ribs, was very painful. She denies falls history before this. After a month or so, she had improved enough to get out to the yard and do some weeding in late August. She fell again and hurt her back. Has been seeing chiropractor since then. On October 26, she was very limited in her movement and went to ED . She was given pain meds which she is still taking. She has history of L sciatica but she is now having pain more on right side low back, buttock, lateral thigh to mid thigh. Oxycodone helps. Occasional heat helps. First thing in the morning is worst pain. Same when oxycodone wears off. It hurts to bend forward. She has been ambulating with FWW and then 4WW since August. Pt feels walker helps with her balance. She had never used a walker before . Her states even before the falls, her balance was getting worse and she would often cruise furniture for support. She has neuropathy in both feet but pt states it is mild and she feels slight dulling of sensation only occasionally. Prior Treatments and Tests - MRI 11/04/21: Multiple levels of lumbar spine degenerative change are seen, which are worst at the L4-L5 level. At this level there is grade 1 anterolisthesis, moderate to severe bilateral neural foraminal narrowing, with associated exiting nerve root compression, and severe central canal narrowing. - Regular care professional. Future Testing and Treatments Planned 11/26 Neurosurgery in [place] . PT-OP-C Subjective Start: 11/18/21 17:15 Freq: Status: Active Protocol: Document 02/18/22 10:36 SP (Rec: 02/18/22 11:45 SP [id number]) OP-PT Subjective Patient Comments Patient Comments Pt reports her back hurting more this morning but seems to be ok/not painfree upon arrival. Pt stated the injection had for 1st time 4 weeks ago still seems to be helping but thinks might have to go back at some point to get another. Pt reports her R dorsal foot feels bruised and improving and less limits her gait today. PT-OP-D Balance Start: 11/18/21 17:15 Freq: Status: Active Protocol: Document 11/24/21 12:00 AW (Rec: 11/24/21 12:53 AW [id number]) Balance Tests Single Limb Standing Single Limb- Right <1 sec Single Limb- Left 2 sec PT-OP-F Manual Assessment Start: 11/18/21 17:15 Freq: Status: Active Protocol: Document 11/24/21 12:00 AW (Rec: 11/24/21 12:58 AW [id number]) Manual Assessments Joint Mobility Assessment Joint Mobility Assessment Significantly reduced excursion in lumbar PA's especially lower levels. Other Manual Assessments Other Manual Assessments Mild tenderness anterior to right greater trochanter. PT-OP-G Mobility & Gait Start: 11/18/21 17:15 Freq: Status: Active Protocol: Document 11/24/21 12:00 AW (Rec: 11/24/21 12:58 AW [id number]) OP Gait Assessment Comments Gait Comments Pt ambulates with 4WW, poor control of inversion RLE, heavy footfalls on left, reduced stance time LLE. She tends to push 4WW too far in front of her although she states she is trying to minimize weightbearing on hands. PT-OP-J Posture/Palpation/Skin Start: 11/18/21 17:15 Freq: Status: Active Protocol: Document 11/24/21 12:00 AW (Rec: 11/24/21 13:02 AW [id number]) Posture Evaluation Comments Posture Comments Pt has flat lumbar spine, moderate lumbar scoliosis with apex to the right, higher pelvic landmarks on the left PT-OP-K Range of Motion Start: 11/18/21 17:15 Freq: Status: Active Protocol: Document 11/24/21 12:00 AW (Rec: 11/24/21 13:09 AW [id number]) Lumbar Spine Range of Motion Lumbar Spine Active Testing Position Standing Flexion 40 Extension 10 ROM Limitations Soft Tissue Tightness,Pain Comments Pt can reach knee joint line bilaterally with fingertips and has no increase in pain. Rotation is limited but not painful bilaterally in standing and in sitting. Hip Goniometric Range of Motion Hip bilat Hip ROM WFL Yes Comments All hip ROM WNL without pain reproduction at end-ranges. IR :ER ratio is ~1:3. No limitation in HS length with pt able to perform SLR well past 90 degrees. PT-OP-M Strength Start: 11/18/21 17:15 Freq: Status: Active Protocol: Document 11/24/21 12:00 AW (Rec: 11/24/21 12:58 AW [id number]) Hip Strength Hip Manual Muscle Testing bilat Flexion (L2) 4+ Good+ Extension (S1) 4- Good- Abduction 4- Good- Knee Strength Knee Manual Muscle Testing Right Flexion (S2) 4+ Good+ Extension (L3) 4+ Good+ Left Flexion (S2) 5 Normal Extension (L3) 5 Normal Ankle/Foot Strength Ankle and Foot Manual Muscle Testing Right Dorsiflexion (L4) 4 Good Plantarflexion (S1) 4- Good- Inversion 4 Good Eversion (S1) 4 Good Left Dorsiflexion (L4) 5 Normal Plantarflexion (S1) 4+ Good+ Inversion 5 Normal Eversion (S1) 5 Normal Toe Strength Toe Manual Muscle Testing Great Toe Comments 4+/5 left; 4/5 right PT-OP-Q Treatments Start: 11/18/21 17:15 Freq: Status: Active Protocol: Document 02/18/22 10:36 SP (Rec: 02/18/22 11:45 SP [id number]) Gym Equipment Shuttle Balance blue chains Details WBOS, NBOS, stagger Reps/Duration 5 Comments 1. wt shift 2. HTs Therapeutic Exercises Supine Exercises bridge Supine Exercise Name segmental bridge with TA recruitment Equipment Used 10s hold x10 Reps/Minutes cued segmental motion, core stab Comments painfree today LTR Supine Exercise Name LTR Side bilateral Reps/Minutes x10 ea Comments good form and TA fac Prone Exercises prone press up Prone Exercise Name prone press up - on elbows Reps/Minutes 10 x 10SH Comments good feedback aware back stretch but painfree Other Exercises quadruped Other Exercise Name quadruped - cat/cow, SB, child pose Comments cued anterior pelvit tilt ROM Therapeutic Activity Therapeutic Activity floor recovery Name floor recovery Reps/Minutes 2 min Comments SBA down to floor (hands, knees, quadruped, SL, supine). SBA for up to quadruped. CGA for half kneeling and rising to stand without UE support. - tall kneeling practice - 1/2 kneeling practice Neuro Re-Education Treatment Balance Activities corner balance Details WBOS, NBOS, stagger Reps/Duration 5 min Comments shuttle recovery then added home wall corner to back, chair front. EO HTs: NBOS, stagger EC NBOS 30 sec slight sway self recovery. PT-OP-R Modalities Start: 11/18/21 17:15 Freq: Status: Active Protocol: Document 02/08/22 16:00 AW (Rec: 02/08/22 17:04 AW [id number]) Hot Pack/Cold Pack Treatment Cold Pack Location R 5th MTP Patient Position Sitting Treatment Duration (minutes) 5 Patient Tolerance Good PT-OP-T Assessment and Plan Start: 11/18/21 17:15 Freq: Status: Active Protocol: Document 02/18/22 10:36 SP (Rec: 02/18/22 11:45 SP [id number]) Physical Therapy Assessment Goals Five Impairment balance [facility] Goal (LTG) Pt will score 48/56 or greater on [place] Balance Scale as a measure of improved balance and safe independent mobility. 02/03/22: MET GOAL 50/56 LTG Duration 02/24/22 GOAL MET Four Impairment needs 4WW for ambulation Short Term Goal (STG) Pt will walk 1200 feet or greater on 6MWT with LRAD. 01/05/22 - Pt walked 776 feet in 6 minutes with B trekking poles. 02/03/22: no significant progress,pt walked 753 ft in 6 minutes w/ B trek poles after 10 min biodex and [place] testing. Pt states doesn't need use trek poles indoors. 02/11/22: improved 859 ft w/ B trek poles, noted tiring and trunk sways modified scissor stepping bump into way on turn . STG Duration 01/05/22 progressing 02/11/22 Philosophy Instructor Goal (LTG) Pt will walk 1500 feet or greater on 6MWT with LRAD for parity with age-matched peers to improve community ambulation LTG Duration 02/24/22 Three Impairment pain with lifting Short Term Goal (STG) Pt will lift 10 pounds from waist height without increase in baseline pain to improve her ability to lift a laundry basket. 01/05/22 - Able to lift 7 pound db from chair height without pain. 02/03/22: GOAL MET: able to lift 10# DB to waist height without back pain. STG Duration 01/05/22 GOAL MET Philosophy Instructor Goal (LTG) Pt will lift 20 pounds from the ground without increase in baseline pain so that she can manage groceries with greater ease. LTG Duration 02/24/22 Two Impairment pain with trunk flexion Short Term Goal (STG) Pt will tolerate unloaded trunk flexion with 3/10 or less pain 01/05/22 Pt able to do pause squats with 0/10 pain STG Duration 01/05/22 GOAL MET [facility] Goal (LTG) Pt will tolerate forward trunk positioning in standing or kneeling for 15 minutes to be able to return to gardening 02/03/22: pt stated hasn't performed this activity yet since her fall. LTG Duration 02/24/22 One Impairment lacks HEP Short Term Goal (STG) Pt will be instructed in HEP for lumbar and hip mobility, trunk and hip strength to support therapy services provided in clinic. 01/05/22 - Doing exercises daily STG Duration 01/05/22 GOAL MET Philosophy Instructor Goal (LTG) Pt will be independent with HEP for lumbar and hip mobility, trunk and hip strength to manage pain symptoms and reduce likelihood of future injury. LTG Duration 02/24/22 Assessment Summary Assessment Pt responded well to review HEP prone, supine, quadruped with core and LS ROM focus. No reports to pain. Complete floor transfer without outside support required and use UE support coming to full stand. Initiated balance shuttle and carryover corner balance for home with good self postural corrections, cued core fac for improved stability on unstable surface. She reports no pain end tx but awareness use back muscles end tx. Stated likes the addition of balance for home to do for self progression. Physical Therapy Plan Frequency and Duration Frequency of Treatment 2x/Week Duration of treatment (weeks) 8 Plan of Care Start Date 02/15/22 Plan of Care End Date 04/12/22 Therapeutic Interventions Therapeutic Interventions Aquatic Therapy,Balance Training,Gait Training,Home Exercise Program,Manual Therapy,Neuromuscular Re- education,Self-Care/Home Management,Soft Tissue Mobilization,Therapeutic Activities,Therapeutic Exercises Modalities Cold Pack/Ice Massage,Hot Packs Next Visit Focus/Plan Next Note Type Treatment Note Next Visit Plan Recheck added corner and shuttle balance last tx for core and balance strengthing/ stabilty. POC: Progress therapeutic exercise as tolerated with emphasis on core stabilization and strengthening. Continue focus on hip hinge and core stab for functional activities such as gardening.
--- NOTE | 2022-02-22 12:10 | PT.OTN ---
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) Physical Therapy Treatment Note PT-OP-A Visit Information Start: 11/18/21 17:15 Freq: Status: Active Protocol: Document 02/22/22 11:21 AW (Rec: 02/22/22 12:10 AW [id number]) Out-Patient Physical Therapy Visit Information Visit Information Visit Type Treatment Note Visit Start Time 11:20 Visit Stop Time 12:00 Total Visit Minutes 40 Visit Number 25 Number of STAGE SET UP WORKER Visits 0 Evaluation Information Evaluation Date 11/24/21 PT-OP-B Current Condition Start: 11/18/21 17:15 Freq: Status: Active Protocol: Document 01/20/22 14:31 SAK (Rec: 01/20/22 15:15 SAK [id number]) Current Condition History of Current Condition Onset Date Spring 2021 Current Complaints low back pain History of Current Condition Leidy fell this past spring and bruised her ribs, was very painful. She denies falls history before this. After a month or so, she had improved enough to get out to the yard and do some weeding in late August. She fell again and hurt her back. Has been seeing chiropractor since then. On October 26, she was very limited in her movement and went to ED . She was given pain meds which she is still taking. She has history of L sciatica but she is now having pain more on right side low back, buttock, lateral thigh to mid thigh. Oxycodone helps. Occasional heat helps. First thing in the morning is worst pain. Same when oxycodone wears off. It hurts to bend forward. She has been ambulating with FWW and then 4WW since August. Pt feels walker helps with her balance. She had never used a walker before . Her states even before the falls, her balance was getting worse and she would often cruise furniture for support. She has neuropathy in both feet but pt states it is mild and she feels slight dulling of sensation only occasionally. Prior Treatments and Tests - MRI 11/04/21: Multiple levels of lumbar spine degenerative change are seen, which are worst at the L4-L5 level. At this level there is grade 1 anterolisthesis, moderate to severe bilateral neural foraminal narrowing, with associated exiting nerve root compression, and severe central canal narrowing. 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 Future Testing and Treatments Planned 11/26 Neurosurgery in [place] . PT-OP-C Subjective Start: 11/18/21 17:15 Freq: Status: Active Protocol: Document 02/22/22 11:21 AW (Rec: 02/22/22 12:10 AW [id number]) OP-PT Subjective Patient Comments Patient Comments Tita is having some tightness in her abdomen which makes her anxious. Seeing doctor this afternoon. PT-OP-D Balance Start: 11/18/21 17:15 Freq: Status: Active Protocol: Document 11/24/21 12:00 AW (Rec: 11/24/21 12:53 AW [id number]) Balance Tests Single Limb Standing Single Limb- Right <1 sec Single Limb- Left 2 sec PT-OP-F Manual Assessment Start: 11/18/21 17:15 Freq: Status: Active Protocol: Document 11/24/21 12:00 AW (Rec: 11/24/21 12:58 AW [id number]) Manual Assessments Joint Mobility Assessment Joint Mobility Assessment Significantly reduced excursion in lumbar PA's especially lower levels. Other Manual Assessments Other Manual Assessments Mild tenderness anterior to right greater trochanter. PT-OP-G Mobility & Gait Start: 11/18/21 17:15 Freq: Status: Active Protocol: Document 11/24/21 12:00 AW (Rec: 11/24/21 12:58 AW [id number]) OP Gait Assessment Comments Gait Comments Pt ambulates with 4WW, poor control of inversion RLE, heavy footfalls on left, reduced stance time LLE. She tends to push 4WW too far in front of her although she states she is trying to minimize weightbearing on hands. PT-OP-J Posture/Palpation/Skin Start: 11/18/21 17:15 Freq: Status: Active Protocol: Document 11/24/21 12:00 AW (Rec: 11/24/21 13:02 AW [id number]) Posture Evaluation Comments Posture Comments Pt has flat lumbar spine, moderate lumbar scoliosis with apex to the right, higher pelvic landmarks on the left PT-OP-K Range of Motion Start: 11/18/21 17:15 Freq: Status: Active Protocol: Document 11/24/21 12:00 AW (Rec: 11/24/21 13:09 AW [id number]) Lumbar Spine Range of Motion Lumbar Spine Active Testing Position Standing Flexion 40 Extension 10 ROM Limitations Soft Tissue Tightness,Pain Comments Pt can reach knee joint line bilaterally with fingertips and has no increase in pain. Rotation is limited but not painful bilaterally in standing and in sitting. Hip Goniometric Range of Motion Hip bilat Hip ROM WFL Yes Comments All hip ROM WNL without pain reproduction at end-ranges. IR :ER ratio is ~1:3. No limitation in HS length with pt able to perform SLR well past 90 degrees. PT-OP-M Strength Start: 11/18/21 17:15 Freq: Status: Active Protocol: Document 11/24/21 12:00 AW (Rec: 11/24/21 12:58 AW [id number]) Hip Strength Hip Manual Muscle Testing bilat Flexion (L2) 4+ Good+ Extension (S1) 4- Good- Abduction 4- Good- Knee Strength Knee Manual Muscle Testing Right Flexion (S2) 4+ Good+ Extension (L3) 4+ Good+ Left Flexion (S2) 5 Normal Extension (L3) 5 Normal Ankle/Foot Strength Ankle and Foot Manual Muscle Testing Right Dorsiflexion (L4) 4 Good Plantarflexion (S1) 4- Good- Inversion 4 Good Eversion (S1) 4 Good Left Dorsiflexion (L4) 5 Normal Plantarflexion (S1) 4+ Good+ Inversion 5 Normal Eversion (S1) 5 Normal Toe Strength Toe Manual Muscle Testing Great Toe Comments 4+/5 left; 4/5 right PT-OP-Q Treatments Start: 11/18/21 17:15 Freq: Status: Active Protocol: Document 02/22/22 11:21 AW (Rec: 02/22/22 12:10 AW [id number]) Cardio Equipment Recumbent Elliptical (Biodex) Duration (Minutes) 8 Resistance 3 Seat Position 5 seen Other folded towel behind lower thoracic spine, Gym Equipment Shuttle Balance blue chains Details WBOS, NBOS, stagger Reps/Duration 5 Comments 1. wt shift 2. HTs 3. semi-tandem Therapeutic Exercises Supine Exercises LTR Supine Exercise Name LTR Side bilateral Reps/Minutes x10 ea Comments good form and TA fac Sitting Exercises low back stretch Sitting Exercise Name elbows on thighs Reps/Minutes 2x30 Comments with deep breathing into lumbar spine pelvic rocking Sitting Exercise Name Core fac: 1.pelvic rocking 2. foot lift Resistance seated on 65cm tball Reps/Minutes x5 reps each Comments cued anterior tilt w/ chest lift for june, min A for ball stab Other Exercises quadruped Other Exercise Name quadruped - child pose Manual Therapy Treatment Soft Tissue Mobilization R QL, ES, piriformis, Glut med Body Location L Lumbar ES, DIstal QL> glut med Mobilization Type Strumming,Sustained Pressure, Trigger Point Release Intensity/Depth Moderate Body Position Sidelying Comments focus on proximal gluteal ilium, L5- S1. Neuro Re-Education Treatment Balance Activities corner balance Details NBOS, semi tandem, tandem Reps/Duration 5 min Comments shuttle recovery then added home wall corner to back, chair front. EO HTs: NBOS, stagger EC NBOS 30 sec slight sway self recovery. PT-OP-R Modalities Start: 11/18/21 17:15 Freq: Status: Active Protocol: Document 02/08/22 16:00 AW (Rec: 02/08/22 17:04 AW [id number]) Hot Pack/Cold Pack Treatment Cold Pack Location R 5th MTP Patient Position Sitting Treatment Duration (minutes) 5 Patient Tolerance Good PT-OP-T Assessment and Plan Start: 11/18/21 17:15 Freq: Status: Active Protocol: Document 02/22/22 11:21 AW (Rec: 02/22/22 12:10 AW [id number]) Physical Therapy Assessment Goals Five Impairment balance Trim Technician Goal (LTG) Pt will score 48/56 or greater on [place] Balance Scale as a measure of improved balance and safe independent mobility. 02/03/22: MET GOAL 50/56 LTG Duration 02/24/22 GOAL MET Four Impairment needs 4WW for ambulation Short Term Goal (STG) Pt will walk 1200 feet or greater on 6MWT with LRAD. 01/05/22 - Pt walked 776 feet in 6 minutes with B trekking poles. 02/03/22: no significant progress,pt walked 753 ft in 6 minutes w/ B trek poles after 10 min biodex and [place] testing. Pt states doesn't need use trek poles indoors. 02/11/22: improved 859 ft w/ B trek poles, noted tiring and trunk sways modified scissor stepping bump into way on turn . STG Duration 01/05/22 progressing 02/11/22 Prison Goal (LTG) Pt will walk 1500 feet or greater on 6MWT with LRAD for parity with age-matched peers to improve community ambulation LTG Duration 02/24/22 Three Impairment pain with lifting Short Term Goal (STG) Pt will lift 10 pounds from waist height without increase in baseline pain to improve her ability to lift a laundry basket. 01/05/22 - Able to lift 7 pound db from chair height without pain. 02/03/22: GOAL MET: able to lift 10# DB to waist height without back pain. STG Duration 01/05/22 GOAL MET Prison Goal (LTG) Pt will lift 20 pounds from the ground without increase in baseline pain so that she can manage groceries with greater ease. LTG Duration 02/24/22 Two Impairment pain with trunk flexion Short Term Goal (STG) Pt will tolerate unloaded trunk flexion with 3/10 or less pain 01/05/22 Pt able to do pause squats with 0/10 pain STG Duration 01/05/22 GOAL MET Trim Technician Goal (LTG) Pt will tolerate forward trunk positioning in standing or kneeling for 15 minutes to be able to return to gardening 02/03/22: pt stated hasn't performed this activity yet since her fall. LTG Duration 02/24/22 One Impairment lacks HEP Short Term Goal (STG) Pt will be instructed in HEP for lumbar and hip mobility, trunk and hip strength to support therapy services provided in clinic. 01/05/22 - Doing exercises daily STG Duration 01/05/22 GOAL MET Prison Goal (LTG) Pt will be independent with HEP for lumbar and hip mobility, trunk and hip strength to manage pain symptoms and reduce likelihood of future injury. LTG Duration 02/24/22 Assessment Summary Assessment Reviewed corner balance and progressed with semi-tandem stance (clinic only). Pt tolerates all balance exercises but with some increased anxiety. Physical Therapy Plan Frequency and Duration Frequency of Treatment 2x/Week Duration of treatment (weeks) 8 Plan of Care Start Date 02/15/22 Plan of Care End Date 04/12/22 Therapeutic Interventions Therapeutic Interventions Aquatic Therapy,Balance Training,Gait Training,Home Exercise Program,Manual Therapy,Neuromuscular Re- education,Self-Care/Home Management,Soft Tissue Mobilization,Therapeutic Activities,Therapeutic Exercises Modalities Cold Pack/Ice Massage,Hot Packs Next Visit Focus/Plan Next Note Type Treatment Note Next Visit Plan POC: Progress therapeutic exercise as tolerated with emphasis on core stabilization and strengthening. Continue focus on hip hinge and core stab for functional activities such as gardening.
--- NOTE | 2022-02-25 12:08 | PT.OTN ---
Current Diagnoses Scoliosis, unspecified (02/25/22) Spondylolisthesis, lumbar region (02/25/22) Spondylosis without myelopathy or radiculopathy, lumbar region (02/25/22) Physical Therapy Treatment Note PT-OP-A Visit Information Start: 11/18/21 17:15 Freq: Status: Active Protocol: Document 02/25/22 11:15 DCW (Rec: 02/25/22 12:08 DCW [id number]) Out-Patient Physical Therapy Visit Information Visit Information Visit Type Treatment Note Visit Start Time 11:15 Visit Stop Time 12:00 Total Visit Minutes 45 Visit Number 26 Number of INTERNIST Visits 0 Evaluation Information Evaluation Date 11/24/21 PT-OP-B Current Condition Start: 11/18/21 17:15 Freq: Status: Active Protocol: Document 01/20/22 14:31 SAK (Rec: 01/20/22 15:15 SAK [id number]) Current Condition History of Current Condition Onset Date Spring 2021 Current Complaints low back pain History of Current Condition Leidy fell this past spring and bruised her ribs, was very painful. She denies falls history before this. After a month or so, she had improved enough to get out to the yard and do some weeding in late August. She fell again and hurt her back. Has been seeing chiropractor since then. On October 26, she was very limited in her movement and went to ED . She was given pain meds which she is still taking. She has history of L sciatica but she is now having pain more on right side low back, buttock, lateral thigh to mid thigh. Oxycodone helps. Occasional heat helps. First thing in the morning is worst pain. Same when oxycodone wears off. It hurts to bend forward. She has been ambulating with FWW and then 4WW since August. Pt feels walker helps with her balance. She had never used a walker before . Her states even before the falls, her balance was getting worse and she would often cruise furniture for support. She has neuropathy in both feet but pt states it is mild and she feels slight dulling of sensation only occasionally. Prior Treatments and Tests - MRI 11/04/21: Multiple levels of lumbar spine degenerative change are seen, which are worst at the L4-L5 level. At this level there is grade 1 anterolisthesis, moderate to severe bilateral neural foraminal narrowing, with associated exiting nerve root compression, and severe central canal narrowing. 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 Future Testing and Treatments Planned 11/26 Neurosurgery in [place] . PT-OP-C Subjective Start: 11/18/21 17:15 Freq: Status: Active Protocol: Document 02/25/22 11:15 DCW (Rec: 02/25/22 12:08 DCW [id number]) OP-PT Subjective Patient Comments Patient Comments My back is tight off and on, but everything is getting better. PT-OP-D Balance Start: 11/18/21 17:15 Freq: Status: Active Protocol: Document 11/24/21 12:00 AW (Rec: 11/24/21 12:53 AW [id number]) Balance Tests Single Limb Standing Single Limb- Right <1 sec Single Limb- Left 2 sec PT-OP-F Manual Assessment Start: 11/18/21 17:15 Freq: Status: Active Protocol: Document 11/24/21 12:00 AW (Rec: 11/24/21 12:58 AW [id number]) Manual Assessments Joint Mobility Assessment Joint Mobility Assessment Significantly reduced excursion in lumbar PA's especially lower levels. Other Manual Assessments Other Manual Assessments Mild tenderness anterior to right greater trochanter. PT-OP-G Mobility & Gait Start: 11/18/21 17:15 Freq: Status: Active Protocol: Document 11/24/21 12:00 AW (Rec: 11/24/21 12:58 AW [id number]) OP Gait Assessment Comments Gait Comments Pt ambulates with 4WW, poor control of inversion RLE, heavy footfalls on left, reduced stance time LLE. She tends to push 4WW too far in front of her although she states she is trying to minimize weightbearing on hands. PT-OP-J Posture/Palpation/Skin Start: 11/18/21 17:15 Freq: Status: Active Protocol: Document 11/24/21 12:00 AW (Rec: 11/24/21 13:02 AW [id number]) Posture Evaluation Comments Posture Comments Pt has flat lumbar spine, moderate lumbar scoliosis with apex to the right, higher pelvic landmarks on the left PT-OP-K Range of Motion Start: 11/18/21 17:15 Freq: Status: Active Protocol: Document 11/24/21 12:00 AW (Rec: 11/24/21 13:09 AW [id number]) Lumbar Spine Range of Motion Lumbar Spine Active Testing Position Standing Flexion 40 Extension 10 ROM Limitations Soft Tissue Tightness,Pain Comments Pt can reach knee joint line bilaterally with fingertips and has no increase in pain. Rotation is limited but not painful bilaterally in standing and in sitting. Hip Goniometric Range of Motion Hip bilat Hip ROM WFL Yes Comments All hip ROM WNL without pain reproduction at end-ranges. IR :ER ratio is ~1:3. No limitation in HS length with pt able to perform SLR well past 90 degrees. PT-OP-M Strength Start: 11/18/21 17:15 Freq: Status: Active Protocol: Document 11/24/21 12:00 AW (Rec: 11/24/21 12:58 AW [id number]) Hip Strength Hip Manual Muscle Testing bilat Flexion (L2) 4+ Good+ Extension (S1) 4- Good- Abduction 4- Good- Knee Strength Knee Manual Muscle Testing Right Flexion (S2) 4+ Good+ Extension (L3) 4+ Good+ Left Flexion (S2) 5 Normal Extension (L3) 5 Normal Ankle/Foot Strength Ankle and Foot Manual Muscle Testing Right Dorsiflexion (L4) 4 Good Plantarflexion (S1) 4- Good- Inversion 4 Good Eversion (S1) 4 Good Left Dorsiflexion (L4) 5 Normal Plantarflexion (S1) 4+ Good+ Inversion 5 Normal Eversion (S1) 5 Normal Toe Strength Toe Manual Muscle Testing Great Toe Comments 4+/5 left; 4/5 right PT-OP-Q Treatments Start: 11/18/21 17:15 Freq: Status: Active Protocol: Document 02/25/22 11:15 DCW (Rec: 02/25/22 12:08 DCW [id number]) Cardio Equipment Recumbent Elliptical (Biodex) Duration (Minutes) 8 Resistance 3 Seat Position 5 seen Gym Equipment Shuttle Balance blue chains Details WBOS, NBOS, stagger Reps/Duration 5 Comments 1. wt shift 2. HTs 3. semi-tandem Therapeutic Exercises Supine Exercises LTR Supine Exercise Name LTR /c 45 cm T-ball Side bilateral Reps/Minutes x10 ea Comments good form and TA fac Sitting Exercises pelvic rocking Sitting Exercise Name Core fac: 1.pelvic rocking 2. pelvic circles 3.foot lift Resistance seated on 65cm tball Reps/Minutes x5 reps each Comments cued anterior tilt w/ chest lift for june, A for ball stab Manual Therapy Treatment Soft Tissue Mobilization R QL, ES, piriformis, Glut med Body Location L Lumbar ES, Distal QL> glut med Mobilization Type Strumming,Sustained Pressure, Trigger Point Release Intensity/Depth Moderate Body Position Sidelying Comments focus on proximal gluteal ilium, L5- S1. PT-OP-R Modalities Start: 11/18/21 17:15 Freq: Status: Active Protocol: Document 02/08/22 16:00 AW (Rec: 02/08/22 17:04 AW [id number]) Hot Pack/Cold Pack Treatment Cold Pack Location R 5th MTP Patient Position Sitting Treatment Duration (minutes) 5 Patient Tolerance Good PT-OP-T Assessment and Plan Start: 11/18/21 17:15 Freq: Status: Active Protocol: Document 02/25/22 11:15 DCW (Rec: 02/25/22 12:08 DCW [id number]) Physical Therapy Assessment Goals Five Impairment balance Alarm Installer Goal (LTG) Pt will score 48/56 or greater on [place] Balance Scale as a measure of improved balance and safe independent mobility. 02/03/22: MET GOAL 50/56 LTG Duration 02/24/22 GOAL MET Four Impairment needs 4WW for ambulation Short Term Goal (STG) Pt will walk 1200 feet or greater on 6MWT with LRAD. 01/05/22 - Pt walked 776 feet in 6 minutes with B trekking poles. 02/03/22: no significant progress,pt walked 753 ft in 6 minutes w/ B trek poles after 10 min biodex and [place] testing. Pt states doesn't need use trek poles indoors. 02/11/22: improved 859 ft w/ B trek poles, noted tiring and trunk sways modified scissor stepping bump into way on turn . STG Duration 01/05/22 progressing 02/11/22 Alarm Installer Goal (LTG) Pt will walk 1500 feet or greater on 6MWT with LRAD for parity with age-matched peers to improve community ambulation LTG Duration 02/24/22 Three Impairment pain with lifting Short Term Goal (STG) Pt will lift 10 pounds from waist height without increase in baseline pain to improve her ability to lift a laundry basket. 01/05/22 - Able to lift 7 pound db from chair height without pain. 02/03/22: GOAL MET: able to lift 10# DB to waist height without back pain. STG Duration 01/05/22 GOAL MET Correction Goal (LTG) Pt will lift 20 pounds from the ground without increase in baseline pain so that she can manage groceries with greater ease. LTG Duration 02/24/22 Two Impairment pain with trunk flexion Short Term Goal (STG) Pt will tolerate unloaded trunk flexion with 3/10 or less pain 01/05/22 Pt able to do pause squats with 0/10 pain STG Duration 01/05/22 GOAL MET Alarm Installer Goal (LTG) Pt will tolerate forward trunk positioning in standing or kneeling for 15 minutes to be able to return to gardening 02/03/22: pt stated hasn't performed this activity yet since her fall. LTG Duration 02/24/22 One Impairment lacks HEP Short Term Goal (STG) Pt will be instructed in HEP for lumbar and hip mobility, trunk and hip strength to support therapy services provided in clinic. 01/05/22 - Doing exercises daily STG Duration 01/05/22 GOAL MET Alarm Installer Goal (LTG) Pt will be independent with HEP for lumbar and hip mobility, trunk and hip strength to manage pain symptoms and reduce likelihood of future injury. LTG Duration 02/24/22 Assessment Summary Assessment Pt felt very good following todays visit, notes she is very happy with her current progress. Physical Therapy Plan Frequency and Duration Frequency of Treatment 2x/Week Duration of treatment (weeks) 8 Plan of Care Start Date 02/15/22 Plan of Care End Date 04/12/22 Therapeutic Interventions Therapeutic Interventions Aquatic Therapy,Balance Training,Gait Training,Home Exercise Program,Manual Therapy,Neuromuscular Re- education,Self-Care/Home Management,Soft Tissue Mobilization,Therapeutic Activities,Therapeutic Exercises Modalities Cold Pack/Ice Massage,Hot Packs Next Visit Focus/Plan Next Note Type Treatment Note Next Visit Plan POC: Progress therapeutic exercise as tolerated with emphasis on core stabilization and strengthening. Continue focus on hip hinge and core stab for functional activities such as gardening.
--- NOTE | 2022-03-01 11:20 | PT.OTN ---
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) Physical Therapy Treatment Note PT-OP-A Visit Information Start: 11/18/21 17:15 Freq: Status: Active Protocol: Document 03/01/22 10:15 NBM (Rec: 03/01/22 10:15 NBM [id number]) Out-Patient Physical Therapy Visit Information Visit Information Visit Type Treatment Note Visit Start Time 10:25 Visit Stop Time 11:10 Total Visit Minutes 45 Visit Number 27 Number of DIRECTOR EDUCATION Visits 1 PT-OP-B Current Condition Start: 11/18/21 17:15 Freq: Status: Active Protocol: Document 01/20/22 14:31 SAK (Rec: 01/20/22 15:15 SAK [id number]) Current Condition History of Current Condition Onset Date Spring 2021 Current Complaints low back pain History of Current Condition Leidy fell this past spring and bruised her ribs, was very painful. She denies falls history before this. After a month or so, she had improved enough to get out to the yard and do some weeding in late August. She fell again and hurt her back. Has been seeing chiropractor since then. On October 26, she was very limited in her movement and went to ED . She was given pain meds which she is still taking. She has history of L sciatica but she is now having pain more on right side low back, buttock, lateral thigh to mid thigh. Oxycodone helps. Occasional heat helps. First thing in the morning is worst pain. Same when oxycodone wears off. It hurts to bend forward. She has been ambulating with FWW and then 4WW since August. Pt feels walker helps with her balance. She had never used a walker before . Her states even before the falls, her balance was getting worse and she would often cruise furniture for support. She has neuropathy in both feet but pt states it is mild and she feels slight dulling of sensation only occasionally. Prior Treatments and Tests - MRI 11/04/21: Multiple levels of lumbar spine degenerative change are seen, which are worst at the L4-L5 level. At this level there is grade 1 anterolisthesis, moderate to severe bilateral neural foraminal narrowing, with associated exiting nerve root compression, and severe central canal narrowing. - Regular career placement services counselor. Future Testing and Treatments Planned 11/26 Neurosurgery in [place] . PT-OP-C Subjective Start: 11/18/21 17:15 Freq: Status: Active Protocol: Document 03/01/22 10:15 NBM (Rec: 03/01/22 10:15 NBM [id number]) OP-PT Subjective Patient Comments Patient Comments Pt states she's cut back on her medications and is progressing overall. She gets back tightness still but it's getting much better. PT-OP-D Balance Start: 11/18/21 17:15 Freq: Status: Active Protocol: Document 11/24/21 12:00 AW (Rec: 11/24/21 12:53 AW [id number]) Balance Tests Single Limb Standing Single Limb- Right <1 sec Single Limb- Left 2 sec PT-OP-F Manual Assessment Start: 11/18/21 17:15 Freq: Status: Active Protocol: Document 11/24/21 12:00 AW (Rec: 11/24/21 12:58 AW [id number]) Manual Assessments Joint Mobility Assessment Joint Mobility Assessment Significantly reduced excursion in lumbar PA's especially lower levels. Other Manual Assessments Other Manual Assessments Mild tenderness anterior to right greater trochanter. PT-OP-G Mobility & Gait Start: 11/18/21 17:15 Freq: Status: Active Protocol: Document 11/24/21 12:00 AW (Rec: 11/24/21 12:58 AW [id number]) OP Gait Assessment Comments Gait Comments Pt ambulates with 4WW, poor control of inversion RLE, heavy footfalls on left, reduced stance time LLE. She tends to push 4WW too far in front of her although she states she is trying to minimize weightbearing on hands. PT-OP-J Posture/Palpation/Skin Start: 11/18/21 17:15 Freq: Status: Active Protocol: Document 11/24/21 12:00 AW (Rec: 11/24/21 13:02 AW [id number]) Posture Evaluation Comments Posture Comments Pt has flat lumbar spine, moderate lumbar scoliosis with apex to the right, higher pelvic landmarks on the left PT-OP-K Range of Motion Start: 11/18/21 17:15 Freq: Status: Active Protocol: Document 11/24/21 12:00 AW (Rec: 11/24/21 13:09 AW [id number]) Lumbar Spine Range of Motion Lumbar Spine Active Testing Position Standing Flexion 40 Extension 10 ROM Limitations Soft Tissue Tightness,Pain Comments Pt can reach knee joint line bilaterally with fingertips and has no increase in pain. Rotation is limited but not painful bilaterally in standing and in sitting. Hip Goniometric Range of Motion Hip bilat Hip ROM WFL Yes Comments All hip ROM WNL without pain reproduction at end-ranges. IR :ER ratio is ~1:3. No limitation in HS length with pt able to perform SLR well past 90 degrees. PT-OP-M Strength Start: 11/18/21 17:15 Freq: Status: Active Protocol: Document 11/24/21 12:00 AW (Rec: 11/24/21 12:58 AW [id number]) Hip Strength Hip Manual Muscle Testing bilat Flexion (L2) 4+ Good+ Extension (S1) 4- Good- Abduction 4- Good- Knee Strength Knee Manual Muscle Testing Right Flexion (S2) 4+ Good+ Extension (L3) 4+ Good+ Left Flexion (S2) 5 Normal Extension (L3) 5 Normal Ankle/Foot Strength Ankle and Foot Manual Muscle Testing Right Dorsiflexion (L4) 4 Good Plantarflexion (S1) 4- Good- Inversion 4 Good Eversion (S1) 4 Good Left Dorsiflexion (L4) 5 Normal Plantarflexion (S1) 4+ Good+ Inversion 5 Normal Eversion (S1) 5 Normal Toe Strength Toe Manual Muscle Testing Great Toe Comments 4+/5 left; 4/5 right PT-OP-Q Treatments Start: 11/18/21 17:15 Freq: Status: Active Protocol: Document 03/01/22 10:15 NBM (Rec: 03/01/22 10:15 NBM [id number]) Cardio Equipment Recumbent Elliptical (Biodex) Duration (Minutes) 8 Resistance 3 Seat Position 5 seen Therapeutic Exercises Sitting Exercises pelvic rocking Sitting Exercise Name Core fac: 1.pelvic rocking 2. pelvic circles 3.foot lift Resistance seated on 65cm tball Reps/Minutes x5 reps each Comments cued anterior tilt w/ chest lift for june, min A for ball stab Standing Exercises squat Standing Exercise Name eccentric chair taps Equipment Used ahrris trekking poles, chair Reps/Minutes x4 Comments challenging Other Exercises quadruped Other Exercise Name quadruped - cat/cow, SB, child pose Therapeutic Activity Therapeutic Activity lifting Name lifting Comments empty crate from floor with emphasis on proximity, knee bend, hip hinge, core engagement Manual Therapy Treatment Soft Tissue Mobilization R QL, ES, piriformis, Glut med Body Location L Lumbar ES, Distal QL> glut med Mobilization Type Strumming,Sustained Pressure, Trigger Point Release Intensity/Depth Moderate Body Position Sidelying Comments focus on proximal gluteal ilium, L5- S1. PT-OP-R Modalities Start: 11/18/21 17:15 Freq: Status: Active Protocol: Document 02/08/22 16:00 AW (Rec: 02/08/22 17:04 AW [id number]) Hot Pack/Cold Pack Treatment Cold Pack Location R 5th MTP Patient Position Sitting Treatment Duration (minutes) 5 Patient Tolerance Good PT-OP-T Assessment and Plan Start: 11/18/21 17:15 Freq: Status: Active Protocol: Document 03/01/22 10:15 NBM (Rec: 03/01/22 10:15 NBM [id number]) Physical Therapy Assessment Goals Five Impairment balance Molding Manager Goal (LTG) Pt will score 48/56 or greater on [place] Balance Scale as a measure of improved balance and safe independent mobility. 02/03/22: MET GOAL 50/56 LTG Duration 02/24/22 GOAL MET Four Impairment needs 4WW for ambulation Short Term Goal (STG) Pt will walk 1200 feet or greater on 6MWT with LRAD. 01/05/22 - Pt walked 776 feet in 6 minutes with B trekking poles. 02/03/22: no significant progress,pt walked 753 ft in 6 minutes w/ B trek poles after 10 min biodex and [place] testing. Pt states doesn't need use trek poles indoors. 02/11/22: improved 859 ft w/ B trek poles, noted tiring and trunk sways modified scissor stepping bump into way on turn . STG Duration 01/05/22 progressing 02/11/22 Correction Goal (LTG) Pt will walk 1500 feet or greater on 6MWT with LRAD for parity with age-matched peers to improve community ambulation LTG Duration 02/24/22 Three Impairment pain with lifting Short Term Goal (STG) Pt will lift 10 pounds from waist height without increase in baseline pain to improve her ability to lift a laundry basket. 01/05/22 - Able to lift 7 pound db from chair height without pain. 02/03/22: GOAL MET: able to lift 10# DB to waist height without back pain. STG Duration 01/05/22 GOAL MET Molding Manager Goal (LTG) Pt will lift 20 pounds from the ground without increase in baseline pain so that she can manage groceries with greater ease. 03/01/22: Reviewed lifting mechanics w/ empty crate from the floor (progressing). LTG Duration 02/24/22 Two Impairment pain with trunk flexion Short Term Goal (STG) Pt will tolerate unloaded trunk flexion with 3/10 or less pain 01/05/22 Pt able to do pause squats with 0/10 pain STG Duration 01/05/22 GOAL MET Correction Goal (LTG) Pt will tolerate forward trunk positioning in standing or kneeling for 15 minutes to be able to return to gardening 02/03/22: pt stated hasn't performed this activity yet since her fall. LTG Duration 02/24/22 One Impairment lacks HEP Short Term Goal (STG) Pt will be instructed in HEP for lumbar and hip mobility, trunk and hip strength to support therapy services provided in clinic. 01/05/22 - Doing exercises daily STG Duration 01/05/22 GOAL MET Correction Goal (LTG) Pt will be independent with HEP for lumbar and hip mobility, trunk and hip strength to manage pain symptoms and reduce likelihood of future injury. LTG Duration 02/24/22 Assessment Summary Assessment Pt requires multiple cues for safe lifting mechanics w/ empty crate from the floor w/ pivot to place at counter - cues for bending knees, small steps to turn feet rather than twist back - improves w/ repetition. Pt is challenged w / LE strength for squatting and uses bilateral trekking poles for eccentric chair taps accordingly. Palpable tightness to L glutes decreases with manual therapay - pt provides good feedback response post manual. Physical Therapy Plan Frequency and Duration Frequency of Treatment 2x/Week Duration of treatment (weeks) 8 Plan of Care Start Date 02/15/22 Plan of Care End Date 04/12/22 Therapeutic Interventions Therapeutic Interventions Aquatic Therapy,Balance Training,Gait Training,Home Exercise Program,Manual Therapy,Neuromuscular Re- education,Self-Care/Home Management,Soft Tissue Mobilization,Therapeutic Activities,Therapeutic Exercises Modalities Cold Pack/Ice Massage,Hot Packs Next Visit Focus/Plan Next Note Type Treatment Note Next Visit Plan POC: Progress therapeutic exercise as tolerated with emphasis on core stabilization and strengthening. Continue focus on hip hinge and core stab for functional activities such as gardening.
--- NOTE | 2022-03-04 11:15 | PT.OTN ---
Current Diagnoses Scoliosis, unspecified (03/04/22) Spondylolisthesis, lumbar region (03/04/22) Spondylosis without myelopathy or radiculopathy, lumbar region (03/04/22) Physical Therapy Treatment Note PT-OP-A Visit Information Start: 11/18/21 17:15 Freq: Status: Active Protocol: Document 03/04/22 10:30 DCW (Rec: 03/04/22 11:15 DCW [id number]) Out-Patient Physical Therapy Visit Information Visit Information Visit Type Treatment Note Visit Start Time 10:30 Visit Stop Time 11:15 Total Visit Minutes 45 Visit Number 28 Number of BREAKER UNIT ASSEMBLER Visits 0 Evaluation Information Evaluation Date 11/24/21 PT-OP-B Current Condition Start: 11/18/21 17:15 Freq: Status: Active Protocol: Document 01/20/22 14:31 SAK (Rec: 01/20/22 15:15 SAK [id number]) Current Condition History of Current Condition Onset Date Spring 2021 Current Complaints low back pain History of Current Condition Leidy fell this past spring and bruised her ribs, was very painful. She denies falls history before this. After a month or so, she had improved enough to get out to the yard and do some weeding in late August. She fell again and hurt her back. Has been seeing chiropractor since then. On October 26, she was very limited in her movement and went to ED . She was given pain meds which she is still taking. She has history of L sciatica but she is now having pain more on right side low back, buttock, lateral thigh to mid thigh. Oxycodone helps. Occasional heat helps. First thing in the morning is worst pain. Same when oxycodone wears off. It hurts to bend forward. She has been ambulating with FWW and then 4WW since August. Pt feels walker helps with her balance. She had never used a walker before . Her states even before the falls, her balance was getting worse and she would often cruise furniture for support. She has neuropathy in both feet but pt states it is mild and she feels slight dulling of sensation only occasionally. Prior Treatments and Tests - MRI 11/04/21: Multiple levels of lumbar spine degenerative change are seen, which are worst at the L4-L5 level. At this level there is grade 1 anterolisthesis, moderate to severe bilateral neural foraminal narrowing, with associated exiting nerve root compression, and severe central canal narrowing. - Regular critical care educator. Future Testing and Treatments Planned 11/26 Neurosurgery in [place] . PT-OP-C Subjective Start: 11/18/21 17:15 Freq: Status: Active Protocol: Document 03/04/22 10:30 DCW (Rec: 03/04/22 11:15 DCW [id number]) OP-PT Subjective Patient Comments Patient Comments I had to take an extra med about an hour ago because my back was hurting, but it feels a little better. PT-OP-D Balance Start: 11/18/21 17:15 Freq: Status: Active Protocol: Document 11/24/21 12:00 AW (Rec: 11/24/21 12:53 AW [id number]) Balance Tests Single Limb Standing Single Limb- Right <1 sec Single Limb- Left 2 sec PT-OP-F Manual Assessment Start: 11/18/21 17:15 Freq: Status: Active Protocol: Document 11/24/21 12:00 AW (Rec: 11/24/21 12:58 AW [id number]) Manual Assessments Joint Mobility Assessment Joint Mobility Assessment Significantly reduced excursion in lumbar PA's especially lower levels. Other Manual Assessments Other Manual Assessments Mild tenderness anterior to right greater trochanter. PT-OP-G Mobility & Gait Start: 11/18/21 17:15 Freq: Status: Active Protocol: Document 11/24/21 12:00 AW (Rec: 11/24/21 12:58 AW [id number]) OP Gait Assessment Comments Gait Comments Pt ambulates with 4WW, poor control of inversion RLE, heavy footfalls on left, reduced stance time LLE. She tends to push 4WW too far in front of her although she states she is trying to minimize weightbearing on hands. PT-OP-J Posture/Palpation/Skin Start: 11/18/21 17:15 Freq: Status: Active Protocol: Document 11/24/21 12:00 AW (Rec: 11/24/21 13:02 AW [id number]) Posture Evaluation Comments Posture Comments Pt has flat lumbar spine, moderate lumbar scoliosis with apex to the right, higher pelvic landmarks on the left PT-OP-K Range of Motion Start: 11/18/21 17:15 Freq: Status: Active Protocol: Document 11/24/21 12:00 AW (Rec: 11/24/21 13:09 AW [id number]) Lumbar Spine Range of Motion Lumbar Spine Active Testing Position Standing Flexion 40 Extension 10 ROM Limitations Soft Tissue Tightness,Pain Comments Pt can reach knee joint line bilaterally with fingertips and has no increase in pain. Rotation is limited but not painful bilaterally in standing and in sitting. Hip Goniometric Range of Motion Hip bilat Hip ROM WFL Yes Comments All hip ROM WNL without pain reproduction at end-ranges. IR :ER ratio is ~1:3. No limitation in HS length with pt able to perform SLR well past 90 degrees. PT-OP-M Strength Start: 11/18/21 17:15 Freq: Status: Active Protocol: Document 11/24/21 12:00 AW (Rec: 11/24/21 12:58 AW [id number]) Hip Strength Hip Manual Muscle Testing bilat Flexion (L2) 4+ Good+ Extension (S1) 4- Good- Abduction 4- Good- Knee Strength Knee Manual Muscle Testing Right Flexion (S2) 4+ Good+ Extension (L3) 4+ Good+ Left Flexion (S2) 5 Normal Extension (L3) 5 Normal Ankle/Foot Strength Ankle and Foot Manual Muscle Testing Right Dorsiflexion (L4) 4 Good Plantarflexion (S1) 4- Good- Inversion 4 Good Eversion (S1) 4 Good Left Dorsiflexion (L4) 5 Normal Plantarflexion (S1) 4+ Good+ Inversion 5 Normal Eversion (S1) 5 Normal Toe Strength Toe Manual Muscle Testing Great Toe Comments 4+/5 left; 4/5 right PT-OP-Q Treatments Start: 11/18/21 17:15 Freq: Status: Active Protocol: Document 03/04/22 10:30 DCW (Rec: 03/04/22 11:15 DCW [id number]) Cardio Equipment Recumbent Elliptical (Biodex) Duration (Minutes) 6 Resistance 3 Seat Position 5 seen Gym Equipment Shuttle Balance blue chains Details WBOS, NBOS, stagger Reps/Duration 5 Comments 1. wt shift 2. HTs 3. semi-tandem Therapeutic Exercises Sitting Exercises pelvic rocking Sitting Exercise Name Core fac: 1.pelvic rocking 2. pelvic circles 3.foot lift Resistance seated on 65cm tball Comments cued anterior tilt w/ chest lift for june, min A for ball stab Manual Therapy Treatment Soft Tissue Mobilization R QL, ES, piriformis, Glut med Body Location L Lumbar ES, Distal QL> glut med Mobilization Type Strumming,Sustained Pressure, Trigger Point Release Intensity/Depth Moderate Body Position Sidelying Comments focus on proximal gluteal ilium, L5- S1. PT-OP-R Modalities Start: 11/18/21 17:15 Freq: Status: Active Protocol: Document 02/08/22 16:00 AW (Rec: 02/08/22 17:04 AW [id number]) Hot Pack/Cold Pack Treatment Cold Pack Location R 5th MTP Patient Position Sitting Treatment Duration (minutes) 5 Patient Tolerance Good PT-OP-T Assessment and Plan Start: 11/18/21 17:15 Freq: Status: Active Protocol: Document 03/04/22 10:30 DCW (Rec: 03/04/22 11:15 DCW [id number]) Physical Therapy Assessment Goals Five Impairment balance Community Health Director Goal (LTG) Pt will score 48/56 or greater on [place] Balance Scale as a measure of improved balance and safe independent mobility. 02/03/22: MET GOAL 50/56 LTG Duration 02/24/22 GOAL MET Four Impairment needs 4WW for ambulation Short Term Goal (STG) Pt will walk 1200 feet or greater on 6MWT with LRAD. 01/05/22 - Pt walked 776 feet in 6 minutes with B trekking poles. 02/03/22: no significant progress,pt walked 753 ft in 6 minutes w/ B trek poles after 10 min biodex and [place] testing. Pt states doesn't need use trek poles indoors. 02/11/22: improved 859 ft w/ B trek poles, noted tiring and trunk sways modified scissor stepping bump into way on turn . STG Duration 01/05/22 progressing 02/11/22 Community Health Director Goal (LTG) Pt will walk 1500 feet or greater on 6MWT with LRAD for parity with age-matched peers to improve community ambulation LTG Duration 02/24/22 Three Impairment pain with lifting Short Term Goal (STG) Pt will lift 10 pounds from waist height without increase in baseline pain to improve her ability to lift a laundry basket. 01/05/22 - Able to lift 7 pound db from chair height without pain. 02/03/22: GOAL MET: able to lift 10# DB to waist height without back pain. STG Duration 01/05/22 GOAL MET Usp Goal (LTG) Pt will lift 20 pounds from the ground without increase in baseline pain so that she can manage groceries with greater ease. 03/01/22: Reviewed lifting mechanics w/ empty crate from the floor (progressing). LTG Duration 02/24/22 Two Impairment pain with trunk flexion Short Term Goal (STG) Pt will tolerate unloaded trunk flexion with 3/10 or less pain 01/05/22 Pt able to do pause squats with 0/10 pain STG Duration 01/05/22 GOAL MET Community Health Director Goal (LTG) Pt will tolerate forward trunk positioning in standing or kneeling for 15 minutes to be able to return to gardening 02/03/22: pt stated hasn't performed this activity yet since her fall. LTG Duration 02/24/22 One Impairment lacks HEP Short Term Goal (STG) Pt will be instructed in HEP for lumbar and hip mobility, trunk and hip strength to support therapy services provided in clinic. 01/05/22 - Doing exercises daily STG Duration 01/05/22 GOAL MET Community Health Director Goal (LTG) Pt will be independent with HEP for lumbar and hip mobility, trunk and hip strength to manage pain symptoms and reduce likelihood of future injury. LTG Duration 02/24/22 Assessment Summary Assessment Pt tolerated treatment well today. Still having occasional tightness in low back, but progressing well with core strengthening and stabilization. Physical Therapy Plan Frequency and Duration Frequency of Treatment 2x/Week Duration of treatment (weeks) 8 Plan of Care Start Date 02/15/22 Plan of Care End Date 04/12/22 Therapeutic Interventions Therapeutic Interventions Aquatic Therapy,Balance Training,Gait Training,Home Exercise Program,Manual Therapy,Neuromuscular Re- education,Self-Care/Home Management,Soft Tissue Mobilization,Therapeutic Activities,Therapeutic Exercises Modalities Cold Pack/Ice Massage,Hot Packs Next Visit Focus/Plan Next Note Type Treatment Note Next Visit Plan POC: Progress therapeutic exercise as tolerated with emphasis on core stabilization and strengthening. Continue focus on hip hinge and core stab for functional activities such as gardening.
--- NOTE | 2022-03-22 16:22 | PT.OTN ---
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) Physical Therapy Treatment Note PT-OP-A Visit Information Start: 11/18/21 17:15 Freq: Status: Active Protocol: Document 03/22/22 10:35 SAK (Rec: 03/22/22 11:13 SAK [id number]) Out-Patient Physical Therapy Visit Information Visit Information Visit Type Treatment Note Visit Start Time 10:35 Visit Stop Time 11:15 Total Visit Minutes 50 Visit Number 29 Number of [employer]PER[employer]OR [employer] Visits 0 Evaluation Information Evaluation Date 11/24/21 PT-OP-B Current Condition Start: 11/18/21 17:15 Freq: Status: Active Protocol: Document 01/20/22 14:31 SAK (Rec: 01/20/22 15:15 SAK [id number]) Current Condition History of Current Condition Onset Date Spring 2021 Current Complaints low back pain History of Current Condition Leidy fell this past spring and bruised her ribs, was very painful. She denies falls history before this. After a month or so, she had improved enough to get out to the yard and do some weeding in late August. She fell again and hurt her back. Has been seeing chiropractor since then. On October 26, she was very limited in her movement and went to ED . She was given pain meds which she is still taking. She has history of L sciatica but she is now having pain more on right side low back, buttock, lateral thigh to mid thigh. Oxycodone helps. Occasional heat helps. First thing in the morning is worst pain. Same when oxycodone wears off. It hurts to bend forward. She has been ambulating with FWW and then 4WW since August. Pt feels walker helps with her balance. She had never used a walker before . Her states even before the falls, her balance was getting worse and she would often cruise furniture for support. She has neuropathy in both feet but pt states it is mild and she feels slight dulling of sensation only occasionally. Prior Treatments and Tests - MRI 11/04/21: Multiple levels of lumbar spine degenerative change are seen, which are worst at the L4-L5 level. At this level there is grade 1 anterolisthesis, moderate to severe bilateral neural foraminal narrowing, with associated exiting nerve root compression, and severe central canal narrowing. - Regular attending ambulatory care. Future Testing and Treatments Planned 11/26 Neurosurgery in [place] . PT-OP-C Subjective Start: 11/18/21 17:15 Freq: Status: Active Protocol: Document 03/22/22 10:35 SAK (Rec: 03/22/22 11:13 SAK [id number]) OP-PT Subjective Patient Comments Patient Comments Sees Dr. Parsons tomorrow. States Dr. Parsons is wanting her to wean down on her pain medicationsNeeds to call to see about another shot in her back due to persistent pain. Legs feeling stronger, balance improving. Using trekking poles outside, no device at home. PT-OP-D Balance Start: 11/18/21 17:15 Freq: Status: Active Protocol: Document 11/24/21 12:00 AW (Rec: 11/24/21 12:53 AW [id number]) Balance Tests Single Limb Standing Single Limb- Right <1 sec Single Limb- Left 2 sec PT-OP-F Manual Assessment Start: 11/18/21 17:15 Freq: Status: Active Protocol: Document 11/24/21 12:00 AW (Rec: 11/24/21 12:58 AW [id number]) Manual Assessments Joint Mobility Assessment Joint Mobility Assessment Significantly reduced excursion in lumbar PA's especially lower levels. Other Manual Assessments Other Manual Assessments Mild tenderness anterior to right greater trochanter. PT-OP-G Mobility & Gait Start: 11/18/21 17:15 Freq: Status: Active Protocol: Document 11/24/21 12:00 AW (Rec: 11/24/21 12:58 AW [id number]) OP Gait Assessment Comments Gait Comments Pt ambulates with 4WW, poor control of inversion RLE, heavy footfalls on left, reduced stance time LLE. She tends to push 4WW too far in front of her although she states she is trying to minimize weightbearing on hands. PT-OP-J Posture/Palpation/Skin Start: 11/18/21 17:15 Freq: Status: Active Protocol: Document 11/24/21 12:00 AW (Rec: 11/24/21 13:02 AW [id number]) Posture Evaluation Comments Posture Comments Pt has flat lumbar spine, moderate lumbar scoliosis with apex to the right, higher pelvic landmarks on the left PT-OP-K Range of Motion Start: 11/18/21 17:15 Freq: Status: Active Protocol: Document 11/24/21 12:00 AW (Rec: 11/24/21 13:09 AW [id number]) Lumbar Spine Range of Motion Lumbar Spine Active Testing Position Standing Flexion 40 Extension 10 ROM Limitations Soft Tissue Tightness,Pain Comments Pt can reach knee joint line bilaterally with fingertips and has no increase in pain. Rotation is limited but not painful bilaterally in standing and in sitting. Hip Goniometric Range of Motion Hip bilat Hip ROM WFL Yes Comments All hip ROM WNL without pain reproduction at end-ranges. IR :ER ratio is ~1:3. No limitation in HS length with pt able to perform SLR well past 90 degrees. PT-OP-M Strength Start: 11/18/21 17:15 Freq: Status: Active Protocol: Document 11/24/21 12:00 AW (Rec: 11/24/21 12:58 AW [id number]) Hip Strength Hip Manual Muscle Testing bilat Flexion (L2) 4+ Good+ Extension (S1) 4- Good- Abduction 4- Good- Knee Strength Knee Manual Muscle Testing Right Flexion (S2) 4+ Good+ Extension (L3) 4+ Good+ Left Flexion (S2) 5 Normal Extension (L3) 5 Normal Ankle/Foot Strength Ankle and Foot Manual Muscle Testing Right Dorsiflexion (L4) 4 Good Plantarflexion (S1) 4- Good- Inversion 4 Good Eversion (S1) 4 Good Left Dorsiflexion (L4) 5 Normal Plantarflexion (S1) 4+ Good+ Inversion 5 Normal Eversion (S1) 5 Normal Toe Strength Toe Manual Muscle Testing Great Toe Comments 4+/5 left; 4/5 right PT-OP-Q Treatments Start: 11/18/21 17:15 Freq: Status: Active Protocol: Document 03/22/22 10:35 SAK (Rec: 03/22/22 11:13 SAK [id number]) Cardio Equipment Recumbent Stepper (Sci-Fit) Duration (Minutes) 7 Resistance 2 Seat Position 7 Other cues to push through heels Gym Equipment Shuttle Balance red chains Details fwd/bck bal and weight shift Comments mod to min UE use, CGA Therapeutic Exercises Sitting Exercises pelvic rocking Sitting Exercise Name Core fac: 1.pelvic rocking 2. pelvic circles 3.foot lift Resistance seated on 65cm tball Comments cued anterior tilt w/ chest lift for june, min A for ball stab Standing Exercises resisted side-stepping Standing Exercise Name resisted side-stepping- in PT only Side bilateral Equipment Used yellow loop Reps/Minutes 10 ft lap Comments cued slow pace eccentric control and posture, trail LE clearance Other Exercises quadruped Other Exercise Name quadruped - cat/cow, SB, child pose Manual Therapy Treatment Soft Tissue Mobilization R QL, ES, piriformis, Glut med Body Location L Lumbar ES, Distal QL> glut med Mobilization Type Strumming,Sustained Pressure, Trigger Point Release Intensity/Depth Moderate Body Position Sidelying Comments focus on proximal gluteal ilium, L5- S1. PT-OP-R Modalities Start: 11/18/21 17:15 Freq: Status: Active Protocol: Document 03/22/22 10:35 SAK (Rec: 03/22/22 16:22 [facility] [id number]) Hot Pack/Cold Pack Treatment Hot Pack Location L lumbo-sacral and L hip Patient Position Sidelying Treatment Duration (minutes) 15 Patient Tolerance Good Comments after soft tissue mobilization PT-OP-T Assessment and Plan Start: 11/18/21 17:15 Freq: Status: Active Protocol: Document 03/22/22 10:35 SAK (Rec: 03/22/22 11:13 [facility] [id number]) Physical Therapy Assessment Goals Five Impairment balance Finishing And Shipping Supervisor Goal (LTG) Pt will score 48/56 or greater on [place] Balance Scale as a measure of improved balance and safe independent mobility. 02/03/22: MET GOAL 50/56 LTG Duration 02/24/22 GOAL MET Four Impairment needs 4WW for ambulation Short Term Goal (STG) Pt will walk 1200 feet or greater on 6MWT with LRAD. 01/05/22 - Pt walked 776 feet in 6 minutes with B trekking poles. 02/03/22: no significant progress,pt walked 753 ft in 6 minutes w/ B trek poles after 10 min biodex and [place] testing. Pt states doesn't need use trek poles indoors. 02/11/22: improved 859 ft w/ B trek poles, noted tiring and trunk sways modified scissor stepping bump into way on turn . STG Duration 01/05/22 progressing 02/11/22 Finishing And Shipping Supervisor Goal (LTG) Pt will walk 1500 feet or greater on 6MWT with LRAD for parity with age-matched peers to improve community ambulation LTG Duration 02/24/22 Three Impairment pain with lifting Short Term Goal (STG) Pt will lift 10 pounds from waist height without increase in baseline pain to improve her ability to lift a laundry basket. 01/05/22 - Able to lift 7 pound db from chair height without pain. 02/03/22: GOAL MET: able to lift 10# DB to waist height without back pain. STG Duration 01/05/22 GOAL MET [facility] Goal (LTG) Pt will lift 20 pounds from the ground without increase in baseline pain so that she can manage groceries with greater ease. 03/01/22: Reviewed lifting mechanics w/ empty crate from the floor (progressing). LTG Duration 02/24/22 Two Impairment pain with trunk flexion Short Term Goal (STG) Pt will tolerate unloaded trunk flexion with 3/10 or less pain 01/05/22 Pt able to do pause squats with 0/10 pain STG Duration 01/05/22 GOAL MET [facility] Goal (LTG) Pt will tolerate forward trunk positioning in standing or kneeling for 15 minutes to be able to return to gardening 02/03/22: pt stated hasn't performed this activity yet since her fall. LTG Duration 02/24/22 One Impairment lacks HEP Short Term Goal (STG) Pt will be instructed in HEP for lumbar and hip mobility, trunk and hip strength to support therapy services provided in clinic. 01/05/22 - Doing exercises daily STG Duration 01/05/22 GOAL MET [facility] Goal (LTG) Pt will be independent with HEP for lumbar and hip mobility, trunk and hip strength to manage pain symptoms and reduce likelihood of future injury. LTG Duration 02/24/22 Assessment Summary Assessment Patient reporting improvemets in all goal areas, biggest c/o is persistent tight and achy back especially in standing. Able to progress to red chains on shuttle balance today. Physical Therapy Plan Frequency and Duration Frequency of Treatment 2x/Week Duration of treatment (weeks) 8 Plan of Care Start Date 02/15/22 Plan of Care End Date 04/12/22 Therapeutic Interventions Therapeutic Interventions Aquatic Therapy,Balance Training,Gait Training,Home Exercise Program,Manual Therapy,Neuromuscular Re- education,Self-Care/Home Management,Soft Tissue Mobilization,Therapeutic Activities,Therapeutic Exercises Modalities Cold Pack/Ice Massage,Hot Packs Next Visit Focus/Plan Next Note Type Treatment Note Next Visit Plan POC: Progress therapeutic exercise as tolerated with emphasis on core stabilization and strengthening. Continue focus on hip hinge and core stab for functional activities such as gardening.
--- NOTE | 2022-03-25 11:09 | PT-OP ANOTE ---
Called and spoke with pt regarding missed 10:45a appointment today - pt was unaware. Offered 3:15p opening but pt unable to make it at that time. Confirmed next PT appointment is Monday, 03/29 at 11:15a.
--- NOTE | 2022-03-29 12:16 | PT.OTN ---
Current Diagnoses Scoliosis, unspecified (03/29/22) Spondylolisthesis, lumbar region (03/29/22) Spondylosis without myelopathy or radiculopathy, lumbar region (03/29/22) Physical Therapy Treatment Note PT-OP-A Visit Information Start: 11/18/21 17:15 Freq: Status: Active Protocol: Document 03/29/22 10:31 AW (Rec: 03/29/22 12:15 AW [id number]) Out-Patient Physical Therapy Visit Information Visit Information Visit Type Treatment Note Visit Start Time 11:15 Visit Stop Time 12:10 Total Visit Minutes 55 PT-OP-B Current Condition Start: 11/18/21 17:15 Freq: Status: Active Protocol: Document 01/20/22 14:31 SAK (Rec: 01/20/22 15:15 SAK [id number]) Current Condition History of Current Condition Onset Date Spring 2021 Current Complaints low back pain History of Current Condition Leidy fell this past spring and bruised her ribs, was very painful. She denies falls history before this. After a month or so, she had improved enough to get out to the yard and do some weeding in late August. She fell again and hurt her back. Has been seeing chiropractor since then. On October 26, she was very limited in her movement and went to ED . She was given pain meds which she is still taking. She has history of L sciatica but she is now having pain more on right side low back, buttock, lateral thigh to mid thigh. Oxycodone helps. Occasional heat helps. First thing in the morning is worst pain. Same when oxycodone wears off. It hurts to bend forward. She has been ambulating with FWW and then 4WW since August. Pt feels walker helps with her balance. She had never used a walker before . Her states even before the falls, her balance was getting worse and she would often cruise furniture for support. She has neuropathy in both feet but pt states it is mild and she feels slight dulling of sensation only occasionally. Prior Treatments and Tests - MRI 11/04/21: Multiple levels of lumbar spine degenerative change are seen, which are worst at the L4-L5 level. At this level there is grade 1 anterolisthesis, moderate to severe bilateral neural foraminal narrowing, with associated exiting nerve root compression, and severe central canal narrowing. 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 Future Testing and Treatments Planned 11/26 Neurosurgery in [place] . PT-OP-C Subjective Start: 11/18/21 17:15 Freq: Status: Active Protocol: Document 03/29/22 10:31 AW (Rec: 03/29/22 12:15 AW [id number]) OP-PT Subjective Patient Comments Patient Comments I walked around the house a few times yesterday and that really helps. I'm still having localized low back pain. Feels tight. PT-OP-D Balance Start: 11/18/21 17:15 Freq: Status: Active Protocol: Document 11/24/21 12:00 AW (Rec: 11/24/21 12:53 AW [id number]) Balance Tests Single Limb Standing Single Limb- Right <1 sec Single Limb- Left 2 sec PT-OP-F Manual Assessment Start: 11/18/21 17:15 Freq: Status: Active Protocol: Document 11/24/21 12:00 AW (Rec: 11/24/21 12:58 AW [id number]) Manual Assessments Joint Mobility Assessment Joint Mobility Assessment Significantly reduced excursion in lumbar PA's especially lower levels. Other Manual Assessments Other Manual Assessments Mild tenderness anterior to right greater trochanter. PT-OP-G Mobility & Gait Start: 11/18/21 17:15 Freq: Status: Active Protocol: Document 11/24/21 12:00 AW (Rec: 11/24/21 12:58 AW [id number]) OP Gait Assessment Comments Gait Comments Pt ambulates with 4WW, poor control of inversion RLE, heavy footfalls on left, reduced stance time LLE. She tends to push 4WW too far in front of her although she states she is trying to minimize weightbearing on hands. PT-OP-J Posture/Palpation/Skin Start: 11/18/21 17:15 Freq: Status: Active Protocol: Document 11/24/21 12:00 AW (Rec: 11/24/21 13:02 AW [id number]) Posture Evaluation Comments Posture Comments Pt has flat lumbar spine, moderate lumbar scoliosis with apex to the right, higher pelvic landmarks on the left PT-OP-K Range of Motion Start: 11/18/21 17:15 Freq: Status: Active Protocol: Document 11/24/21 12:00 AW (Rec: 11/24/21 13:09 AW [id number]) Lumbar Spine Range of Motion Lumbar Spine Active Testing Position Standing Flexion 40 Extension 10 ROM Limitations Soft Tissue Tightness,Pain Comments Pt can reach knee joint line bilaterally with fingertips and has no increase in pain. Rotation is limited but not painful bilaterally in standing and in sitting. Hip Goniometric Range of Motion Hip bilat Hip ROM WFL Yes Comments All hip ROM WNL without pain reproduction at end-ranges. IR :ER ratio is ~1:3. No limitation in HS length with pt able to perform SLR well past 90 degrees. PT-OP-M Strength Start: 11/18/21 17:15 Freq: Status: Active Protocol: Document 11/24/21 12:00 AW (Rec: 11/24/21 12:58 AW [id number]) Hip Strength Hip Manual Muscle Testing bilat Flexion (L2) 4+ Good+ Extension (S1) 4- Good- Abduction 4- Good- Knee Strength Knee Manual Muscle Testing Right Flexion (S2) 4+ Good+ Extension (L3) 4+ Good+ Left Flexion (S2) 5 Normal Extension (L3) 5 Normal Ankle/Foot Strength Ankle and Foot Manual Muscle Testing Right Dorsiflexion (L4) 4 Good Plantarflexion (S1) 4- Good- Inversion 4 Good Eversion (S1) 4 Good Left Dorsiflexion (L4) 5 Normal Plantarflexion (S1) 4+ Good+ Inversion 5 Normal Eversion (S1) 5 Normal Toe Strength Toe Manual Muscle Testing Great Toe Comments 4+/5 left; 4/5 right PT-OP-Q Treatments Start: 11/18/21 17:15 Freq: Status: Active Protocol: Document 03/29/22 10:31 AW (Rec: 03/29/22 12:15 AW [id number]) Cardio Equipment Recumbent Elliptical (Biodex) Duration (Minutes) 6 Resistance 3 Seat Position 5 seen Gym Equipment Shuttle Balance blue chains Details WBOS, NBOS, stagger Reps/Duration 5 Comments 1. wt shift 2. HTs 3. semi-tandem Therapeutic Exercises Supine Exercises bridge Equipment Used feet on 45 cm ball Reps/Minutes cued segmental motion, core stab Comments painfree today; just tight LTR Supine Exercise Name LTR /c 45 cm T-ball Side bilateral Reps/Minutes x10 ea Comments good form and TA fac Sidelying Exercises Open Book stretch Sidelying Exercise Name HEP review Comments cued straight arm, eyes follow hand for incr rotation Standing Exercises anti-rotation press Standing Exercise Name anti-rotation press Side bilateral Resistance TB1 modified child's pose Standing Exercise Name modified child's pose Comments hands on counter, walk feet away for low back stretch resisted side-stepping Standing Exercise Name resisted side-stepping- in PT only Side bilateral Equipment Used yellow loop Reps/Minutes 10 ft lap Comments cued slow pace eccentric control and posture, trail LE clearance resisted shld ext Resistance TB1 Reps/Minutes 5SH x 10 Comments cues for core activation, emphasis on scapular movement resisted row Standing Exercise Name resisted row Resistance TB1 Reps/Minutes 5SH x 10 Comments cues for core activation, emphasis on scapular movement Manual Therapy Treatment Soft Tissue Mobilization R QL, ES, piriformis, Glut med Body Location L Lumbar ES, Distal QL> glut med Mobilization Type Strumming,Sustained Pressure, Trigger Point Release Intensity/Depth Moderate Body Position Sidelying Comments focus on proximal gluteal ilium, L5- S1. PT-OP-R Modalities Start: 11/18/21 17:15 Freq: Status: Active Protocol: Document 03/29/22 10:31 AW (Rec: 03/29/22 12:15 AW [id number]) Hot Pack/Cold Pack Treatment Hot Pack Location lumbo-sacral Patient Position Prone Treatment Duration (minutes) 15 Patient Tolerance Good Comments after soft tissue mobilization PT-OP-T Assessment and Plan Start: 11/18/21 17:15 Freq: Status: Active Protocol: Document 03/29/22 10:31 AW (Rec: 03/29/22 12:15 AW [id number]) Physical Therapy Assessment Goals Five Impairment balance Small Battery Plate Assembler Goal (LTG) Pt will score 48/56 or greater on [place] Balance Scale as a measure of improved balance and safe independent mobility. 02/03/22: MET GOAL 50/56 LTG Duration 02/24/22 GOAL MET Four Impairment needs 4WW for ambulation Short Term Goal (STG) Pt will walk 1200 feet or greater on 6MWT with LRAD. 01/05/22 - Pt walked 776 feet in 6 minutes with B trekking poles. 02/03/22: no significant progress,pt walked 753 ft in 6 minutes w/ B trek poles after 10 min biodex and [place] testing. Pt states doesn't need use trek poles indoors. 02/11/22: improved 859 ft w/ B trek poles, noted tiring and trunk sways modified scissor stepping bump into way on turn . STG Duration 01/05/22 progressing 02/11/22 [facility] Goal (LTG) Pt will walk 1500 feet or greater on 6MWT with LRAD for parity with age-matched peers to improve community ambulation LTG Duration 02/24/22 Three Impairment pain with lifting Short Term Goal (STG) Pt will lift 10 pounds from waist height without increase in baseline pain to improve her ability to lift a laundry basket. 01/05/22 - Able to lift 7 pound db from chair height without pain. 02/03/22: GOAL MET: able to lift 10# DB to waist height without back pain. STG Duration 01/05/22 GOAL MET [facility] Goal (LTG) Pt will lift 20 pounds from the ground without increase in baseline pain so that she can manage groceries with greater ease. 03/01/22: Reviewed lifting mechanics w/ empty crate from the floor (progressing). LTG Duration 02/24/22 Two Impairment pain with trunk flexion Short Term Goal (STG) Pt will tolerate unloaded trunk flexion with 3/10 or less pain 01/05/22 Pt able to do pause squats with 0/10 pain STG Duration 01/05/22 GOAL MET Small Battery Plate Assembler Goal (LTG) Pt will tolerate forward trunk positioning in standing or kneeling for 15 minutes to be able to return to gardening 02/03/22: pt stated hasn't performed this activity yet since her fall. LTG Duration 02/24/22 One Impairment lacks HEP Short Term Goal (STG) Pt will be instructed in HEP for lumbar and hip mobility, trunk and hip strength to support therapy services provided in clinic. 01/05/22 - Doing exercises daily STG Duration 01/05/22 GOAL MET Small Battery Plate Assembler Goal (LTG) Pt will be independent with HEP for lumbar and hip mobility, trunk and hip strength to manage pain symptoms and reduce likelihood of future injury. LTG Duration 02/24/22 Assessment Summary Assessment Leidy is overall happy with her progress. She has persistent low back tightness which is amenable to stretching. Gait remains slow and pt needs trekking poles for longer distances. Physical Therapy Plan Frequency and Duration Frequency of Treatment 2x/Week Duration of treatment (weeks) 8 Plan of Care Start Date 02/15/22 Plan of Care End Date 04/12/22 Therapeutic Interventions Therapeutic Interventions Aquatic Therapy,Balance Training,Gait Training,Home Exercise Program,Manual Therapy,Neuromuscular Re- education,Self-Care/Home Management,Soft Tissue Mobilization,Therapeutic Activities,Therapeutic Exercises Modalities Cold Pack/Ice Massage,Hot Packs Next Visit Focus/Plan Next Note Type Treatment Note Next Visit Plan POC: Progress therapeutic exercise as tolerated with emphasis on core stabilization and strengthening. Continue focus on hip hinge and core stab for functional activities such as gardening.
--- NOTE | 2022-04-01 11:18 | PT.OTN ---
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) Physical Therapy Treatment Note PT-OP-A Visit Information Start: 11/18/21 17:15 Freq: Status: Active Protocol: Document 04/01/22 10:33 SP (Rec: 04/01/22 11:38 SP [id number]) Out-Patient Physical Therapy Visit Information Visit Information Visit Type Treatment Note Visit Start Time 10:33 Visit Stop Time 11:18 Total Visit Minutes 45 Visit Number 31 Number of EMPLOYMENT COUNSELOR Visits 1 Evaluation Information Evaluation Date 11/24/21 PT-OP-B Current Condition Start: 11/18/21 17:15 Freq: Status: Active Protocol: Document 01/20/22 14:31 SAK (Rec: 01/20/22 15:15 SAK [id number]) Current Condition History of Current Condition Onset Date Spring 2021 Current Complaints low back pain History of Current Condition Leidy fell this past spring and bruised her ribs, was very painful. She denies falls history before this. After a month or so, she had improved enough to get out to the yard and do some weeding in late August. She fell again and hurt her back. Has been seeing chiropractor since then. On October 26, she was very limited in her movement and went to ED . She was given pain meds which she is still taking. She has history of L sciatica but she is now having pain more on right side low back, buttock, lateral thigh to mid thigh. Oxycodone helps. Occasional heat helps. First thing in the morning is worst pain. Same when oxycodone wears off. It hurts to bend forward. She has been ambulating with FWW and then 4WW since August. Pt feels walker helps with her balance. She had never used a walker before . Her states even before the falls, her balance was getting worse and she would often cruise furniture for support. She has neuropathy in both feet but pt states it is mild and she feels slight dulling of sensation only occasionally. Prior Treatments and Tests - MRI 11/04/21: Multiple levels of lumbar spine degenerative change are seen, which are worst at the L4-L5 level. At this level there is grade 1 anterolisthesis, moderate to severe bilateral neural foraminal narrowing, with associated exiting nerve root compression, and severe central canal narrowing. - Regular home care chaplain. Future Testing and Treatments Planned 11/26 Neurosurgery in [place] . PT-OP-C Subjective Start: 11/18/21 17:15 Freq: Status: Active Protocol: Document 04/01/22 10:33 SP (Rec: 04/01/22 11:38 SP [id number]) OP-PT Subjective Patient Comments Patient Comments Pt stated her back continues to bother her. She is supposed to see Dr Schneider Monday and believe might get another back injection to support pain control, last one partial helped 3 months ago. PT-OP-D Balance Start: 11/18/21 17:15 Freq: Status: Active Protocol: Document 11/24/21 12:00 AW (Rec: 11/24/21 12:53 AW [id number]) Balance Tests Single Limb Standing Single Limb- Right <1 sec Single Limb- Left 2 sec PT-OP-F Manual Assessment Start: 11/18/21 17:15 Freq: Status: Active Protocol: Document 11/24/21 12:00 AW (Rec: 11/24/21 12:58 AW [id number]) Manual Assessments Joint Mobility Assessment Joint Mobility Assessment Significantly reduced excursion in lumbar PA's especially lower levels. Other Manual Assessments Other Manual Assessments Mild tenderness anterior to right greater trochanter. PT-OP-G Mobility & Gait Start: 11/18/21 17:15 Freq: Status: Active Protocol: Document 11/24/21 12:00 AW (Rec: 11/24/21 12:58 AW [id number]) OP Gait Assessment Comments Gait Comments Pt ambulates with 4WW, poor control of inversion RLE, heavy footfalls on left, reduced stance time LLE. She tends to push 4WW too far in front of her although she states she is trying to minimize weightbearing on hands. PT-OP-J Posture/Palpation/Skin Start: 11/18/21 17:15 Freq: Status: Active Protocol: Document 11/24/21 12:00 AW (Rec: 11/24/21 13:02 AW [id number]) Posture Evaluation Comments Posture Comments Pt has flat lumbar spine, moderate lumbar scoliosis with apex to the right, higher pelvic landmarks on the left PT-OP-K Range of Motion Start: 11/18/21 17:15 Freq: Status: Active Protocol: Document 11/24/21 12:00 AW (Rec: 11/24/21 13:09 AW [id number]) Lumbar Spine Range of Motion Lumbar Spine Active Testing Position Standing Flexion 40 Extension 10 ROM Limitations Soft Tissue Tightness,Pain Comments Pt can reach knee joint line bilaterally with fingertips and has no increase in pain. Rotation is limited but not painful bilaterally in standing and in sitting. Hip Goniometric Range of Motion Hip bilat Hip ROM WFL Yes Comments All hip ROM WNL without pain reproduction at end-ranges. IR :ER ratio is ~1:3. No limitation in HS length with pt able to perform SLR well past 90 degrees. PT-OP-M Strength Start: 11/18/21 17:15 Freq: Status: Active Protocol: Document 11/24/21 12:00 AW (Rec: 11/24/21 12:58 AW [id number]) Hip Strength Hip Manual Muscle Testing bilat Flexion (L2) 4+ Good+ Extension (S1) 4- Good- Abduction 4- Good- Knee Strength Knee Manual Muscle Testing Right Flexion (S2) 4+ Good+ Extension (L3) 4+ Good+ Left Flexion (S2) 5 Normal Extension (L3) 5 Normal Ankle/Foot Strength Ankle and Foot Manual Muscle Testing Right Dorsiflexion (L4) 4 Good Plantarflexion (S1) 4- Good- Inversion 4 Good Eversion (S1) 4 Good Left Dorsiflexion (L4) 5 Normal Plantarflexion (S1) 4+ Good+ Inversion 5 Normal Eversion (S1) 5 Normal Toe Strength Toe Manual Muscle Testing Great Toe Comments 4+/5 left; 4/5 right PT-OP-Q Treatments Start: 11/18/21 17:15 Freq: Status: Active Protocol: Document 04/01/22 10:33 SP (Rec: 04/01/22 11:38 SP [id number]) Cardio Equipment Recumbent Elliptical ([employer]) Duration (Minutes) 8 Resistance 3 Seat Position closest Other UEs/ LEs 30-35 RPMs Therapeutic Exercises Standing Exercises resisted side-stepping Standing Exercise Name resisted side-stepping- in PT only Side bilateral Equipment Used yellow loop, prn rail Reps/Minutes 10 ft lap x3 laps Comments cued slow pace eccentric control and posture, trail LE clearance resisted shld ext Resistance TB1 Reps/Minutes 5SH x 10 Comments cues for core activation, emphasis on scapular movement, good form/painfree resisted row Standing Exercise Name resisted row Resistance TB1 Reps/Minutes 5SH x 10 Comments cues for core activation, emphasis on scapular movement- good form/ painfre Other Exercises sit to stand Other Exercise Name STS - hands held front/lap as needed light Equipment Used 17 white folding chair, Reps/Minutes x10 reps Comments cued slow descent last 1 for safety Gait Training Gait Activity no AD Description safety gait in home balance recovery without AD Device Used 0 Level of Assistance CGA/close SBA Surface carpet/tile Distance/Duration 150 Treatment Focus TA, wt shift into advanced foot, arm swing, posture, SANDER safety Comments 1. forward posture, TA, wt shift into front ball of foot: front mirror 20 ft x4 laps 2. 1 lap around clinic perimeter (smaller lap) approx 150 ft -2 scissor step during right turn, LOB self recovery. Manual Therapy Treatment Soft Tissue Mobilization R QL, ES, piriformis, Glut med Body Location L>R Lumbar ES, Distal QL> glut med, distal>proximal piriformis Mobilization Type Strumming,Sustained Pressure, Trigger Point Release Intensity/Depth Moderate Body Position Prone Comments manual and discussion review self use ball on wall or . She states gets a chiropractic massage 1xwk and helps alot with tightness control PT-OP-R Modalities Start: 11/18/21 17:15 Freq: Status: Active Protocol: Document 03/29/22 10:31 AW (Rec: 03/29/22 12:15 AW [id number]) Hot Pack/Cold Pack Treatment Hot Pack Location lumbo-sacral Patient Position Prone Treatment Duration (minutes) 15 Patient Tolerance Good Comments after soft tissue mobilization PT-OP-T Assessment and Plan Start: 11/18/21 17:15 Freq: Status: Active Protocol: Document 04/01/22 10:33 SP (Rec: 04/01/22 11:38 SP [id number]) Physical Therapy Assessment Goals Five Impairment balance Mcc Goal (LTG) Pt will score 48/56 or greater on [place] Balance Scale as a measure of improved balance and safe independent mobility. 02/03/22: MET GOAL 50/56 LTG Duration 02/24/22 GOAL MET Four Impairment needs 4WW for ambulation Short Term Goal (STG) Pt will walk 1200 feet or greater on 6MWT with LRAD. 01/05/22 - Pt walked 776 feet in 6 minutes with B trekking poles. 02/03/22: no significant progress,pt walked 753 ft in 6 minutes w/ B trek poles after 10 min biodex and [place] testing. Pt states doesn't need use trek poles indoors. 02/11/22: improved 859 ft w/ B trek poles, noted tiring and trunk sways modified scissor stepping bump into way on turn . STG Duration 01/05/22 progressing 02/11/22 Mcc Goal (LTG) Pt will walk 1500 feet or greater on 6MWT with LRAD for parity with age-matched peers to improve community ambulation LTG Duration 02/24/22 Three Impairment pain with lifting Short Term Goal (STG) Pt will lift 10 pounds from waist height without increase in baseline pain to improve her ability to lift a laundry basket. 01/05/22 - Able to lift 7 pound db from chair height without pain. 02/03/22: GOAL MET: able to lift 10# DB to waist height without back pain. STG Duration 01/05/22 GOAL MET Metal Window Screen Assembler Goal (LTG) Pt will lift 20 pounds from the ground without increase in baseline pain so that she can manage groceries with greater ease. 03/01/22: Reviewed lifting mechanics w/ empty crate from the floor (progressing). LTG Duration 02/24/22 Two Impairment pain with trunk flexion Short Term Goal (STG) Pt will tolerate unloaded trunk flexion with 3/10 or less pain 01/05/22 Pt able to do pause squats with 0/10 pain STG Duration 01/05/22 GOAL MET Mcc Goal (LTG) Pt will tolerate forward trunk positioning in standing or kneeling for 15 minutes to be able to return to gardening 02/03/22: pt stated hasn't performed this activity yet since her fall. LTG Duration 02/24/22 One Impairment lacks HEP Short Term Goal (STG) Pt will be instructed in HEP for lumbar and hip mobility, trunk and hip strength to support therapy services provided in clinic. 01/05/22 - Doing exercises daily STG Duration 01/05/22 GOAL MET Metal Window Screen Assembler Goal (LTG) Pt will be independent with HEP for lumbar and hip mobility, trunk and hip strength to manage pain symptoms and reduce likelihood of future injury. LTG Duration 02/24/22 Assessment Summary Assessment Pt improved core and alignment decreased LBP during beginning 2/3 tx during funcitonal strengthening/ balance/gait. Reported back muscles feeling tired and then started to hurt end gait 150 ft last activity in standing. IMproved less tightness and no pain post manual prone end tx . Pt improved posture and stabilty after gait activities , less lateral wt shift walking by end tx Physical Therapy Plan Frequency and Duration Frequency of Treatment 2x/Week Duration of treatment (weeks) 8 Plan of Care Start Date 02/15/22 Plan of Care End Date 04/12/22 Therapeutic Interventions Therapeutic Interventions Aquatic Therapy,Balance Training,Gait Training,Home Exercise Program,Manual Therapy,Neuromuscular Re- education,Self-Care/Home Management,Soft Tissue Mobilization,Therapeutic Activities,Therapeutic Exercises Modalities Cold Pack/Ice Massage,Hot Packs Next Visit Focus/Plan Next Note Type Treatment Note Next Visit Plan Continue gait in mirror w/ alignment and posture incorporation with ther ex. POC: Progress therapeutic exercise as tolerated with emphasis on core stabilization and strengthening. Continue focus on hip hinge and core stab for functional activities such as gardening.
--- NOTE | 2022-04-08 11:17 | PT.OTN ---
Current Diagnoses Scoliosis, unspecified (04/08/22) Spondylolisthesis, lumbar region (04/08/22) Spondylosis without myelopathy or radiculopathy, lumbar region (04/08/22) Physical Therapy Treatment Note PT-OP-A Visit Information Start: 11/18/21 17:15 Freq: Status: Active Protocol: Document 04/08/22 10:37 SP (Rec: 04/08/22 11:58 SP [id number]) Out-Patient Physical Therapy Visit Information Visit Information Visit Type Treatment Note Visit Start Time 10:37 Visit Stop Time 11:17 Total Visit Minutes 40 Visit Number 31 Number of RESCUE WORKER Visits 2 Evaluation Information Evaluation Date 11/24/21 PT-OP-B Current Condition Start: 11/18/21 17:15 Freq: Status: Active Protocol: Document 01/20/22 14:31 SAK (Rec: 01/20/22 15:15 SAK [id number]) Current Condition History of Current Condition Onset Date Spring 2021 Current Complaints low back pain History of Current Condition Leidy fell this past spring and bruised her ribs, was very painful. She denies falls history before this. After a month or so, she had improved enough to get out to the yard and do some weeding in late August. She fell again and hurt her back. Has been seeing chiropractor since then. On October 26, she was very limited in her movement and went to ED . She was given pain meds which she is still taking. She has history of L sciatica but she is now having pain more on right side low back, buttock, lateral thigh to mid thigh. Oxycodone helps. Occasional heat helps. First thing in the morning is worst pain. Same when oxycodone wears off. It hurts to bend forward. She has been ambulating with FWW and then 4WW since August. Pt feels walker helps with her balance. She had never used a walker before . Her states even before the falls, her balance was getting worse and she would often cruise furniture for support. She has neuropathy in both feet but pt states it is mild and she feels slight dulling of sensation only occasionally. Prior Treatments and Tests - MRI 11/04/21: Multiple levels of lumbar spine degenerative change are seen, which are worst at the L4-L5 level. At this level there is grade 1 anterolisthesis, moderate to severe bilateral neural foraminal narrowing, with associated exiting nerve root compression, and severe central canal narrowing. - Regular rn critical care. Future Testing and Treatments Planned 11/26 Neurosurgery in [place] . PT-OP-C Subjective Start: 11/18/21 17:15 Freq: Status: Active Protocol: Document 04/08/22 10:37 SP (Rec: 04/08/22 11:58 SP [id number]) OP-PT Subjective Patient Comments Patient Comments Pt reports still having pain across low back, states only standing 1 min before needs sit due to LBP. PT-OP-D Balance Start: 11/18/21 17:15 Freq: Status: Active Protocol: Document 11/24/21 12:00 AW (Rec: 11/24/21 12:53 AW [id number]) Balance Tests Single Limb Standing Single Limb- Right <1 sec Single Limb- Left 2 sec PT-OP-F Manual Assessment Start: 11/18/21 17:15 Freq: Status: Active Protocol: Document 11/24/21 12:00 AW (Rec: 11/24/21 12:58 AW [id number]) Manual Assessments Joint Mobility Assessment Joint Mobility Assessment Significantly reduced excursion in lumbar PA's especially lower levels. Other Manual Assessments Other Manual Assessments Mild tenderness anterior to right greater trochanter. PT-OP-G Mobility & Gait Start: 11/18/21 17:15 Freq: Status: Active Protocol: Document 11/24/21 12:00 AW (Rec: 11/24/21 12:58 AW [id number]) OP Gait Assessment Comments Gait Comments Pt ambulates with 4WW, poor control of inversion RLE, heavy footfalls on left, reduced stance time LLE. She tends to push 4WW too far in front of her although she states she is trying to minimize weightbearing on hands. PT-OP-J Posture/Palpation/Skin Start: 11/18/21 17:15 Freq: Status: Active Protocol: Document 11/24/21 12:00 AW (Rec: 11/24/21 13:02 AW [id number]) Posture Evaluation Comments Posture Comments Pt has flat lumbar spine, moderate lumbar scoliosis with apex to the right, higher pelvic landmarks on the left PT-OP-K Range of Motion Start: 11/18/21 17:15 Freq: Status: Active Protocol: Document 11/24/21 12:00 AW (Rec: 11/24/21 13:09 AW [id number]) Lumbar Spine Range of Motion Lumbar Spine Active Testing Position Standing Flexion 40 Extension 10 ROM Limitations Soft Tissue Tightness,Pain Comments Pt can reach knee joint line bilaterally with fingertips and has no increase in pain. Rotation is limited but not painful bilaterally in standing and in sitting. Hip Goniometric Range of Motion Hip bilat Hip ROM WFL Yes Comments All hip ROM WNL without pain reproduction at end-ranges. IR :ER ratio is ~1:3. No limitation in HS length with pt able to perform SLR well past 90 degrees. PT-OP-M Strength Start: 11/18/21 17:15 Freq: Status: Active Protocol: Document 11/24/21 12:00 AW (Rec: 11/24/21 12:58 AW [id number]) Hip Strength Hip Manual Muscle Testing bilat Flexion (L2) 4+ Good+ Extension (S1) 4- Good- Abduction 4- Good- Knee Strength Knee Manual Muscle Testing Right Flexion (S2) 4+ Good+ Extension (L3) 4+ Good+ Left Flexion (S2) 5 Normal Extension (L3) 5 Normal Ankle/Foot Strength Ankle and Foot Manual Muscle Testing Right Dorsiflexion (L4) 4 Good Plantarflexion (S1) 4- Good- Inversion 4 Good Eversion (S1) 4 Good Left Dorsiflexion (L4) 5 Normal Plantarflexion (S1) 4+ Good+ Inversion 5 Normal Eversion (S1) 5 Normal Toe Strength Toe Manual Muscle Testing Great Toe Comments 4+/5 left; 4/5 right PT-OP-Q Treatments Start: 11/18/21 17:15 Freq: Status: Active Protocol: Document 04/08/22 10:37 SP (Rec: 04/08/22 11:58 SP [id number]) Cardio Equipment Recumbent Elliptical ([employer]) Duration (Minutes) 6 Resistance 3 next tx increase to 4 Seat Position closest (see 4) Other UEs/ LEs 35 RPMs, 419 steps Therapeutic Exercises Prone Exercises prone press up Prone Exercise Name prone press up - on elbows Reps/Minutes 10 x 10SH Comments good back stretch, painfree, cued chin nod neutral CS/core fac lift/scap Standing Exercises resisted shld ext Resistance TB1>2 Reps/Minutes 5SH x 10 Comments good form/painfree and self postural corrections Gait Training Gait Activity 6MWT Description reassessment in distance endurance Distance/Duration 777 ft in 6 min B trek poles Treatment Focus foot clearance, proper sequencing trek poles, endurance for community amb Comments improved stability foot clearance w/ trek poles, 1 foot caught carpet/tile transition, self recovery. Manual Therapy Treatment Soft Tissue Mobilization R QL, ES, piriformis, Glut med Body Location L>R Lumbar ES, Distal QL> glut med, distal>proximal piriformis Mobilization Type Strumming,Sustained Pressure, Trigger Point Release Intensity/Depth Moderate Body Position Prone Comments manual and discussion review self use ball on wall or . Restated is getting a chiropractic massage 1xwk and helps alot with tightness control PT-OP-R Modalities Start: 11/18/21 17:15 Freq: Status: Active Protocol: Document 03/29/22 10:31 AW (Rec: 03/29/22 12:15 AW [id number]) Hot Pack/Cold Pack Treatment Hot Pack Location lumbo-sacral Patient Position Prone Treatment Duration (minutes) 15 Patient Tolerance Good Comments after soft tissue mobilization PT-OP-T Assessment and Plan Start: 11/18/21 17:15 Freq: Status: Active Protocol: Document 04/08/22 10:37 SP (Rec: 04/08/22 11:58 SP [id number]) Physical Therapy Assessment Goals Five Impairment balance Residential Goal (LTG) Pt will score 48/56 or greater on [place] Balance Scale as a measure of improved balance and safe independent mobility. 02/03/22: MET GOAL 50/56 LTG Duration 02/24/22 GOAL MET Four Impairment needs 4WW for ambulation Short Term Goal (STG) Pt will walk 1200 feet or greater on 6MWT with LRAD. 01/05/22 - Pt walked 776 feet in 6 minutes with B trekking poles. 02/03/22: no significant progress,pt walked 753 ft in 6 minutes w/ B trek poles after 10 min biodex and [place] testing. Pt states doesn't need use trek poles indoors. 02/11/22: improved 859 ft w/ B trek poles, noted tiring and trunk sways modified scissor stepping bump into way on turn . 04/08/22: slow progressing: Pt improved SANDER and patterning w / B trek poles with gait stability, less distance 777ft by 82 ft, 1 LOB foot caught carpet/tile transition, self recovery with trek poles. STG Duration 01/05/22 progressing 04/08/22 Residential Goal (LTG) Pt will walk 1500 feet or greater on 6MWT with LRAD for parity with age-matched peers to improve community ambulation LTG Duration 02/24/22 Three Impairment pain with lifting Short Term Goal (STG) Pt will lift 10 pounds from waist height without increase in baseline pain to improve her ability to lift a laundry basket. 01/05/22 - Able to lift 7 pound db from chair height without pain. 02/03/22: GOAL MET: able to lift 10# DB to waist height without back pain. STG Duration 01/05/22 GOAL MET Residential Goal (LTG) Pt will lift 20 pounds from the ground without increase in baseline pain so that she can manage groceries with greater ease. 03/01/22: Reviewed lifting mechanics w/ empty crate from the floor (progressing). LTG Duration 02/24/22 Two Impairment pain with trunk flexion Short Term Goal (STG) Pt will tolerate unloaded trunk flexion with 3/10 or less pain 01/05/22 Pt able to do pause squats with 0/10 pain STG Duration 01/05/22 GOAL MET Residential Goal (LTG) Pt will tolerate forward trunk positioning in standing or kneeling for 15 minutes to be able to return to gardening 02/03/22: pt stated hasn't performed this activity yet since her fall. LTG Duration 02/24/22 One Impairment lacks HEP Short Term Goal (STG) Pt will be instructed in HEP for lumbar and hip mobility, trunk and hip strength to support therapy services provided in clinic. 01/05/22 - Doing exercises daily STG Duration 01/05/22 GOAL MET Tool Hardener Goal (LTG) Pt will be independent with HEP for lumbar and hip mobility, trunk and hip strength to manage pain symptoms and reduce likelihood of future injury. LTG Duration 02/24/22 Assessment Summary Assessment Pt improved quality gait with trek poles with self postural corrections improve SANDER safety apart but does tire, complete 6MWT but more challange maintaining posture, end distance foot caught floor LOB self recover w/B Trek poles. Education on safety awareness foot clearance at home gait without UE support, pt verbalizes understands. Pt was stable leaving no AD as when arrived, trunk slight lateral sways and little hip hike to support foot clearance noted, stable. Pt benefit from continued skilled PT for core strengthening and balance for support safe gait in community /home with LRAD. Physical Therapy Plan Frequency and Duration Frequency of Treatment 2x/Week Duration of treatment (weeks) 8 Plan of Care Start Date 02/15/22 Plan of Care End Date 04/12/22 Therapeutic Interventions Therapeutic Interventions Aquatic Therapy,Balance Training,Gait Training,Home Exercise Program,Manual Therapy,Neuromuscular Re- education,Self-Care/Home Management,Soft Tissue Mobilization,Therapeutic Activities,Therapeutic Exercises Modalities Cold Pack/Ice Massage,Hot Packs Next Visit Focus/Plan Next Note Type Treatment Note Next Visit Plan Continue gait in mirror w/ alignment and posture incorporation with ther ex, balance. POC: Progress therapeutic exercise as tolerated with emphasis on core stabilization and strengthening. Continue focus on hip hinge and core stab for functional activities such as gardening.
--- NOTE | 2022-04-12 12:54 | PT-OP ANOTE ---
cancelled due to snow
--- NOTE | 2022-04-21 11:15 | PT.OTN ---
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) Physical Therapy Treatment Note PT-OP-A Visit Information Start: 11/18/21 17:15 Freq: Status: Active Protocol: Document 04/21/22 08:51 AW (Rec: 04/21/22 11:15 AW [id number]) Out-Patient Physical Therapy Visit Information Visit Information Visit Type Progress Note Visit Start Time 09:00 Visit Stop Time 09:45 Total Visit Minutes 45 Visit Number 32 Evaluation Information Evaluation Date 11/24/21 PT-OP-B Current Condition Start: 11/18/21 17:15 Freq: Status: Active Protocol: Document 01/20/22 14:31 SAK (Rec: 01/20/22 15:15 SAK [id number]) Current Condition History of Current Condition Onset Date Spring 2021 Current Complaints low back pain History of Current Condition Leidy fell this past spring and bruised her ribs, was very painful. She denies falls history before this. After a month or so, she had improved enough to get out to the yard and do some weeding in late August. She fell again and hurt her back. Has been seeing chiropractor since then. On October 26, she was very limited in her movement and went to ED . She was given pain meds which she is still taking. She has history of L sciatica but she is now having pain more on right side low back, buttock, lateral thigh to mid thigh. Oxycodone helps. Occasional heat helps. First thing in the morning is worst pain. Same when oxycodone wears off. It hurts to bend forward. She has been ambulating with FWW and then 4WW since August. Pt feels walker helps with her balance. She had never used a walker before . Her states even before the falls, her balance was getting worse and she would often cruise furniture for support. She has neuropathy in both feet but pt states it is mild and she feels slight dulling of sensation only occasionally. Prior Treatments and Tests - MRI 11/04/21: Multiple levels of lumbar spine degenerative change are seen, which are worst at the L4-L5 level. At this level there is grade 1 anterolisthesis, moderate to severe bilateral neural foraminal narrowing, with associated exiting nerve root compression, and severe central canal narrowing. 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 Future Testing and Treatments Planned 11/26 Neurosurgery in [place] . PT-OP-C Subjective Start: 11/18/21 17:15 Freq: Status: Active Protocol: Document 04/21/22 08:51 AW (Rec: 04/21/22 11:15 AW [id number]) OP-PT Subjective Patient Comments Patient Comments Still having low back pain with standing more than a few minutes. Had injections in her back a week ago and notices her pain is less diffuse/more local to left side since then. PT-OP-D Balance Start: 11/18/21 17:15 Freq: Status: Active Protocol: Document 11/24/21 12:00 AW (Rec: 11/24/21 12:53 AW [id number]) Balance Tests Single Limb Standing Single Limb- Right <1 sec Single Limb- Left 2 sec PT-OP-F Manual Assessment Start: 11/18/21 17:15 Freq: Status: Active Protocol: Document 11/24/21 12:00 AW (Rec: 11/24/21 12:58 AW [id number]) Manual Assessments Joint Mobility Assessment Joint Mobility Assessment Significantly reduced excursion in lumbar PA's especially lower levels. Other Manual Assessments Other Manual Assessments Mild tenderness anterior to right greater trochanter. PT-OP-G Mobility & Gait Start: 11/18/21 17:15 Freq: Status: Active Protocol: Document 11/24/21 12:00 AW (Rec: 11/24/21 12:58 AW [id number]) OP Gait Assessment Comments Gait Comments Pt ambulates with 4WW, poor control of inversion RLE, heavy footfalls on left, reduced stance time LLE. She tends to push 4WW too far in front of her although she states she is trying to minimize weightbearing on hands. PT-OP-J Posture/Palpation/Skin Start: 11/18/21 17:15 Freq: Status: Active Protocol: Document 11/24/21 12:00 AW (Rec: 11/24/21 13:02 AW [id number]) Posture Evaluation Comments Posture Comments Pt has flat lumbar spine, moderate lumbar scoliosis with apex to the right, higher pelvic landmarks on the left PT-OP-K Range of Motion Start: 11/18/21 17:15 Freq: Status: Active Protocol: Document 11/24/21 12:00 AW (Rec: 11/24/21 13:09 AW [id number]) Lumbar Spine Range of Motion Lumbar Spine Active Testing Position Standing Flexion 40 Extension 10 ROM Limitations Soft Tissue Tightness,Pain Comments Pt can reach knee joint line bilaterally with fingertips and has no increase in pain. Rotation is limited but not painful bilaterally in standing and in sitting. Hip Goniometric Range of Motion Hip bilat Hip ROM WFL Yes Comments All hip ROM WNL without pain reproduction at end-ranges. IR :ER ratio is ~1:3. No limitation in HS length with pt able to perform SLR well past 90 degrees. PT-OP-M Strength Start: 11/18/21 17:15 Freq: Status: Active Protocol: Document 11/24/21 12:00 AW (Rec: 11/24/21 12:58 AW [id number]) Hip Strength Hip Manual Muscle Testing bilat Flexion (L2) 4+ Good+ Extension (S1) 4- Good- Abduction 4- Good- Knee Strength Knee Manual Muscle Testing Right Flexion (S2) 4+ Good+ Extension (L3) 4+ Good+ Left Flexion (S2) 5 Normal Extension (L3) 5 Normal Ankle/Foot Strength Ankle and Foot Manual Muscle Testing Right Dorsiflexion (L4) 4 Good Plantarflexion (S1) 4- Good- Inversion 4 Good Eversion (S1) 4 Good Left Dorsiflexion (L4) 5 Normal Plantarflexion (S1) 4+ Good+ Inversion 5 Normal Eversion (S1) 5 Normal Toe Strength Toe Manual Muscle Testing Great Toe Comments 4+/5 left; 4/5 right PT-OP-Q Treatments Start: 11/18/21 17:15 Freq: Status: Active Protocol: Document 04/21/22 08:51 AW (Rec: 04/21/22 11:15 AW [id number]) Cardio Equipment Recumbent Elliptical ([employer]) Duration (Minutes) 6 Resistance 4 Seat Position closest (see 4) Other UEs/ LEs 35 RPMs Therapeutic Exercises Sidelying Exercises Open Book stretch Sidelying Exercise Name HEP review Comments cued straight arm, eyes follow hand for incr rotation Sitting Exercises low back stretch Sitting Exercise Name hands toward floor Reps/Minutes 2x30 Comments with deep breathing into lumbar spine Standing Exercises anti-rotation press Standing Exercise Name anti-rotation press Side bilateral Resistance TB1 modified child's pose Standing Exercise Name modified child's pose Comments hands on counter, walk feet away for low back stretch Other Exercises sit to stand Other Exercise Name STS - hands held front/lap as needed light Resistance 7# db held at chest for second set Equipment Used green chair Reps/Minutes 2x10 reps Comments cued slow descent, hip hinge form Therapeutic Activity Therapeutic Activity lifting Name lifting Comments 7# db x 2 from floor with emphasis on proximity, knee bend, hip hinge, core engagement Manual Therapy Treatment Soft Tissue Mobilization R QL, ES, piriformis, Glut med Body Location L>R Lumbar ES, Distal QL Mobilization Type Strumming,Sustained Pressure, Trigger Point Release Intensity/Depth Moderate Body Position Sidelying PT-OP-R Modalities Start: 11/18/21 17:15 Freq: Status: Active Protocol: Document 03/29/22 10:31 AW (Rec: 03/29/22 12:15 AW [id number]) Hot Pack/Cold Pack Treatment Hot Pack Location lumbo-sacral Patient Position Prone Treatment Duration (minutes) 15 Patient Tolerance Good Comments after soft tissue mobilization PT-OP-T Assessment and Plan Start: 11/18/21 17:15 Freq: Status: Active Protocol: Document 04/21/22 08:51 AW (Rec: 04/21/22 11:15 AW [id number]) Physical Therapy Assessment Goals Five Impairment balance Grill Attendant Goal (LTG) Pt will score 48/56 or greater on [place] Balance Scale as a measure of improved balance and safe independent mobility. 02/03/22: MET GOAL 50/56 LTG Duration 02/24/22 GOAL MET Four Impairment needs 4WW for ambulation Short Term Goal (STG) Pt will walk 1200 feet or greater on 6MWT with LRAD. 01/05/22 - Pt walked 776 feet in 6 minutes with B trekking poles. 02/03/22: no significant progress,pt walked 753 ft in 6 minutes w/ B trek poles after 10 min biodex and [place] testing. Pt states doesn't need use trek poles indoors. 02/11/22: improved 859 ft w/ B trek poles, noted tiring and trunk sways modified scissor stepping bump into way on turn . 04/08/22: slow progressing: Pt improved SANDER and patterning w / B trek poles with gait stability, less distance 777ft by 82 ft, 1 LOB foot caught carpet/tile transition, self recovery with trek poles. STG Duration 01/05/22 progressing 04/08/22 Correction Goal (LTG) Pt will walk 1500 feet or greater on 6MWT with LRAD for parity with age-matched peers to improve community ambulation 04/21/22 UPDATE GOAL to 900 feet on 6MWT with LRAD. LTG Duration 06/21/22 Three Impairment pain with lifting Short Term Goal (STG) Pt will lift 10 pounds from waist height without increase in baseline pain to improve her ability to lift a laundry basket. 01/05/22 - Able to lift 7 pound db from chair height without pain. 02/03/22: GOAL MET: able to lift 10# DB to waist height without back pain. STG Duration 01/05/22 GOAL MET Correction Goal (LTG) Pt will lift 20 pounds from the ground without increase in baseline pain so that she can manage groceries with greater ease. 04/21/22 - Pt able to lift 14# from floor with cueing for hip hinge form and no significant increase in irritation at low back. 04/21 - Pt can lift 14 pounds from the ground with cueing for hip hinge form 03/01/22: Reviewed lifting mechanics w/ empty crate from the floor (progressing). LTG Duration 06/21/22 Two Impairment pain with trunk flexion Short Term Goal (STG) Pt will tolerate unloaded trunk flexion with 3/10 or less pain 01/05/22 Pt able to do pause squats with 0/10 pain STG Duration 01/05/22 GOAL MET Correction Goal (LTG) Pt will tolerate forward trunk positioning in standing or kneeling for 15 minutes to be able to return to gardening 02/03/22: pt stated hasn't performed this activity yet since her fall. 04/21/22 - Pt states she is able to do cleaning tasks in bent forward position but does not have a sense of time spent. LTG Duration 06/21/22 One Impairment lacks HEP Short Term Goal (STG) Pt will be instructed in HEP for lumbar and hip mobility, trunk and hip strength to support therapy services provided in clinic. 01/05/22 - Doing exercises daily STG Duration 01/05/22 GOAL MET Grill Attendant Goal (LTG) Pt will be independent with HEP for lumbar and hip mobility, trunk and hip strength to manage pain symptoms and reduce likelihood of future injury. LTG Duration 06/21/22 Progress Towards Goals Progress Towards Goals Progressing Toward Goals,Slow Progress - Other Progress Comments Pt is progressing slowly with her walking tolerance and strength. She should benefit from further PT to improve her strength, decrease low back pain, and to build resilience against future injury. Assessment Summary Assessment Tita is able to lift 14 pounds from the floor but needs cueing for form. Her strength is progressing well. She benefits from continued encouragement to engage with HEP. Physical Therapy Plan Frequency and Duration Frequency of Treatment 2x/Week Duration of treatment (weeks) 8 Plan of Care Start Date 04/21/22 Plan of Care End Date 06/21/22 Therapeutic Interventions Therapeutic Interventions Aquatic Therapy,Balance Training,Gait Training,Home Exercise Program,Manual Therapy,Neuromuscular Re- education,Self-Care/Home Management,Soft Tissue Mobilization,Therapeutic Activities,Therapeutic Exercises Modalities Cold Pack/Ice Massage,Hot Packs Next Visit Focus/Plan Next Note Type Treatment Note Next Visit Plan Continue gait in mirror w/ alignment and posture incorporation with ther ex, balance. POC: Progress therapeutic exercise as tolerated with emphasis on core stabilization and strengthening. Continue focus on hip hinge and core stab for functional activities such as gardening.
--- NOTE | 2022-04-26 11:19 | PT.OTN ---
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) Physical Therapy Treatment Note PT-OP-A Visit Information Start: 11/18/21 17:15 Freq: Status: Active Protocol: Document 04/26/22 10:31 AW (Rec: 04/26/22 11:18 AW [id number]) Out-Patient Physical Therapy Visit Information Visit Information Visit Type Treatment Note Visit Start Time 10:30 Visit Stop Time 11:15 Total Visit Minutes 45 Visit Number 33 Evaluation Information Evaluation Date 11/24/21 PT-OP-B Current Condition Start: 11/18/21 17:15 Freq: Status: Active Protocol: Document 01/20/22 14:31 SAK (Rec: 01/20/22 15:15 SAK [id number]) Current Condition History of Current Condition Onset Date Spring 2021 Current Complaints low back pain History of Current Condition Leidy fell this past spring and bruised her ribs, was very painful. She denies falls history before this. After a month or so, she had improved enough to get out to the yard and do some weeding in late August. She fell again and hurt her back. Has been seeing chiropractor since then. On October 26, she was very limited in her movement and went to ED . She was given pain meds which she is still taking. She has history of L sciatica but she is now having pain more on right side low back, buttock, lateral thigh to mid thigh. Oxycodone helps. Occasional heat helps. First thing in the morning is worst pain. Same when oxycodone wears off. It hurts to bend forward. She has been ambulating with FWW and then 4WW since August. Pt feels walker helps with her balance. She had never used a walker before . Her states even before the falls, her balance was getting worse and she would often cruise furniture for support. She has neuropathy in both feet but pt states it is mild and she feels slight dulling of sensation only occasionally. Prior Treatments and Tests - MRI 11/04/21: Multiple levels of lumbar spine degenerative change are seen, which are worst at the L4-L5 level. At this level there is grade 1 anterolisthesis, moderate to severe bilateral neural foraminal narrowing, with associated exiting nerve root compression, and severe central canal narrowing. 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 Future Testing and Treatments Planned 11/26 Neurosurgery in [place] . PT-OP-C Subjective Start: 11/18/21 17:15 Freq: Status: Active Protocol: Document 04/26/22 10:31 AW (Rec: 04/26/22 11:18 AW [id number]) OP-PT Subjective Patient Comments Patient Comments Tita is starting to wonder if she has maxed out her progress with therapy. PT-OP-D Balance Start: 11/18/21 17:15 Freq: Status: Active Protocol: Document 11/24/21 12:00 AW (Rec: 11/24/21 12:53 AW [id number]) Balance Tests Single Limb Standing Single Limb- Right <1 sec Single Limb- Left 2 sec PT-OP-F Manual Assessment Start: 11/18/21 17:15 Freq: Status: Active Protocol: Document 11/24/21 12:00 AW (Rec: 11/24/21 12:58 AW [id number]) Manual Assessments Joint Mobility Assessment Joint Mobility Assessment Significantly reduced excursion in lumbar PA's especially lower levels. Other Manual Assessments Other Manual Assessments Mild tenderness anterior to right greater trochanter. PT-OP-G Mobility & Gait Start: 11/18/21 17:15 Freq: Status: Active Protocol: Document 11/24/21 12:00 AW (Rec: 11/24/21 12:58 AW [id number]) OP Gait Assessment Comments Gait Comments Pt ambulates with 4WW, poor control of inversion RLE, heavy footfalls on left, reduced stance time LLE. She tends to push 4WW too far in front of her although she states she is trying to minimize weightbearing on hands. PT-OP-J Posture/Palpation/Skin Start: 11/18/21 17:15 Freq: Status: Active Protocol: Document 11/24/21 12:00 AW (Rec: 11/24/21 13:02 AW [id number]) Posture Evaluation Comments Posture Comments Pt has flat lumbar spine, moderate lumbar scoliosis with apex to the right, higher pelvic landmarks on the left PT-OP-K Range of Motion Start: 11/18/21 17:15 Freq: Status: Active Protocol: Document 11/24/21 12:00 AW (Rec: 11/24/21 13:09 AW [id number]) Lumbar Spine Range of Motion Lumbar Spine Active Testing Position Standing Flexion 40 Extension 10 ROM Limitations Soft Tissue Tightness,Pain Comments Pt can reach knee joint line bilaterally with fingertips and has no increase in pain. Rotation is limited but not painful bilaterally in standing and in sitting. Hip Goniometric Range of Motion Hip bilat Hip ROM WFL Yes Comments All hip ROM WNL without pain reproduction at end-ranges. IR :ER ratio is ~1:3. No limitation in HS length with pt able to perform SLR well past 90 degrees. PT-OP-M Strength Start: 11/18/21 17:15 Freq: Status: Active Protocol: Document 11/24/21 12:00 AW (Rec: 11/24/21 12:58 AW [id number]) Hip Strength Hip Manual Muscle Testing bilat Flexion (L2) 4+ Good+ Extension (S1) 4- Good- Abduction 4- Good- Knee Strength Knee Manual Muscle Testing Right Flexion (S2) 4+ Good+ Extension (L3) 4+ Good+ Left Flexion (S2) 5 Normal Extension (L3) 5 Normal Ankle/Foot Strength Ankle and Foot Manual Muscle Testing Right Dorsiflexion (L4) 4 Good Plantarflexion (S1) 4- Good- Inversion 4 Good Eversion (S1) 4 Good Left Dorsiflexion (L4) 5 Normal Plantarflexion (S1) 4+ Good+ Inversion 5 Normal Eversion (S1) 5 Normal Toe Strength Toe Manual Muscle Testing Great Toe Comments 4+/5 left; 4/5 right PT-OP-Q Treatments Start: 11/18/21 17:15 Freq: Status: Active Protocol: Document 04/26/22 10:31 AW (Rec: 04/26/22 11:18 AW [id number]) Cardio Equipment Recumbent Elliptical (Biodex) Duration (Minutes) 6 Resistance 4 Seat Position closest (see 4) Other UEs/ LEs 35 RPMs Therapeutic Exercises Standing Exercises resisted side-stepping Standing Exercise Name resisted side-stepping- in PT only Side bilateral Equipment Used loop>TB2, prn rail Reps/Minutes 10 ft lap x3 laps Comments cued slow pace eccentric control and posture, trail LE clearance step ups Standing Exercise Name step ups - fwd and lateral Side bilateral Equipment Used 6 step, rail (more for lateral) Comments cued weight over stance foot, glute drive Other Exercises sit to stand Other Exercise Name STS - hands held front/lap as needed light Resistance 6.6# ball held at chest Equipment Used mesh chair Reps/Minutes 2x10 reps Comments cued slow descent, hip hinge form Neuro Re-Education Treatment Balance Activities backward walk Details backward walk Surface firm Equipment // prn tandem stance Details tandem stance Surface firm Equipment // prn Comments -tandem stance -progressed to tandem walking balance board Details balance and wt shift f/b, side Equipment parallel bars Reps/Duration 5 min Comments min use of hands PT-OP-R Modalities Start: 11/18/21 17:15 Freq: Status: Active Protocol: Document 03/29/22 10:31 AW (Rec: 03/29/22 12:15 AW [id number]) Hot Pack/Cold Pack Treatment Hot Pack Location lumbo-sacral Patient Position Prone Treatment Duration (minutes) 15 Patient Tolerance Good Comments after soft tissue mobilization PT-OP-T Assessment and Plan Start: 11/18/21 17:15 Freq: Status: Active Protocol: Document 04/26/22 10:31 AW (Rec: 04/26/22 11:18 AW [id number]) Physical Therapy Assessment Goals Five Impairment balance Cytology Laboratory Manager Goal (LTG) Pt will score 48/56 or greater on [place] Balance Scale as a measure of improved balance and safe independent mobility. 02/03/22: MET GOAL 50/56 LTG Duration 02/24/22 GOAL MET Four Impairment needs 4WW for ambulation Short Term Goal (STG) Pt will walk 1200 feet or greater on 6MWT with LRAD. 01/05/22 - Pt walked 776 feet in 6 minutes with B trekking poles. 02/03/22: no significant progress,pt walked 753 ft in 6 minutes w/ B trek poles after 10 min biodex and [place] testing. Pt states doesn't need use trek poles indoors. 02/11/22: improved 859 ft w/ B trek poles, noted tiring and trunk sways modified scissor stepping bump into way on turn . 04/08/22: slow progressing: Pt improved SANDER and patterning w / B trek poles with gait stability, less distance 777ft by 82 ft, 1 LOB foot caught carpet/tile transition, self recovery with trek poles. STG Duration 01/05/22 progressing 04/08/22 Cytology Laboratory Manager Goal (LTG) Pt will walk 1500 feet or greater on 6MWT with LRAD for parity with age-matched peers to improve community ambulation 04/21/22 UPDATE GOAL to 900 feet on 6MWT with LRAD. LTG Duration 06/21/22 Three Impairment pain with lifting Short Term Goal (STG) Pt will lift 10 pounds from waist height without increase in baseline pain to improve her ability to lift a laundry basket. 01/05/22 - Able to lift 7 pound db from chair height without pain. 02/03/22: GOAL MET: able to lift 10# DB to waist height without back pain. STG Duration 01/05/22 GOAL MET Shelter Goal (LTG) Pt will lift 20 pounds from the ground without increase in baseline pain so that she can manage groceries with greater ease. 04/21/22 - Pt able to lift 14# from floor with cueing for hip hinge form and no significant increase in irritation at low back. 04/21 - Pt can lift 14 pounds from the ground with cueing for hip hinge form 03/01/22: Reviewed lifting mechanics w/ empty crate from the floor (progressing). LTG Duration 06/21/22 Two Impairment pain with trunk flexion Short Term Goal (STG) Pt will tolerate unloaded trunk flexion with 3/10 or less pain 01/05/22 Pt able to do pause squats with 0/10 pain STG Duration 01/05/22 GOAL MET Shelter Goal (LTG) Pt will tolerate forward trunk positioning in standing or kneeling for 15 minutes to be able to return to gardening 02/03/22: pt stated hasn't performed this activity yet since her fall. 04/21/22 - Pt states she is able to do cleaning tasks in bent forward position but does not have a sense of time spent. LTG Duration 06/21/22 One Impairment lacks HEP Short Term Goal (STG) Pt will be instructed in HEP for lumbar and hip mobility, trunk and hip strength to support therapy services provided in clinic. 01/05/22 - Doing exercises daily STG Duration 01/05/22 GOAL MET Shelter Goal (LTG) Pt will be independent with HEP for lumbar and hip mobility, trunk and hip strength to manage pain symptoms and reduce likelihood of future injury. LTG Duration 06/21/22 Assessment Summary Assessment Tita has made good progress with walking and standing tolerance. She feels she may be ready for discharge after another visit. Worked today to review HEP. Will continue at next visit and then possibly discharge. Physical Therapy Plan Frequency and Duration Frequency of Treatment 2x/Week Duration of treatment (weeks) 8 Plan of Care Start Date 04/21/22 Plan of Care End Date 06/21/22 Therapeutic Interventions Therapeutic Interventions Aquatic Therapy,Balance Training,Gait Training,Home Exercise Program,Manual Therapy,Neuromuscular Re- education,Self-Care/Home Management,Soft Tissue Mobilization,Therapeutic Activities,Therapeutic Exercises Modalities Cold Pack/Ice Massage,Hot Packs Next Visit Focus/Plan Next Note Type Treatment Note
--- NOTE | 2022-04-28 10:16 | PT.OPDS ---
Current Diagnoses Scoliosis, unspecified (04/28/22) Spondylolisthesis, lumbar region (04/28/22) Spondylosis without myelopathy or radiculopathy, lumbar region (04/28/22) Visit Care Team Role Provider Type Dusty Melo MD Attending Provider Physician Family Provider Primary Care Provider Referring Provider Specialty: Internal Medicine Pediatrics Address: [address] [place] [address], [id number] Phone: Fax: Email: [email or web address] Visit Number Visit Number 33 Discharge Summary PT-OP-B Current Condition Start: 11/18/21 17:15 Freq: Status: Active Protocol: Document 01/20/22 14:31 SAK (Rec: 01/20/22 15:15 SAK [id number]) Current Condition History of Current Condition Onset Date Spring 2021 Current Complaints low back pain History of Current Condition Leidy fell this past spring and bruised her ribs, was very painful. She denies falls history before this. After a month or so, she had improved enough to get out to the yard and do some weeding in late August. She fell again and hurt her back. Has been seeing chiropractor since then. On October 26, she was very limited in her movement and went to ED . She was given pain meds which she is still taking. She has history of L sciatica but she is now having pain more on right side low back, buttock, lateral thigh to mid thigh. Oxycodone helps. Occasional heat helps. First thing in the morning is worst pain. Same when oxycodone wears off. It hurts to bend forward. She has been ambulating with FWW and then 4WW since August. Pt feels walker helps with her balance. She had never used a walker before . Her states even before the falls, her balance was getting worse and she would often cruise furniture for support. She has neuropathy in both feet but pt states it is mild and she feels slight dulling of sensation only occasionally. Prior Treatments and Tests - MRI 11/04/21: Multiple levels of lumbar spine degenerative change are seen, which are worst at the L4-L5 level. At this level there is grade 1 anterolisthesis, moderate to severe bilateral neural foraminal narrowing, with associated exiting nerve root compression, and severe central canal narrowing. 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 Future Testing and Treatments Planned 11/26 Neurosurgery in [place] . PT-OP-C Subjective Start: 11/18/21 17:15 Freq: Status: Active Protocol: Document 04/26/22 10:31 AW (Rec: 04/26/22 11:18 AW [id number]) OP-PT Subjective Patient Comments Patient Comments Tita is starting to wonder if she has maxed out her progress with therapy. PT-OP-D Balance Start: 11/18/21 17:15 Freq: Status: Active Protocol: Document 11/24/21 12:00 AW (Rec: 11/24/21 12:53 AW [id number]) Balance Tests Single Limb Standing Single Limb- Right <1 sec Single Limb- Left 2 sec PT-OP-F Manual Assessment Start: 11/18/21 17:15 Freq: Status: Active Protocol: Document 11/24/21 12:00 AW (Rec: 11/24/21 12:58 AW [id number]) Manual Assessments Joint Mobility Assessment Joint Mobility Assessment Significantly reduced excursion in lumbar PA's especially lower levels. Other Manual Assessments Other Manual Assessments Mild tenderness anterior to right greater trochanter. PT-OP-G Mobility & Gait Start: 11/18/21 17:15 Freq: Status: Active Protocol: Document 11/24/21 12:00 AW (Rec: 11/24/21 12:58 AW [id number]) OP Gait Assessment Comments Gait Comments Pt ambulates with 4WW, poor control of inversion RLE, heavy footfalls on left, reduced stance time LLE. She tends to push 4WW too far in front of her although she states she is trying to minimize weightbearing on hands. PT-OP-J Posture/Palpation/Skin Start: 11/18/21 17:15 Freq: Status: Active Protocol: Document 11/24/21 12:00 AW (Rec: 11/24/21 13:02 AW [id number]) Posture Evaluation Comments Posture Comments Pt has flat lumbar spine, moderate lumbar scoliosis with apex to the right, higher pelvic landmarks on the left PT-OP-K Range of Motion Start: 11/18/21 17:15 Freq: Status: Active Protocol: Document 11/24/21 12:00 AW (Rec: 11/24/21 13:09 AW [id number]) Lumbar Spine Range of Motion Lumbar Spine Active Testing Position Standing Flexion 40 Extension 10 ROM Limitations Soft Tissue Tightness,Pain Comments Pt can reach knee joint line bilaterally with fingertips and has no increase in pain. Rotation is limited but not painful bilaterally in standing and in sitting. Hip Goniometric Range of Motion Hip bilat Hip ROM WFL Yes Comments All hip ROM WNL without pain reproduction at end-ranges. IR :ER ratio is ~1:3. No limitation in HS length with pt able to perform SLR well past 90 degrees. PT-OP-M Strength Start: 11/18/21 17:15 Freq: Status: Active Protocol: Document 11/24/21 12:00 AW (Rec: 11/24/21 12:58 AW [id number]) Hip Strength Hip Manual Muscle Testing bilat Flexion (L2) 4+ Good+ Extension (S1) 4- Good- Abduction 4- Good- Knee Strength Knee Manual Muscle Testing Right Flexion (S2) 4+ Good+ Extension (L3) 4+ Good+ Left Flexion (S2) 5 Normal Extension (L3) 5 Normal Ankle/Foot Strength Ankle and Foot Manual Muscle Testing Right Dorsiflexion (L4) 4 Good Plantarflexion (S1) 4- Good- Inversion 4 Good Eversion (S1) 4 Good Left Dorsiflexion (L4) 5 Normal Plantarflexion (S1) 4+ Good+ Inversion 5 Normal Eversion (S1) 5 Normal Toe Strength Toe Manual Muscle Testing Great Toe Comments 4+/5 left; 4/5 right PT-OP-T Assessment and Plan Start: 11/18/21 17:15 Freq: Status: Active Protocol: Document 04/26/22 10:31 AW (Rec: 04/26/22 11:18 AW [id number]) Physical Therapy Assessment Goals Five Impairment balance Rural Mail Contractor Goal (LTG) Pt will score 48/56 or greater on [place] Balance Scale as a measure of improved balance and safe independent mobility. 02/03/22: MET GOAL 50/56 LTG Duration 02/24/22 GOAL MET Four Impairment needs 4WW for ambulation Short Term Goal (STG) Pt will walk 1200 feet or greater on 6MWT with LRAD. 01/05/22 - Pt walked 776 feet in 6 minutes with B trekking poles. 02/03/22: no significant progress,pt walked 753 ft in 6 minutes w/ B trek poles after 10 min biodex and [place] testing. Pt states doesn't need use trek poles indoors. 02/11/22: improved 859 ft w/ B trek poles, noted tiring and trunk sways modified scissor stepping bump into way on turn . 04/08/22: slow progressing: Pt improved SANDER and patterning w / B trek poles with gait stability, less distance 777ft by 82 ft, 1 LOB foot caught carpet/tile transition, self recovery with trek poles. STG Duration 01/05/22 progressing 04/08/22 Rural Mail Contractor Goal (LTG) Pt will walk 1500 feet or greater on 6MWT with LRAD for parity with age-matched peers to improve community ambulation 04/21/22 UPDATE GOAL to 900 feet on 6MWT with LRAD. LTG Duration 06/21/22 Three Impairment pain with lifting Short Term Goal (STG) Pt will lift 10 pounds from waist height without increase in baseline pain to improve her ability to lift a laundry basket. 01/05/22 - Able to lift 7 pound db from chair height without pain. 02/03/22: GOAL MET: able to lift 10# DB to waist height without back pain. STG Duration 01/05/22 GOAL MET Rural Mail Contractor Goal (LTG) Pt will lift 20 pounds from the ground without increase in baseline pain so that she can manage groceries with greater ease. 04/21/22 - Pt able to lift 14# from floor with cueing for hip hinge form and no significant increase in irritation at low back. 04/21 - Pt can lift 14 pounds from the ground with cueing for hip hinge form 03/01/22: Reviewed lifting mechanics w/ empty crate from the floor (progressing). LTG Duration 06/21/22 Two Impairment pain with trunk flexion Short Term Goal (STG) Pt will tolerate unloaded trunk flexion with 3/10 or less pain 01/05/22 Pt able to do pause squats with 0/10 pain STG Duration 01/05/22 GOAL MET Rural Mail Contractor Goal (LTG) Pt will tolerate forward trunk positioning in standing or kneeling for 15 minutes to be able to return to gardening 02/03/22: pt stated hasn't performed this activity yet since her fall. 04/21/22 - Pt states she is able to do cleaning tasks in bent forward position but does not have a sense of time spent. LTG Duration 06/21/22 One Impairment lacks HEP Short Term Goal (STG) Pt will be instructed in HEP for lumbar and hip mobility, trunk and hip strength to support therapy services provided in clinic. 01/05/22 - Doing exercises daily STG Duration 01/05/22 GOAL MET Rural Mail Contractor Goal (LTG) Pt will be independent with HEP for lumbar and hip mobility, trunk and hip strength to manage pain symptoms and reduce likelihood of future injury. LTG Duration 06/21/22 Assessment Summary Assessment Tita has made good progress with walking and standing tolerance. She feels she may be ready for discharge after another visit. Worked today to review HEP. Will continue at next visit and then possibly discharge. Physical Therapy Plan Frequency and Duration Frequency of Treatment 2x/Week Duration of treatment (weeks) 8 Plan of Care Start Date 04/21/22 Plan of Care End Date 06/21/22 Therapeutic Interventions Therapeutic Interventions Aquatic Therapy,Balance Training,Gait Training,Home Exercise Program,Manual Therapy,Neuromuscular Re- education,Self-Care/Home Management,Soft Tissue Mobilization,Therapeutic Activities,Therapeutic Exercises Modalities Cold Pack/Ice Massage,Hot Packs Discharge Physical Therapy Discharge Reasons Patient Request Discharge Comments Tita arrived today and discussed readiness for discharge, feeling she has plateaued. PT dispensed information on SI belt for pt to consider and level 2 theraband for home program. Tita requests discharge from current plan of care and understands she will need a new referral to return to PT.
== END 2022-05-02 13:48 | disposition home or self-care (01) ==
LOC: PHYS 09:45
PROVIDERS: Family Provider Pediatrics; PCP Pediatrics; Referring Provider Pediatrics; Visit Provider Pediatrics
DX: M47.816 Spondylosis without myelopathy or radiculopathy, lumbar region (principal); M41.9 Scoliosis, unspecified; M43.16 Spondylolisthesis, lumbar region
CPT/HCPCS: 97014; 97110; 97112; 97116; 97140; 97162; 97530; 97535; G0283

== ENCOUNTER 2022-06-02 13:27 | Outpatient (CLI) | payer MEDICARE, OTHER, SELFPAY ==
--- NOTE | 2022-06-02 13:29 | DI.RAD.S_ITS ---
PROCEDURE: PAIN SI JOINT INJECTION INDICATIONS: joint dysfunction COMPARISON: [facility], XA, PAIN PERIPHERAL NRV BLK OTHER, 04/14/2022, 14:05. FINDINGS: On these intraprocedural images, there is a spinal needle seen overlying the inferior aspect of the left sacroiliac joint. Appropriate position of the tip of the needle was confirmed by injection of a small amount of iodinated contrast. IMPRESSION: Successful sacroiliac joint injection. Dictated by: Ivan Chou M.D. on 06/02/2022 at 17:30 Approved by: Ivan Chou M.D. on 06/02/2022 at 17:31
[2022-06-02 13:30] VITALS: BP 135/90; PULSE 88; RESP 20; TEMP 36.7; O2SAT 100
[2022-06-02 14:06] VITALS: BP 160/78; PULSE 79; RESP 16; O2SAT 97
[2022-06-02] MEDS: DEXAMETHASONE 10 MG/ML VIAL 20 MG INJ (14:10)
[2022-06-02 14:13] VITALS: BP 145/73; PULSE 72; RESP 16; O2SAT 95
[2022-06-02] MEDS: IOPAMIDOL 15 ML VIAL 3 ML INJ (14:14)
[2022-06-02] MEDS: BUPIVACAINE 0.5% (PF) 30 ML VIAL 5 ML INJ (14:15)
[2022-06-02 14:20] VITALS: BP 190/85; PULSE 87; RESP 20; O2SAT 100
[2022-06-02 14:25] VITALS: BP 174/87; PULSE 88; RESP 16; O2SAT 99
--- NOTE | 2022-06-02 16:54 | P.PCN_ITS ---
Date/Time/Diagnoses Date of procedure: 06/02/22 Time of procedure: 14:00 Procedure Notes Physician: El Jones Total Fluoroscopy time (seconds): 12 Total sedation minutes: 0 Procedure in detail & Post-procedure care: Left Sacroiliac Joint Injection Indications: Tita is referred by Dr. Parsons for treatment of SI joint dysfunction with low back/buttock pain. Preoperative diagnosis: Left SI joint dysfunction Postoperative diagnosis: Same Focused Examination: Ax3 Mood and affect are normal Vital Signs: VSS ASA: 2 Consent: Following review of allergies and potential side effects/complications, including, but not necessarily limited to, infection, allergic reaction, local tissue breakdown, stroke, temporary or permanent nerve injury, paralysis, and possible , the patient indicated that they understood and agreed to proceed.? An informed consent document was signed by the patient, witnessed by a nurse and placed in the patient's chart.? Additionally, other treatment options including medications and physical therapy were reviewed with the patient. All questions were answered. Site was then marked. Anesthesia: Local Position: Prone Monitoring: NIBP, Pulse oximetry, 3 lead EKG Needle used: 22 ga, 3.5 inch spinal Contrast: 2 mL Isovue M-300 Injectate: 10 mg dexamethasone with 2 mL 0.5% Bupivacaine Technique: The skin was prepped with chloraprep and then draped in a sterile fashion. Time out was performed as per protocol. Oxygen applied via NC. Skin and subcutaneous structures of the needle entry site was then infiltrated with 5 mL of lidocaine 1%. Under AP and lateral fluoroscopic control, the spinal needle was guided into the left sacroiliac joint. 1 mL contrast was injected and was consistent with intra-articular placement. There was no evidence for intravascular uptake. After negative aspiration, the above-mentioned injectate was then slowly administered and the needle withdrawn. The patient expressed no unusual discomfort or paresthesias during the injection. Band-Aids applied to injection sites. EBL: less than 1 ml Complications: None Post Procedure: Patient was taken to the recovery and monitored. The patient was provided a Pain Log to continue to record the patient's response to the target- specific procedure prior to the patient's follow-up visit with the referring physician. Patient was stable upon discharge. Detailed post procedure instructions were provided. Patient was asked to call in the event of worsening pain, fever, weakness, numbness or bladder or bowel incontinence.
== END 2022-06-02 14:32 | disposition home or self-care (01) ==
LOC: RAD 13:29
PROVIDERS: Family Provider Pediatrics; PCP Family Medicine; Referring Provider Anesthesiology; Visit Provider Anesthesiology
DX: M53.3 Sacrococcygeal disorders, not elsewhere classified (principal)
CPT/HCPCS: 27096; J1100

== ENCOUNTER 2022-08-16 14:15 | Outpatient (CLI) | payer MEDICARE, OTHER, SELFPAY ==
[2022-08-16 14:35] VITALS: BP 161/99; PULSE 91; RESP 20; TEMP 37.1; O2SAT 99
--- NOTE | 2022-08-16 14:48 | DI.RAD.S_ITS ---
PROCEDURE: PAIN L/S TRANSFORAMINAL INJECT INDICATIONS: SPONDYLOSIS COMPARISON: None. FINDINGS: Fluoroscopic spot filming was performed to verify placement of spinal needles at the right L4-L5 and L5-S1 neural foramina level(s), as labeled on the films. Appropriate location(s) of the needle tip(s) was confirmed by injection of iodinated contrast. IMPRESSION: Access needles at the right L4-L5 and L5-S1 neural foramina for transforaminal epidural steroid injection. Dictated by: Maida Jane MD, PhD on 08/16/2022 at 16:02 Approved by: Maida Jane MD, PhD on 08/16/2022 at 16:02
[2022-08-16 14:50] VITALS: BP 157/84; PULSE 83; RESP 17; O2SAT 100
[2022-08-16] MEDS: IOPAMIDOL 15 ML VIAL 3 ML INJ (14:53)
[2022-08-16] MEDS: DEXAMETHASONE 10 MG/ML VIAL 20 MG INJ (14:53)
[2022-08-16 14:55] VITALS: BP 180/74; PULSE 80; RESP 16; O2SAT 100
[2022-08-16 15:00] VITALS: BP 174/74; PULSE 77; RESP 17; O2SAT 100
[2022-08-16 15:10] VITALS: BP 153/86; PULSE 86; RESP 18; O2SAT 99
--- NOTE | 2022-08-16 15:47 | P.PCN_ITS ---
Date/Time/Diagnoses Date of procedure: 08/16/22 Time of procedure: 15:00 Procedure Notes Physician: El Jones Total Fluoroscopy time (seconds): 25 Total sedation minutes: 0 Procedure in detail & Post-procedure care: Right L4-5 and L5-S1 Transforaminal Epidural Steroid Injection Indications: Leidy is presenting for treatment of lumbar radiculopathy with low back and leg pain. Preoperative diagnosis: Right lumbar radiculopathy Postoperative diagnosis: Same Focused Examination: Ax3 Mood and affect are normal Vital Signs: VSS ASA: 2 Consent: Following review of allergies and potential side effects/complications, including, but not necessarily limited to, infection, allergic reaction, local tissue breakdown, stroke, temporary or permanent nerve injury, paralysis, and possible , the patient indicated that they understood and agreed to proceed.? An informed consent document was signed by the patient, witnessed by a nurse and placed in the patient's chart.? Additionally, other treatment options including medications and physical therapy were reviewed with the patient. All questions were answered. Site was then marked. Anesthesia: Local Position: Prone Monitoring: NIBP, Pulse oximetry, 3 lead EKG Needle used: 22G 3.5 inch spinal needle Contrast: Isovue 300M Injectate: 10 mg Dexamethasone mixed with 1% lidocaine 1 mL and Normal Saline 1 mL at each site Technique: The skin was prepped with chloraprep and draped in a sterile fashion. Time out was performed as per protocol. Oxygen applied via NC. Skin and subcutaneous structures of the needle entry site were infiltrated with 3mL of lidocaine 1%. Under fluoroscopic guidance, using an ipsilateral oblique view,?a 22 gauge 3.5 inch needle was advanced to the base of the right L4?pedicle.? The needle was advanced to the superio-posterior aspect of the neural foramen under lateral view.? Oblique and AP views were rechecked. No paresthesias noted by the patient during needle placement. In AP view and utilizing real-time digital subtraction fluoroscopy, 2 ml contrast was slowly injected. Epidural spread was observed without evidence for intravascular nor intrathecal uptake. Contrast spread was seen craniocaudally. The above injectate was then administered, and the needle was subsequently withdrawn. Skin and subcutaneous structures of the needle entry site were infiltrated with 3mL of lidocaine 1%. Under fluoroscopic guidance, using an ipsilateral oblique view,?a 22 gauge 3.5 inch needle was advanced to the base of the right L5? pedicle.? The needle was advanced to the superio-posterior aspect of the neural foramen under lateral view.? Oblique and AP views were rechecked. No paresthesias noted by the patient during needle placement. In AP view and utilizing real-time digital subtraction fluoroscopy, 2 ml contrast was slowly injected. Epidural spread was observed without evidence for intravascular nor intrathecal uptake. Contrast spread was seen craniocaudally. The above injectate was then administered, and the needle was subsequently withdrawn. Band-Aids applied to injection sites. EBL: less than 1 ml Complications: None Post Procedure: Patient was taken to the recovery and monitored. The patient was provided a Pain Log to continue to record the patient's response to the target- specific procedure prior to the patient's follow-up visit with the referring physician. Patient was stable upon discharge. Detailed post procedure instructions were provided. Patient was asked to call in the event of worsening pain, fever, weakness, numbness or bladder or bowel incontinence.
== END 2022-08-16 15:16 | disposition home or self-care (01) ==
PROVIDERS: Family Provider Pediatrics; PCP Family Medicine; Referring Provider Anesthesiology; Visit Provider Anesthesiology
DX: M54.16 Radiculopathy, lumbar region (principal)
CPT/HCPCS: 64483; 64484; J1100

== ENCOUNTER 2023-02-27 15:17 | Emergency (ER) | payer MEDICARE, OTHER, SELFPAY ==
[2023-02-27] VITALS (7 sets, daily range): BP systolic 134–183; BP diastolic 74–89; PULSE 70–95; RESP 18; TEMP 37.2; O2SAT 98–100; BMI 22.6
--- NOTE | 2023-02-27 15:34 | DI.RAD.S_ITS ---
PROCEDURE: XR HIP W PEL IF DONE CRAIG MIN 4V INDICATIONS: fall, pelvic pain, craig hip pain TECHNIQUE: AP pelvis with lateral view(s) of the bilateral hip(s). COMPARISON: None. FINDINGS: Bones: Definite fracture of the inferior left pubic ramus. Probable fracture of the superior pubic ramus on the left. Soft tissues: The visualized bowel gas pattern is normal. No suspicious soft tissue calcifications. IMPRESSION: Left pubic ring fractures. Dictated by: Baron Hair M.D. on 02/27/2023 at 17:52 Approved by: Baron Hair M.D. on 02/27/2023 at 17:53
--- NOTE | 2023-02-27 18:31 | ED.LOWEXIN ---
HPI - Extremity Injury (Lower) General Chief Complaint: Extremity Injury, Lower Stated Complaint: GLF, t-7 Rt leg and hip injury Time Seen by Provider: 02/27/23 18:17 Source: patient Mode of arrival: Wheelchair History of Present Illness HPI Narrative: Patient 82-year-old female who presents today with left hip pain. She reports that she fell 1 week ago in [place]. She has really been ambulating since. She is been getting around by wheelchair she is able to stand and transfer some but is very painful to sit down. No head injury no loss of consciousness no antiplatelet or anticoagulation medication. Family returned from [place] to day they are unable to get her into the house with a wheelchair [place] is a couple of steps. They think that once she they can handle her. She takes tramadol as needed for severe pain long as she is not moving she does not have significant pain Related Data Home Medications Medication Instructions Recorded Confirmed estriol vaginal .three times weekly 10/28/21 02/02/23 amino acids [Complete Amino Acid PO BID 02/07/22 02/02/23 Mix] Previous Rx's Medication Instructions Recorded tramadol 50 mg tablet 50 mg PO TID PRN pain #30 tabs 01/05/23 hydrocodone 5 mg-acetaminophen 325 1 tab PO Q6H PRN pain #14 tabs 02/27/23 mg tablet Allergies Allergy/AdvReac Type Severity Reaction Status Date / Time Sulfa (Sulfonamide Allergy Unknown Verified 02/27/23 15:24 Antibiotics) [SULFA (SULFONAMIDE ANTIBIOTICS)] Patient History Medical History Myofascial pain Lumbar radiculopathy Sacrococcygeal disorders, not elsewhere classified Low back pain Cluneal neuropathy Acne Chronic back pain (~2015) Mumps Measles Chicken pox Cataract (~2020) Fecal incontinence (~2015) Colon polyps (~2013) Neuropathic pain Back pain at L4-L5 level Spinal stenosis at L4-L5 level Screening for osteoporosis Post-menopausal Surgical History Anesthesia History of cataract removal with insertion of prosthetic lens (~02/2021) History of colon surgery Family History Father Diabetes mellitus Cancer Brother Cancer Social History household members: spouse Smoking Status: Never smoker alcohol intake: current Smoking Status: Never smoker alcohol intake frequency: 0-2 drinks per day Substance Use Type: marijuana Exam Initial Vital Signs Initial Vital Signs: Vital Signs Temperature 98.9 F 02/27/23 15:24 Pulse Rate 89 02/27/23 15:24 Respiratory Rate 18 02/27/23 15:24 Blood Pressure 134/85 02/27/23 15:24 Pulse Oximetry 98 02/27/23 15:24 Oxygen Delivery Method Room Air 02/27/23 15:24 GENERAL: Alert well-appearing 82-year-old female appears younger than stated age HEENT: Head atraumatic,EOMI, pupils reactive, face symmetric, moist mucous membranes CARDIOVASCULAR: Regular rate and rhythm without murmurs, rubs or gallops. RESPIRATORY: Breath sounds equal bilaterally, no wheezes rales or rhonchi. ABDOMEN: Soft, nontender. Normoactive bowel sounds all 4 quadrants. No guarding or rebound. EXTREMITIES: Normal range of motion, no clubbing or edema. Neurovascularly intact Tender left pelvic pain but no pain with internal external rotation able to flex and extend just tender to patient legs are of equal length distal pedal pulse intact NEUROLOGICAL: Alert and oriented x4. SKIN: Warm, dry, no laceration, no petechiae, no rashes or lesions. Course Orders Ordered: ED Orders 02/27/23 15:34 XR hip w pel if done CRAIG 3to4V Stat 02/27/23 18:41 CT pelvis wo con Stat Discontinued Medications Hydrocodone Bitart/Acetaminophen (Hydrocodone/Acet 5/325 Tablet) 1 tab PO NOW ONE Stop: 02/27/23 20:14 Last Admin: 02/27/23 20:18 Dose: 1 tab Documented By: RENEA Hydrocodone Bitart/Acetaminophen (Hydrocodone/Acet 5/325 Prepack) 1 bottle MISC SEEINSTR ONE Stop: 02/27/23 20:50 Last Admin: 02/27/23 20:55 Dose: 1 bottle Documented By: RENEA Vital Signs Vital signs: Vital Signs - 8 hr 02/27/23 15:24 02/27/23 19:02 02/27/23 19:30 Temperature 98.9 F Pulse Rate 89 72 70 Respiratory Rate 18 Blood Pressure 134/85 Pulse Oximetry 98 100 Oxygen Delivery Method Room Air Room Air 02/27/23 19:55 02/27/23 19:55 02/27/23 20:00 Temperature Pulse Rate 75 Respiratory Rate Blood Pressure 158/85 H 138/74 Pulse Oximetry 98 Oxygen Delivery Method Room Air 02/27/23 20:00 02/27/23 20:30 02/27/23 20:30 Temperature Pulse Rate 72 95 H Respiratory Rate Blood Pressure 183/89 H Pulse Oximetry 98 99 Oxygen Delivery Method Room Air Room Air 02/27/23 20:32 Temperature Pulse Rate 93 H Respiratory Rate 18 Blood Pressure 177/82 H Pulse Oximetry 99 Oxygen Delivery Method Room Air MDM - Extremity Injury (Lower) Imaging Data Extremity x-ray #1: Radiologist's Impression: PROCEDURE: XR HIP W PEL IF DONE CRAIG MIN 4V INDICATIONS: fall, pelvic pain, craig hip pain TECHNIQUE: AP pelvis with lateral view(s) of the bilateral hip(s). COMPARISON: None. FINDINGS: Bones: Definite fracture of the inferior left pubic ramus. Probable fracture of the superior pubic ramus on the left. Soft tissues: The visualized bowel gas pattern is normal. No suspicious soft tissue calcifications. IMPRESSION: Left pubic ring fractures. Dictated by: Baron Hair M.D. on 02/27/2023 at 17:52 CT pelvis: Radiologist's Impression: PROCEDURE: CT PEL WO CON INDICATIONS: Left hip pain, pubic rami fracture TECHNIQUE: Noncontrast 3 mm axial sections acquired through the bony pelvis, with coronal and sagittal reformatting. COMPARISON: None. FINDINGS: Image quality: Excellent. Bones: Left-sided inferior pubic ramus fracture. Suspected 2nd fracture located in the pubic bone just lateral of the pubic symphysis (series 2, image 68). No widening of the SI joints. No additional fracture identified. Soft tissues: No large hematoma. IMPRESSION: Left-sided inferior pubic ramus fracture. The 2nd ring fracture likely is located within the left pubic bone just lateral to the pubic symphysis. No significant pelvic hematoma. Dictated by: Baron Hair M.D. on 02/27/2023 at 19:15 Approved by: Baron Hair M.D. on 02/27/2023 at 19:18 [facility] Narrative Medical decision making narrative: Patient 82-year-old female presents today 1 week after a fall. She is found to have left-sided inferior superior pubic rami fractures both by x-ray and CT. She is been managing at home with a wheelchair but due to gaps initially getting into the house they are unable to get her in the house. When she is in the house family thinks that they can use a wheelchair and a walker. Although they are quite concerned she might not be able to get around with the walker. Child patient she has been given Campo she ambulated well with a walker. She really does not meet any admission criteria she does not need rehab. This is not surgical. However she is unable to get in the house without assistance. Bls was called. Patient's pain is better controlled with Campo than with tramadol she was previously using. She is been taking appropriately she is no further imaging been ongoing for a week she is afebrile no concern for infection at this time. Discharge Plan Departure Patient Disposition: Home Clinical Impression: Closed pelvic fracture Activity Restrictions/Additional Instructions: *You have been diagnosed with pubic rami fractures *What to do: At this time weightbear as tolerated follow-up with orthopedics I would call them tomorrow. *Continue to take medications as directed Campo 1 tablet every 4-6 hours if needed for severe pain *Follow up with your primary care provider in 2-3 days or call [phone] *Return to ER if you should have increasing pain falls or any new, worsening or concerning symptoms CONTROLLED SUBSTANCE DISCHARGE (Narcotoic/benzodiazepine/Flexeril/Phenergan) 1. You have been prescribed narcotic medications, it does have acetaminophen/Tylenol/paracetamol in it, DO NOT TAKE MORE THAN 4,00mg in 24 hours of Tylenol. TRAMADOL DOES NOT CONTAIN TYLENOL 2. Please understand that we cannot provide further refills of narcotics, benzodiazepines or controlled substances through the ED and her pain management will need to be through your provider. 3. While on these medications you cannot drive or operate heavy machinery. 4. You cannot sign legal documents or perform any duties such as this. 5. As long as you're taking opiate pain medications he should also be taking a stool softener such as Colace, Dulcolax, MiraLAX or prune juice, to help avoid constipation. Prescriptions: New hydrocodone-acetaminophen 5-325 mg tablet 1 tab PO Q6H PRN (Reason: pain) Qty: 14 0RF No Action estriol capsule vaginal .three times weekly amino acids [Complete Amino Acid Mix] PO BID tramadol 50 mg tablet 50 mg PO TID PRN (Reason: pain) Qty: 30 0RF Referrals: Grisel Parsons DO [Primary Care Provider] - Stand Alone Forms: Patient Portal/API
--- NOTE | 2023-02-27 18:41 | DI.CT.S_ITS ---
PROCEDURE: CT PEL WO CON INDICATIONS: Left hip pain, pubic rami fracture TECHNIQUE: Noncontrast 3 mm axial sections acquired through the bony pelvis, with coronal and sagittal reformatting. COMPARISON: None. FINDINGS: Image quality: Excellent. Bones: Left-sided inferior pubic ramus fracture. Suspected 2nd fracture located in the pubic bone just lateral of the pubic symphysis (series 2, image 68). No widening of the SI joints. No additional fracture identified. Soft tissues: No large hematoma. IMPRESSION: Left-sided inferior pubic ramus fracture. The 2nd ring fracture likely is located within the left pubic bone just lateral to the pubic symphysis. No significant pelvic hematoma. Dictated by: Baron Hair M.D. on 02/27/2023 at 19:15 Approved by: Baron Hair M.D. on 02/27/2023 at 19:18
[2023-02-27] MEDS: HYDROCODONE/ACET 5/325 TABLET 1 TAB PO (20:18)
--- NOTE | 2023-02-27 20:31 | PC.NURSE ---
This nurse helped patient get up from gurney and use a walker to ambulate in the room with minimal assist. David GANDHI on stand by in case patient needed more assistance.
[2023-02-27] MEDS: HYDROCODONE/ACET 5/325 PREPACK 1 BOTTLE MISC (20:55)
== END 2023-02-27 21:01 | disposition home or self-care (01) ==
PROVIDERS: Emergency Provider Emergency Medicine; Family Provider Pediatrics; PCP Family Medicine
DX: S32.592A Other specified fracture of left pubis, initial encounter for closed fracture (principal); W18.30XA Fall on same level, unspecified, initial encounter
CPT/HCPCS: 72192; 73522; 99284

== ENCOUNTER → 2023-05-19 08:03 | Outpatient (CLI) | payer MEDICARE, OTHER, SELFPAY ==
[2023-05-19 08:59] LABS: Alanine Aminotransferase 17 IU/L (<35); Alkaline Phosphatase 95 U/L (38-126); Aspartate Aminotransferase 46 IU/L (14-36); BUN Creatinine Ratio 40.7 (6-22); Bilirubin Total 0.6 mg/dL (0.2-1.3); Blood Urea Nitrogen 22 mg/dL (7-17); Calcium 9.8 mg/dL (8.4-10.2); Carbon Dioxide 28 mmol/L (22-32); Chloride 102 mmol/L (98-107); Estimated Glomerular Filt Rate > 60 mL/min (>60); Glucose 100 mg/dL (80-110); HEMOLYSIS < 15 (0-50); Sodium 140 mmol/L (137-145)
[2023-05-19 16:27] LABS: Calcium Urine Random 44.3 mg/dL
[2023-05-19 16:33] LABS: Vitamin D 25 Hydroxy (D3) 47.5 ng/mL (30.0-100.0)
[2023-05-21 13:06] LABS: Calcium 9.3 mg/dL (8.7-10.3); Parathyroid Hormone, Intact 31 pg/mL (15-65)
== END ==
PROVIDERS: PCP Family Medicine; Referring Provider Family Medicine; Visit Provider Family Medicine
DX: S32.599A Other specified fracture of unspecified pubis, initial encounter for closed fracture (principal); R15.9 Full incontinence of feces; R53.83 Other fatigue; E55.9 Vitamin D deficiency, unspecified; Z74.09 Other reduced mobility; Z78.9 Other specified health status; Z79.899 Other long term (current) drug therapy
CPT/HCPCS: 36415; 80053; 82306; 82310; 82340; 83970

== ENCOUNTER 2023-05-26 09:42 | Emergency (ER) | payer MEDICARE, OTHER, SELFPAY ==
[2023-05-26] VITALS (15 sets, daily range): BP systolic 135–167; BP diastolic 73–90; PULSE 66–84; RESP 13–25; TEMP 36.1; O2SAT 97–100; BMI 34.0
--- NOTE | 2023-05-26 10:03 | ED_ITS ---
HPI - General Adult General Chief complaint: Abdominal Pain Stated complaint: back problems intestinal problems sleeping alot Time Seen by Provider: 05/26/23 09:45 Source: patient and family Mode of arrival: Ambulatory Limitations: no limitations History of Present Illness HPI narrative: Patient is an 82-year-old female. Has multiple chronic medical problems to include a rectal prolapse. She is seen her primary doctor for this. Is scheduled to see a specialist at [facility] for this. She also has longstanding chronic low back pain. Is currently on tramadol for this. Does see a electrostatic painter. Several days ago had a injection. States she did feel somewhat better the day afterwards but then her back discomfort has returned somewhat. They are here in the emergency department today because the patient has been sleeping greater than 20 hours each day for the past several days. Has no appetite. Potentially some nausea. No abdominal pain. Is having incontinence of stool and urine but this is not new. They contacted the patient's primary doctor last evening and this morning were told to come to the emergency department for further evaluation. Patient denies chest pain. No shortness of breath. No fevers. Does have quite a bit of phlegm. No problems swallowing. Related Data Home Medications Medication Instructions Recorded Confirmed estriol vaginal .three times weekly 10/28/21 05/23/23 amino acids [Complete Amino Acid PO BID 02/07/22 05/23/23 Mix] magnesium topical 03/15/23 05/23/23 vitamin c PO 03/15/23 05/23/23 Previous Rx's Medication Instructions Recorded hydrocodone 5 mg-acetaminophen 325 1 tab PO DAILY PRN severe 05/03/23 mg tablet breakthrough pain #20 tabs buspirone 7.5 mg tablet 7.5 mg PO BID PRN anxiety #30 tabs 05/17/23 lidocaine 5 % topical patch 1 patch topical DAILY back pain 05/17/23 #30 ea tramadol 50 mg tablet 100 mg (2 x 50 mg) PO BID PRN 05/17/23 severe pain (scale score 7-10) #120 tabs teriparatide 20 mcg/dose (600 20 mcg (0.08 mL) SUBCUT DAILY 05/23/23 mcg/2.4 mL) subcutaneous pen osteoporosis 28 days #2.4 mL injector (Forteo) nitrofurantoin 100 mg PO Q12H 5 days #10 caps 05/26/23 monohydrate/macrocrystals 100 mg capsule (Macrobid) Allergies Allergy/AdvReac Type Severity Reaction Status Date / Time Sulfa (Sulfonamide Allergy Unknown Verified 05/23/23 15:12 Antibiotics) [SULFA (SULFONAMIDE ANTIBIOTICS)] Review of Systems Review of Systems ROS Unobtainable: All systems reviewed & are unremarkable except as noted in HPI and below Patient History Medical History Myofascial pain Lumbar radiculopathy Sacrococcygeal disorders, not elsewhere classified Low back pain Cluneal neuropathy Acne Chronic back pain (~2015) Mumps Measles Chicken pox Cataract (~2020) Fecal incontinence (~2015) Colon polyps (~2013) Neuropathic pain Back pain at L4-L5 level Spinal stenosis at L4-L5 level Screening for osteoporosis Post-menopausal Surgical History Anesthesia History of cataract removal with insertion of prosthetic lens (~02/2021) History of colon surgery Family History Father Diabetes mellitus Cancer Brother Cancer Social History household members: spouse Smoking Status: Never smoker alcohol intake: current Smoking Status: Never smoker alcohol intake frequency: 0-2 drinks per day Substance Use Type: marijuana Exam Initial Vital Signs Initial Vital Signs: Vital Signs Pulse Rate 80 05/26/23 09:53 Pulse Oximetry 99 05/26/23 09:53 Const General: cooperative, comfortable and No ill appearing HENMT Head: normal to inspection Mouth: other (Dry mucous membranes) Resp Effort & Inspection: normal respiratory effort Auscultation: clear to auscultation bilaterally Cardio Rate: regular rate Rhythm: regular rhythm GI Inspection: normal to inspection and non-distended Skin General: no rashes or lesions noted Neuro General: patient alert, patient awake and moves all extremities Extrem General: No edema Course Orders Ordered: ED Orders 05/26/23 09:57 Consult to WOUND CARE NURSE - Jalousie Installer Stat 05/26/23 10:15 Complete Blood Count AUTO DIFF Stat Comprehensive Metabolic Panel Stat Lipase Stat 05/26/23 10:20 EKG-12 Lead Stat 05/26/23 12:17 Consult to Home Health Stat 05/26/23 15:18 Urine Culture Stat Urine Microscopic Stat Discontinued Medications Sodium Chloride (Normal Saline 0.9%) 1,000 mls @ 500 mls/hr IV BOLUS ONE Stop: 05/26/23 12:01 Last Infusion: 05/26/23 13:06 Dose: Infused Documented By: Admin: 05/26/23 10:26 Dose: 500 mls/hr Documented By: RB Sodium Chloride (Normal Saline 0.9%) 1,000 mls @ 500 mls/hr IV BOLUS ONE Stop: 05/26/23 15:44 Last Admin: 05/26/23 13:56 Dose: 500 mls/hr Documented By: ADALID Vital Signs Vital signs: Vital Signs - 8 hr 05/26/23 09:53 05/26/23 09:54 05/26/23 10:00 Temperature 97 F L Pulse Rate 80 84 76 Respiratory Rate 20 19 Blood Pressure 135/90 Pulse Oximetry 99 100 99 Oxygen Delivery Method Room Air 05/26/23 10:30 05/26/23 10:30 05/26/23 11:00 Temperature Pulse Rate 74 67 Respiratory Rate 15 25 H Blood Pressure 167/80 H Pulse Oximetry 98 97 Oxygen Delivery Method 05/26/23 11:00 05/26/23 11:30 05/26/23 11:30 Temperature Pulse Rate 66 Respiratory Rate 16 Blood Pressure 153/75 H 142/74 H Pulse Oximetry 97 Oxygen Delivery Method 05/26/23 12:00 05/26/23 12:00 05/26/23 12:30 Temperature Pulse Rate 68 71 Respiratory Rate 17 13 Blood Pressure 142/73 H Pulse Oximetry 97 99 Oxygen Delivery Method 05/26/23 12:30 05/26/23 13:00 05/26/23 13:00 Temperature Pulse Rate 74 Respiratory Rate 16 Blood Pressure 146/75 H 143/76 H Pulse Oximetry 98 Oxygen Delivery Method 05/26/23 13:30 05/26/23 13:30 05/26/23 14:00 Temperature Pulse Rate 74 75 Respiratory Rate 17 14 Blood Pressure 156/74 H Pulse Oximetry 100 99 Oxygen Delivery Method 05/26/23 14:00 05/26/23 14:30 05/26/23 14:31 Temperature Pulse Rate 76 74 Respiratory Rate 24 22 Blood Pressure 154/78 H Pulse Oximetry 99 98 Oxygen Delivery Method 05/26/23 14:31 Temperature Pulse Rate Respiratory Rate Blood Pressure 158/77 H Pulse Oximetry Oxygen Delivery Method Medical Decision Making Lab Data 05/26/23 10:15 05/26/23 10:15 Labs: Lab Results 05/26/23 05/26/23 Range/Units 10:15 15:18 WBC 5.3 (4.5-11.0) X10^3/uL RBC 3.73 L (4.0-5.2) X10^6/uL Hgb 13.0 (12.0-16.0) g/dL Hct 37.2 (36-46) % MCV 99.8 (80-100) fL MCH 34.9 H (26-34) PG MCHC 35.0 (30-36) % RDW 13.2 (11.6-14.8) % Plt Count 200 (150-400) X10^3/uL Neut % (Auto) 45.9 L (50-75) % Lymph % (Auto) 42.5 H (25-40) % Stafford % (Auto) 7.9 (3-14) % Eos % (Auto) 2.5 (2-4) % Baso % (Auto) 1.2 (0-2) % Neut # (Auto) 2500 (2199-1995) /uL Lymph # (Auto) 2300 (6603-6235) /uL Stafford # (Auto) 400 (0-900) /uL Eos # (Auto) 100 (0-450) /uL Baso # (Auto) 100 (0-100) /uL Sodium 138 (137-145) mmol/L Potassium 3.7 (3.4-5.1) mmol/L Chloride 102 (98-107) mmol/L Carbon Dioxide 29 (22-32) mmol/L BUN 21 H (7-17) mg/dL Creatinine 0.56 (0.52-1.04) mg/dL Estimated GFR > 60 (>60) mL/min BUN/Creatinine Ratio 37.5 H (6-22) Glucose 92 (80-110) mg/dL Calcium 9.8 (8.4-10.2) mg/dL Total Bilirubin 0.8 (0.2-1.3) mg/dL AST 50 H (14-36) IU/L ALT 16 (<35) IU/L Alkaline Phosphatase 95 (38-126) U/L Total Protein 8.7 H (6.3-8.2) g/dL Albumin 4.2 (3.5-5.0) g/dL Globulin 4.5 H (1.7-4.1) g/dL Albumin/Globulin Ratio 0.9 L (1.0-2.8) Lipase 80 (23-300) U/L Urine RBC None seen (0-5/HPF) Urine WBC 5-10/hpf H (0-5/HPF) Ur Squamous Epith Cells 0-1 /hpf (0-5/HPF) Amorphous Sediment 2+ Urine Bacteria Many (>30) H (None) Ur Culture Indicated? Specimen cultured Vol Urine Centrifuged 10ml (spun) Urine Dip Bedside Urine Glucose Negative Bedside Urine Bilirubin - Negative Bedside Urine Ketone ++ 40 Urine Specific [place] 1.020 Bedside Urine Occult Blood - Negative Bedside Urine pH 6.0 Bedside Urine Protein - Negative Bedside Urine Urobilinogen - Negative Bedside Urine Nitrite + Positive Bedside Urine Leukocytes - Negative Esterase Point of care testing: Urine Dip Bedside Urine Glucose Negative Bedside Urine Bilirubin - Negative Bedside Urine Ketone ++ 40 Urine Specific [place] 1.020 Bedside Urine Occult Blood - Negative Bedside Urine pH 6.0 Bedside Urine Protein - Negative Bedside Urine Urobilinogen - Negative Bedside Urine Nitrite + Positive Bedside Urine Leukocytes - Negative Esterase ECG Data Attestation: I personally reviewed and interpreted this ECG as follows: Interpretation: Sinus rhythm Ventricular rate is 74 Left axis deviation Normal QRS Normal QTC No ST T wave changes MDM Narrative Medical decision making narrative: Patient is alert oriented x3. Labs are unremarkable. After quite a bit of fluid she was able to urinate. She is nitrite positive and has bacteria in her urine. Because of this will treat her with antibiotics. It was sent to the pharmacy of her choice. No signs of trauma. Was seen by social work. Home health consultation placed. I do recommend home health evaluation for the patient. She has had this in the past been a think she would benefit from it now. No fevers. Tolerating oral intake. I also suspect that her fatigue is because she has not been eating. Informed her that she does need to eat in order to obtain calories for energy. She was given return precautions. She expressed understanding and agreement. Discharge Plan Departure Patient Disposition: Home Clinical Impression: Urinary tract infection, Fatigue Instructions: DI for Urinary Tract Infection (UTI) Activity Restrictions/Additional Instructions: A prescription for antibiotics was sent to the pharmacy of your choice. Please start taking them as directed. A urine culture is pending at the time of her discharge and we will contact you if we need to change her antibiotics based on this. Recommend that you contact your primary doctor for a follow-up. It is important that you increase the amount that you were eating so that you can obtain energy. Return to the emergency department for new symptoms. Prescriptions: New nitrofurantoin monohyd/m-cryst [Macrobid] 100 mg capsule 100 mg PO Q12H 5 Days Qty: 10 0RF Rx Instructions: must administer with a meal/food No Action Forteo 20 mcg/dose (600mcg/2.4mL) pen injector 20 mcg SUBCUT DAILY MDD 2.4 mg 28 Days Qty: 2.4 6RF Rx Instructions: Administer FORTEO as a subcutaneous injection into the thigh or abdominal region. FORTEO is not approved for intravenous or intramuscular use. FORTEO should be administered initially under circumstances in which the patient can sit or lie down if symptoms of orthostatic hypotension occur. Parenteral drug products should be inspected visually for particulate matter and discoloration prior to administration (FORTEO is a clear and colorless liquid). Do not use if solid particles appear or if the solution is cloudy or colored. Patients and/or caregivers who administer FORTEO should receive appropriate training and instruction on the proper use of the FORTEO prefilled delivery device (pen) from a qualified health professional. Pt and family should make an appt with our Procedure nurse at [address] [place] [address]. hydrocodone-acetaminophen 5-325 mg tablet 1 tab PO DAILY PRN (Reason: severe breakthrough pain) Qty: 20 0RF Hold Instructions: transition to tramadol Rx Instructions: try lidocaine, tramadol first lidocaine 5 % adhesive patch,medicated 1 patch topical DAILY Qty: 30 0RF Rx Instructions: leave on most painful area for up to 12 hrs, can use 2 in 24h. buspirone 7.5 mg tablet 7.5 mg PO BID PRN (Reason: anxiety) Qty: 30 0RF tramadol 50 mg tablet 100 mg PO BID PRN (Reason: severe pain (scale score 7-10)) Qty: 120 1RF estriol capsule vaginal .three times weekly amino acids [Complete Amino Acid Mix] PO BID magnesium topical Rx Instructions: rub into sore areas vitamin c PO Rx Instructions: take with pain medicine, stop if developing loose stool Referrals: Grisel Parsons DO [Primary Care Provider] - Stand Alone Forms: Patient Portal/API
[2023-05-26 10:20] LABS: Add Manual Diff / Slide Review NO; Basophils Absolute Auto 100 /uL (0-100); Basophils Percent Auto 1.2 % (0-2); Eosinophils Absolute Auto 100 /uL (0-450); Eosinophils Percent Auto 2.5 % (2-4); Hematocrit 37.2 % (36-46); Lymphocytes Absolute Auto 2300 /uL (1100-4500); Lymphocytes Percent Auto 42.5 % (25-40); Mean Corpuscular Hemoglobin 34.9 PG (26-34); Mean Corpuscular Volume 99.8 fL (80-100); Monocytes Absolute Auto 400 /uL (0-900); Monocytes Percent Auto 7.9 % (3-14); Neutrophils Absolute Auto 2500 /uL (1500-7000); Neutrophils Percent Auto 45.9 % (50-75); Platelet Count 200 X10^3/uL (150-400); Red Blood Cell Count 3.73 X10^6/uL (4.0-5.2); Red Cell Distribution Width 13.2 % (11.6-14.8); White Blood Cell Count 5.3 X10^3/uL (4.5-11.0)
[2023-05-26] MEDS: SODIUM CHLORIDE 0.9% 1,000 ML 500 ML IV ×2 (10:26→13:56)
[2023-05-26 10:35] LABS: Alanine Aminotransferase 16 IU/L (<35); Albumin 4.2 g/dL (3.5-5.0); Albumin Globulin Ratio 0.9 (1.0-2.8); Alkaline Phosphatase 95 U/L (38-126); Aspartate Aminotransferase 50 IU/L (14-36); BUN Creatinine Ratio 37.5 (6-22); Bilirubin Total 0.8 mg/dL (0.2-1.3); Blood Urea Nitrogen 21 mg/dL (7-17); Calcium 9.8 mg/dL (8.4-10.2); Carbon Dioxide 29 mmol/L (22-32); Chloride 102 mmol/L (98-107); Estimated Glomerular Filt Rate > 60 mL/min (>60); Globulin 4.5 g/dL (1.7-4.1); Glucose 92 mg/dL (80-110); HEMOLYSIS < 15 (0-50); Lipase 80 U/L (23-300); Potassium 3.7 mmol/L (3.4-5.1); Sodium 138 mmol/L (137-145); Total Protein 8.7 g/dL (6.3-8.2)
--- NOTE | 2023-05-26 12:28 | CM.SWNOTE ---
ED SUPERVISOR PIPE FINISHING Note SUPERVISOR PIPE FINISHING receives consult due to concern for patient's level of care needs at home, patient's pain, excessive sleep, anxiety, depression and lack of eating. Patient is 82 y/o female who presents to ED due to concern for abd pain, lack of appetite, excessive sleeping, generalized anxiety and depression and decreased mobility. Family is requesting more help at home. SUPERVISOR PIPE FINISHING enters room to meet with patient, present in room is patient's spouse and daughter. Patient presents as A/Ox4. It is reported that patient had [facility] services that ended a few weeks ago. Patient endorses it has been a difficult few weeks due to her pain and discomfort. Family reports that patient has not showered in two weeks. Patient endorses she has a FWW at home and is able to get up to the bathroom and dress herself. Patient endorses she has been very tired and not hungry. Family reports concern for patient's incontinence. Patient presents with motivation to move forward and states that it has been a rough few weeks and she has been struggling since her pelvic fracture on . Patient denies concern for clinical depression and states that she is impacted by low energy likely from lack of eating, sleeping more because she is in pain. Patient presents with motivation to get stronger and states she enjoys doing crossword puzzles when she is awake. Patient's family report concern for patient's anxiety and some agitation, PCP prescribed medication Wellbutrin but it is reported that it was not helpful so patient's stopped taking it. Patient has PCP and outpatient f/u appts scheduled. Patient lives with spouse in [place] and has two daughters that reside in town. SUPERVISOR PIPE FINISHING discusses [facility] [employer] [employer] [facility], re-starting HH services and private pay caregivers. Patient and family present with interest in restarting Home Health with [facility] . It is discussed that patient would benefit from PT, RN, HH aide and SUPERVISOR PIPE FINISHING. Patient and family agreeable to [facility] [employer] [employer] and open to looking into caregivers. SUPERVISOR PIPE FINISHING calls [facility] and Vy states they can take patient on as a client again. SUPERVISOR PIPE FINISHING to fax clinicals, [facility], order for referral upon ED provider's completion of report. SUPERVISOR PIPE FINISHING calls [facility] and leaves for referral for patient. SUPERVISOR PIPE FINISHING provides patient and family with A[facility]'s business card. SUPERVISOR PIPE FINISHING provides patient and family with brochure for [facility], Senior resource guide and list of private pay caregivers. Plan: Patient to d/c to home upon medical clearance with family, [facility] and community bacteriologist medical referral in place, family to f/u with caregiver resources for higher level of care if needed. Marian Powers, CLOTH STRETCHER
[2023-05-26 15:33] LABS: Amorphous Sediment Urine 2+; Bacteria Urine Many (>30); Culture Indicated Urine Specimen Cultured; RBC Urine None Seen (0-5/HPF); Squamous Epithelial Cell Urine 0-1 /HPF (0-5/HPF); Urine Volume 10mL (spun); WBC Urine 5-10/HPF (0-5/HPF)
== END 2023-05-26 14:00 | disposition home or self-care (01) ==
PROVIDERS: Emergency Provider Emergency Medicine; PCP Family Medicine
DX: N39.0 Urinary tract infection, site not specified (principal); R53.83 Other fatigue
CPT/HCPCS: 36415; 51798; 80053; 81003; 81015; 83690; 85025; 87077; 87086; 87186; 93005; 96360; 96361; 99284

== ENCOUNTER → 2023-06-14 14:22 | Outpatient (CLI) | payer MEDICARE, OTHER, SELFPAY | PROVIDERS: PCP Family Medicine; Visit Provider Nurse Practitioner Family | DX: R35.0 Frequency of micturition (principal) | CPT/HCPCS: 87086 ==

== ENCOUNTER 2023-07-25 13:16 | Emergency (ER) | payer MEDICARE, OTHER, SELFPAY ==
[2023-07-25] VITALS (17 sets, daily range): BP systolic 120–165; BP diastolic 59–86; PULSE 92–110; RESP 16–18; TEMP 36.5–37.2; O2SAT 93–98; BMI 22.3
--- NOTE | 2023-07-25 13:29 | DI.CT.S_ITS ---
PROCEDURE: CT ABDOMEN PELVIS W CON INDICATIONS: drainage from surgical site TECHNIQUE: After the administration of intravenous contrast, axial sections acquired from the lung bases to the pubic symphysis. Coronal and sagittal reformats were performed. For radiation dose reduction, the following was used: automated exposure control, adjustment of mA and/or kV according to patient size. COMPARISON: None. FINDINGS: Image quality: Diagnostic. Lower Chest: Visualized lungs are clear. Heart is normal in size. Small pericardial fluid collection.. ABDOMEN: Liver: No solid mass. Gallbladder: No radiopaque gallstones or wall thickening. Biliary ducts: No biliary dilation. Pancreas: No ductal dilation. Spleen: Spleen is borderline enlarged measuring 13.1 centimeters and midclavicular line.. Adrenal Glands: No adrenal nodules. Kidneys and Ureters: No hydronephrosis. No solid mass. No complex renal cystic lesion which requires follow up. 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 Peritoneum: There is a 10.3 x 9.2 x 8.9 centimeter peripherally enhancing fluid collection with internal air locules in the cul-de-sac of the pelvis compatible with abscess. Ventral Wall: No significant ventral hernia. Skin brien in the anterior pelvic wall. Abdominal Nodes: No retroperitoneal or mesenteric adenopathy by size criteria. Vessels: Aorta and inferior vena cava are normal in size. PELVIS: Pelvic Organs: Unremarkable. Bladder: No bladder wall thickening, accounting for underdistention. Pelvic Nodes: No enlarged lymph nodes. Miscellaneous: No inguinal hernias are seen. Bones: No aggressive osseous abnormality. Spine degenerative disc disease and facet arthropathy. Convex right thoracolumbar spine scoliosis. Grade 2 L4-L5 degenerative spondylolisthesis. Chronic appearing L1 compression fracture. IMPRESSION: Large 10.3 x 9.2 x 8.9 centimeter pelvic abscess. 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 Dictated by: Maida Jane MD, PhD on 07/25/2023 at 14:44 Approved by: Maida Jane MD, PhD on 07/25/2023 at 14:55
[2023-07-25 13:59] LABS: Add Manual Diff / Slide Review NO; Basophils Absolute Auto 0 /uL (0-100); Basophils Percent Auto 0.6 % (0-2); Eosinophils Absolute Auto 0 /uL (0-450); Eosinophils Percent Auto 0.1 % (2-4); Hemoglobin 9.9 g/dL (12.0-16.0); Lymphocytes Absolute Auto 800 /uL (1100-4500); Lymphocytes Percent Auto 10.3 % (25-40); Mean Corpuscular HGB Conc 34.2 % (30-36); Mean Corpuscular Hemoglobin 34.4 PG (26-34); Mean Corpuscular Volume 100.4 fL (80-100); Monocytes Absolute Auto 600 /uL (0-900); Monocytes Percent Auto 7.3 % (3-14); Neutrophils Absolute Auto 6700 /uL (1500-7000); Neutrophils Percent Auto 81.7 % (50-75); Platelet Count 384 X10^3/uL (150-400); Red Blood Cell Count 2.89 X10^6/uL (4.0-5.2); Red Cell Distribution Width 14.7 % (11.6-14.8); White Blood Cell Count 8.1 X10^3/uL (4.5-11.0)
[2023-07-25 14:08] LABS: INR 1.2 (0.9-1.3); Prothrombin Time 13.8 SECONDS (9.4-12.5)
--- NOTE | 2023-07-25 14:13 | ED.ABDPAIN ---
HPI - Abdominal Pain <Amee Barraza DO - Last Filed: 07/27/23 07:22> General Chief Complaint: Abdominal Pain Stated Complaint: sp colostomy, abd pain Time Seen by Provider: 07/25/23 13:29 Source: patient Mode of arrival: Wheelchair History of Present Illness HPI narrative: Patient is a 82-year-old female who had a colectomy now with ostomy at [facility] about 10 days ago she stayed for 3 days. She went to walk-in clinic to have brien removed however they noticed some hardness and drainage from her incision site. She has not had any fever or chills. Ostomy seems to be working well. Minimal erythema around the incisional site but there is definitely some drainage between brien. No chest pain shortness of breath nausea or vomiting. Related Data Home Medications Medication Instructions Recorded Confirmed estriol vaginal .three times weekly 10/28/21 07/25/23 amino acids [Complete Amino Acid PO BID 02/07/22 07/25/23 Mix] magnesium topical 03/15/23 07/25/23 vitamin c PO 03/15/23 07/25/23 progesterone topical 06/14/23 07/25/23 Previous Rx's Medication Instructions Recorded hydrocodone 5 mg-acetaminophen 325 1 tab PO DAILY PRN severe 05/03/23 mg tablet breakthrough pain #20 tabs lidocaine 5 % topical patch 1 patch topical DAILY back pain 05/17/23 #30 ea tramadol 50 mg tablet 100 mg (2 x 50 mg) PO BID PRN 05/17/23 severe pain (scale score 7-10) #120 tabs Allergies Allergy/AdvReac Type Severity Reaction Status Date / Time Sulfa (Sulfonamide Allergy Unknown Verified 07/25/23 12:53 Antibiotics) [SULFA (SULFONAMIDE ANTIBIOTICS)] Patient History <Amee Barraza DO - Last Filed: 07/27/23 07:22> Medical History Myofascial pain Lumbar radiculopathy Sacrococcygeal disorders, not elsewhere classified Low back pain Cluneal neuropathy Acne Chronic back pain (~2015) Mumps Measles Chicken pox Cataract (~2020) Fecal incontinence (~2015) Colon polyps (~2013) Neuropathic pain Back pain at L4-L5 level Spinal stenosis at L4-L5 level Screening for osteoporosis Post-menopausal Surgical History Anesthesia History of cataract removal with insertion of prosthetic lens (~02/2021) History of colon surgery Family History Father Diabetes mellitus Cancer Brother Cancer Social History household members: spouse Smoking Status: Never smoker alcohol intake: current Smoking Status: Never smoker alcohol intake frequency: 0-2 drinks per day Substance Use Type: marijuana Exam <Amee Barraza DO - Last Filed: 07/27/23 07:22> Initial Vital Signs Initial Vital Signs: Vital Signs Pulse Rate 105 H 07/25/23 13:20 Pulse Oximetry 96 07/25/23 13:20 GENERAL: Alert thin well-appearing 82-year-old female HEENT: Head atraumatic,EOMI, pupils reactive, face symmetric, moist mucous membranes CARDIOVASCULAR: Regular rate and rhythm without murmurs, rubs or gallops. RESPIRATORY: Breath sounds equal bilaterally, no wheezes rales or rhonchi. ABDOMEN: Soft, nontender. Normoactive bowel sounds all 4 quadrants. No guarding or rebound. Ostomy in place with stool EXTREMITIES: Normal range of motion, no clubbing or edema. Neurovascularly intact NEUROLOGICAL: Alert and oriented x4. SKIN: Warm, dry, no laceration, no petechiae, no rashes or lesions. Incision site mid section dehiscence some gross drainage no significant surrounding erythema but some hardness felt laterally on the right side <Alina Maya MD - Last Filed: 07/25/23 21:51> Initial Vital Signs Initial Vital Signs: Vital Signs Pulse Rate 105 H 07/25/23 13:20 Pulse Oximetry 96 07/25/23 13:20 Course <Amee Barraza DO - Last Filed: 07/27/23 07:22> Orders Ordered: Discontinued Medications Piperacillin Sod/Tazobactam (Sod 4.5 gm/ Sodium Chloride) 100 mls @ 200 mls/hr IV NOW ONE Stop: 07/25/23 17:31 Last Infusion: 07/25/23 18:28 Dose: Infused Documented By: Admin: 07/25/23 17:56 Dose: 200 mls/hr Documented By: ORLANDO Vancomycin HCl (Vancomycin) 750 mg in 150 mls @ 150 mls/hr IV NOW ONE Stop: 07/25/23 18:29 Last Infusion: 07/25/23 19:41 Dose: Infused Documented By: Admin: 07/25/23 18:36 Dose: 150 mls/hr Documented By: ORLANDO Morphine Sulfate (Morphine 2 Mg/Ml Inj) 2 mg IV NOW ONE Stop: 07/25/23 14:22 Last Admin: 07/25/23 14:44 Dose: 2 mg Documented By: ORLANDO Ondansetron HCl (Ondansetron 4 Mg Odt) 4 mg PO NOW PRN PRN Reason: Nausea And Vomiting Ondansetron HCl (Ondansetron 4 Mg/2 Ml Inj) 4 mg IV NOW PRN PRN Reason: Nausea And Vomiting Oxycodone HCl (Oxycodone Ir 5 Mg Tablet) 5 mg PO NOW ONE Stop: 07/25/23 16:27 Last Admin: 07/25/23 16:29 Dose: 5 mg Documented By: ORLANDO Potassium Chloride (Potassium Chloride 20 Meq Tab) 40 meq PO NOW ONE Stop: 07/25/23 19:01 Last Admin: 07/25/23 19:46 Dose: 40 meq Documented By: RENEA Vital Signs Vital signs: Vital Signs - 8 hr 07/25/23 14:00 07/25/23 14:00 07/25/23 14:30 Temperature 99 F Pulse Rate 101 H 96 H Respiratory Rate Blood Pressure 130/71 Pulse Oximetry 96 97 Oxygen Delivery Method 07/25/23 15:00 07/25/23 15:30 07/25/23 16:00 Temperature Pulse Rate 92 H 97 H 100 H Respiratory Rate Blood Pressure Pulse Oximetry 96 95 94 Oxygen Delivery Method 07/25/23 16:13 07/25/23 16:13 07/25/23 16:30 Temperature Pulse Rate 110 H Respiratory Rate Blood Pressure 143/77 H 130/79 Pulse Oximetry 97 Oxygen Delivery Method 07/25/23 16:30 07/25/23 19:05 07/25/23 19:30 Temperature Pulse Rate 100 H 103 H Respiratory Rate 17 Blood Pressure 122/59 L Pulse Oximetry 95 94 Oxygen Delivery Method Room Air 07/25/23 19:30 07/25/23 20:13 07/25/23 20:14 Temperature Pulse Rate 107 H Respiratory Rate 18 Blood Pressure 149/69 H Pulse Oximetry 93 96 Oxygen Delivery Method Room Air 07/25/23 20:14 07/25/23 20:30 07/25/23 20:30 Temperature Pulse Rate 103 H 101 H Respiratory Rate 17 Blood Pressure 120/60 Pulse Oximetry 98 95 Oxygen Delivery Method Room Air Room Air 07/25/23 21:00 07/25/23 21:00 07/25/23 21:30 Temperature 97.7 F Pulse Rate 107 H Respiratory Rate 18 Blood Pressure 148/69 H 140/72 Pulse Oximetry 94 Oxygen Delivery Method Room Air 07/25/23 21:30 Temperature Pulse Rate 108 H Respiratory Rate 17 Blood Pressure Pulse Oximetry 94 Oxygen Delivery Method Room Air <Alina Maya MD - Last Filed: 07/25/23 21:51> Orders Ordered: Discontinued Medications Piperacillin Sod/Tazobactam (Sod 4.5 gm/ Sodium Chloride) 100 mls @ 200 mls/hr IV NOW ONE Stop: 07/25/23 17:31 Last Infusion: 07/25/23 18:28 Dose: Infused Documented By: Admin: 07/25/23 17:56 Dose: 200 mls/hr Documented By: ORLANDO Vancomycin HCl (Vancomycin) 750 mg in 150 mls @ 150 mls/hr IV NOW ONE Stop: 07/25/23 18:29 Last Infusion: 07/25/23 19:41 Dose: Infused Documented By: Admin: 07/25/23 18:36 Dose: 150 mls/hr Documented By: ORLANDO Morphine Sulfate (Morphine 2 Mg/Ml Inj) 2 mg IV NOW ONE Stop: 07/25/23 14:22 Last Admin: 07/25/23 14:44 Dose: 2 mg Documented By: ORLANDO Ondansetron HCl (Ondansetron 4 Mg Odt) 4 mg PO NOW PRN PRN Reason: Nausea And Vomiting Ondansetron HCl (Ondansetron 4 Mg/2 Ml Inj) 4 mg IV NOW PRN PRN Reason: Nausea And Vomiting Oxycodone HCl (Oxycodone Ir 5 Mg Tablet) 5 mg PO NOW ONE Stop: 07/25/23 16:27 Last Admin: 07/25/23 16:29 Dose: 5 mg Documented By: ORLANDO Potassium Chloride (Potassium Chloride 20 Meq Tab) 40 meq PO NOW ONE Stop: 07/25/23 19:01 Last Admin: 07/25/23 19:46 Dose: 40 meq Documented By: RENEA Vital Signs Vital signs: Vital Signs - 8 hr 07/25/23 14:00 07/25/23 14:00 07/25/23 14:30 Temperature 99 F Pulse Rate 101 H 96 H Respiratory Rate Blood Pressure 130/71 Pulse Oximetry 96 97 Oxygen Delivery Method 07/25/23 15:00 07/25/23 15:30 07/25/23 16:00 Temperature Pulse Rate 92 H 97 H 100 H Respiratory Rate Blood Pressure Pulse Oximetry 96 95 94 Oxygen Delivery Method 07/25/23 16:13 07/25/23 16:13 07/25/23 16:30 Temperature Pulse Rate 110 H Respiratory Rate Blood Pressure 143/77 H 130/79 Pulse Oximetry 97 Oxygen Delivery Method 07/25/23 16:30 07/25/23 19:05 07/25/23 19:30 Temperature Pulse Rate 100 H 103 H Respiratory Rate 17 Blood Pressure 122/59 L Pulse Oximetry 95 94 Oxygen Delivery Method Room Air 07/25/23 19:30 07/25/23 20:13 07/25/23 20:14 Temperature Pulse Rate 107 H Respiratory Rate 18 Blood Pressure 149/69 H Pulse Oximetry 93 96 Oxygen Delivery Method Room Air 07/25/23 20:14 07/25/23 20:30 07/25/23 20:30 Temperature Pulse Rate 103 H 101 H Respiratory Rate 17 Blood Pressure 120/60 Pulse Oximetry 98 95 Oxygen Delivery Method Room Air Room Air 07/25/23 21:00 07/25/23 21:00 07/25/23 21:30 Temperature 97.7 F Pulse Rate 107 H Respiratory Rate 18 Blood Pressure 148/69 H 140/72 Pulse Oximetry 94 Oxygen Delivery Method Room Air 07/25/23 21:30 Temperature Pulse Rate 108 H Respiratory Rate 17 Blood Pressure Pulse Oximetry 94 Oxygen Delivery Method Room Air MDM - Abdominal Pain <Amee Barraza DO - Last Filed: 07/27/23 07:22> Lab Data 07/25/23 13:43 07/25/23 13:43 Labs: Lab Results 07/25/23 07/25/23 Range/Units 13:43 16:10 WBC 8.1 (4.5-11.0) X10^3/uL RBC 2.89 L (4.0-5.2) X10^6/uL Hgb 9.9 L (12.0-16.0) g/dL Hct 29.0 L (36-46) % MCV 100.4 H (80-100) fL MCH 34.4 H (26-34) PG MCHC 34.2 (30-36) % RDW 14.7 (11.6-14.8) % Plt Count 384 (150-400) X10^3/uL Neut % (Auto) 81.7 H (50-75) % Lymph % (Auto) 10.3 L (25-40) % [place] % (Auto) 7.3 (3-14) % Eos % (Auto) 0.1 L (2-4) % Baso % (Auto) 0.6 (0-2) % Neut # (Auto) 6700 (4812-0810) /uL Lymph # (Auto) 800 L (1239-5581) /uL [place] # (Auto) 600 (0-900) /uL Eos # (Auto) 0 (0-450) /uL Baso # (Auto) 0 (0-100) /uL PT 13.8 H (9.4-12.5) SECONDS INR 1.2 (0.9-1.3) Sodium 139 (137-145) mmol/L Potassium 2.9 L (3.4-5.1) mmol/L Chloride 105 (98-107) mmol/L Carbon Dioxide 28 (22-32) mmol/L BUN 19 H (7-17) mg/dL Creatinine 0.42 L (0.52-1.04) mg/dL Estimated GFR > 60 (>60) mL/min BUN/Creatinine Ratio 45.2 H (6-22) Glucose 165 H (80-110) mg/dL Lactate 1.3 (0.7-2.1) mmol/L Calcium 9.3 (8.4-10.2) mg/dL Total Bilirubin 0.6 (0.2-1.3) mg/dL AST 43 H (14-36) IU/L ALT 27 (<35) IU/L Alkaline Phosphatase 111 (38-126) U/L Total Protein 7.9 (6.3-8.2) g/dL Albumin 3.4 L (3.5-5.0) g/dL Globulin 4.5 H (1.7-4.1) g/dL Albumin/Globulin Ratio 0.8 L (1.0-2.8) Lipase 37 (23-300) U/L Procalcitonin 0.10 (<0.5) ng/mL Urine RBC None seen (0-5/HPF) Urine WBC 0-1/hpf (0-5/HPF) Ur Squamous Epith Cells 0-1 /hpf (0-5/HPF) Urine Bacteria Occasional (0-1) (None) Ur Culture Indicated? Cult not indicated Vol Urine Centrifuged 10ml (spun) Point of care testing: Urine Dip Bedside Urine Glucose Negative Bedside Urine Bilirubin - Negative Bedside Urine Ketone - Negative Urine Specific [place] 1.015 Bedside Urine Occult Blood - Negative Bedside Urine pH 6.0 Bedside Urine Protein +/- 15 Bedside Urine Urobilinogen - Negative Bedside Urine Nitrite - Negative Bedside Urine Leukocytes - Negative Esterase Imaging Data CT scan - abdomen/pelvis: Radiologist's Impression: PROCEDURE: CT ABDOMEN PELVIS W CON INDICATIONS: drainage from surgical site TECHNIQUE: After the administration of intravenous contrast, axial sections acquired from the lung bases to the pubic symphysis. Coronal and sagittal reformats were performed. For radiation dose reduction, the following was used: automated exposure control, adjustment of mA and/or kV according to patient size. COMPARISON: None. FINDINGS: Image quality: Diagnostic. Lower Chest: Visualized lungs are clear. Heart is normal in size. Small pericardial fluid collection.. ABDOMEN: Liver: No solid mass. Gallbladder: No radiopaque gallstones or wall thickening. Biliary ducts: No biliary dilation. Pancreas: No ductal dilation. Spleen: Spleen is borderline enlarged measuring 13.1 centimeters and midclavicular line.. Adrenal Glands: No adrenal nodules. Kidneys and Ureters: No hydronephrosis. No solid mass. No complex renal cystic lesion which requires follow up. 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 Peritoneum: There is a 10.3 x 9.2 x 8.9 centimeter peripherally enhancing fluid collection with internal air locules in the cul-de-sac of the pelvis compatible with abscess. Ventral Wall: No significant ventral hernia. Skin brien in the anterior pelvic wall. Abdominal Nodes: No retroperitoneal or mesenteric adenopathy by size criteria. Vessels: Aorta and inferior vena cava are normal in size. PELVIS: Pelvic Organs: Unremarkable. Bladder: No bladder wall thickening, accounting for underdistention. Pelvic Nodes: No enlarged lymph nodes. Miscellaneous: No inguinal hernias are seen. Bones: No aggressive osseous abnormality. Spine degenerative disc disease and facet arthropathy. Convex right thoracolumbar spine scoliosis. Grade 2 L4-L5 degenerative spondylolisthesis. Chronic appearing L1 compression fracture. IMPRESSION: Large 10.3 x 9.2 x 8.9 centimeter pelvic abscess. 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 Dictated by: Maida Jane MD, PhD on 07/25/2023 at 14:44 Approved by: Maida Jane MD, PhD on 07/25/2023 at 14:55 [facility] Narrative Medical decision making narrative: Patient 82-year-old female presents today with wound dehiscence after colectomy and ostomy. She is afebrile overall appears well. She has some drainage from incisions. Blood work has been reviewed: WBC 8.1, 9.9, hematocrit 29.0, platelets 384, sodium 139 potassium 2.9, chloride 105, carbon dioxide 20 BUN 19, creatinine 0.42 Imaging reviewed does show large pelvic abscess 1745 Dr. Hsu, colorectal surgeon at [facility] updated on symptoms and test results agrees that patient needs to be transferred for an IR drain. Transfer center states that they could have a bed available at [address] [place] [address] however patient would like to go to admits which will be a bit longer await. Patient signed out to Dr. Maya <Alina Maya MD - Last Filed: 07/25/23 21:51> Lab Data Labs: Lab Results 07/25/23 07/25/23 Range/Units 13:43 16:10 WBC 8.1 (4.5-11.0) X10^3/uL RBC 2.89 L (4.0-5.2) X10^6/uL Hgb 9.9 L (12.0-16.0) g/dL Hct 29.0 L (36-46) % MCV 100.4 H (80-100) fL MCH 34.4 H (26-34) PG MCHC 34.2 (30-36) % RDW 14.7 (11.6-14.8) % Plt Count 384 (150-400) X10^3/uL Neut % (Auto) 81.7 H (50-75) % Lymph % (Auto) 10.3 L (25-40) % [place] % (Auto) 7.3 (3-14) % Eos % (Auto) 0.1 L (2-4) % Baso % (Auto) 0.6 (0-2) % Neut # (Auto) 6700 (8722-6696) /uL Lymph # (Auto) 800 L (4459-3916) /uL [place] # (Auto) 600 (0-900) /uL Eos # (Auto) 0 (0-450) /uL Baso # (Auto) 0 (0-100) /uL PT 13.8 H (9.4-12.5) SECONDS INR 1.2 (0.9-1.3) Sodium 139 (137-145) mmol/L Potassium 2.9 L (3.4-5.1) mmol/L Chloride 105 (98-107) mmol/L Carbon Dioxide 28 (22-32) mmol/L BUN 19 H (7-17) mg/dL Creatinine 0.42 L (0.52-1.04) mg/dL Estimated GFR > 60 (>60) mL/min BUN/Creatinine Ratio 45.2 H (6-22) Glucose 165 H (80-110) mg/dL Lactate 1.3 (0.7-2.1) mmol/L Calcium 9.3 (8.4-10.2) mg/dL Total Bilirubin 0.6 (0.2-1.3) mg/dL AST 43 H (14-36) IU/L ALT 27 (<35) IU/L Alkaline Phosphatase 111 (38-126) U/L Total Protein 7.9 (6.3-8.2) g/dL Albumin 3.4 L (3.5-5.0) g/dL Globulin 4.5 H (1.7-4.1) g/dL Albumin/Globulin Ratio 0.8 L (1.0-2.8) Lipase 37 (23-300) U/L Procalcitonin 0.10 (<0.5) ng/mL Urine RBC None seen (0-5/HPF) Urine WBC 0-1/hpf (0-5/HPF) Ur Squamous Epith Cells 0-1 /hpf (0-5/HPF) Urine Bacteria Occasional (0-1) (None) Ur Culture Indicated? Cult not indicated Vol Urine Centrifuged 10ml (spun) Point of care testing: Urine Dip Bedside Urine Glucose Negative Bedside Urine Bilirubin - Negative Bedside Urine Ketone - Negative Urine Specific [place] 1.015 Bedside Urine Occult Blood - Negative Bedside Urine pH 6.0 Bedside Urine Protein +/- 15 Bedside Urine Urobilinogen - Negative Bedside Urine Nitrite - Negative Bedside Urine Leukocytes - Negative Esterase MDM Narrative Medical decision making narrative: Patient 82-year-old female presents today with wound dehiscence after colectomy and ostomy. She is afebrile overall appears well. She has some drainage from incisions. Blood work has been reviewed: WBC 8.1, 9.9, hematocrit 29.0, platelets 384, sodium 139 potassium 2.9, chloride 105, carbon dioxide 20 BUN 19, creatinine 0.42 Imaging reviewed does show large pelvic abscess 174 Dr. Hsu, colorectal surgeon at [facility] updated on symptoms and test results agrees that patient needs to be transferred for an IR drain. Transfer center states that they could have a bed available at [address] [place] [address] however patient would like to go to admits which will be a bit longer await. Patient signed out to Dr. Francesco Maya -care of patient is signed out to me by daytime physician. Patient was accepted to [facility] in. While awaiting transport no events occurred. Patient transported in stable condition to higher level of care. Discharge Plan Departure Patient Disposition: [facility] Clinical Impression: Abscess of female pelvis Prescriptions: No Action progesterone topical hydrocodone-acetaminophen 5-325 mg tablet 1 tab PO DAILY PRN (Reason: severe breakthrough pain) Qty: 20 0RF Hold Instructions: transition to tramadol Rx Instructions: try lidocaine, tramadol first lidocaine 5 % adhesive patch,medicated 1 patch topical DAILY Qty: 30 0RF Rx Instructions: leave on most painful area for up to 12 hrs, can use 2 in 24h. tramadol 50 mg tablet 100 mg PO BID PRN (Reason: severe pain (scale score 7-10)) Qty: 120 1RF estriol capsule vaginal .three times weekly amino acids [Complete Amino Acid Mix] PO BID magnesium topical Rx Instructions: rub into sore areas vitamin c PO Rx Instructions: take with pain medicine, stop if developing loose stool Referrals: Grisel Parsons, [Primary Care Provider] -
[2023-07-25 14:14] LABS: Alanine Aminotransferase 27 IU/L (<35); Albumin 3.4 g/dL (3.5-5.0); Albumin Globulin Ratio 0.8 (1.0-2.8); Alkaline Phosphatase 111 U/L (38-126); Aspartate Aminotransferase 43 IU/L (14-36); BUN Creatinine Ratio 45.2 (6-22); Bilirubin Total 0.6 mg/dL (0.2-1.3); Blood Urea Nitrogen 19 mg/dL (7-17); Calcium 9.3 mg/dL (8.4-10.2); Carbon Dioxide 28 mmol/L (22-32); Chloride 105 mmol/L (98-107); Estimated Glomerular Filt Rate > 60 mL/min (>60); Globulin 4.5 g/dL (1.7-4.1); Glucose 165 mg/dL (80-110); HEMOLYSIS < 15 (0-50); Lipase 37 U/L (23-300); Potassium 2.9 mmol/L (3.4-5.1); Sodium 139 mmol/L (137-145); Total Protein 7.9 g/dL (6.3-8.2)
[2023-07-25 14:15] LABS: Lactate (Lactic Acid) 1.3 mmol/L (0.7-2.1)
[2023-07-25] MEDS: MORPHINE 2 MG/ML INJ IV (14:44)
[2023-07-25] MEDS: OXYCODONE IR 5 MG TABLET PO (16:29)
[2023-07-25 16:37] LABS: Urine Volume 10mL (spun)
[2023-07-25 16:44] LABS: Bacteria Urine Occasional (0-1); Culture Indicated Urine Cult Not Indicated; RBC Urine None Seen (0-5/HPF); Squamous Epithelial Cell Urine 0-1 /HPF (0-5/HPF); WBC Urine 0-1/HPF (0-5/HPF)
[2023-07-25] MEDS: PIPERACILLIN/TAZO 4.5 GM in SODIUM CHLORIDE 0.9% 100 ML IV (17:56)
[2023-07-25] MEDS: VANCOMYCIN 750 MG/150 ML PIGGYBACK 150 MG IV (18:36)
[2023-07-25] MEDS: POTASSIUM CHLORIDE 20 MEQ TAB 40 MEQ PO (19:46)
--- NOTE | 2023-07-25 20:00 | PC.NURSE ---
Cleaned and dressed abdominal dressig with NS and non adherent gauze. Patient transferred to commode and into a hospital bed. resting comfortably, callight in reach.
--- NOTE | 2023-07-25 20:59 | PC.NURSE ---
report given to Jennifer MULLEN at [facility] [phone].
--- NOTE | 2023-07-25 21:42 | PC.NURSE ---
Report given to Coleman LEE.
[2023-07-27 23:45] LABS: Acinetobacter calcoa-baumannii Not Detected (Not Detect); Bacteroides fragilis Not Detected (Not Detect); Candida albicans Not Detected (Not Detect); Candida auris Not Detected (Not Detect); Candida glabrata Not Detected (Not Detect); Candida krusei Not Detected (Not Detect); Candida parapsilosis Not Detected (Not Detect); Candida tropicalis Not Detected (Not Detect); Cryptococcus neoformans/gatti Not Detected (Not Detect); Enterobacter cloacae complex Not Detected (Not Detect); Enterobacterales Not Detected (Not Detect); Enterococcus faecalis Not Detected (Not Detect); Enterococcus faecium Not Detected (Not Detect); Haemophilus influenzae Not Detected (Not Detect); Klebsiella aerogenes Not Detected (Not Detect); Listeria monocytogenes Not Detected (Not Detect); Neisseria meningitidis Not Detected (Not Detect); Proteus species Not Detected (Not Detect); Pseudomonas aeruginosa Not Detected (Not Detect); Salmonella species Not Detected (Not Detect); Serratia marcescens Not Detected (Not Detect); Staphylococcus epidermidis Not Detected (Not Detect); Staphylococcus lugdunensis Not Detected (Not Detect); Staphylococcus species Not Detected (Not Detect); Stenotrophomonas maltophilia Not Detected (Not Detect); Streptococcus agalactiae (Gr B Not Detected (Not Detect); Streptococcus pneumonia Not Detected (Not Detect); Streptococcus pyogenes (Gr A) Not Detected (Not Detect); Streptococcus species Not Detected (Not Detect)
== END 2023-07-25 21:51 | disposition short-term general hospital (02) ==
PROVIDERS: Emergency Provider Emergency Medicine; PCP Family Medicine
DX: T81.42XA Infection following a procedure, deep incisional surgical site, initial encounter (principal); N73.9 Female pelvic inflammatory disease, unspecified
CPT/HCPCS: 36415; 74177; 80053; 81003; 81015; 83605; 83690; 84145; 85025; 85610; 87040; 87077; 87154; 87185; 96365; 96367; 96375; 99284; J2270; J2543; Q9967

== ENCOUNTER → 2023-12-20 09:13 | Outpatient (CLI) | payer MEDICARE, OTHER, SELFPAY | LOC: WC 09:35 | PROVIDERS: Family Provider Family Medicine; PCP Family Medicine; Referring Provider Family Medicine; Visit Provider Surgery | DX: K94.09 Other complications of colostomy (principal); K43.5 Parastomal hernia without obstruction or gangrene | CPT/HCPCS: 99203; 99213 ==

== ENCOUNTER → 2024-01-03 09:28 | Outpatient (CLI) | payer MEDICARE, OTHER, SELFPAY | PROVIDERS: Family Provider Family Medicine; PCP Family Medicine; Referring Provider Family Medicine; Visit Provider Surgery | DX: Z43.3 Encounter for attention to colostomy (principal) | CPT/HCPCS: 99212 ==

== ENCOUNTER → 2024-01-19 15:21 | Outpatient (CLI) | payer MEDICARE, OTHER, SELFPAY ==
--- NOTE | 2024-01-19 15:23 | DI.RAD.S_ITS ---
PROCEDURE: XR LUMBAR SPINE MIN 4V INDICATIONS: BACK PAIN TECHNIQUE: Five views of the lumbar spine COMPARISON: [facility], CR, XR LUMBAR SPINE 2-3V, 10/26/2021, 12:37. [facility] [place], CR, XR PELVIS WITH LATERAL HIP LEFT, 04/11/2023, 17:02. FINDINGS: Bones: Moderate rightward scoliosis, increased compared to prior radiograph. 9 mm of L4 on L5 anterolisthesis as before. Likely increased height loss of multiple vertebral bodies, less than 50%, for example L1 and L2 Oblique views limited by degenerative changes and spinal curvature. Unable to definitely identify pars defects. Moderate background spondylosis Overall limited assessment also due to osteopenia Soft tissues: No suspicious calcifications. Partially seen hip degenerative changes. IMPRESSION: Background moderate spondylosis and right worse scoliosis, slightly increased from prior. Height loss of multiple vertebral bodies less than 50%, age indeterminate, but probably also increased from 2021. If there is high concern for further derangement, consider MRI evaluation. Dictated by: Zelalem Mcarthur M.D. on 01/19/2024 at 17:11 Approved by: Zelalem Mcarthur M.D. on 01/19/2024 at 17:15
== END ==
PROVIDERS: Family Provider Family Medicine; PCP Family Medicine; Referring Provider Physical Medicine & Rehabilitation; Visit Provider Physical Medicine & Rehabilitation
DX: M47.816 Spondylosis without myelopathy or radiculopathy, lumbar region (principal); M48.061 Spinal stenosis, lumbar region without neurogenic claudication; M54.50 Low back pain, unspecified; M41.9 Scoliosis, unspecified
CPT/HCPCS: 72110

== ENCOUNTER 2024-01-30 11:30 | Outpatient (RCR) | payer MEDICARE, OTHER, SELFPAY ==
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
--- NOTE | 2024-01-16 13:12 | PT-OP ANOTE ---
PT attempts to call pt on cell and home phone to check in to see how she is doing after harder standing and balance exercises with PT last week. Pt nor answer phone. Pt will require to standby for exercises as discussed with pt and last treatment date and PT is concerned about how fatigued pt becomes with standing more than a few minutes. Her overall endurance is poor. Can return to sitting exercises if Ot[place] were too much. Con't to monitor.
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
--- NOTE | 2024-01-24 12:47 | PT-OP ANOTE ---
Pt no showed for appointment at 11:30 today. PT calls and speaks with pt who realizes this. PT lets her know her next appointment is on 01/29 at 11:30.
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
== END 2024-02-02 14:19 | disposition home or self-care (01) ==
LOC: PHYS 11:30
PROVIDERS: Family Provider Family Medicine; PCP Family Medicine; Referring Provider Anesthesiology; Visit Provider Anesthesiology
DX: Z74.09 Other reduced mobility (principal); Z78.9 Other specified health status; M54.50 Low back pain, unspecified
CPT/HCPCS: 97110; 97112; 97162; 97530; 97535

== ENCOUNTER 2024-03-15 09:00 | Outpatient (RCR) | payer MEDICARE, OTHER, SELFPAY ==
--- NOTE | 2024-03-04 19:15 | PT.OIE ---
Current Diagnoses Segmental and somatic dysfunction of pelvic region (03/04/24) Unspecified urinary incontinence (03/04/24) Past Medical History (Last Reviewed 01/23/24 @ 12:13 by Sudhir Lezama DO) Acne Back pain at L4-L5 level Cataract (~2020) Chicken pox Chronic back pain (~2015) Cluneal neuropathy Colon polyps (~2013) Fecal incontinence (~2015) Low back pain Lumbar radiculopathy Lumbar spondylosis Measles Mumps Neuropathic pain Post-menopausal Spinal stenosis at L4-L5 level Past Surgical History (Last Reviewed 01/23/24 @ 12:13 by Sudhir Lezama DO) Anesthesia History of cataract removal with insertion of prosthetic lens (~02/2021) History of colon surgery Visit Care Team Role Provider Type Grisel Parsons DO Attending Provider Physician Family Provider Primary Care Provider Referring Provider Specialty: Medical Address: [address] [place] [address], [address], [place], [address] Email: [email or web address] Physical Therapy Initial Evaluation PT-OP-A Visit Information Start: 03/02/24 12:42 Freq: Status: Active Protocol: Document 03/04/24 11:35 LRN (Rec: 03/04/24 12:27 LRN [id number]) Out-Patient Physical Therapy Visit Information Visit Information Visit Type Initial Evaluation Visit Note Spouse present during evaluation. Visit Start Time 11:35 Visit Stop Time 12:27 Visit Number 1 Evaluation Information Evaluation Date 03/04/24 Precautions Precautions Osteporosis, Colostomy bag placed permanently due to rectal prolapse, back pain ( slipped disc L4-L5), pt reported scoliosis, memory problems. PT-OP-B Current Condition Start: 03/02/24 12:42 Freq: Status: Active Protocol: Document 03/04/24 11:35 LRN (Rec: 03/04/24 12:27 LRN [id number]) Current Condition History of Current Condition Onset Date 07/2023 Current Complaints Frequent urinary incontinence. History of Current Condition Pt states she has a poor memory, request spouse be present. Pt reports she started having urinary leaking after colostomy bag placed 07/2023. Colostomy bag placed due to anal prolapse that she reports was not appropriate for anal surgery repair. After surgery she had an abcess with drainage tube that has been removed. She is left with a colostomy bag. Pt reports several yrs ago, then stated 10 yrs ago she had a colosotomy bag due to ruptured colon, then ended with rectal prolapse so had the bag replaced. Pt states she toilets every 90-120 minutes during the day and 2-4x/night but lately 2x/night (her spouse feels it is 2-4x/night) . Prior Treatments and Tests None Developmental History Developmental History 2 children of vaginal w/ o complications (2nd child fast ) and no urinary leakage. Treatment Goals Patient/Caregiver Goals Pt goals: -less incontinence episodes. -pt agreeable to HEP. Personal Factors Other Personal Factors That May Effect Self reported memory problem. Therapy/Recovery Permanent Colostomy Bag. Scoliosis & Osteoporosis. Uses 4WW for a yr since fall 1 .5 yrs ago demonstrating a bent forward posture. PT-OP-C Subjective Start: 03/04/24 18:19 Freq: Status: Active Protocol: Document 03/04/24 11:35 LRN (Rec: 03/04/24 18:19 LRN [id number]) Patient Questionnaires Pelvic Pain and Urgency/Frequency Patient Symptom Scale Pelvic Pain Score 9 PT-OP-I Pelvic Floor Start: 03/02/24 12:42 Freq: Status: Active Protocol: Document 03/04/24 11:35 LRN (Rec: 03/04/24 12:27 LRN [id number]) Pelvic Floor Assessment Urine Leakage Cause Urge Leaks Per Day every 90-120 minutes when walking to bathroom Voiding Frequency every 90-120 minutes daytime Nocturia 2-4 Urine Pad Type Depends Bowel Other Bowel Symptoms Has colostomy bag. Bowel Movement Frequency Several times a day, changes bag every 6 days. Prolapse Cystocele Grade 2 Perineal Descent Bearing Present Contraction Ability Voluntary Relaxation Weak Manual Muscle Testing Left 0 Manual Muscle Testing Right 0 Manual Muscle Testing Anterior 1 Manual Muscle Testing Posterior 0 Muscle Endurance (Seconds) 3 Number of Quick Contractions In 10 4 Seconds Comments Pelvic Floor Comments Pt external PF tissues are extremely red and cysts are palpable in labia majora. PT-OP-J Posture/Palpation/Skin Start: 03/02/24 12:42 Freq: Status: Active Protocol: Document 03/04/24 11:35 LRN (Rec: 03/04/24 12:27 LRN [id number]) Posture Evaluation Position Standing Head/C-Spine Posture Forward Head T-Spine Posture Increased Kyphosis L-Spine Posture Flattened Shoulder Posture (R) Elevated Pelvis Posture (R) Iliac Crest Superior,(L) PSIS Posterior Comments Posture Comments Standing with 4WW for support and balance. Hips flexed 12 deg's. Scoliosis with L upper & R lower apex. Sitting posture - slumped. PT-OP-K Range of Motion Start: 03/02/24 12:42 Freq: Status: Active Protocol: Document 03/04/24 11:35 LRN (Rec: 03/04/24 12:27 LRN [id number]) Lumbar Spine Range of Motion Lumbar Spine Active Degrees Testing Position Standing Comments Pt not safe for standing trunk AROM assessment. Pt sits with slumped posture and mobilizes with use of 4WW. PT-OP-M Strength Start: 03/02/24 12:42 Freq: Status: Active Protocol: Document 03/04/24 11:35 LRN (Rec: 03/04/24 12:27 LRN [id number]) Trunk Strength Trunk Manual Muscle Testing Core Stabilization Decreased with MMT of LE's. Hip Strength Hip Manual Muscle Testing Right Flexion (L2) 3 Fair Extension (S1) 2 Poor Abduction 3 Fair External Rotation 4 Good Comments Strength is 5/5 except as indicated above. Left Flexion (L2) 3 Fair Extension (S1) 2 Poor Abduction 3 Fair External Rotation 3 Fair Comments Strength is 5/5 except as indicated above. PT-OP-Q Treatments Start: 03/02/24 12:42 Freq: Status: Active Protocol: Document 03/04/24 11:35 LRN (Rec: 03/04/24 12:27 LRN [id number]) Self-Care/Home Management Treatment Education Caregiver Education Pt spouse present during full evaluation and education. Other Education Discussed results of evaluation, goals, treatment, and plan of care (POC) with pt , discussed attendance/cx/dns policy; pt agreeable to evaluation, goals, treatment, attendance/cx/dns policy and POC. Discussed and educated pt in specifics for completion of in use of Bladder Diary and I/S in tracking for 1 week. Activities Self-Care/Home Management Activities Issued & reviewed HEP: Kegel ex's and discussed exercise of Quick Flicks, Long Holds. PT-OP-T Assessment and Plan Start: 03/02/24 12:42 Freq: Status: Active Protocol: Document 03/04/24 11:35 LRN (Rec: 03/04/24 12:27 LRN [id number]) Physical Therapy Assessment Rehab Potential Rehabilitation Potential Good Evaluation Complexity Number of Personal Factors/Comorbidities 3 or More Number of Body Systems Impaired 4 or More Clinical Presentation at Evaluation Evolving Impairments Impairments Activity Tolerance,Posture,ROM ,Strength,Transfers Goals Four Impairment Poor sitting posture Short Term Goal (STG) Pt will be educated and show understanding by showing effort in improved sitting posture. STG Duration 04/19/24 Earth Science Teacher Goal (LTG) With improved posturing, pt will be able to tolerate supine lying for PF strengthening ex's. LTG Duration 05/31/24 Three Impairment Poor tissue health of Perineum (angry red coloration). Earth Science Teacher Goal (LTG) Pt will be educated and demonstrate improved genital/ vulvar care with decreased redness of her perineum. LTG Duration 05/31/24 Two Impairment Urinary leakage every 90-120 minutes during the day and 2- 4x/night Short Term Goal (STG) Pt will be educated in bladder retraining and will be able to decrease urinary leakage 50 % of the time during the day. STG Duration 04/26/24 Penitentiary Goal (LTG) Pt will decrease urinary leakage episodes 75% and be able to walk to the toilet in the daytime w/o leaking. LTG Duration 05/31/24 One Impairment Pt lacks an independent self care HEP. Short Term Goal (STG) Pt will improve PF strength to 2/5 around the PF clock and demonstrate improved endurance hold of 5 secs. STG Duration 04/26/24 Earth Science Teacher Goal (LTG) Pt will be independent in a self care HEP for PF/hip strengthening, and general hip ROM stretches. 03/04/24: HEP: Quick & Long Hold Kegels. LTG Duration 05/31/24 progressed 03/04/24 Assessment Summary Assessment Pt is an 83 yo female who presents with PF weakness and primarily urge urinary incontinence. Pt reports leaking on her way to the toilet every 90-120 minutes during the day and 2-4 times at night, although pt insists she is waking only 2x at night , spouse says 2-4x. It is expected due to her comorbidities and admittedly memory problems, her PF rehabilitation may require longer therapy time and she will need the assist of her spouse to help promote self care with home exercises. The pt will benefit from skilled physical therapy to work towards achieving the above stated goals. Physical Therapy Plan Frequency and Duration Frequency of Treatment 1x/Week Duration of treatment (weeks) 12 Plan of Care Start Date 03/04/24 Plan of Care End Date 05/31/24 Therapeutic Interventions Therapeutic Interventions Home Exercise Program,Manual Therapy,Neuromuscular Re- education,Patient/Caregiver Education,Self-Care/Home Management,Soft Tissue Mobilization,Therapeutic Activities,Therapeutic Exercises Next Visit Focus/Plan Next Note Type Treatment Note Next Visit Plan Assess hip ROM/strength, Review Bladder dairy and discussed fluid intake (AM/PM) & pre-nighttime routine, educ in bladder retraining. Review PF strengthening ex's and add Aggrevator contractions. Education: genital/vulvar care, posture sit/stand. HEP of stretches/strengthening as needed. Ther Act: Transfer training and proper breathing with transfers. Exer: Deep breathing, PF strengthening, posture ex's. POC: Pt education, Manual therapy, Therapeutic Exercises , Therapeutic Activities, Neuromuscular Reeducation.
--- NOTE | 2024-03-15 15:48 | PT.OTN ---
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 PT-OP-B Current Condition Start: 03/02/24 12:42 Freq: Status: Active Protocol: Document 03/04/24 11:35 LRN (Rec: 03/04/24 12:27 LRN [id number]) Current Condition History of Current Condition Onset Date 07/2023 Current Complaints Frequent urinary incontinence. History of Current Condition Pt states she has a poor memory, request spouse be present. Pt reports she started having urinary leaking after colostomy bag placed 07/2023. Colostomy bag placed due to anal prolapse that she reports was not appropriate for anal surgery repair. After surgery she had an abcess with drainage tube that has been removed. She is left with a colostomy bag. Pt reports several yrs ago, then stated 10 yrs ago she had a colosotomy bag due to ruptured colon, then ended with rectal prolapse so had the bag replaced. Pt states she toilets every 90-120 minutes during the day and 2-4x/night but lately 2x/night (her spouse feels it is 2-4x/night) . Prior Treatments and Tests None Developmental History Developmental History 2 children of vaginal w/ o complications (2nd child fast ) and no urinary leakage. Treatment Goals Patient/Caregiver Goals Pt goals: -less incontinence episodes. -pt agreeable to HEP. Personal Factors Other Personal Factors That May Effect Self reported memory problem. Therapy/Recovery Permanent Colostomy Bag. Scoliosis & Osteoporosis. Uses 4WW for a yr since fall 1 .5 yrs ago demonstrating a bent forward posture. PT-OP-C Subjective Start: 03/04/24 18:19 Freq: Status: Active Protocol: Document 03/15/24 09:03 LRN (Rec: 03/15/24 12:38 LRN [id number]) OP-PT Subjective Patient Comments Patient Comments Has found blood from diaper rash vs from rectum. Mtg with JOHNNY Millard and she is now on a different cream for diaper rash. PT-OP-I Pelvic Floor Start: 03/02/24 12:42 Freq: Status: Active Protocol: Document 03/04/24 11:35 LRN (Rec: 03/04/24 12:27 LRN [id number]) Pelvic Floor Assessment Urine Leakage Cause Urge Leaks Per Day every 90-120 minutes when walking to bathroom Voiding Frequency every 90-120 minutes daytime Nocturia 2-4 Urine Pad Type Depends Bowel Other Bowel Symptoms Has colostomy bag. Bowel Movement Frequency Several times a day, changes bag every 6 days. Prolapse Cystocele Grade 2 Perineal Descent Bearing Present Contraction Ability Voluntary Relaxation Weak Manual Muscle Testing Left 0 Manual Muscle Testing Right 0 Manual Muscle Testing Anterior 1 Manual Muscle Testing Posterior 0 Muscle Endurance (Seconds) 3 Number of Quick Contractions In 10 4 Seconds Comments Pelvic Floor Comments Pt external PF tissues are extremely red and cysts are palpable in labia majora. PT-OP-J Posture/Palpation/Skin Start: 03/02/24 12:42 Freq: Status: Active Protocol: Document 03/04/24 11:35 LRN (Rec: 03/04/24 12:27 LRN [id number]) Posture Evaluation Position Standing Head/C-Spine Posture Forward Head T-Spine Posture Increased Kyphosis L-Spine Posture Flattened Shoulder Posture (R) Elevated Pelvis Posture (R) Iliac Crest Superior,(L) PSIS Posterior Comments Posture Comments Standing with 4WW for support and balance. Hips flexed 12 deg's. Scoliosis with L upper & R lower apex. Sitting posture - slumped. PT-OP-K Range of Motion Start: 03/02/24 12:42 Freq: Status: Active Protocol: Document 03/04/24 11:35 LRN (Rec: 03/04/24 12:27 LRN [id number]) Lumbar Spine Range of Motion Lumbar Spine Active Degrees Testing Position Standing Comments Pt not safe for standing trunk AROM assessment. Pt sits with slumped posture and mobilizes with use of 4WW. PT-OP-M Strength Start: 03/02/24 12:42 Freq: Status: Active Protocol: Document 03/04/24 11:35 LRN (Rec: 03/04/24 12:27 LRN [id number]) Trunk Strength Trunk Manual Muscle Testing Core Stabilization Decreased with MMT of LE's. Hip Strength Hip Manual Muscle Testing Right Flexion (L2) 3 Fair Extension (S1) 2 Poor Abduction 3 Fair External Rotation 4 Good Comments Strength is 5/5 except as indicated above. Left Flexion (L2) 3 Fair Extension (S1) 2 Poor Abduction 3 Fair External Rotation 3 Fair Comments Strength is 5/5 except as indicated above. PT-OP-Q Treatments Start: 03/02/24 12:42 Freq: Status: Active Protocol: Document 03/15/24 09:03 LRN (Rec: 03/15/24 12:38 LRN [id number]) Therapeutic Exercises Supine Exercises Kegels Supine Exercise Name Quick & Long hold Reps/Minutes 8' Sidelying Exercises Kegel w/Clamshell Sidelying Exercise Name Quick & Long hold Kegels Side bilateral Reps/Minutes 8' Kegel w/reverse clamhshell Sidelying Exercise Name Quick and Long hold Kegels. Side bilateral Reps/Minutes 8' Therapeutic Activity Therapeutic Activity Transfers w/coordination of breath and Kegels. Name Sup<>sit>stand Reps/Minutes 8' Comments Worked also with spouse for him to remind pt to do transfers. Self-Care/Home Management Treatment Education Caregiver Education Spouse present during entire therapy session. Other Education Educated pt in vulvar/genital care. Activities Self-Care/Home Management Activities Issued & reviewed handout for: Genital and Vulvar hygiene. Issued & reviewed HEP: Kegel w/clamshell & reverse clamshell. PT-OP-T Assessment and Plan Start: 03/02/24 12:42 Freq: Status: Active Protocol: Document 03/15/24 09:03 LRN (Rec: 03/15/24 12:38 LRN [id number]) Physical Therapy Assessment Goals Four Impairment Poor sitting posture Short Term Goal (STG) Pt will be educated and show understanding by showing effort in improved sitting posture. 03/15/24: Cueing and further education on proper sitting posture. STG Duration 04/19/24 progressing Computer Animator Goal (LTG) With improved posturing, pt will be able to tolerate supine lying for PF strengthening ex's. LTG Duration 05/31/24 Three Impairment Poor tissue health of Perineum (angry red coloration). Alf Goal (LTG) Pt will be educated and demonstrate improved genital/ vulvar care with decreased redness of her perineum. 03/15/24: Pt educated in genital/vulvar care w/handout issued. Pt given cortisone cream for pt's diaper rash by Megha Chaudhari and her last appt. LTG Duration 05/31/24 progressed 03/15/24 (need redness decreased) Two Impairment Urinary leakage every 90-120 minutes during the day and 2- 4x/night Short Term Goal (STG) Pt will be educated in bladder retraining and will be able to decrease urinary leakage 50 % of the time during the day. STG Duration 04/26/24 Computer Animator Goal (LTG) Pt will decrease urinary leakage episodes 75% and be able to walk to the toilet in the daytime w/o leaking. LTG Duration 05/31/24 One Impairment Pt lacks an independent self care HEP. Short Term Goal (STG) Pt will improve PF strength to 2/5 around the PF clock and demonstrate improved endurance hold of 5 secs. STG Duration 04/26/24 Alf Goal (LTG) Pt will be independent in a self care HEP for PF/hip strengthening, and general hip ROM stretches. 03/04/24: HEP: Quick & Long Hold Kegels. 03/15/24: HEP: Kegel w/ clamshell & reverse clamshell. LTG Duration 05/31/24 progressed 03/15/24 Assessment Summary Assessment 83 yo female with PF weakness and primarily urge urinary incontinence, with leakage heading to bathroom every 90- 120 minutes in AM, 2x (pt report) or 2-4x (spouse report ) at night. Pt reported memory problems and comorbidities is expected to prolong her rehab. Today, per bladder diary review I was not able to identify needed changes due to pt not reporting food or fluid input, only amt voided (mostly small identified) and that urges were present, pt is voiding quite frequently. Pt reports being able to perform kegels but not able to hold kegel long. Physical Therapy Plan Frequency and Duration Frequency of Treatment 1x/Week Duration of treatment (weeks) 12 Plan of Care Start Date 03/04/24 Plan of Care End Date 05/31/24 Next Visit Focus/Plan Next Note Type Treatment Note Next Visit Plan Next: Education: posture sit /stand, urge deference technique, urinary incontinence self help. Start HEP of stretches/ strengthening as needed. Ther Act: Transfer training and proper breathing with transfers. Exer: Deep breathing, PF strengthening, posture ex's. POC: Pt education, Manual therapy, Therapeutic Exercises , Therapeutic Activities, Neuromuscular Reeducation.
--- NOTE | 2024-09-03 13:56 | PT.OPDS ---
Current Diagnoses Segmental and somatic dysfunction of pelvic region (03/15/24) Unspecified urinary incontinence (03/15/24) Visit Care Team Role Provider Type Grisel Parsons DO Attending Provider Physician Family Provider Primary Care Provider Referring Provider Specialty: Medical Address: [address] [place] [address], [address], [place], [address] Email: [email or web address] Visit Number Visit Number 2 Discharge Summary PT-OP-B Current Condition Start: 03/02/24 12:42 Freq: Status: Active Protocol: Document 03/04/24 11:35 LRN (Rec: 03/04/24 12:27 LRN [id number]) Current Condition History of Current Condition Onset Date 07/2023 Current Complaints Frequent urinary incontinence. History of Current Condition Pt states she has a poor memory, request spouse be present. Pt reports she started having urinary leaking after colostomy bag placed 07/2023. Colostomy bag placed due to anal prolapse that she reports was not appropriate for anal surgery repair. After surgery she had an abcess with drainage tube that has been removed. She is left with a colostomy bag. Pt reports several yrs ago, then stated 10 yrs ago she had a colosotomy bag due to ruptured colon, then ended with rectal prolapse so had the bag replaced. Pt states she toilets every 90-120 minutes during the day and 2-4x/night but lately 2x/night (her spouse feels it is 2-4x/night) . Prior Treatments and Tests None Developmental History Developmental History 2 children of vaginal w/ o complications (2nd child fast ) and no urinary leakage. Treatment Goals Patient/Caregiver Goals Pt goals: -less incontinence episodes. -pt agreeable to HEP. Personal Factors Other Personal Factors That May Effect Self reported memory problem. Therapy/Recovery Permanent Colostomy Bag. Scoliosis & Osteoporosis. Uses 4WW for a yr since fall 1 .5 yrs ago demonstrating a bent forward posture. PT-OP-C Subjective Start: 03/04/24 18:19 Freq: Status: Active Protocol: Document 03/15/24 09:03 LRN (Rec: 03/15/24 12:38 LRN [id number]) OP-PT Subjective Patient Comments Patient Comments Has found blood from diaper rash vs from rectum. Mtg with JOHNNY Millard and she is now on a different cream for diaper rash. PT-OP-I Pelvic Floor Start: 03/02/24 12:42 Freq: Status: Active Protocol: Document 03/04/24 11:35 LRN (Rec: 03/04/24 12:27 LRN [id number]) Pelvic Floor Assessment Urine Leakage Cause Urge Leaks Per Day every 90-120 minutes when walking to bathroom Voiding Frequency every 90-120 minutes daytime Nocturia 2-4 Urine Pad Type Depends Bowel Other Bowel Symptoms Has colostomy bag. Bowel Movement Frequency Several times a day, changes bag every 6 days. Prolapse Cystocele Grade 2 Perineal Descent Bearing Present Contraction Ability Voluntary Relaxation Weak Manual Muscle Testing Left 0 Manual Muscle Testing Right 0 Manual Muscle Testing Anterior 1 Manual Muscle Testing Posterior 0 Muscle Endurance (Seconds) 3 Number of Quick Contractions In 10 4 Seconds Comments Pelvic Floor Comments Pt external PF tissues are extremely red and cysts are palpable in labia majora. PT-OP-J Posture/Palpation/Skin Start: 03/02/24 12:42 Freq: Status: Active Protocol: Document 03/04/24 11:35 LRN (Rec: 03/04/24 12:27 LRN [id number]) Posture Evaluation Position Standing Head/C-Spine Posture Forward Head T-Spine Posture Increased Kyphosis L-Spine Posture Flattened Shoulder Posture (R) Elevated Pelvis Posture (R) Iliac Crest Superior,(L) PSIS Posterior Comments Posture Comments Standing with 4WW for support and balance. Hips flexed 12 deg's. Scoliosis with L upper & R lower apex. Sitting posture - slumped. PT-OP-K Range of Motion Start: 03/02/24 12:42 Freq: Status: Active Protocol: Document 03/04/24 11:35 LRN (Rec: 03/04/24 12:27 LRN [id number]) Lumbar Spine Range of Motion Lumbar Spine Active Degrees Testing Position Standing Comments Pt not safe for standing trunk AROM assessment. Pt sits with slumped posture and mobilizes with use of 4WW. PT-OP-M Strength Start: 03/02/24 12:42 Freq: Status: Active Protocol: Document 03/04/24 11:35 LRN (Rec: 03/04/24 12:27 LRN [id number]) Trunk Strength Trunk Manual Muscle Testing Core Stabilization Decreased with MMT of LE's. Hip Strength Hip Manual Muscle Testing Right Flexion (L2) 3 Fair Extension (S1) 2 Poor Abduction 3 Fair External Rotation 4 Good Comments Strength is 5/5 except as indicated above. Left Flexion (L2) 3 Fair Extension (S1) 2 Poor Abduction 3 Fair External Rotation 3 Fair Comments Strength is 5/5 except as indicated above. PT-OP-T Assessment and Plan Start: 03/02/24 12:42 Freq: Status: Active Protocol: Document 09/03/24 13:55 KJ (Rec: 09/03/24 13:56 KJ Laptop) Physical Therapy Assessment Goals Four Impairment Poor sitting posture Short Term Goal (STG) Pt will be educated and show understanding by showing effort in improved sitting posture. 03/15/24: Cueing and further education on proper sitting posture. STG Duration 04/19/24 progressing Cigar Packer And Sorter Goal (LTG) With improved posturing, pt will be able to tolerate supine lying for PF strengthening ex's. LTG Duration 05/31/24 Three Impairment Poor tissue health of Perineum (angry red coloration). Care Home Goal (LTG) Pt will be educated and demonstrate improved genital/ vulvar care with decreased redness of her perineum. 03/15/24: Pt educated in genital/vulvar care w/handout issued. Pt given cortisone cream for pt's diaper rash by Megha Chaudhari and her last appt. LTG Duration 05/31/24 progressed 03/15/24 (need redness decreased) Two Impairment Urinary leakage every 90-120 minutes during the day and 2- 4x/night Short Term Goal (STG) Pt will be educated in bladder retraining and will be able to decrease urinary leakage 50 % of the time during the day. STG Duration 04/26/24 Care Home Goal (LTG) Pt will decrease urinary leakage episodes 75% and be able to walk to the toilet in the daytime w/o leaking. LTG Duration 05/31/24 One Impairment Pt lacks an independent self care HEP. Short Term Goal (STG) Pt will improve PF strength to 2/5 around the PF clock and demonstrate improved endurance hold of 5 secs. STG Duration 04/26/24 Cigar Packer And Sorter Goal (LTG) Pt will be independent in a self care HEP for PF/hip strengthening, and general hip ROM stretches. 03/04/24: HEP: Quick & Long Hold Kegels. 03/15/24: HEP: Kegel w/ clamshell & reverse clamshell. LTG Duration 05/31/24 progressed 03/15/24 Progress Towards Goals Progress Towards Goals Progressing Toward Goals,Slow Progress due to Attendance Issues Physical Therapy Plan Discharge Physical Therapy Discharge Reasons No Longer Attending PT Discharge Comments Initial evaluation 03/04/24. Attended one follow up visit on 03/15/24. Cancelled remaining appointments without rescheduling, therefore will be discharged.
== END 2024-09-03 14:34 | disposition home or self-care (01) ==
LOC: PHYS 09:00
PROVIDERS: Family Provider Family Medicine; PCP Family Medicine; Referring Provider Family Medicine; Visit Provider Family Medicine
DX: R32 Unspecified urinary incontinence (principal); M99.05 Segmental and somatic dysfunction of pelvic region
CPT/HCPCS: 97110; 97162; 97530; 97535

== ENCOUNTER → 2024-04-23 17:32 | Outpatient (CLI) | payer MEDICARE, OTHER, SELFPAY ==
[2024-04-23 18:31] LABS: Alanine Aminotransferase 22 IU/L (<35); Albumin 4.4 g/dL (3.5-5.0); Albumin Globulin Ratio 0.9 (1.0-2.8); Alkaline Phosphatase 108 U/L (38-126); Aspartate Aminotransferase 50 IU/L (14-36); BUN Creatinine Ratio 40.9 (6-22); Bilirubin Total 0.5 mg/dL (0.2-1.3); Blood Urea Nitrogen 27 mg/dL (7-17); Calcium 10.1 mg/dL (8.4-10.2); Carbon Dioxide 25 mmol/L (22-32); Chloride 104 mmol/L (98-107); Estimated Glomerular Filt Rate > 60 mL/min (>60); Globulin 4.8 g/dL (1.7-4.1); Glucose 117 mg/dL (80-110); HEMOLYSIS < 15 (0-50); Potassium 4.1 mmol/L (3.4-5.1); Sodium 137 mmol/L (137-145); Total Protein 9.2 g/dL (6.3-8.2)
== END ==
LOC: LAB 17:32
PROVIDERS: Family Provider Family Medicine; PCP Family Medicine; Referring Provider Family Medicine; Visit Provider Family Medicine
DX: M48.061 Spinal stenosis, lumbar region without neurogenic claudication (principal); M47.816 Spondylosis without myelopathy or radiculopathy, lumbar region; Z79.899 Other long term (current) drug therapy
CPT/HCPCS: 36415; 80053

== ENCOUNTER 2024-06-04 13:25 | Outpatient (CLI) | payer MEDICARE, OTHER, SELFPAY ==
[2024-06-04] VITALS (8 sets, daily range): BP systolic 108–141; BP diastolic 60–78; PULSE 66–83; RESP 12–18; TEMP 36.1; O2SAT 96–98
--- NOTE | 2024-06-04 13:26 | DI.RAD.S_ITS ---
PROCEDURE: PAIN L/S FACET INJ/BLK 1ST CRAIG INDICATIONS: Bilateral L3-L4 and L5 medial branch block LA COMPARISON: [facility], CR, XR LUMBAR SPINE MIN 4V, 01/19/2024, 15:25. FINDINGS/IMPRESSION: Fluoroscopic spot filming was performed to verify placement of spinal needles at the bilateral L3, L4, L5 level(s), as labeled on the films. Appropriate location(s) of the needle tip(s) was confirmed by injection of iodinated contrast. Dictated by: Dimitrios Aden M.D. on 06/04/2024 at 23:02 Approved by: Dimitrios Aden M.D. on 06/04/2024 at 23:03
[2024-06-04] MEDS: MIDAZOLAM 2 MG/2 ML VIAL 1 MG IV (14:40)
[2024-06-04] MEDS: LIDOCAINE 1% 20 ML 5 ML INJ (14:47)
[2024-06-04] MEDS: BUPIVACAINE 0.5% (PF) 10 ML VIAL 5 ML INJ (14:47)
[2024-06-04] MEDS: iopamidoL 15 ML VIAL 3 ML INJ (14:48)
--- NOTE | 2024-06-04 15:02 | P.PCN_ITS ---
Date/Time/Diagnoses Date of procedure: 06/26/24 Time of procedure: 15:02 Pre-procedure diagnosis: FACET ARTHROPATHY Post-procedure diagnosis: same Procedure Notes Procedure: 1. BILATERAL L3, L4 AND L5 DIAGNOSTIC MB BLOCKS Indications: Tita is referred by Dr. Parsons for treatment of Bilateral Axial LBP. Physician: Sudhir Lezama Total Fluoroscopy time (seconds): 10 Total sedation minutes: 15 Complications: none Procedure in detail & Post-procedure care: DESCRIPTION OF PROCEDURE Fluoroscopically guided, contrast-controlled bilateral L3, L4 AND L5 medial branch blocks with 0.5cc of 0.5% Marcaine. Following review of allergy and review of potential side effects and complications, including, but not necessarily limited to, infection, allergic reaction, local tissue breakdown, nerve injury, paralysis, stroke and possible , the patient indicated that the patient understood and agreed to proceed. An informed consent document was signed by the patient, witnessed by a nurse, and placed in the patient's chart. After review of previous anaesthesic history and IV conscious sedation the patient was deemed safe to proceed with today's procedure with IV conscious sedation as ASA class II designation. Safety time-out was performed to confirm patient ID, procedure to be performed and site of procedure. IV sedation was accomplished with a combination of 1mg of Versed was administered by the RN after DO order, titrated to patient comfort during the course of the procedure while the patient remained responsive to all verbal commands In the prone position, following sterile prep and drape of the lumbar region, the right L3, L4 AND L5 anatomical location of the medial branch of the dorsal ramus was identified fluoroscopically. Subsequently an anesthetic skin wheal using 1% lidocaine solution was initiated at each of the anatomical spots. Subsequently then a 22-gauge 3.5-inch spinal needle was atraumatically introduced and advanced under fluoroscopic guidance at each of the corresponding sites at the right L3, L4 and L5 MB. After negative aspiration, 0.2cc of Isovue 200 was injected, confirming placement without vascular or intrathecal uptake. Subsequently then 0.5cc of 0.5% Marcaine solution was injected at each of the corresponding sites at the right L3, L4 and L5 medial branch locations. The identical procedure was replicated on the left. The patient tolerated the proced ure well without signs or symptoms of complications. The patient tolerated the procedure well without signs or symptoms of complications prior to transfer to the recovery area continued monitoring without incident. Post-procedure, the patient was monitored initiating provocative activities to measure the amount of relief from block of the facetogenic pain. The patient reported a VAS of 7 prior to the procedure and a post-procedure VAS of 1. It has been a pleasure to assist in the diagnostic and therapeutic care of your patient. POST OP INSTRUCTIONS The patient was provided with a Pain Log to complete over the next several hours and subsequent days prior to the patient's follow up with the ordering physician. If the patient has telegraph editor relief to the solution applied, then they may be a candidate for medial branch rhizotomy. The patient is aware, was provided, once again, with a Pain Log and will follow up with the referring physician for review and clinical correlation
== END 2024-06-04 15:20 | disposition home or self-care (01) ==
PROVIDERS: Family Provider Family Medicine; PCP Family Medicine; Referring Provider Physical Medicine & Rehabilitation; Visit Provider Physical Medicine & Rehabilitation
DX: M47.816 Spondylosis without myelopathy or radiculopathy, lumbar region (principal)
CPT/HCPCS: 64493; 64494; 64495; 99152; J2250

== ENCOUNTER 2024-08-13 13:18 | Outpatient (CLI) | payer MEDICARE, OTHER, SELFPAY ==
[2024-08-13] VITALS (7 sets, daily range): BP systolic 130–148; BP diastolic 73–82; PULSE 77–95; RESP 14–16; TEMP 36.7; O2SAT 93–99
[2024-08-13] MEDS: MIDAZOLAM 2 MG/2 ML VIAL 1 MG IV (14:25)
[2024-08-13] MEDS: LIDOCAINE 2% INJ MDV 20ML 5 ML INJ (14:28)
[2024-08-13] MEDS: LIDOCAINE 1% 20 ML 5 ML INJ (14:29)
[2024-08-13] MEDS: iopamidoL 15 ML VIAL 3 ML INJ (14:29)
--- NOTE | 2024-08-13 14:47 | P.PCN_ITS ---
Date/Time/Diagnoses Date of procedure: 08/13/24 Time of procedure: 14:47 Pre-procedure diagnosis: 1. FACET ARTHROPATHY Post-procedure diagnosis: same Procedure Notes Procedure: 1. BILATERAL L3, L4 AND L5 DIAGNOSTIC MB BLOCKS Indications: Tita is referred by Dr. Parsons for treatment of Bilateral Axial LBP. Physician: Sudhir Lezama Total Fluoroscopy time (seconds): 12 Total sedation minutes: 15 Complications: none Procedure in detail & Post-procedure care: DESCRIPTION OF PROCEDURE Fluoroscopically guided, contrast-controlled bilateral L3, L4 AND L5 medial branch blocks with 0.5cc of 2% Lidocaine. Following review of allergy and review of potential side effects and complications, including, but not necessarily limited to, infection, allergic reaction, local tissue breakdown, nerve injury, paralysis, stroke and possible , the patient indicated that the patient understood and agreed to proceed. An informed consent document was signed by the patient, witnessed by a nurse, and placed in the patient's chart. After review of previous anaesthesic history and IV conscious sedation the patient was deemed safe to proceed with today's procedure with IV conscious sedation as ASA class II designation. Safety time-out was performed to confirm patient ID, procedure to be performed and site of procedure. IV sedation was accomplished with a combination of 1mg of Versed was administered by the RN after DO order, titrated to patient comfort during the course of the procedure while the patient remained responsive to all verbal commands In the prone position, following sterile prep and drape of the lumbar region, the right L3, L4 AND L5 anatomical location of the medial branch of the dorsal ramus was identified fluoroscopically. Subsequently an anesthetic skin wheal using 1% lidocaine solution was initiated at each of the anatomical spots. Subsequently then a 22-gauge 3.5-inch spinal needle was atraumatically introduced and advanced under fluoroscopic guidance at each of the corresponding sites at the right L3, L4 and L5 MB. After negative aspiration, 0.2cc of Isovue 200 was injected, confirming placement without vascular or intrathecal uptake. Subsequently then 0.5cc of 2% Lidocaine solution was injected at each of the corresponding sites at the right L3, L4 and L5 medial branch locations. The identical procedure was replicated on the left. The patient tolerated the proc edure well without signs or symptoms of complications. The patient tolerated the procedure well without signs or symptoms of complications prior to transfer to the recovery area continued monitoring without incident. Post-procedure, the patient was monitored initiating provocative activities to measure the amount of relief from block of the facetogenic pain. The patient reported a VAS of 7 prior to the procedure and a post-procedure VAS of 1. It has been a pleasure to assist in the diagnostic and therapeutic care of your patient. POST OP INSTRUCTIONS The patient was provided with a Pain Log to complete over the next several hours and subsequent days prior to the patient's follow up with the ordering physician. If the patient has salvage grinder relief to the solution applied, then they may be a candidate for medial branch rhizotomy. The patient is aware, was provided, once again, with a Pain Log and will follow up with the referring physician for review and clinical correlation
--- NOTE | 2024-08-14 17:23 | PC.NURSE ---
On 08/13/24 patient received 1 mg of Midazolam during her procedure. The second miligram of Midazolam was wasted with Cass Liu RN in recovery.
== END 2024-08-13 14:55 | disposition home or self-care (01) ==
PROVIDERS: Family Provider Family Medicine; PCP Family Medicine; Referring Provider Physical Medicine & Rehabilitation; Visit Provider Physical Medicine & Rehabilitation
DX: M47.816 Spondylosis without myelopathy or radiculopathy, lumbar region (principal)
CPT/HCPCS: 64493; 64494; 99152; J2250

== ENCOUNTER → 2025-01-22 13:03 | Outpatient (CLI) | payer MEDICARE, OTHER, SELFPAY | LOC: WC 13:09 | PROVIDERS: PCP Family Medicine; Referring Provider Family Medicine; Visit Provider Surgery | DX: K94.09 Other complications of colostomy (principal); K43.5 Parastomal hernia without obstruction or gangrene; Z88.2 Allergy status to sulfonamides | CPT/HCPCS: 99213 ==